=== PATIENT | female | born 1970 | race Caucasian/White ===

== ENCOUNTER → 2016-05-14 | Outpatient (REF) | payer MEDICARE, MEDICAID ==
[~2016-05-14] MED LIST: /DULO30CA PO; /PREG100CA PO; AMMO12CR4 EX; ASPI81TA45 PO; CYMB1CAP5 PO; DIFI200T PO; DIFL150T OR; DULO30CA PO; EMLA2.5C EX; EMLA2.5C TOP; EYEDRO OS; FEXO30TA PO; FLEX10TA2 PO; FLEXERIL PO; FLON0.054; FLON1SPR; GLUC1KIT SC; HYDR-3713 PO; HYDR-3716 PO; IBUP200T45 PO; IBUP800T OR; INSULADS SC; MELA0.02 PO; MOBI7.5T10 PO; NEUR300C PO; OXYC1SOL PO; OXYC5CAP28 PO; PENN1SOL2 TOP; PROB1TAB PO; PROBCAP4 PO; SLOWTAB3 PO; TYLENOL #3 OR; ULTR50TA PO; VICO5TAB PO; VIT D 2000 PO; VITA100037 PO; VITA250L PO; ZANT150T PO; ZETI10TA PO; ZYRT10CA PO; [UNRECOGNIZED DRUG - CODE] EX; [UNRECOGNIZED DRUG - CODE] PO; humalog insulin pump
== END ==
LOC: M SFHCWAGY 16:51
PROVIDERS: ATTEND Nurse Practitioner Family
DX: R30.9 Painful micturition, unspecified (principal)
CPT/HCPCS: 81002; 87086; 87210; G0463

== ENCOUNTER → 2016-05-19 | Outpatient (CLI) | payer MEDICARE, MEDICAID ==
[~2016-05-19] MED LIST changes: -HYDR-3713 PO; +HYDR1TAB97 PO; -IBUP200T45 PO; +IBUP20TA PO
--- NOTE | 2016-05-21 01:43 | ECWPNPC ---
PATIENT NAME: VIC DUNN : 1970 GENDER: FEMALE VISIT DATE: 05/19/2016 DISCHARGE DATE: 05/19/16 09 VISIT LOCKED DATE TIME: PHYSICIAN: DAYNA ANGLIN PHYSICIAN PAGER NO: [phone] RESOURCE: DAYNA ANGLIN REASON FOR APPOINTMENT 1. FOLLOWUP-NECK/SHOULDERS HISTORY OF PRESENT ILLNESS HISTORY OF PRESENT ILLNESS: PAIN THE PATIENT DESCRIBES THE PAIN... FALL RISK SCREENING: SCREENING :NO FALLS IN THE PAST YEAR TODAY'S VISIT: NOTES: RATES PAIN LEVEL TODAY 4/10. HAS HAD A DIFFICULT TIME WITH MAKING DECREASE IN HYDROCODONE BUT HAS BEEN ABLE TO USE ONE A DAY OR LESS. IS REALLY WORRIED ABOUT LEFT NECK LYMPH NODE SWELLING. NECK AND SHOULDER ARE NOT PAINFUL BUT DOES GET STIFF. DID SEE DR QUEEN LAST WEEK. NOTES LEGS ARE BURNING HOT WHEN GOING TO BED.. CURRENT MEDICATIONS TAKING MAGNESIUM 250 MG TABLET 1 TABLET WITH A MEAL ORALLY ONCE A DAY, NOTES: ON HOLD DUE TO DIARRHEA TAKING HYDROCODONE-ACETAMINOPHEN 325-5 MG TABLET 1 TABLET NEEDED ORALLY TID PRN, MAXIMUM 3 TABLETS PER DAY TAKING VITAMIN D 5000 TABLET 1 TABLET ORALLY ONCE A DAY TAKING AMMONIUM LACTATE 12 % CREAM 1 APPLICATION TO AFFECTED AREA EXTERNALLY TWICE A DAY TAKING MULTIVITAMIN _ 1 TAB ORALLY ONCE DAILY TAKING IBUPROFEN 200 MG TABLET 1 TABLET NEEDED ORALLY EVERY 6 HRS TAKING INSULIN PUMP ACCESSORIES MISCELLANEOUS DIRECTED TAKING HUMALOG 100 UNIT/ML SOLUTION DIRECTED VIA PUMP SUBCUTANEOUS 24 HOURS TAKING PROBIOTIC _ CAPSULE 1 CAP(S) ORALLY ONCE DAILY TAKING CYCLOBENZAPRINE HCL 5 MG TABLET 1/2-1 TABLET ORALLY THREE TIMES A DAY NEEDED TAKING PENNSAID 1.5 % SOLUTION APPLY TO SHOLDERS, NECK AND CHEST TRANSDERMAL FOUR TIMES DAILY, NOTES: ON HOLD DUE TO DIARRHEA TAKING PENNSAID 2 % SOLUTION 2 APPLICATIONS TO AFFECTED AREA TRANSDERMAL FOUR TIMES DAILY TAKING METANX 3-90.314-2-35 MG CAPSULE ORALLY TAKING MELATONIN 1 MG/4ML LIQUID 250MCG ORALLY DAILY TAKING ZYRTEC ALLERGY 10 MG TABLET 1 TABLET ORALLY ONCE DAILY NEEDED TAKING NORCO 5-325 MG TABLET 1 TABLET ORALLY EVERY 4-6 HRS PRN PAIN MDD=3 FOR DAY TIME USE TAKING FLONASE 50 MCG/ACT SUSPENSION 1 SPRAY IN EACH NOSTRIL NASALLY ONCE A DAY NOT-TAKING L-THEANINE MEDICATION LIST REVIEWED AND RECONCILED WITH THE PATIENT PAST MEDICAL HISTORY TYPE 1 DIABETES (INSULIN PUMP)--[facility]- HAS DM-RETINOPATHY/NEUROPATHY HYPERLIPIDEMIA DEGENERATION OF LUMBAR DISCS--DISABLED, GOES TO PAIN CENTER AT [facility] CARPAL TUNNEL SYNDROME ALLERGY VITAMIN D DEFICIENCY BENIGN THYROID NODULE LEFT SHOULDER PAIN CHRONIC PAIN, MANAGED BY PAIN CENTER C DIFFICILE COLITIS, PROLONGED COURSE 12/21-05/24, PROB DUE TO CLINDA; NEEDED STOOL TRANSPLANT [facility] 04/22 2012 BORDERLINE B12 DEFIC 11/20 BARRETTS ESOPHAGUS BX 12/18, NEG BX 04/22 MONONUCLEOSIS-- + EBV IGM 08/22; SAW ID 12/[id number], DX WITH CHRONIC MONO ALLERGIES STATINS: ELEVATED LFT: SIDE EFFECTS AUGMENTIN: DECREASES URINE OUT PUT: SIDE EFFECTS LYRICA: DECREASED BLOOD SUGAR: ALLERGY IBUPROFEN: DIARRHEA: SIDE EFFECTS CLINDAMYCIN HCL: C-DIFFICILE: SIDE EFFECTS GABAPENTIN: SEVERE DIZZINESS: SIDE EFFECTS CYMBALTA: ALKYLATION OPERATOR: SIDE EFFECTS SOCIAL HISTORY TOBACCO USE ARE YOU A:NONSMOKER LEARNING BARRIERS / SPECIAL NEEDS ORIENTED TO PLAN OF CARE: PATIENT, PAIN MANAGEMENT PATIENT, ORIENTED TO PLAN OF CARE: PATIENT, PAIN MANAGEMENT PATIENT. NEW PATIENT PAIN DIARY TODAY'S VISITNOTES FROM 0-10, WHAT LEVEL IS YOUR PAIN TODAY?0 PAIN CLINIC PFS, CLERGY, PUBLIC HEALTH REFERRALS PFS REFERRAL NEEDED?NO CLERGY REFERRAL NEEDED?NO PUBLIC HEALTH REFERRAL NEEDED?NO WAS THE PROVIDER NOTIFIED OF ANY PERTINENT INFO?NO PFS REFERRAL NEEDED?NO CLERGY REFERRAL NEEDED?NO PUBLIC HEALTH REFERRAL NEEDED?NO WAS THE PROVIDER NOTIFIED OF ANY PERTINENT INFO?NO REVIEW OF SYSTEMS CONSTITUTIONAL: ANY CHANGE IN YOUR MEDICAL CONDITION? NO . CHILLS NO . FEVER NO . INFECTION: DO YOU HAVE NEW INFECTIONS? NO . DO YOU HAVE HISTORY OF MRSA? NO . MUSCULOSKELETAL: ANY NEW PATTERNS OF PAIN OR NUMBNESS? YES LEGS GETTING BURNING HOT WHEN SHE GOES TO BED . GASTROENTEROLOGY: ANY NEW CHANGE IN BOWEL CONTROL? NO . GENITOURINARY: ANY NEW CHANGE IN BLADDER CONTROL? NO . IS THERE A CHANCE YOU COULD BE ? NO . HEMATOLOGY/LYMPH: DO YOU TAKE ANY BLOOD THINNERS? (FOR EXAMPLE- COUMADIN, PLAVIX, AGGRENOX, PLATEL, PRADAXA, OR XARELTO) NO . WHEN WAS YOUR LAST DOSE? DATE: TIME: . NEUROLOGY: HAVE YOU FALLEN IN THE PAST 6 MONTHS? NO . ANY NEW EXTREMITY NUMBNESS OR WEAKNESS? NO . PERIPHERAL NEUROPATHY JAIRO FEET ARE ICE COLD, AND LEGS ARE ON FIRE. . CARDIOLOGY: DO YOU HAVE A PACEMAKER OR DEFIBRILLATOR? NO . RESPIRATORY: HAVE YOU BEEN SICK IN THE PAST WEEK? YES DUE MORENA GORDON . FEVER NO . FLU LIKE SYMPTOMS? NO . COUGH NO . INTEGUMENTARY: DO YOU HAVE ANY RASHES OR OPEN SORES? NO . ALLERGIC/IMMUNO: ARE YOU ALLERGIC TO SHELLFISH OR IV DYE? NO . ANY NEW ALLERGIES? NO . PSYCHIATRIC: DO YOU HAVE THOUGHTS OF HURTING YOURSELF OR SOMEONE ELSE? NO . ARE YOU ABUSED, NEGLECTED, OR IN AN UNSAFE ENVIRONMENT? NO . ENDOCRINOLOGY: ARE YOU DIABETIC? YES . OTHER: DO YOU NEED ANY PRESCRIPTIONS? YES HYDROCODONE . IF YES, PLEASE LIST: ____ . ANY NEW PROBLEMS WITH YOUR MEDICATIONS? NO . WHEN DID YOU LAST EAT? ____ . WHEN DID YOU LAST DRINK? ____ . WHAT DID YOU LAST DRINK? ____ . NAME OF PERSON DRIVING YOU HOME? ____ . DO YOU HAVE ANY OTHER QUESTIONS OR CONCERNS NO . REVIEWED BY: PROVIDER: . VITAL SIGNS WT 163 LBS, HT 64 IN, BMI 27.98 INDEX, BP 124/69 MM HG, HR 100 /MIN, RR 16 /MIN, TEMP 98.6 F, OXYGEN SAT % 100. EXAMINATION GENERAL EXAMINATION: PSYCHALERT , ORIENTED X 3 , APPROPRIATE MOOD AND AFFECT . NECK:SMALL TENDER ENLARGED LYMPH NODE LEFT ANTERIOR CERVICAL CHAIN. NO THYROMEGLY. LUNGS:CLEAR TO AUSCULTATION BILATERALLY. HEART:HEART RATE REGULAR. MUSCULOSKELETAL:MUSCLE STRENGTH TESTING 5/5 BILATERAL UPPER AND LOWER EXTREMITIES. MILD TENDERNESS OVER LEFT GREATER THAN RIGHT SCAPULA. . JOINTS:BILATERAL, SHOULDER JOINTS STIFF. CAN REACH TO TOP OF HEAD BUT CAN NOT DO THIS FOR PROLONGED PERIODS. 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 CLINICAL NOTES: #128 - SCREENING BMI AND F/U PLAN IN : BMI ABOVE NORMAL TODAY. DISCUSSED WITH PATIENT NUTRITIONAL FOOD CHOICES TO ASSIST WITH WEIGHT LOSS. RECCOMMENDED REDUCING SALT, SUGAR, SODA INTAKE. RECOMMEND INCREASE ACTIVITY TO INCLUDE WALKING ON A REGULAR BASIS. PROFESSIONAL NUTRITIONAL NUTRITIONAL GUIDANCE IS BEING DONE THROUGH THE [facility]. PROCEDURE CODES FA211 ESTABILISHED PATIENT [facility] CHARGE G8783 BP SCR PRFRM RCMDD DEFIND SCR INTVL G8730 PAIN ASSESS POS TOOL F/U PLAN DOC 1124F ACP DISCUSS-NO DSCNMKR DOCD 1036F TOBACCO NON-USER 0518F FALL PLAN OF CARE DOCD G8427 DOC MEDS VERIFIED W/PT OR RE G8417 BMI >=30 CALCUATE W/FOLLOWUP 3288F FALL RISK ASSESSMENT DOCD 4004F PT TOBACCO SCREEN RCVD TLK FOLLOW UP 7 WEEKS ELECTRONICALLY SIGNED BY BRANDON ENRIQUEZ ON 05/19/2016 AT 11:35 AM EST DISCLAIMER : THIS IS A VISIT SUMMARY EXTRACTED FROM THE [employer] CHART. IT IS NOT A COPY OF THE [employer] PROGRESS NOTE. PATRIZIA
== END ==
LOC: M PAIN 08:40
PROVIDERS: ATTEND Nurse Practitioner Family
DX: Z09 Encounter for follow-up examination after completed treatment for conditions other than malignant neoplasm (principal); G89.29 Other chronic pain; M50.93 Cervical disc disorder, unspecified, cervicothoracic region; M25.511 Pain in right shoulder; M79.1 Myalgia; E11.9 Type 2 diabetes mellitus without complications; E78.5 Hyperlipidemia, unspecified; M51.36 Other intervertebral disc degeneration, lumbar region; E55.9 Vitamin D deficiency, unspecified; Z88.8 Allergy status to other drugs, medicaments and biological substances; Z79.4 Long term (current) use of insulin; Z79.891 Long term (current) use of opiate analgesic; Z79.1 Long term (current) use of non-steroidal anti-inflammatories (NSAID); Z79.899 Other long term (current) drug therapy; Z86.19 Personal history of other infectious and parasitic diseases

== ENCOUNTER → 2016-05-25 | Outpatient (CLI) | payer MEDICARE, MEDICAID ==
[~2016-05-25] MED LIST changes: +HYDR-3713 PO; -HYDR1TAB97 PO; +IBUP200T45 PO; -IBUP20TA PO
--- NOTE | 2016-05-25 12:19 | REPMRS ---
Patient History The patient states she had a clinical breast exam in 05/2016. Family history of pancreatic cancer in maternal aunt at age 50 or over. Digital Woman Screen Mammo: May 25, 2016 - Exam #: [id number] Bilateral CC and MLO view(s) were taken. Technologist: Debora Ash, Technologist Prior study comparison: March 14, 2015, digital woman screen mammo performed at [facility]. December 20, 2012, digital bilateral screening mammo, performed at [facility]. FINDINGS: There are scattered fibroglandular densities. There is a moderate amount of residual fibroglandular tissue which is fairly symmetric. There is no interval development of dominant mass, architectural distortion, or clustered microcalcification typical of malignancy. There has been no change in the appearance of the mammogram from the prior studies. ASSESSMENT: BI-RADS/ACR category 1 mammogram. Negative. Recommendation Routine screening mammogram of both breasts in 1 year (for women over age 40). This mammogram was interpreted with the aid of an FDA-approved computer-aided dectection system. Electronically Signed By: John Eden MD 05/25/16 1929
== END ==
LOC: M WHC 11:04
PROVIDERS: ATTEND Nurse Practitioner Family
DX: Z12.31 Encounter for screening mammogram for malignant neoplasm of breast (principal)
CPT/HCPCS: G0202; G0463

== ENCOUNTER → 2016-06-14 | Outpatient (CLI) | payer MEDICARE, MEDICAID ==
--- NOTE | 2016-06-14 15:37 | REP ---
SOFT-TISSUE NECK ULTRASOUND: 06/14/2016. Comparison. Thyroid ultrasound 11/19/2015, 08/21/2014. Clinical history: Palpable enlarged node left neck, she states for over a year with some tenderness. Sonographic evaluation of the left submandibular region shows a few scattered nodes present, two largest are 1.9 x 0.7 x 0.5 cm and the other 1 x 0.6 x 0.4 cm. Smaller nodes are seen on the right side of which the largest is 5 x 4 x 2 mm. No other scanning performed or findings in these areas. Impression: 1. Mildly enlarged nodes left neck, the largest 1.9 x 0.7 x 0.5 cm. The other is a 1 x 0.6 x 0.4 cm. Nodes on the right are much smaller. No other finding. Signed by Daniel Stanley MD 06/14/2016 04:39 P
== END ==
LOC: M RAD 14:47
PROVIDERS: ATTEND Physician Assistant
DX: R59.0 Localized enlarged lymph nodes (principal); E78.2 Mixed hyperlipidemia; E53.8 Deficiency of other specified B group vitamins; E55.9 Vitamin D deficiency, unspecified

== ENCOUNTER → 2016-06-14 | Outpatient (REF) | payer MEDICARE, MEDICAID ==
[2016-06-14 13:09] LABS: FOLATE > 24.0 NG/ML (>5.4); VITAMIN B12 LEVEL > 2000 PG/ML (247-911)
[2016-06-14 13:10] LABS: ALBUMIN 3.5 GM/DL (3.2-5.2); ALBUMIN/GLOBULIN RATIO 1.09 (1.00-1.93); ALKALINE PHOSPHATASE 93 U/L (45-117); ALT/SGPT 51 U/L (12-78); ANION GAP 8 MEQ/L (8-16); AST/SGOT 20 U/L (15-37); BILIRUBIN,TOTAL 0.7 MG/DL (0.2-1.0); BLOOD UREA NITROGEN 15 MG/DL (7-18); CALCIUM LEVEL 8.8 MG/DL (8.5-10.1); CARBON DIOXIDE LEVEL 29 MEQ/L (21-32); CHLORIDE LEVEL 106 MEQ/L (98-107); CHOLESTEROL LEVEL 242 MG/DL (<200); CREATININE FOR GFR 0.72 MG/DL (0.55-1.02); GLOMERULAR FILTRATION RATE > 60.0 (>58); GLUCOSE, FASTING 185 MG/DL (70-105); POTASSIUM SERUM 4.3 MEQ/L (3.5-5.1); SODIUM LEVEL 143 MEQ/L (136-145); TOTAL PROTEIN 6.7 GM/DL (6.4-8.2); TRIGLYCERIDES LEVEL 98 MG/DL (<150)
== END ==
LOC: M LABDRWAD 12:06
PROVIDERS: ATTEND Nurse Practitioner Family
DX: E78.2 Mixed hyperlipidemia (principal); E53.8 Deficiency of other specified B group vitamins; E55.9 Vitamin D deficiency, unspecified

== ENCOUNTER → 2016-07-08 | Outpatient (CLI) | payer MEDICARE, MEDICAID ==
--- NOTE | 2016-07-09 01:11 | ECWPNPC ---
PATIENT NAME: VIC DUNN : 1970 GENDER: FEMALE VISIT DATE: 07/08/2016 DISCHARGE DATE: 07/08/16927 VISIT LOCKED DATE TIME: PHYSICIAN: DAYNA ANGLIN PHYSICIAN PAGER NO: [phone] RESOURCE: DAYNA ANGLIN REASON FOR APPOINTMENT 1. NECK/SHOULDERS HISTORY OF PRESENT ILLNESS HISTORY OF PRESENT ILLNESS: PAIN THE PATIENT DESCRIBES THE PAIN... FALL RISK SCREENING: SCREENING :NO FALLS IN THE PAST YEAR TODAY'S VISIT: NOTES: RATES PAIN TODAY 3/10. HAS RECENTLY STARTED ON REMERON AND IS NOTING AN IMPROVEMENT IN SLEEP AND MOOD. CHRONIC FATIGUE IS ALSO IMPROVED. STILL HAS LEFT SHOULDER AIN - NECK IS STIFF AND ACHEY. IS HAVING DIFFICULTY STILL WITH GASTROPARESIS SYMPTOMS DESPITE SIGNIFICANT WEAN OF OPIODS. . CURRENT MEDICATIONS TAKING MAGNESIUM 250 MG TABLET 1 TABLET WITH A MEAL ORALLY ONCE A DAY TAKING VITAMIN D 5000 TABLET 1 TABLET ORALLY ONCE A DAY TAKING AMMONIUM LACTATE 12 % CREAM 1 APPLICATION TO AFFECTED AREA EXTERNALLY TWICE A DAY TAKING MULTIVITAMIN _ 1 TAB ORALLY ONCE DAILY TAKING IBUPROFEN 200 MG TABLET 1 TABLET NEEDED ORALLY EVERY 6 HRS TAKING INSULIN PUMP ACCESSORIES MISCELLANEOUS DIRECTED TAKING HUMALOG 100 UNIT/ML SOLUTION DIRECTED VIA PUMP SUBCUTANEOUS 24 HOURS TAKING PROBIOTIC _ CAPSULE 1 CAP(S) ORALLY ONCE DAILY TAKING CYCLOBENZAPRINE HCL 5 MG TABLET 1/2-1 TABLET ORALLY THREE TIMES A DAY NEEDED TAKING PENNSAID 2 % SOLUTION 2 APPLICATIONS TO AFFECTED AREA TRANSDERMAL FOUR TIMES DAILY TAKING METANX 3-90.314-2-35 MG CAPSULE ORALLY TAKING ZYRTEC ALLERGY 10 MG TABLET 1 TABLET ORALLY ONCE DAILY NEEDED TAKING FLONASE 50 MCG/ACT SUSPENSION 1 SPRAY IN EACH NOSTRIL NASALLY ONCE A DAY TAKING NORCO 5-325 MG TABLET 1 TABLET ORALLY EVERY 4-6 HRS PRN PAIN MDD=3 FOR DAY TIME USE TAKING MIRTAZAPINE 15 MG TABLET 1/2 TABLET AT BEDTIME ORALLY BEFORE BEDTIME NOT-TAKING MELATONIN 1 MG/4ML LIQUID 250MCG ORALLY DAILY NOT-TAKING L-THEANINE MEDICATION LIST REVIEWED AND RECONCILED WITH THE PATIENT PAST MEDICAL HISTORY TYPE 1 DIABETES (INSULIN PUMP)--[facility]- HAS DM-RETINOPATHY/NEUROPATHY HYPERLIPIDEMIA DEGENERATION OF LUMBAR DISCS--DISABLED, GOES TO PAIN CENTER AT [facility] CARPAL TUNNEL SYNDROME ALLERGY VITAMIN D DEFICIENCY BENIGN THYROID NODULE LEFT SHOULDER PAIN CHRONIC PAIN, MANAGED BY PAIN CENTER C DIFFICILE COLITIS, PROLONGED COURSE 12/21-05/24, PROB DUE TO CLINDA; NEEDED STOOL TRANSPLANT [facility] 04/22 2012 BORDERLINE B12 DEFIC 11/20-- ORAL SUPPLEMENTATION, LEVEL RECOVERED 05/25 BARRETTS ESOPHAGUS BX 12/18, NEG BX 04/22 MONONUCLEOSIS-- + EBV IGM 08/22; SAW ID 12/22, DX WITH CHRONIC MONO (W/U FOR ADRENAL INSUFFICIENCY WAS WNL AT [facility] 04/23) LICKEN PLANUS ALLERGIES STATINS: ELEVATED LFT: SIDE EFFECTS AUGMENTIN: DECREASES URINE OUT PUT: SIDE EFFECTS LYRICA: DECREASED BLOOD SUGAR: ALLERGY IBUPROFEN: DIARRHEA: SIDE EFFECTS CLINDAMYCIN HCL: C-DIFFICILE: SIDE EFFECTS GABAPENTIN: SEVERE DIZZINESS: SIDE EFFECTS CYMBALTA: SHAREHOLDER: SIDE EFFECTS SOCIAL HISTORY GENERAL: TOBACCO USE ARE YOU A:NONSMOKER LEARNING BARRIERS / SPECIAL NEEDS ORIENTED TO PLAN OF CARE: PATIENT, PAIN MANAGEMENT PATIENT, ORIENTED TO PLAN OF CARE: PATIENT, PAIN MANAGEMENT PATIENT. NEW PATIENT PAIN DIARY TODAY'S VISITNOTES FROM 0-10, WHAT LEVEL IS YOUR PAIN TODAY?0 PAIN CLINIC PFS, CLERGY, PUBLIC HEALTH REFERRALS PFS REFERRAL NEEDED?NO CLERGY REFERRAL NEEDED?NO PUBLIC HEALTH REFERRAL NEEDED?NO WAS THE PROVIDER NOTIFIED OF ANY PERTINENT INFO?NO PFS REFERRAL NEEDED?NO CLERGY REFERRAL NEEDED?NO PUBLIC HEALTH REFERRAL NEEDED?NO WAS THE PROVIDER NOTIFIED OF ANY PERTINENT INFO?NO REVIEW OF SYSTEMS CONSTITUTIONAL: ANY CHANGE IN YOUR MEDICAL CONDITION? NO . CHILLS NO . FEVER NO . INFECTION: DO YOU HAVE NEW INFECTIONS? NO . DO YOU HAVE HISTORY OF MRSA? NO . MUSCULOSKELETAL: ANY NEW PATTERNS OF PAIN OR NUMBNESS? NO . GASTROENTEROLOGY: ANY NEW CHANGE IN BOWEL CONTROL? NO . GENITOURINARY: ANY NEW CHANGE IN BLADDER CONTROL? NO . IS THERE A CHANCE YOU COULD BE ? NO . HEMATOLOGY/LYMPH: GENERAL BEING REFERRED FOR LYMPH NODE BIOPSY . DO YOU TAKE ANY BLOOD THINNERS? (FOR EXAMPLE- COUMADIN, PLAVIX, AGGRENOX, PLATEL, PRADAXA, OR XARELTO) NO . WHEN WAS YOUR LAST DOSE? DATE: TIME: . NEUROLOGY: HAVE YOU FALLEN IN THE PAST 6 MONTHS? NO . ANY NEW EXTREMITY NUMBNESS OR WEAKNESS? NO . CARDIOLOGY: DO YOU HAVE A PACEMAKER OR DEFIBRILLATOR? NO . RESPIRATORY: HAVE YOU BEEN SICK IN THE PAST WEEK? NO . FEVER NO . FLU LIKE SYMPTOMS? NO . COUGH NO . INTEGUMENTARY: DO YOU HAVE ANY RASHES OR OPEN SORES? NO . ALLERGIC/IMMUNO: ARE YOU ALLERGIC TO SHELLFISH OR IV DYE? NO . ANY NEW ALLERGIES? NO . PSYCHIATRIC: DO YOU HAVE THOUGHTS OF HURTING YOURSELF OR SOMEONE ELSE? NO . ARE YOU ABUSED, NEGLECTED, OR IN AN UNSAFE ENVIRONMENT? NO . ENDOCRINOLOGY: ARE YOU DIABETIC? YES INSULIN PUMP - BLOOD SUGARS ARE REPORTED ELEVATED ON DAYS WHEN NOT TAKING HUYDROCODONE . OTHER: DO YOU NEED ANY PRESCRIPTIONS? YES HYDROCODONE . IF YES, PLEASE LIST: ____ . ANY NEW PROBLEMS WITH YOUR MEDICATIONS? NO . WHEN DID YOU LAST EAT? ____ . WHEN DID YOU LAST DRINK? ____ . WHAT DID YOU LAST DRINK? ____ . NAME OF PERSON DRIVING YOU HOME? ____ . DO YOU HAVE ANY OTHER QUESTIONS OR CONCERNS NO . REVIEWED BY: PROVIDER: DAYNA HOWE . VITAL SIGNS WT 164 LBS, HT 64 IN, BMI 28.15 INDEX, BP 115/71 MM HG, HR 94 /MIN, RR 16 /MIN, TEMP 96.6 F, OXYGEN SAT % 100, NA INITIALS TL 0848, REVIEWED BY: KG. EXAMINATION GENERAL EXAMINATION: GENERAL APPEARANCE:COLOR PINK, APPEARS COMFORTABLE. PSYCHALERT , ORIENTED X 3 , APPROPRIATE MOOD AND AFFECT . LUNGS:CLEAR TO AUSCULTATION. HEART:HEART RATE REGULAR. MUSCULOSKELETAL:MINIMAL MUSCULAR CONTRACTION OVER TRAPEZIUS WITH ALMOST NO SHOULDER ELEAVATION. , TRIGGER POINTS AND TIGHT FIBROUS BANDS IDENTIFIED OVER TRAPEZIUS AND OVER LEFT DELOID. ABLE TO ABDUSCT LEFT ARM TO >90 DEGREES. DECREASED ROM WITH NECK ROTATION TO LEFT. BOOSTER PUMP OILER STRENGTH EQUAL AND STRONG. ASSESSMENTS CERVICAL DISC DISORDER OF CERVICOTHORACIC REGION - M50.93 (PRIMARY) SHOULDER PAIN, BILATERAL - M25.511 MYALGIA - M79.1 CHRONIC PRESCRIPTION OPIATE USE - Z79.891 TREATMENT CERVICAL DISC DISORDER OF CERVICOTHORACIC REGION REFILL NORCO TABLET, 5-325 MG, 1 TABLET, ORALLY, EVERY 4-6 HRS PRN PAIN MDD=3 FOR DAY TIME USE, 30 DAYS, 30, REFILLS 0 NOTES: USE PAIN MEDS SPARINGLY. CONTINUE EXERCISES AND STRETCHES. PROCEDURE CODES FA211 ESTABILISHED PATIENT [facility] CHARGE R1128 PAIN ASSESS POS TOOL F/U PLAN DOC G8415 DOC MEDS VERIFIED W/PT OR RE DISPOSITION & COMMUNICATION FOLLOW UP 2 MONTHS ELECTRONICALLY SIGNED BY BRANDON ENRIQUEZ ON 07/08/2016 AT 09:32 AM EST DISCLAIMER : THIS IS A VISIT SUMMARY EXTRACTED FROM THE [employer] CHART. IT IS NOT A COPY OF THE [employer] PROGRESS NOTE. PATRIZIA
== END ==
LOC: M PAIN 08:40
PROVIDERS: ATTEND Nurse Practitioner Family
DX: Z09 Encounter for follow-up examination after completed treatment for conditions other than malignant neoplasm (principal); G89.29 Other chronic pain; M50.93 Cervical disc disorder, unspecified, cervicothoracic region; M25.511 Pain in right shoulder; M79.1 Myalgia; E11.9 Type 2 diabetes mellitus without complications; E78.5 Hyperlipidemia, unspecified; E55.9 Vitamin D deficiency, unspecified; D51.0 Vitamin B12 deficiency anemia due to intrinsic factor deficiency; E27.40 Unspecified adrenocortical insufficiency; Z88.8 Allergy status to other drugs, medicaments and biological substances; Z88.1 Allergy status to other antibiotic agents; Z88.6 Allergy status to analgesic agent; Z79.1 Long term (current) use of non-steroidal anti-inflammatories (NSAID); Z79.4 Long term (current) use of insulin; Z79.891 Long term (current) use of opiate analgesic; Z79.899 Other long term (current) drug therapy; Z87.19 Personal history of other diseases of the digestive system

== ENCOUNTER → 2016-07-15 | Outpatient (CLI) | payer MEDICARE, MEDICAID ==
--- NOTE | 2016-07-15 12:42 | REP ---
GASTRIC EMPTYING SCAN: Following the oral administration of 1.08 mCi technetium 99m sulfur colloid in two scrambled eggs and 2 ounces of water, multiple images of the upper abdomen performed in the anterior and posterior projections. At the end of 90 minutes, 53% of the ingested activity has emptied from the stomach. This yields a t1/2 of 87 minutes, which is normal. IMPRESSION: Normal gastric emptying time. Signed by Nathan Jamison MD 07/15/2016 04:42 P
== END ==
LOC: M RAD 08:14
PROVIDERS: ATTEND Physician Assistant Medical
DX: R11.0 Nausea (principal); R68.81 Early satiety; R10.13 Epigastric pain
CPT/HCPCS: 78264; A9541

== ENCOUNTER → 2016-07-15 | Outpatient (REF) | payer MEDICARE, MEDICAID ==
[2016-07-15 20:20] LABS: BLOOD UREA NITROGEN 16 MG/DL (7-18); CREATININE FOR GFR 0.72 MG/DL (0.55-1.02); GLOMERULAR FILTRATION RATE > 60.0 (>58)
== END ==
LOC: M LAB REF 09:57
PROVIDERS: ATTEND Otolaryngology
DX: R22.1 Localized swelling, mass and lump, neck (principal)

== ENCOUNTER → 2016-07-19 | Outpatient (CLI) | payer MEDICARE, MEDICAID ==
[~2016-07-19] MED LIST changes: +ISOVUE-370 76% 100ML VIAL (Q9967) As Ordered ONE
--- NOTE | 2016-07-19 10:02 | REP ---
CT NECK WITH CONTRAST: 07/19/2016. Comparison: CT 01/18/2013. Ultrasound 06/14/2016. Clinical history: Localized swelling or mass in the neck. The large nodes left neck on ultrasound 06/14/2016. Technique: The patient received a bolus of 75 mL Isovue 370 with scanning through the neck in both coronal and sagittal reconstructions provided. Findings: Sagittal images show slight loss of the normal cervical lordosis. There is cervical spondylosis at C7-T1 with anterior and posterior osteophytes. No compression deformity. The other vertebral body heights are maintained. The dens is intact . Its relationship to C1 is normal on all projections. The skull base, mastoids and visualized sinuses are intact. Posterior elements show spinous processes, lamina, pedicles, facets and transverse processes without fracture or destructive lesion. There is some facet arthritis at a few levels. The central canal shows stenosis at C7-T1 with a disc bulge and those posterior osteophytes. Foramina were adequate. The nasopharyngeal airway, oropharynx, hypopharynx, larynx and subglottic trachea were intact. There is a hypodense nodule in the left thyroid lobe unchanged. The neck strap muscles anteriorly and posteriorly are symmetric and normal. The submandibular and parotid glands were symmetric and unremarkable. Orbits and contents are intact. The valleculae, piriform sinuses and epiglottis were intact. Parapharyngeal spaces maintained normal fat planes. No prevertebral swelling or mass. BB marker at the site of the palpable area is directly over the inferior aspect of the left parotid gland but there is no mass in the parotid . Deep to that is a carotid space node with a short axis of 7.5 mm and a length of 16 mm. I do not see other nodes of similar size in the anterior or posterior cervical chain nor in the submandibular region. No supraclavicular mass. Impression: 1. There is a 16 x 7.5 mm node in the left carotid space deep to the parotid gland and superficial to the carotid and jugular vein. No other significant nodes. This is left-sided and is directly adjacent to the BB marker, just inferior to that marker which is overlying the lower margin of the normal parotid gland. 2. The left thyroid lobe shows a low density nodule unchanged. No other significant finding. Signed by Daniel Stanley MD 07/19/2016 03:53 P
== END ==
LOC: M RAD 08:16
PROVIDERS: ATTEND Otolaryngology
DX: R22.1 Localized swelling, mass and lump, neck (principal)
CPT/HCPCS: 70491; Q9967

== ENCOUNTER → 2016-09-07 | Outpatient (CLI) | payer MEDICARE, MEDICAID ==
[~2016-09-07] MED LIST changes: +CYCL5TA PO; -ISOVUE-370 76% 100ML VIAL (Q9967) As Ordered ONE; +MAGN64TASA PO; +METACAP3 PO; +ZYRT10TA2 PO; +emla cream TOP
--- NOTE | 2016-09-08 01:46 | ECWPNPC ---
PATIENT NAME: VIC DUNN : 1970 GENDER: FEMALE VISIT DATE: 09/07/2016 DISCHARGE DATE: 09/07/16914 VISIT LOCKED DATE TIME: PHYSICIAN: DAYNA ANGLIN PHYSICIAN PAGER NO: [phone] RESOURCE: DAYNA ANGLIN REASON FOR APPOINTMENT 1. NECK/SHOULDERS HISTORY OF PRESENT ILLNESS HISTORY OF PRESENT ILLNESS: PAIN THE PATIENT DESCRIBES THE PAIN... FALL RISK SCREENING: SCREENING :NO FALLS IN THE PAST YEAR TODAY'S VISIT: NOTES: RATES PAIN LEVEL TODAY 3/10. DESCRIBES PAIN INTERMITTANT, ACHING AND SORE. LEFT SCAPULA IS MOST BOTHERSOME. IS USING ICE, LIDOCAINE CREAM, LYING FLAT OR WITH NECK STRETCH. USES PAIN MEDS VERY INFREQUENTLY - ONLY A FEW PER WEEK.. CURRENT MEDICATIONS TAKING MAGNESIUM 250 MG TABLET 1 TABLET WITH A MEAL ORALLY ONCE A DAY TAKING VITAMIN D 5000 TABLET 1 TABLET ORALLY ONCE A DAY TAKING AMMONIUM LACTATE 12 % CREAM 1 APPLICATION TO AFFECTED AREA EXTERNALLY TWICE A DAY TAKING MULTIVITAMIN _ 1 TAB ORALLY ONCE DAILY TAKING IBUPROFEN 200 MG TABLET 1 TABLET NEEDED ORALLY EVERY 6 HRS TAKING INSULIN PUMP ACCESSORIES MISCELLANEOUS DIRECTED TAKING HUMALOG 100 UNIT/ML SOLUTION DIRECTED VIA PUMP SUBCUTANEOUS 24 HOURS TAKING CYCLOBENZAPRINE HCL 5 MG TABLET 1/2-1 TABLET ORALLY THREE TIMES A DAY NEEDED TAKING PENNSAID 2 % SOLUTION 2 APPLICATIONS TO AFFECTED AREA TRANSDERMAL FOUR TIMES DAILY TAKING METANX 3-90.314-2-35 MG CAPSULE ORALLY TAKING ZYRTEC ALLERGY 10 MG TABLET 1 TABLET ORALLY ONCE DAILY NEEDED TAKING NORCO 5-325 MG TABLET 1 TABLET ORALLY EVERY 4-6 HRS PRN PAIN MDD=3 FOR DAY TIME USE TAKING ZANTAC 75 75 MG TABLET 1 TABLET NEEDED ORALLY DAILY TAKING TRAZODONE HCL 50 MG TABLET 1 TABLET AT BEDTIME NEEDED ORALLY BEFORE BEDTIME NOT-TAKING L-THEANINE DISCONTINUED MIRTAZAPINE 15 MG TABLET 1 TABLET AT BEDTIME ORALLY BEFORE BEDTIME DISCONTINUED PROBIOTIC _ CAPSULE 1 CAP(S) ORALLY ONCE DAILY DISCONTINUED FLONASE 50 MCG/ACT SUSPENSION 1 SPRAY IN EACH NOSTRIL NASALLY ONCE A DAY DISCONTINUED MELATONIN 1 MG/4ML LIQUID 250MCG ORALLY DAILY MEDICATION LIST REVIEWED AND RECONCILED WITH THE PATIENT PAST MEDICAL HISTORY TYPE 1 DIABETES (INSULIN PUMP)--[facility]- HAS DM-RETINOPATHY/NEUROPATHY; GASTROPARESIS HYPERLIPIDEMIA DEGENERATION OF LUMBAR DISCS--DISABLED, GOES TO PAIN CENTER AT [facility] CARPAL TUNNEL SYNDROME ALLERGY VITAMIN D DEFICIENCY BENIGN THYROID NODULE LEFT (CT 07/23) LEFT SHOULDER PAIN CHRONIC PAIN, MANAGED BY PAIN CENTER C DIFFICILE COLITIS, PROLONGED COURSE 12/21-05/24, PROB DUE TO CLINDA; NEEDED STOOL TRANSPLANT [facility] 04/22 2012 BORDERLINE B12 DEFIC 11/20-- ORAL SUPPLEMENTATION, LEVEL RECOVERED 05/25 BARRETTS ESOPHAGUS BX 12/18, NEG BX 04/22 MONONUCLEOSIS-- + EBV IGM 08/22; SAW ID 12/22, DX WITH CHRONIC MONO (W/U FOR ADRENAL INSUFFICIENCY WAS WNL AT [facility] 04/23) LICHEN PLANUS DIABETIC GASTROPARESIS ALLERGIES STATINS: ELEVATED LFT: SIDE EFFECTS AUGMENTIN: DECREASES URINE OUT PUT: SIDE EFFECTS LYRICA: DECREASED BLOOD SUGAR: ALLERGY IBUPROFEN: DIARRHEA: SIDE EFFECTS CLINDAMYCIN HCL: C-DIFFICILE: SIDE EFFECTS GABAPENTIN: SEVERE DIZZINESS: SIDE EFFECTS CYMBALTA: MARKET RESEARCH SENIOR PROJECT MANAGER: SIDE EFFECTS REMERON: VARIOUS, SEE 07/23 TE: SIDE EFFECTS REVIEW OF SYSTEMS CONSTITUTIONAL: ANY CHANGE IN YOUR MEDICAL CONDITION? YES, GASTRO PORESIS AND TMJ . CHILLS NO . FEVER NO . INFECTION: DO YOU HAVE NEW INFECTIONS? NO . DO YOU HAVE HISTORY OF MRSA? NO . MUSCULOSKELETAL: ANY NEW PATTERNS OF PAIN OR NUMBNESS? NO . GASTROENTEROLOGY: GENERAL INCREASED ISSUES WITH GASTROPARESIS, CONSTIPATION AND BLOATING . ANY NEW CHANGE IN BOWEL CONTROL? NO . GENITOURINARY: ANY NEW CHANGE IN BLADDER CONTROL? NO . IS THERE A CHANCE YOU COULD BE ? NO . HEMATOLOGY/LYMPH: DO YOU TAKE ANY BLOOD THINNERS? (FOR EXAMPLE- COUMADIN, PLAVIX, AGGRENOX, PLATEL, PRADAXA, OR XARELTO) NO . WHEN WAS YOUR LAST DOSE? DATE: TIME: . NEUROLOGY: HAVE YOU FALLEN IN THE PAST 6 MONTHS? NO . ANY NEW EXTREMITY NUMBNESS OR WEAKNESS? NO . CARDIOLOGY: DO YOU HAVE A PACEMAKER OR DEFIBRILLATOR? NO . RESPIRATORY: HAVE YOU BEEN SICK IN THE PAST WEEK? NO . FEVER NO . FLU LIKE SYMPTOMS? NO . COUGH NO . INTEGUMENTARY: DO YOU HAVE ANY RASHES OR OPEN SORES? NO . ALLERGIC/IMMUNO: ARE YOU ALLERGIC TO SHELLFISH OR IV DYE? NO . ANY NEW ALLERGIES? NO . PSYCHIATRIC: DO YOU HAVE THOUGHTS OF HURTING YOURSELF OR SOMEONE ELSE? NO . ARE YOU ABUSED, NEGLECTED, OR IN AN UNSAFE ENVIRONMENT? NO . ENDOCRINOLOGY: ARE YOU DIABETIC? YES - HAVING DIFFICULTY WITH CONTROL - TO SEE THE [facility] SOON . OTHER: DO YOU NEED ANY PRESCRIPTIONS? NO . IF YES, PLEASE LIST: ____ . ANY NEW PROBLEMS WITH YOUR MEDICATIONS? NO . WHEN DID YOU LAST EAT? ____ . WHEN DID YOU LAST DRINK? ____ . WHAT DID YOU LAST DRINK? ____ . NAME OF PERSON DRIVING YOU HOME? ____ . DO YOU HAVE ANY OTHER QUESTIONS OR CONCERNS NO . REVIEWED BY: PROVIDER: . VITAL SIGNS WT 167 LBS, HT 64 IN, BMI 28.66 INDEX, BP 114/69 MM HG, HR 93 /MIN, RR 18 /MIN, TEMP 98.9 F, OXYGEN SAT % 99%, NA INITIALS AW 0849, REVIEWED BY: CM. EXAMINATION GENERAL EXAMINATION: GENERAL APPEARANCE:NO ACUTE DISTRESS, WELL NOURISHED AND HYDRATED. PSYCHAPPROPRIATE MOOD AND AFFECT , ALERT , ORIENTED X 3 . LUNGS:CLEAR TO AUSCULTATION BILATERALLY, NO WHEEZES, RHONCHI, RALES. HEART:NO MURMURS, REGULAR RATE AND RHYTHM. MUSCULOSKELETAL:MUSCLE STRENGTH TESTING 5/5 BILATERAL UPPER EXTREMITES. POINT TENDERNES OVER MID THORACIC SPINOUS PROCESSES AND OVER TRAPEZIUS MUSCLES BILATERALLY, LEFT > RIGHT. PAIN WITH ABDUCTION LEFT SHOULDER. DECREASED ROM WITH NECK FLEXION, EXTENSION AND ROTATION. ASSESSMENTS CERVICAL DISC DISORDER OF CERVICOTHORACIC REGION - M50.93 (PRIMARY) SHOULDER PAIN, BILATERAL - M25.511 MYALGIA - M79.1 CHRONIC PRESCRIPTION OPIATE USE - Z79.891 TREATMENT CERVICAL DISC DISORDER OF CERVICOTHORACIC REGION NOTES: CONTINUE CURRENT MEDS. EXERCISE AND STRETCH ABLE. CHECK WITH INFECTIOUS DISEASE/[place], AND DR TENA IS OK TO DO ANY INJECTION TREATMENT S TO LEFT SHOULDER AREA. CALL WHEN MEDS DUE. PROCEDURE CODES FA211 ESTABILISHED PATIENT [facility] CHARGE G8736 PAIN ASSESS POS TOOL F/U PLAN DOC G8427 DOC MEDS VERIFIED W/PT OR RE DISPOSITION & COMMUNICATION FOLLOW UP 3 MONTHS (REASON: NECK/SHOULDER PAIN) ELECTRONICALLY SIGNED BY BRANDON ENRIQUEZ ON 09/07/2016 AT 11:19 AM EDT DISCLAIMER : THIS IS A VISIT SUMMARY EXTRACTED FROM THE [employer] CHART. IT IS NOT A COPY OF THE [employer] PROGRESS NOTE. MTDD
== END ==
LOC: M PAIN 08:40
PROVIDERS: ATTEND Nurse Practitioner Family
DX: M50.93 Cervical disc disorder, unspecified, cervicothoracic region (principal); M25.511 Pain in right shoulder; M79.1 Myalgia; E10.41 Type 1 diabetes mellitus with diabetic mononeuropathy; E78.2 Mixed hyperlipidemia; F32.0 Major depressive disorder, single episode, mild; Z79.891 Long term (current) use of opiate analgesic; Z79.899 Other long term (current) drug therapy; Z79.4 Long term (current) use of insulin; Z88.1 Allergy status to other antibiotic agents; Z88.0 Allergy status to penicillin; Z88.8 Allergy status to other drugs, medicaments and biological substances

== ENCOUNTER → 2016-09-21 | Outpatient (REF) | payer MEDICARE, MEDICAID ==
[~2016-09-21] MED LIST changes: +FLUT1SPR2; +RANI150T PO; +TRAZ50TA4 PO
[2016-09-22 08:36] LABS: CONTROL LINE MONO INT CTR LINE PRESENT
== END ==
LOC: M SFHCADAM 14:12
PROVIDERS: ATTEND Family Medicine
DX: B27.90 Infectious mononucleosis, unspecified without complication (principal)
CPT/HCPCS: 86308; 86663; 86664; 86665; G0463

== ENCOUNTER 2016-10-20 09:00 | Outpatient (RCR) | payer MEDICARE, MEDICAID ==
[~2016-10-20 09:00] MED LIST changes: -CYCL5TA PO; +CYCL5TAB PO; -MELA0.02 PO; +MELA3TAB49 PO; +MOBI4TAB PO; -MOBI7.5T10 PO; -OXYC1SOL PO; +OXYC1SOL3 PO; +TRAZ50TA11 PO; -TRAZ50TA4 PO; -VITA100037 PO; +VITA100067 PO
== END 2016-11-05 ==
LOC: M PT 09:00
PROVIDERS: ATTEND Otolaryngology
DX: Z51.89 Encounter for other specified aftercare (principal); M26.602 Left temporomandibular joint disorder, unspecified
CPT/HCPCS: 97110; 97140; 97161; G8978; G8979

== ENCOUNTER → 2016-12-14 | Outpatient (CLI) | payer MEDICARE, MEDICAID ==
--- NOTE | 2017-01-01 23:38 | ECWPNPC ---
PATIENT NAME: VIC DUNN : 1970 GENDER: FEMALE VISIT DATE: 12/14/2016 DISCHARGE DATE: 12/14/16 0932 VISIT LOCKED DATE TIME: PHYSICIAN: DAYNA ANGLIN PHYSICIAN PAGER NO: [phone] RESOURCE: DAYNA ANGLIN REASON FOR APPOINTMENT 1. NECK AND SHOULDERS HISTORY OF PRESENT ILLNESS HISTORY OF PRESENT ILLNESS: PAIN THE PATIENT DESCRIBES THE PAIN... FALL RISK SCREENING: SCREENING :NO FALLS IN THE PAST YEAR TODAY'S VISIT: NOTES: RATES PAIN TODAY 4/10. STATES HAD BEEEN TAKING MAX OF HCD 2/WEEK, THEN HAD TO DRIVE TO [place] 5 DAYS A WEEK AND ALONG WITH STRESS CAUSED MARKED INCREASE IN PAIN. IS HAVING A NIGHT BRACE MADE FOR TMJ AND IS DOING ACCUPUNCTURE FOR NECK/SHOULDERS HAS HELPED. . CURRENT MEDICATIONS TAKING MAGNESIUM 250 MG TABLET 1 TABLET WITH A MEAL ORALLY ONCE A DAY TAKING VITAMIN D 5000 TABLET 1 TABLET ORALLY ONCE A DAY TAKING AMMONIUM LACTATE 12 % CREAM 1 APPLICATION TO AFFECTED AREA EXTERNALLY TWICE A DAY TAKING MULTIVITAMIN _ 1 TAB ORALLY ONCE DAILY TAKING IBUPROFEN 200 MG TABLET 1 TABLET NEEDED ORALLY EVERY 6 HRS TAKING INSULIN PUMP ACCESSORIES MISCELLANEOUS DIRECTED TAKING HUMALOG 100 UNIT/ML SOLUTION DIRECTED VIA PUMP SUBCUTANEOUS 24 HOURS TAKING CYCLOBENZAPRINE HCL 5 MG TABLET 1/2-1 TABLET ORALLY THREE TIMES A DAY NEEDED TAKING PENNSAID 2 % SOLUTION 2 APPLICATIONS TO AFFECTED AREA TRANSDERMAL FOUR TIMES DAILY TAKING METANX 3-90.314-2-35 MG CAPSULE ORALLY TAKING ZYRTEC ALLERGY 10 MG TABLET 1 TABLET ORALLY ONCE DAILY NEEDED TAKING ZANTAC 75 75 MG TABLET 1 TABLET NEEDED ORALLY DAILY TAKING TRAZODONE HCL 50 MG TABLET 1 TABLET AT BEDTIME NEEDED ORALLY BEFORE BEDTIME TAKING NORCO 5-325 MG TABLET 1 TABLET ORALLY EVERY 4-6 HRS PRN PAIN MDD=3 FOR DAY TIME USE NOT-TAKING L-THEANINE MEDICATION LIST REVIEWED AND RECONCILED WITH THE PATIENT PAST MEDICAL HISTORY TYPE 1 DIABETES (INSULIN PUMP)--[facility]- HAS DM-RETINOPATHY/NEUROPATHY; GASTROPARESIS HYPERLIPIDEMIA DEGENERATION OF LUMBAR DISCS--DISABLED, GOES TO PAIN CENTER AT [facility] CARPAL TUNNEL SYNDROME ALLERGY VITAMIN D DEFICIENCY BENIGN THYROID NODULE LEFT (CT 07/23) LEFT SHOULDER PAIN CHRONIC PAIN, MANAGED BY PAIN CENTER C DIFFICILE COLITIS, PROLONGED COURSE 12/21-05/24, PROB DUE TO CLINDA; NEEDED STOOL TRANSPLANT [facility] 04/22 2012 BORDERLINE B12 DEFIC 11/20-- ORAL SUPPLEMENTATION, LEVEL RECOVERED 05/25 BARRETTS ESOPHAGUS BX 12/18, NEG BX 04/22 MONONUCLEOSIS-- + EBV IGM 08/22; SAW ID 12/22, DX WITH CHRONIC MONO (W/U FOR ADRENAL INSUFFICIENCY WAS WNL AT [facility] 04/23) LICHEN PLANUS DIABETIC GASTROPARESIS ALLERGIES STATINS: ELEVATED LFT: SIDE EFFECTS AUGMENTIN: DECREASES URINE OUT PUT: SIDE EFFECTS LYRICA: DECREASED BLOOD SUGAR: ALLERGY IBUPROFEN: DIARRHEA: SIDE EFFECTS CLINDAMYCIN HCL: C-DIFFICILE: SIDE EFFECTS GABAPENTIN: SEVERE DIZZINESS: SIDE EFFECTS CYMBALTA: AUTOMATIC MOUNTER: SIDE EFFECTS REMERON: VARIOUS, SEE 07/23 TE: SIDE EFFECTS REVIEW OF SYSTEMS REVIEWED BY: PROVIDER: DAYNA HOWE . CONSTITUTIONAL: ANY CHANGE IN YOUR MEDICAL CONDITION? NO . CHILLS NO . FEVER NO . INFECTION: DO YOU HAVE NEW INFECTIONS? NO - STATES MONO HAS RESOLVED . DO YOU HAVE HISTORY OF MRSA? NO . MUSCULOSKELETAL: ANY NEW PATTERNS OF PAIN OR NUMBNESS? NO . GASTROENTEROLOGY: ANY NEW CHANGE IN BOWEL CONTROL? NO . GENITOURINARY: ANY NEW CHANGE IN BLADDER CONTROL? NO . IS THERE A CHANCE YOU COULD BE ? NO . HEMATOLOGY/LYMPH: DO YOU TAKE ANY BLOOD THINNERS? (FOR EXAMPLE- COUMADIN, PLAVIX, AGGRENOX, PLATEL, PRADAXA, OR XARELTO) NO . WHEN WAS YOUR LAST DOSE? DATE: TIME: . NEUROLOGY: HAVE YOU FALLEN IN THE PAST 6 MONTHS? NO . ANY NEW EXTREMITY NUMBNESS OR WEAKNESS? NO . CARDIOLOGY: DO YOU HAVE A PACEMAKER OR DEFIBRILLATOR? NO . RESPIRATORY: HAVE YOU BEEN SICK IN THE PAST WEEK? NO . FEVER NO . FLU LIKE SYMPTOMS? NO . COUGH NO . INTEGUMENTARY: DO YOU HAVE ANY RASHES OR OPEN SORES? NO . ALLERGIC/IMMUNO: ARE YOU ALLERGIC TO SHELLFISH OR IV DYE? NO . ANY NEW ALLERGIES? NO . PSYCHIATRIC: DO YOU HAVE THOUGHTS OF HURTING YOURSELF OR SOMEONE ELSE? NO . ARE YOU ABUSED, NEGLECTED, OR IN AN UNSAFE ENVIRONMENT? NO . ENDOCRINOLOGY: ARE YOU DIABETIC? YES - FOLLOWA WITH [facility] . OTHER: DO YOU NEED ANY PRESCRIPTIONS? NO . IF YES, PLEASE LIST: ____ . ANY NEW PROBLEMS WITH YOUR MEDICATIONS? NO . WHEN DID YOU LAST EAT? ____ . WHEN DID YOU LAST DRINK? ____ . WHAT DID YOU LAST DRINK? ____ . NAME OF PERSON DRIVING YOU HOME? ____ . DO YOU HAVE ANY OTHER QUESTIONS OR CONCERNS NO . PSYCHOLOGY: HIGH STRESS LEVEL FAMILY STRESS, FINANCIAL ISSUES., POOR SLEEP . VITAL SIGNS WT 164 LBS, HT 64 IN, BMI 28.15 INDEX, BP 124/73 MM HG, HR 95 /MIN, RR 18 /MIN, TEMP 97.4 F, OXYGEN SAT % 95%, SAFE IN ENV? (Y/N) YES, NA INITIALS AW 0855, REVIEWED BY: KG. EXAMINATION GENERAL EXAMINATION: GENERAL APPEARANCE:NO ACUTE DISTRESS, WELL NOURISHED AND HYDRATED. PSYCHAPPROPRIATE MOOD AND AFFECT , ALERT , ORIENTED X 3 . LUNGS:CLEAR TO AUSCULTATION BILATERALLY, NO WHEEZES, RHONCHI, RALES. HEART:RAPID. MUSCULOSKELETAL:MUSCLE STRENGTH TESTING 5/5 BILATERAL UPPER EXTREMITES. POINT TENDERNES OVER MID THORACIC SPINOUS PROCESSES AND OVER TRAPEZIUS MUSCLES BILATERALLY, LEFT > RIGHT. . ASSESSMENTS CERVICAL DISC DISORDER OF CERVICOTHORACIC REGION - M50.93 (PRIMARY) SHOULDER PAIN, BILATERAL - M25.511 MYALGIA - M79.1 CHRONIC PRESCRIPTION OPIATE USE - Z79.891 TREATMENT CERVICAL DISC DISORDER OF CERVICOTHORACIC REGION REFILL CYCLOBENZAPRINE HCL TABLET, 5 MG, 1/2-1 TABLET, ORALLY, THREE TIMES A DAY NEEDED, 30 DAY(S), 90, REFILLS 2 NOTES: CONTINUE CURRENT MEDS. CONTINUE ACCUPUNCTURE, CONTINUE EXERCISES AND STRETCHES. PROCEDURE CODES FA211 ESTABILISHED PATIENT [facility] CHARGE DISPOSITION & COMMUNICATION FOLLOW UP 2 MONTHS (REASON: NECK/SHOULDER PAIN) ELECTRONICALLY SIGNED BY BRANDON ENRIQUEZ ON 01/01/2017 AT 03:34 PM EDT DISCLAIMER : THIS IS A VISIT SUMMARY EXTRACTED FROM THE [employer] CHART. IT IS NOT A COPY OF THE [employer] PROGRESS NOTE. PATRIZIA
== END ==
LOC: M PAIN 08:40
PROVIDERS: ATTEND Nurse Practitioner Family
DX: M50.93 Cervical disc disorder, unspecified, cervicothoracic region (principal); M25.511 Pain in right shoulder; M79.1 Myalgia; E08.42 Diabetes mellitus due to underlying condition with diabetic polyneuropathy; E78.2 Mixed hyperlipidemia; E55.9 Vitamin D deficiency, unspecified; F32.0 Major depressive disorder, single episode, mild; Z79.891 Long term (current) use of opiate analgesic; Z79.899 Other long term (current) drug therapy; Z79.4 Long term (current) use of insulin; Z88.8 Allergy status to other drugs, medicaments and biological substances; Z88.1 Allergy status to other antibiotic agents

== ENCOUNTER → 2017-02-14 | Outpatient (CLI) | payer MEDICARE, MEDICAID | LOC: M PAIN 08:30 | PROVIDERS: ATTEND Nurse Practitioner Family | DX: Z53.29 Procedure and treatment not carried out because of patient's decision for other reasons (principal) ==

== ENCOUNTER → 2017-03-16 | Outpatient (CLI) | payer MEDICARE, MEDICAID ==
--- NOTE | 2017-04-07 02:07 | ECWPNPC ---
PATIENT NAME: VIC DUNN : 1970 GENDER: FEMALE VISIT DATE: 03/16/2017 DISCHARGE DATE: 03/16/17 0943 VISIT LOCKED DATE TIME: PHYSICIAN: DAYNA ANGLIN PHYSICIAN PAGER NO: [phone] RESOURCE: DAYNA ANGLIN REASON FOR APPOINTMENT 1. NECK/SHOULDERS HISTORY OF PRESENT ILLNESS HISTORY OF PRESENT ILLNESS: PAIN THE PATIENT DESCRIBES THE PAIN... FALL RISK SCREENING: SCREENING :NO FALLS IN THE PAST YEAR TODAY'S VISIT: NOTES: IS NOTING MARKED INCREASE IN LEFT ARM PAIN OVER THE LAST MONTH. NO AGGRAVATING FACTORS. ENTIRE ARM IS INVOLVED. PAIN CAN BE CONCENTRATED IN LEFT FROARM WITH RADIATION TO LEFT HAND. LEFT SHOULDER AND NECK ARE STILL VERY UNCOMFORTABLE. IS USING HEAT/MASSAGE, IS DOING SHOULDER AND CHAHAL EXERCISES WITH MIN RELIEF. HCD HELPS BUT TAKES INFREQ. CURRENT MEDICATIONS TAKING MAGNESIUM 250 MG TABLET 1 TABLET WITH A MEAL ORALLY ONCE A DAY TAKING VITAMIN D 5000 TABLET 1 TABLET ORALLY ONCE A DAY TAKING AMMONIUM LACTATE 12 % CREAM 1 APPLICATION TO AFFECTED AREA EXTERNALLY TWICE A DAY TAKING MULTIVITAMIN _ 1 TAB ORALLY ONCE DAILY TAKING IBUPROFEN 200 MG TABLET 1 TABLET NEEDED ORALLY EVERY 6 HRS TAKING INSULIN PUMP ACCESSORIES MISCELLANEOUS DIRECTED TAKING HUMALOG 100 UNIT/ML SOLUTION DIRECTED VIA PUMP SUBCUTANEOUS 24 HOURS TAKING PENNSAID 2 % SOLUTION 2 APPLICATIONS TO AFFECTED AREA TRANSDERMAL FOUR TIMES DAILY TAKING METANX 3-90.314-2-35 MG CAPSULE ORALLY TAKING ZYRTEC ALLERGY 10 MG TABLET 1 TABLET ORALLY ONCE DAILY NEEDED TAKING ZANTAC 75 75 MG TABLET 1 TABLET NEEDED ORALLY DAILY TAKING CYCLOBENZAPRINE HCL 5 MG TABLET 1/2-1 TABLET ORALLY THREE TIMES A DAY NEEDED TAKING NORCO 5-325 MG TABLET 1 TABLET ORALLY EVERY 4-6 HRS PRN PAIN MDD=3 TAKING TRAZODONE HCL 50 MG TABLET 1 TABLET AT BEDTIME NEEDED ORALLY BEFORE BEDTIME NOT-TAKING L-THEANINE MEDICATION LIST REVIEWED AND RECONCILED WITH THE PATIENT PAST MEDICAL HISTORY TYPE 1 DIABETES (INSULIN PUMP)--[facility]- HAS DM-RETINOPATHY/NEUROPATHY; GASTROPARESIS HYPERLIPIDEMIA DEGENERATION OF LUMBAR DISCS--DISABLED, GOES TO PAIN CENTER AT [facility] CARPAL TUNNEL SYNDROME ALLERGY VITAMIN D DEFICIENCY BENIGN THYROID NODULE LEFT (CT 07/23) LEFT SHOULDER PAIN CHRONIC PAIN, MANAGED BY PAIN CENTER C DIFFICILE COLITIS, PROLONGED COURSE 12/21-05/24, PROB DUE TO CLINDA; NEEDED STOOL TRANSPLANT [facility] 04/22 2012 BORDERLINE B12 DEFIC 11/20-- ORAL SUPPLEMENTATION, LEVEL RECOVERED 05/25 BARRETTS ESOPHAGUS BX 12/18, NEG BX 04/22 MONONUCLEOSIS-- + EBV IGM 08/22; SAW ID 12/22, DX WITH CHRONIC MONO; SAW ID AT [facility] 2016, TOLD HER CHRONIC MONO HAD RESOLVED (W/U FOR ADRENAL INSUFFICIENCY WAS WNL AT [facility] 04/23) LICHEN PLANUS DIABETIC GASTROPARESIS ALLERGIES STATINS: ELEVATED LFT: SIDE EFFECTS AUGMENTIN: DECREASES URINE OUT PUT: SIDE EFFECTS LYRICA: DECREASED BLOOD SUGAR: ALLERGY IBUPROFEN: DIARRHEA: SIDE EFFECTS CLINDAMYCIN HCL: C-DIFFICILE: SIDE EFFECTS GABAPENTIN: SEVERE DIZZINESS: SIDE EFFECTS CYMBALTA: ANESTHESIOLOGIST ATTENDING: SIDE EFFECTS REMERON: VARIOUS, SEE 07/23 TE: SIDE EFFECTS SURGICAL HISTORY LEFT ROTATOR CUFF REPAIR 07/20 D + C 1995 LEFT SHOULDER MANIPULATION 07/26/14 JAIRO CARPAL TUNNEL FECAL TRANSPLANT 04/2015 SOCIAL HISTORY GENERAL: TOBACCO USE ARE YOU A:NONSMOKER BMI CARE GOAL FOLLOW-UP ABOVE NORMAL BMI FOLLOW-UPLIFESTYLE EDUCATION REGARDING DIET ALCOHOL SCREENING DID YOU HAVE A DRINK CONTAINING ALCOHOL IN THE PAST YEAR?YES HOW OFTEN DID YOU HAVE SIX OR MORE DRINKS ON ONE OCCASION IN THE PAST YEAR?NEVER (0 POINTS) HOW MANY DRINKS DID YOU HAVE ON A TYPICAL DAY WHEN YOU WERE DRINKING IN THE PAST YEAR?1 OR 2 (0 POINTS) HOW OFTEN DID YOU HAVE A DRINK CONTAINING ALCOHOL IN THE PAST YEAR?MONTHLY OR LESS (1 POINT) POINTS1 INTERPRETATIONNEGATIVE RECREATIONAL DRUG USE DRUG USE?NO CAFFEINE CAFFEINE USE?YES 1 CUP COFFEE LATTER-DAY [id number] NONE LEARNING BARRIERS / SPECIAL NEEDS CHANGE FROM LAST VISIT?NO BARRIERS TO LEARNING?NO HEARING IMPAIRED?NO VISION IMPAIRED?YES :CORRECTIVE LENSES COGNITIVELY IMPAIRED?NO READINESS TO LEARN?YES LEARNING PREFERENCES?NO LEARNING CAPABILITIES PRESENT?YES EMOTIONAL BARRIERS?NO SPECIAL DEVICES?NO VEGETABLES COOK NEEDED?NO NEW PATIENT PAIN DIARY TODAY'S VISITNOTES FROM 0-10, WHAT LEVEL IS YOUR PAIN TODAY?0 PAIN CLINIC PFS, CLERGY, PUBLIC HEALTH REFERRALS PFS REFERRAL NEEDED?NO PFS REFERRAL NEEDED?NO CLERGY REFERRAL NEEDED?NO CLERGY REFERRAL NEEDED?NO PUBLIC HEALTH REFERRAL NEEDED?NO PUBLIC HEALTH REFERRAL NEEDED?NO WAS THE PROVIDER NOTIFIED OF ANY PERTINENT INFO?NO WAS THE PROVIDER NOTIFIED OF ANY PERTINENT INFO?NO ADVANCE DIRECTIVES HEALTH CARE PROXY?NO WOULD YOU LIKE MORE INFORMATION?NO HOSPITALIZATION/MAJOR DIAGNOSTIC PROCEDURE HOSPITALIZED A CHILD WHEN SHE WAS FIRST DIAGNOSED WITH DIABETES SURGERIES REVIEW OF SYSTEMS REVIEWED BY: PROVIDER: . CONSTITUTIONAL: ANY CHANGE IN YOUR MEDICAL CONDITION? NO . CHILLS NO . FEVER NO . INFECTION: DO YOU HAVE NEW INFECTIONS? NO . DO YOU HAVE HISTORY OF MRSA? NO . MUSCULOSKELETAL: ANY NEW PATTERNS OF PAIN OR NUMBNESS? YES - LEFT ARM PAIN IS REALLY BAD . GASTROENTEROLOGY: GENERAL GASTROPARESIS IS AN ISSUE . ANY NEW CHANGE IN BOWEL CONTROL? NO . GENITOURINARY: ANY NEW CHANGE IN BLADDER CONTROL? NO . IS THERE A CHANCE YOU COULD BE ? NO . HEMATOLOGY/LYMPH: DO YOU TAKE ANY BLOOD THINNERS? (FOR EXAMPLE- COUMADIN, PLAVIX, AGGRENOX, PLATEL, PRADAXA, OR XARELTO) NO . WHEN WAS YOUR LAST DOSE? DATE: TIME: . NEUROLOGY: HAVE YOU FALLEN IN THE PAST 6 MONTHS? NO . ANY NEW EXTREMITY NUMBNESS OR WEAKNESS? NO . CARDIOLOGY: DO YOU HAVE A PACEMAKER OR DEFIBRILLATOR? NO . RESPIRATORY: HAVE YOU BEEN SICK IN THE PAST WEEK? NO . FEVER NO . FLU LIKE SYMPTOMS? NO . COUGH NO . INTEGUMENTARY: DO YOU HAVE ANY RASHES OR OPEN SORES? NO . ALLERGIC/IMMUNO: ARE YOU ALLERGIC TO SHELLFISH OR IV DYE? NO . ANY NEW ALLERGIES? NO . PSYCHIATRIC: DO YOU HAVE THOUGHTS OF HURTING YOURSELF OR SOMEONE ELSE? NO . ARE YOU ABUSED, NEGLECTED, OR IN AN UNSAFE ENVIRONMENT? NO . ENDOCRINOLOGY: ARE YOU DIABETIC? YES UNDER GOOD CONTROL . OTHER: DO YOU NEED ANY PRESCRIPTIONS? NO . IF YES, PLEASE LIST: ____ . ANY NEW PROBLEMS WITH YOUR MEDICATIONS? NO . WHEN DID YOU LAST EAT? ____ . WHEN DID YOU LAST DRINK? ____ . WHAT DID YOU LAST DRINK? ____ . NAME OF PERSON DRIVING YOU HOME? ____ . DO YOU HAVE ANY OTHER QUESTIONS OR CONCERNS NO . SKIN: DO YOU HAVE ANY RASHES OR OPEN SORES? CHRONIC FOLLICULITIS . VITAL SIGNS WT 164.0 LBS, HT 64 IN, BMI 28.15 INDEX, BP 129/62 MM HG, HR 96 /MIN, RR 16 /MIN, TEMP 97.9 F, OXYGEN SAT % 99%, NA INITIALS TL 0847, REVIEWED BY: NL. EXAMINATION GENERAL EXAMINATION: MUSCULOSKELETAL:MUSCLE STRENGTH TESTING 5/5 RU/5-/5 LEFT UPPER. VERY POOR ROM OF LEFT SHOULDER. , TRIGGER POINTS:. NEUROLOGIC EXAM:DECREASED SENSATION OVER LEFT FOREARM. DTR'S 1+ LEFT, 2+ RIGHT, TR/ABSENT JAIRO LE. ASSESSMENTS CERVICAL DISC DISORDER OF CERVICOTHORACIC REGION - M50.93 (PRIMARY) CERVICAL RADICULOPATHY - M54.12 TREATMENT CERVICAL DISC DISORDER OF CERVICOTHORACIC REGION CERVICAL EPIDURAL RIGHT NOTES: CONTINUE CURRENT MEDS. CONTINUE CURRENT INSULIN PUMP AM OF PROCEDURE. CHECK BLOOD SUGAR AND BRING RESULTS. PREVENTIVE MEDICINE DISCUSSED PRE PROCEDURE CARE AND GAVE INFO ON CERVICAL EPIDURAL / PT EXPRESSED UNDERSTANDING. PROCEDURE CODES FA211 ESTABILISHED PATIENT [facility] CHARGE DISPOSITION & COMMUNICATION FOLLOW UP AFTER INJECTION (REASON: CHECK AUTH CESB/YELENA - NEED REPORT OF CERVICAL MRI DONE AT [facility] 2014) ELECTRONICALLY SIGNED BY BRANDON ENRIQUEZ ON 04/05/2017 AT 08:33 AM EST DISCLAIMER : THIS IS A VISIT SUMMARY EXTRACTED FROM THE [employer] CHART. IT IS NOT A COPY OF THE [employer] PROGRESS NOTE. PATRIZIA
== END ==
LOC: M PAIN 08:30
PROVIDERS: ATTEND Nurse Practitioner Family
DX: M50.93 Cervical disc disorder, unspecified, cervicothoracic region (principal); M54.12 Radiculopathy, cervical region; G89.29 Other chronic pain; E10.41 Type 1 diabetes mellitus with diabetic mononeuropathy; E55.9 Vitamin D deficiency, unspecified; Z79.891 Long term (current) use of opiate analgesic; Z79.899 Other long term (current) drug therapy; Z79.4 Long term (current) use of insulin; Z88.1 Allergy status to other antibiotic agents; Z88.8 Allergy status to other drugs, medicaments and biological substances; Z87.19 Personal history of other diseases of the digestive system; Z86.19 Personal history of other infectious and parasitic diseases

== ENCOUNTER → 2017-04-14 | Outpatient (REF) | payer MEDICARE, MEDICAID | LOC: M LABDRWAD 11:36 → M LABDRAWC 11:36 | PROVIDERS: ATTEND Physician Assistant | DX: E10.65 Type 1 diabetes mellitus with hyperglycemia (principal) ==

== ENCOUNTER → 2017-05-23 | Outpatient (CLI) | payer MEDICARE, MEDICAID ==
[~2017-05-23] MED LIST changes: -/DULO30CA PO; -/PREG100CA PO; -AMMO12CR4 EX; -ASPI81TA45 PO; -CYCL5TAB PO; -CYMB1CAP5 PO; -DIFI200T PO; -DIFL150T OR; -DULO30CA PO; -EMLA2.5C EX; -EMLA2.5C TOP; -EYEDRO OS; -FEXO30TA PO; -FLEX10TA2 PO; -FLEXERIL PO; -FLON0.054; -FLON1SPR; -FLUT1SPR2; -GLUC1KIT SC; -HYDR-3713 PO; -HYDR-3716 PO; -IBUP200T45 PO; -IBUP800T OR; -INSULADS SC; +ISOVUE-M 300 61% 15ML VIAL (Q9967) As Ordered; +LIDOCAINE 1% SDV INJ 30 ML VIAL As Ordered; -MAGN64TASA PO; -MELA3TAB49 PO; -METACAP3 PO; -MOBI4TAB PO; -NEUR300C PO; -OXYC1SOL3 PO; -OXYC5CAP28 PO; -PENN1SOL2 TOP; -PROB1TAB PO; -PROBCAP4 PO; -RANI150T PO; -SLOWTAB3 PO; -TRAZ50TA11 PO; -TYLENOL #3 OR; -ULTR50TA PO; -VICO5TAB PO; -VIT D 2000 PO; -VITA100067 PO; -VITA250L PO; -ZANT150T PO; -ZETI10TA PO; -ZYRT10CA PO; -ZYRT10TA2 PO; -[UNRECOGNIZED DRUG - CODE] EX; -[UNRECOGNIZED DRUG - CODE] PO; +diazePAM 5 MG TAB As Ordered; -emla cream TOP; -humalog insulin pump; +methylPREDNISolone SUSP 40 MG/ML (DEPO-medrol) VIAL (J1030) As Ordered
== END ==
LOC: M PAIN 08:30
DX: G89.29 Other chronic pain (principal); M50.13 Cervical disc disorder with radiculopathy, cervicothoracic region; E11.43 Type 2 diabetes mellitus with diabetic autonomic (poly)neuropathy; E78.5 Hyperlipidemia, unspecified; E55.9 Vitamin D deficiency, unspecified; Z88.1 Allergy status to other antibiotic agents; Z88.6 Allergy status to analgesic agent; Z88.8 Allergy status to other drugs, medicaments and biological substances; Z79.4 Long term (current) use of insulin; Z79.891 Long term (current) use of opiate analgesic; Z79.899 Other long term (current) drug therapy
CPT/HCPCS: J1030

== ENCOUNTER → 2017-06-15 | Outpatient (REF) | payer MEDICARE, MEDICAID ==
[2017-06-15 13:32] LABS: BASO % 0.5 % (0.0-1.0); EOS # 0.2 10^3/uL (0.0-0.50); EOS % 5.1 % (0.0-3.0); HEMATOCRIT 41.5 % (36.0-47.0); IMMATURE GRANULOCYTE % 0.2 % (0-0); MEAN CORPUSCULAR HEMOGLOBIN 33.3 pg (27.0-33.0); MEAN CORPUSCULAR HGB CONC 33.7 g/dl (32.0-36.5); MEAN CORPUSCULAR VOLUME 98.6 fl (80.0-96.0); MONO # 0.3 10^3/uL (0.0-0.8); MONO % 6.2 % (0.0-5.0); NEUTROPHILS # 2.8 10^3/uL (1.8-7.7); PLATELET COUNT, AUTOMATED 223 10^3/uL (150-450); RED BLOOD COUNT 4.21 10^6/uL (4.00-5.40); WHITE BLOOD COUNT 4.4 10^3/uL (4.0-10.0)
[2017-06-15 13:49] LABS: TOTAL 25(OH) VITAMIN D 35.4 NG/ML (30.0-100.0)
[2017-06-15 13:56] LABS: ALBUMIN 3.7 GM/DL (3.2-5.2); ALBUMIN/GLOBULIN RATIO 1.03 (1.00-1.93); ALKALINE PHOSPHATASE 77 U/L (45-117); ALT/SGPT 22 U/L (12-78); ANION GAP 7 MEQ/L (8-16); AST/SGOT 13 U/L (7-37); BILIRUBIN,TOTAL 1.1 MG/DL (0.2-1.0); BLOOD UREA NITROGEN 11 MG/DL (7-18); CALCIUM LEVEL 8.7 MG/DL (8.5-10.1); CARBON DIOXIDE LEVEL 28 MEQ/L (21-32); CHLORIDE LEVEL 102 MEQ/L (98-107); CHOLESTEROL LEVEL 212 MG/DL (<200); CHOLESTEROL RISK RATIO 2.304 (<5); FREE T4 0.95 NG/DL (0.76-1.46); GLOMERULAR FILTRATION RATE > 60.0 (>58); GLUCOSE, FASTING 281 MG/DL (70-100); HDL CHOLESTEROL 92 MG/DL (>40); LDL CHOLESTEROL 96.4 MG/DL (<100); NON-HDL-C 120 MG/DL; POTASSIUM SERUM 4.3 MEQ/L (3.5-5.1); SODIUM LEVEL 137 MEQ/L (136-145); TOTAL PROTEIN 7.3 GM/DL (6.4-8.2); TRIGLYCERIDES LEVEL 118 MG/DL (<150)
[2017-06-18 00:06] LABS: EBV VIRAL CAPSID AG IgM <36.0 U/mL (0.0-35.9)
== END ==
LOC: M SFHCADAM 08:50
DX: R53.82 Chronic fatigue, unspecified (principal); E04.1 Nontoxic single thyroid nodule; E78.2 Mixed hyperlipidemia; E55.9 Vitamin D deficiency, unspecified; B27.90 Infectious mononucleosis, unspecified without complication
CPT/HCPCS: 84443

== ENCOUNTER → 2017-06-16 | Outpatient (CLI) | payer MEDICARE, MEDICAID | LOC: M PAIN 08:30 | DX: M50.93 Cervical disc disorder, unspecified, cervicothoracic region (principal); M54.12 Radiculopathy, cervical region; G89.29 Other chronic pain; E11.43 Type 2 diabetes mellitus with diabetic autonomic (poly)neuropathy; E78.5 Hyperlipidemia, unspecified; E55.9 Vitamin D deficiency, unspecified; Z79.4 Long term (current) use of insulin; Z79.891 Long term (current) use of opiate analgesic; Z79.899 Other long term (current) drug therapy; Z88.1 Allergy status to other antibiotic agents; Z88.6 Allergy status to analgesic agent; Z88.8 Allergy status to other drugs, medicaments and biological substances | CPT/HCPCS: G0463 ==

== ENCOUNTER 2017-06-28 06:43 | Day surgery (SDC) | payer MEDICARE, MEDICAID ==
[2017-06-28] MEDS ORDERED: LIDOCAINE 2% INJ 100 MG/5 ML SDV (FOR ANES.) As Ordered (07:05)
[2017-06-28] MEDS ORDERED: PROPOFOL 200 MG/20 ML VIAL As Ordered (07:05)
[2017-06-28] MEDS: NS 1,000 ML IV (07:08)
[2017-06-28] MEDS ORDERED: fentaNYL 100 MCG/2 ML INJECTION (J3010) As Ordered (07:36)
== END 2017-06-28 08:01 | disposition home or self-care (01) ==
LOC: M OPP 06:43
DX: K22.70 Barrett's esophagus without dysplasia (principal); R12 Heartburn; K22.8 Other specified diseases of esophagus; R07.89 Other chest pain; F41.9 Anxiety disorder, unspecified; K21.9 Gastro-esophageal reflux disease without esophagitis; E78.5 Hyperlipidemia, unspecified; E10.9 Type 1 diabetes mellitus without complications; K31.84 Gastroparesis; Z86.19 Personal history of other infectious and parasitic diseases; M19.90 Unspecified osteoarthritis, unspecified site; M54.2 Cervicalgia; M54.89 Other dorsalgia; M48.00 Spinal stenosis, site unspecified; M26.609 Unspecified temporomandibular joint disorder, unspecified side; F32.9 Major depressive disorder, single episode, unspecified; G62.9 Polyneuropathy, unspecified; Z87.891 Personal history of nicotine dependence; Z88.0 Allergy status to penicillin; Z88.3 Allergy status to other anti-infective agents; Z88.1 Allergy status to other antibiotic agents; Z91.041 Radiographic dye allergy status; Z88.8 Allergy status to other drugs, medicaments and biological substances; Z79.899 Other long term (current) drug therapy
CPT/HCPCS: 43239

== ENCOUNTER → 2017-06-30 | Outpatient (CLI) | payer MEDICARE, MEDICAID ==
[2017-06-30 20:31] LABS: VITAMIN B12 LEVEL > 2000 PG/ML (247-911)
== END ==
LOC: M ADAMS 11:43
DX: R07.9 Chest pain, unspecified (principal); M50.93 Cervical disc disorder, unspecified, cervicothoracic region; E53.8 Deficiency of other specified B group vitamins
CPT/HCPCS: 82607

== ENCOUNTER → 2017-07-19 | Outpatient (CLI) | payer MEDICARE, MEDICAID | LOC: M PAIN 08:30 | DX: M50.93 Cervical disc disorder, unspecified, cervicothoracic region (principal); M54.12 Radiculopathy, cervical region; E11.9 Type 2 diabetes mellitus without complications; E55.9 Vitamin D deficiency, unspecified; E78.5 Hyperlipidemia, unspecified; Z79.4 Long term (current) use of insulin; Z79.891 Long term (current) use of opiate analgesic; Z79.899 Other long term (current) drug therapy; Z88.8 Allergy status to other drugs, medicaments and biological substances | CPT/HCPCS: G0463 ==

== ENCOUNTER → 2017-08-23 | Outpatient (CLI) | payer MEDICARE, MEDICAID | LOC: M RAD 12:36 | DX: E04.2 Nontoxic multinodular goiter (principal) | CPT/HCPCS: 76536 ==

== ENCOUNTER → 2017-08-31 | Outpatient (CLI) | payer MEDICARE, MEDICAID | LOC: M PAIN 08:30 | DX: G89.29 Other chronic pain (principal); M50.93 Cervical disc disorder, unspecified, cervicothoracic region; M54.12 Radiculopathy, cervical region; E10.319 Type 1 diabetes mellitus with unspecified diabetic retinopathy without macular edema; E10.43 Type 1 diabetes mellitus with diabetic autonomic (poly)neuropathy; E78.5 Hyperlipidemia, unspecified; M51.36 Other intervertebral disc degeneration, lumbar region; E55.9 Vitamin D deficiency, unspecified; E04.1 Nontoxic single thyroid nodule; M25.512 Pain in left shoulder; K22.70 Barrett's esophagus without dysplasia; M26.622 Arthralgia of left temporomandibular joint; L43.9 Lichen planus, unspecified; Z79.4 Long term (current) use of insulin; Z79.891 Long term (current) use of opiate analgesic; Z79.899 Other long term (current) drug therapy; Z88.1 Allergy status to other antibiotic agents; Z88.8 Allergy status to other drugs, medicaments and biological substances | CPT/HCPCS: G0463 ==

== ENCOUNTER → 2017-09-15 | Outpatient (CLI) | payer MEDICARE, MEDICAID | LOC: M SLEEP 19:47 | DX: G47.30 Sleep apnea, unspecified (principal) | CPT/HCPCS: 95810 ==

== ENCOUNTER → 2017-10-26 | Outpatient (CLI) | payer MEDICARE, MEDICAID | LOC: M PAIN 09:30 | DX: M50.93 Cervical disc disorder, unspecified, cervicothoracic region (principal); M54.12 Radiculopathy, cervical region; M79.1 Myalgia; E55.9 Vitamin D deficiency, unspecified; K21.9 Gastro-esophageal reflux disease without esophagitis; E78.5 Hyperlipidemia, unspecified; E10.41 Type 1 diabetes mellitus with diabetic mononeuropathy; Z79.4 Long term (current) use of insulin; Z79.891 Long term (current) use of opiate analgesic; Z79.899 Other long term (current) drug therapy; Z88.8 Allergy status to other drugs, medicaments and biological substances; Z86.19 Personal history of other infectious and parasitic diseases | CPT/HCPCS: G0463 ==

== ENCOUNTER → 2017-11-28 | Outpatient (CLI) | payer MEDICARE, MEDICAID | LOC: M PAIN 13:30 | DX: M50.93 Cervical disc disorder, unspecified, cervicothoracic region (principal); M54.12 Radiculopathy, cervical region; M79.1 Myalgia; E11.319 Type 2 diabetes mellitus with unspecified diabetic retinopathy without macular edema; E11.43 Type 2 diabetes mellitus with diabetic autonomic (poly)neuropathy; E78.5 Hyperlipidemia, unspecified; E55.9 Vitamin D deficiency, unspecified; Z79.4 Long term (current) use of insulin; Z79.891 Long term (current) use of opiate analgesic; Z79.899 Other long term (current) drug therapy; Z88.1 Allergy status to other antibiotic agents; Z88.8 Allergy status to other drugs, medicaments and biological substances | CPT/HCPCS: G0463 ==

== ENCOUNTER → 2018-02-03 | Outpatient (REF) | payer MEDICARE, MEDICAID ==
[2018-02-03 19:47] LABS: BASO % 0.5 % (0.0-1.0); EOS # 0.1 10^3/uL (0.0-0.50); EOS % 2.3 % (0.0-3.0); HEMATOCRIT 42.1 % (36.0-47.0); HEMOGLOBIN 14.3 g/dl (12.0-15.5); IMMATURE GRANULOCYTE % 0.2 % (0-3.0); LYMPH # 1.2 10^3/uL (1.5-4.5); LYMPH % 26.1 % (24.0-44.0); MEAN CORPUSCULAR HEMOGLOBIN 32.7 pg (27.0-33.0); MEAN CORPUSCULAR VOLUME 96.3 fl (80.0-96.0); MONO # 0.3 10^3/uL (0.0-0.8); MONO % 5.7 % (0.0-5.0); NEUTROPHILS # 2.9 10^3/uL (1.8-7.7); NEUTROPHILS % 65.2 % (36.0-66.0); PLATELET COUNT, AUTOMATED 277 10^3/uL (150-450); RED BLOOD COUNT 4.37 10^6/uL (4.00-5.40); RED CELL DISTRIBUTION WIDTH 11.8 % (11.5-14.5); WHITE BLOOD COUNT 4.4 10^3/uL (4.0-10.0)
[2018-02-03 20:19] LABS: ALBUMIN 3.6 GM/DL (3.2-5.2); ALBUMIN/GLOBULIN RATIO 0.97 (1.00-1.93); ALKALINE PHOSPHATASE 80 U/L (45-117); ALT/SGPT 26 U/L (12-78); ANION GAP 10 MEQ/L (8-16); AST/SGOT 17 U/L (7-37); BLOOD UREA NITROGEN 12 MG/DL (7-18); CALCIUM LEVEL 8.8 MG/DL (8.5-10.1); CARBON DIOXIDE LEVEL 26 MEQ/L (21-32); CHLORIDE LEVEL 104 MEQ/L (98-107); CREATININE FOR GFR 0.78 MG/DL (0.55-1.30); FREE T4 0.99 NG/DL (0.76-1.46); GLOMERULAR FILTRATION RATE > 60.0 (>58); GLUCOSE, FASTING 183 MG/DL (70-100); POTASSIUM SERUM 4.3 MEQ/L (3.5-5.1); SODIUM LEVEL 140 MEQ/L (136-145); TOTAL PROTEIN 7.3 GM/DL (6.4-8.2)
== END ==
LOC: M SFHCADAM 13:44
DX: F33.1 Major depressive disorder, recurrent, moderate (principal); E10.41 Type 1 diabetes mellitus with diabetic mononeuropathy; R05 Cough; G47.9 Sleep disorder, unspecified
CPT/HCPCS: 84443

== ENCOUNTER → 2018-02-03 | Outpatient (CLI) | payer MEDICARE, MEDICAID | LOC: M ADAMS 14:07 | DX: R05 Cough (principal); F33.1 Major depressive disorder, recurrent, moderate; E10.41 Type 1 diabetes mellitus with diabetic mononeuropathy; G47.9 Sleep disorder, unspecified | CPT/HCPCS: 71046; 84443 ==

== ENCOUNTER → 2018-02-27 | Outpatient (CLI) | payer MEDICARE, MEDICAID | LOC: M PAIN 08:30 | DX: M50.93 Cervical disc disorder, unspecified, cervicothoracic region (principal); M54.12 Radiculopathy, cervical region; M79.18 Myalgia, other site; E11.43 Type 2 diabetes mellitus with diabetic autonomic (poly)neuropathy; E78.5 Hyperlipidemia, unspecified; E55.9 Vitamin D deficiency, unspecified; K22.70 Barrett's esophagus without dysplasia; Z79.4 Long term (current) use of insulin; Z88.1 Allergy status to other antibiotic agents; Z88.8 Allergy status to other drugs, medicaments and biological substances | CPT/HCPCS: G0463 ==

== ENCOUNTER → 2018-06-20 | Outpatient (CLI) | payer MEDICARE, MEDICAID ==
[~2018-06-20] MED LIST changes: +/DULO30CA PO; +/PREG100CA PO; +AMMO12CR4 EX; +ASPI81TA45 PO; +CYCL5TAB PO; +CYMB1CAP5 PO; +DIFI200T PO; +DIFL150T OR; +DULO30CA PO; +EMLA2.5C EX; +EMLA2.5C TOP; +EYEDRO OS; +FEXO30TA PO; +FLEX10TA2 PO; +FLEXERIL PO; +FLON0.054; +FLON1SPR; +FLUT1SPR2; +GLUC1KIT SC; +HYDR-3713 PO; +HYDR-3716 PO; +IBUP200T45 PO; +IBUP800T OR; +INSULADS SC; -ISOVUE-M 300 61% 15ML VIAL (Q9967) As Ordered; -LIDOCAINE 1% SDV INJ 30 ML VIAL As Ordered; +MAGN64TASA PO; +MELA3TAB49 PO; +METACAP3 PO; +MOBI4TAB PO; +NEUR300C PO; +OXYC1SOL3 PO; +OXYC5CAP28 PO; +PENN1SOL2 TOP; +PROB1TAB PO; +PROBCAP4 PO; +RANI150T PO; +SLOWTAB3 PO; +TRAZ-160 PO; +TYLENOL #3 OR; +ULTR50TA PO; +VICO5TAB PO; +VIT D 2000 PO; +VITA100067 PO; +VITA250L PO; +ZANT150T PO; +ZETI10TA PO; +ZYRT10CA PO; +ZYRT10CA5 PO; +[UNRECOGNIZED DRUG - CODE] EX; +[UNRECOGNIZED DRUG - CODE] PO; -diazePAM 5 MG TAB As Ordered; +emla cream TOP; +humalog insulin pump; -methylPREDNISolone SUSP 40 MG/ML (DEPO-medrol) VIAL (J1030) As Ordered
--- NOTE | 2018-06-20 12:16 | REP ---
Acute abdominal series three views including PA chest and supine upright abdomen: PA chest: Comparison is 06/22/2012. The lung sosa are clear. Cardiac size is normal. The christofer, mediastinum, and skeletal structures are all. There is no free subdiaphragmatic air. There is a cervical spine stabilization plate as an interval change. Impression: Negative PA chest. Abdomen, supine upright views: Comparison is 11/24/2015. The bowel gas pattern is normal. There are calcifications in the pelvis, likely phleboliths. The skeletal structures and soft tissues are otherwise unremarkable. Impression: Normal bowel gas pattern. Electronically Signed by Nathan Ahuja MD 06/20/2018 12:08 P
== END ==
LOC: M RAD 11:28
PROVIDERS: ATTEND Physician Assistant Medical
DX: M43.22 Fusion of spine, cervical region (principal); R93.5 Abnormal findings on diagnostic imaging of other abdominal regions, including retroperitoneum; R11.0 Nausea

== ENCOUNTER → 2018-12-27 | Outpatient (REF) | payer MEDICARE, MEDICAID ==
[~2018-12-27] MED LIST changes: -/DULO30CA PO; -/PREG100CA PO; -AMMO12CR4 EX; +AMMO12CR7 EX; -DULO30CA PO; +DULO30CA9 PO; +LYRI100C PO; -TRAZ-160 PO; +TRAZ-252 PO
[2018-12-27 12:27] LABS: HEMATOCRIT 39.1 % (36.0-47.0); HEMOGLOBIN 12.7 g/dl (12.0-15.5); MEAN CORPUSCULAR HEMOGLOBIN 31.8 pg (27.0-33.0); MEAN CORPUSCULAR HGB CONC 32.5 g/dl (32.0-36.5); MEAN CORPUSCULAR VOLUME 97.8 fl (80.0-96.0); PLATELET COUNT, AUTOMATED 236 10^3/uL (150-450); WHITE BLOOD COUNT 3.7 10^3/uL (4.0-10.0)
[2018-12-27 12:41] LABS: ALBUMIN 3.6 GM/DL (3.2-5.2); ALT/SGPT 28 U/L (12-78); BILIRUBIN,TOTAL 0.6 MG/DL (0.2-1.0); BLOOD UREA NITROGEN 9 MG/DL (7-18); CALCIUM LEVEL 8.9 MG/DL (8.5-10.1); CARBON DIOXIDE LEVEL 30 MEQ/L (21-32); CHLORIDE LEVEL 102 MEQ/L (98-107); CHOLESTEROL LEVEL 193 MG/DL (<200); CHOLESTEROL RISK RATIO 2.924 (<5); FREE T4 0.91 NG/DL (0.76-1.46); GLOMERULAR FILTRATION RATE > 60.0 (>58); GLUCOSE, FASTING 286 MG/DL (70-100); HDL CHOLESTEROL 66 MG/DL (>40); LDL CHOLESTEROL 101 MG/DL (<100); NON-HDL-C 127 MG/DL; POTASSIUM SERUM 4.1 MEQ/L (3.5-5.1); SODIUM LEVEL 137 MEQ/L (136-145); TOTAL PROTEIN 6.8 GM/DL (6.4-8.2); TRIGLYCERIDES LEVEL 128 MG/DL (<150)
[2018-12-27 12:43] LABS: VITAMIN B12 LEVEL > 2000 PG/ML (247-911)
[2018-12-29 00:08] LABS: Lyme Disease IgG/IgM Antibodie <0.91 ISR (0.00-0.90); Lyme Disease IgM Ab Quantitati <0.80 index (0.00-0.79)
== END ==
LOC: M SFHCADAM 09:45
PROVIDERS: ATTEND Family Medicine
DX: E78.2 Mixed hyperlipidemia (principal); E04.1 Nontoxic single thyroid nodule; E53.8 Deficiency of other specified B group vitamins; S30.861A Insect bite (nonvenomous) of abdominal wall, initial encounter; W57.XXXA Bitten or stung by nonvenomous insect and other nonvenomous arthropods, initial encounter

== ENCOUNTER → 2019-07-18 | Outpatient (REF) | payer MEDICARE, MEDICAID ==
[2019-07-18 13:42] LABS: ALBUMIN 3.7 GM/DL (3.2-5.2); ALT/SGPT 28 U/L (12-78); BILIRUBIN,TOTAL 0.6 MG/DL (0.2-1.0); BLOOD UREA NITROGEN 12 MG/DL (7-18); CALCIUM LEVEL 8.9 MG/DL (8.5-10.1); CARBON DIOXIDE LEVEL 31 MEQ/L (21-32); CHLORIDE LEVEL 103 MEQ/L (98-107); CHOLESTEROL LEVEL 223 MG/DL (<200); CHOLESTEROL RISK RATIO 2.593 (<5); CREATININE FOR GFR 0.82 MG/DL (0.55-1.30); FOLATE > 24.0 NG/ML (>5.4); FREE T4 1.03 NG/DL (0.76-1.46); GLOMERULAR FILTRATION RATE > 60.0 (>51); GLUCOSE, FASTING 181 MG/DL (70-100); HDL CHOLESTEROL 86 MG/DL (>40); LDL CHOLESTEROL 122 MG/DL (<100); NON-HDL-C 137 MG/DL; SODIUM LEVEL 139 MEQ/L (136-145); TOTAL PROTEIN 6.9 GM/DL (6.4-8.2); TRIGLYCERIDES LEVEL 77 MG/DL (<150); VITAMIN B12 LEVEL > 2000 PG/ML (247-911)
[2019-07-18 13:46] LABS: HEMATOCRIT 38.9 % (36.0-47.0); HEMOGLOBIN 13.2 g/dl (12.0-15.5); MEAN CORPUSCULAR HGB CONC 33.9 g/dl (32.0-36.5); MEAN CORPUSCULAR VOLUME 100.3 fl (80.0-96.0); PLATELET COUNT, AUTOMATED 254 10^3/uL (150-450); RED BLOOD COUNT 3.88 10^6/uL (4.00-5.40); WHITE BLOOD COUNT 4.4 10^3/uL (4.0-10.0)
[2019-07-19 05:19] LABS: HEMOGLOBIN A1c 6.4 %
== END ==
LOC: M SFHCADAM 09:39
PROVIDERS: ATTEND Family Medicine
DX: E10.41 Type 1 diabetes mellitus with diabetic mononeuropathy (principal); E78.2 Mixed hyperlipidemia; E04.1 Nontoxic single thyroid nodule; E53.8 Deficiency of other specified B group vitamins
CPT/HCPCS: 80053; 80061; 82607; 82746; 83036; 84439; 84443; 85027; G0463

== ENCOUNTER → 2019-11-02 | Outpatient (CLI) | payer MEDICARE, MEDICAID ==
[~2019-11-02] MED LIST changes: +BUPR300T92 PO; +CLAR10CA3 PO; +FAMO40TA3 PO; +HUMA100I3 SC; +LANTINJ4 SC; +LIDO4CRE4 TOP; +MIRA3350 PO; +OMEP10CASR PO; +TUMS500C PO; +VITAD1000T PO; +ZOFR4TAB16 PO
== END ==
LOC: M LABSMTC 11:34
PROVIDERS: ATTEND Anesthesiology
DX: Z01.818 Encounter for other preprocedural examination (principal); Z11.59 Encounter for screening for other viral diseases
CPT/HCPCS: C9803; U0003

== ENCOUNTER 2019-11-05 08:30 | Day surgery (SDC) | payer MEDICARE, MEDICAID ==
[~2019-11-05] VITALS: Ht 162.6 cm; Wt 68.9 kg
[~2019-11-05 08:30] MED LIST changes: +D31000TA2 PO; -VITAD1000T PO
[2019-11-05] MEDS ORDERED: propofoL 500 MG/50 ML VIAL As Ordered ONE (09:45)
[2019-11-05] MEDS ORDERED: LIDOCAINE 2% 100MG/5ML SDV (FOR ANES.) As Ordered ONE (09:45)
--- NOTE | 2019-11-05 10:06 | ROOR ---
Patient Name: Oly Vance Procedure Date: 11/05/2019 9:41 AM Date of : 1970 Age: 49 Room: [facility] Gender: Female Note Status: Finalized Procedure: Colonoscopy Indications: Screening for colorectal malignant neoplasm Providers: Juan Jose CHU MD Referring MD: Dagoberto Cutler MD Requesting Provider: Medicines: Monitored Anesthesia Care Complications: No immediate complications. Procedure: Pre-Anesthesia Assessment: - The heart rate, respiratory rate, oxygen saturations, blood pressure, adequacy of pulmonary ventilation, and response to care were monitored throughout the procedure. The Colonoscope was introduced through the anus and advanced to the cecum, identified by appendiceal orifice and ileocecal valve. The colonoscopy was performed without difficulty. The patient tolerated the procedure well. The quality of the bowel preparation was good. Findings: The perianal and digital rectal examinations were normal. A 6 mm polyp was found in the proximal sigmoid colon. The polyp was semi-sessile. The polyp was removed with a cold snare. Resection and retrieval were complete. Small Internal Hemorrhoids. The exam was otherwise without abnormality on direct and retroflexion views. Impression: - One 6 mm polyp in the proximal sigmoid colon, removed with a cold snare. Resected and retrieved. - Small Internal Hemorrhoids. - The examination was otherwise normal on direct and retroflexion views. Recommendation: - Repeat colonoscopy in 5 years for surveillance. - Return to referring physician as previously scheduled. Juan Jose Chu MD Juan Jose CHU MD 11/05/2019 10:06:27 AM Electronically signed by Juan Jose CHU MD Number of Addenda: 0 Note Initiated On: 11/05/2019 9:41 AM Estimated Blood Loss: Estimated blood loss: none.
[2019-11-05 10:33] VITALS: BP 111/65
== END 2019-11-05 10:39 | disposition home or self-care (01) ==
LOC: M OPP 08:30
PROVIDERS: ATTEND Internal Medicine Gastroenterology
DX: Z12.11 Encounter for screening for malignant neoplasm of colon (principal); D12.5 Benign neoplasm of sigmoid colon; K64.8 Other hemorrhoids

== ENCOUNTER → 2020-01-10 | Outpatient (CLI) | payer MEDICARE, MEDICAID ==
--- NOTE | 2020-02-04 17:17 | REP ---
THYROID ULTRASOUND CLINICAL: Nontoxic multinodular goiter. COMPARISON: 08/23/2017. TECHNIQUE: Real-time cruz scale and color evaluation using linear high frequency and curved array transducers. FINDINGS: The thyroid gland is enlarged, heterogeneous, and demonstrates few scattered bilateral nonspecific appearing small cysts and nodules, as well as a single hypervascular dominant nodule in the left lobe, which currently measures 26 x 17 x 22 mm (previously measuring 25 x 20 x 16 mm). The overall appearance of the thyroid gland is relatively stable. Right lobe measures 5.4 x 1.4 x 1.5 cm. Left lobe measures 5.1 x 2.1 x 1.7 cm. Isthmus measures 2 mm in width. IMPRESSION: Multinodular goiter as described above relatively stable compared to prior examination. MTDD
== END ==
LOC: M RAD 16:13
PROVIDERS: ATTEND Physician Assistant
DX: E04.2 Nontoxic multinodular goiter (principal)

== ENCOUNTER → 2020-01-25 | Outpatient (CLI) | payer MEDICARE, MEDICAID ==
[~2020-01-25] MED LIST changes: +E-Z-GAS II EFFERVESCENT PACKET (SODIUM BICARB./CITRIC ACID/SIMETHICONE) As Ordered ONE; +E-Z-HD 98% w/w 340GM SUSP BTL As Ordered ONE; +E-Z-PAQUE 96% w/w SUSP 176GM BTL As Ordered ONE
--- NOTE | 2020-02-06 13:39 | REP ---
ESOPHAGRAM AIR CONTRAST The procedure was performed under the direct supervision of Dr. Eden. The images were reviewed with Dr. Eden. A single view PA chest x-ray is submitted as a underwear welter film. The superior mediastinal structures are midline. The heart size is within normal limits. The lungs are clear. Liquid barium and gas-producing granules were given in the erect position, as well as liquid barium in the prone oblique positions in order to perform a double-contrast esophagram examination. The oral and pharyngeal stages of deglutition are unremarkable. Esophageal transport is prompt and efficient, and there is no esophagitis, stricture, mucosal ring, or hiatal hernia. There is gastroesophageal reflux demonstrated to above the level of the tika. IMPRESSION: There is gastroesophageal reflux demonstrated to above the level of the tika. Otherwise, unremarkable double contrast esophagram examination. 0.5 minutes of fluoroscopy time was utilized for this procedure. [facility]
== END ==
LOC: M RAD 07:31
PROVIDERS: ATTEND Physician Assistant Medical
DX: K21.9 Gastro-esophageal reflux disease without esophagitis (principal)

== ENCOUNTER → 2020-02-25 | Outpatient (REF) | payer MEDICARE, MEDICAID ==
[~2020-02-25] MED LIST changes: -E-Z-GAS II EFFERVESCENT PACKET (SODIUM BICARB./CITRIC ACID/SIMETHICONE) As Ordered ONE; -E-Z-HD 98% w/w 340GM SUSP BTL As Ordered ONE; -E-Z-PAQUE 96% w/w SUSP 176GM BTL As Ordered ONE
[2020-02-25 17:45] LABS: BASO % 0.6 % (0.0-1.0); EOS # 0.3 10^3/uL (0.0-0.5); EOS % 6.3 % (0.0-3.0); HEMATOCRIT 40.5 % (36.0-47.0); HEMOGLOBIN 13.2 g/dl (12.0-15.5); LYMPH # 1.2 10^3/uL (1.5-5.0); LYMPH % 25.1 % (24.0-44.0); MEAN CORPUSCULAR HEMOGLOBIN 32.9 pg (27.0-33.0); MEAN CORPUSCULAR HGB CONC 32.6 g/dl (32.0-36.5); MONO # 0.3 10^3/uL (0.0-0.8); MONO % 6.1 % (0.0-5.0); NEUTROPHILS % 61.7 % (36.0-66.0); PLATELET COUNT, AUTOMATED 251 10^3/uL (150-450); RED BLOOD COUNT 4.01 10^6/uL (4.00-5.40); WHITE BLOOD COUNT 4.9 10^3/uL (4.0-10.0)
[2020-02-25 18:02] LABS: APPEARANCE, URINE CLEAR (CLEAR); BACTERIA, URINE AUTO NEGATIVE (NEGATIVE); BILIRUBIN, URINE AUTO NEGATIVE (NEGATIVE); BLOOD, URINE BLOOD NEGATIVE (NEGATIVE); COLOR, URINE YELLOW (YELLOW); GLUCOSE, URINE (UA) AUTO 2+ mg/dL (NEGATIVE); HEMOGLOBIN A1c 5.8 %; KETONE, URINE AUTO NEGATIVE (NEGATIVE); LEUKOCYTE ESTERASE, URINE AUTO NEGATIVE (NEGATIVE); NITRITE, URINE AUTO NEGATIVE (NEGATIVE); PROTEIN, URINE AUTO NEGATIVE (NEGATIVE); RBC, URINE AUTO 2 /HPF (0-3); SPECIFIC GRAVITY URINE AUTO 1.008 (1.002-1.035); SQUAMOUS EPITHELIAL CELL UR AU 1 /HPF (0-6); UROBILINOGEN, URINE AUTO 0.2 mg/dL (0.0-2.0); WBC, URINE AUTO 0 /HPF (0-3)
[2020-02-25 18:09] LABS: ALBUMIN 3.6 GM/DL (3.2-5.2); ALT/SGPT 29 U/L (12-78); BILIRUBIN,TOTAL 0.6 MG/DL (0.2-1.0); BLOOD UREA NITROGEN 11 MG/DL (7-18); CARBON DIOXIDE LEVEL 29 MEQ/L (21-32); CHLORIDE LEVEL 103 MEQ/L (98-107); CREATININE FOR GFR 0.85 MG/DL (0.55-1.30); GLOMERULAR FILTRATION RATE > 60.0 (>51); GLUCOSE, FASTING 270 MG/DL (70-100); POTASSIUM SERUM 4.5 MEQ/L (3.5-5.1); SODIUM LEVEL 135 MEQ/L (136-145); THYROID STIMULATING HORMONE 0.986 uIU/ML (0.358-3.740); TOTAL PROTEIN 7.1 GM/DL (6.4-8.2)
[2020-02-25 18:12] LABS: TOTAL 25(OH) VITAMIN D 58.8 NG/ML (30.0-100.0)
== END ==
LOC: M LABDRWAD 16:07
PROVIDERS: ATTEND Internal Medicine
DX: R53.83 Other fatigue (principal); E55.9 Vitamin D deficiency, unspecified; E10.65 Type 1 diabetes mellitus with hyperglycemia

== ENCOUNTER → 2020-04-05 | Outpatient (CLI) | payer MEDICARE, MEDICAID ==
[~2020-04-05] MED LIST changes: +D 50CAP2 PO; +GLUC3SPR; +LORA-674 PO; +TRAZ1TAB14 PO
== END ==
LOC: M LABSMTC 08:41
PROVIDERS: ATTEND Anesthesiology
DX: Z01.812 Encounter for preprocedural laboratory examination (principal); Z20.828 Contact with and (suspected) exposure to other viral communicable diseases

== ENCOUNTER 2020-04-08 06:48 | Day surgery (SDC) | payer MEDICARE, MEDICAID ==
[~2020-04-08] VITALS: Ht 162.6 cm; Wt 70.3 kg
[2020-04-08] MEDS ORDERED: NS 1,000 ML IV ONE (07:00)
[2020-04-08] MEDS ORDERED: LIDOCAINE 2% 100MG/5ML SDV (FOR ANES.) As Ordered ONE (07:04)
[2020-04-08] MEDS ORDERED: fentaNYL 100 MCG/2 ML INJECTION (J3010) As Ordered ONE (07:04)
[2020-04-08] MEDS ORDERED: propofoL 200 MG/20 ML VIAL As Ordered ONE (07:04)
--- NOTE | 2020-04-08 07:52 | ROOR ---
Patient Name: Oly Vance Procedure Date: 04/08/2020 7:32 AM Date of : 1970 Age: 49 Room: [facility] Gender: Female Note Status: Finalized Procedure: Upper GI endoscopy Indications: Dysphagia, Heartburn Providers: Juan Jose CHU MD Referring MD: Dagoberto Cutler MD Requesting Provider: Medicines: Monitored Anesthesia Care Complications: No immediate complications. Procedure: Pre-Anesthesia Assessment: - The heart rate, respiratory rate, oxygen saturations, blood pressure, adequacy of pulmonary ventilation, and response to care were monitored throughout the procedure. The Endoscope was introduced through the mouth, and advanced to the second part of duodenum. The upper GI endoscopy was accomplished without difficulty. The patient tolerated the procedure well. Findings: A small area of extrinsic compression was found in the upper third of the esophagus. Mild erythema,esophagitis seen. (below cricopharyngeus, at 17 cm from incisors). Biopsies were taken with a cold forceps for histology. The exam of the esophagus was otherwise normal. The entire examined stomach was normal. The examined duodenum was normal. Impression: - Mild posterior extrinsic impression in the upper third of the esophagus. Mild erythema,esophagitis seen. Biopsied. - Variable Z line, otherwise normal esophagus. - Normal stomach. - Normal examined duodenum. Recommendation: - Observe patient's clinical course. - Use Prilosec (omeprazole) 20 mg PO BID. Procedure Code(s): --- Professional --- 20635, Esophagogastroduodenoscopy, flexible, transoral; with biopsy, single or multiple Diagnosis Code(s): --- Professional --- R12, Heartburn R13.10, Dysphagia, unspecified K22.2, Esophageal obstruction CPT copyright 2019 [employer]. All rights reserved. The codes documented in this report are preliminary and upon workforce consultant review may be revised to meet current compliance requirements. Juan Jose Chu MD Juan Jose CHU MD 04/08/2020 7:52:10 AM Electronically signed by Juan Jose CHU MD Number of Addenda: 0 Note Initiated On: 04/08/2020 7:32 AM Estimated Blood Loss: Estimated blood loss: none.
[2020-04-08 08:05] VITALS: BP 118/60
== END 2020-04-08 08:20 | disposition home or self-care (01) ==
LOC: M OPP 06:48
PROVIDERS: ATTEND Internal Medicine Gastroenterology
DX: K22.2 Esophageal obstruction (principal); K21.9 Gastro-esophageal reflux disease without esophagitis; E11.9 Type 2 diabetes mellitus without complications; R12 Heartburn; Z79.4 Long term (current) use of insulin; Z79.899 Other long term (current) drug therapy; Z88.1 Allergy status to other antibiotic agents; Z88.0 Allergy status to penicillin; Z88.5 Allergy status to narcotic agent; Z88.8 Allergy status to other drugs, medicaments and biological substances; Z91.041 Radiographic dye allergy status; Z87.891 Personal history of nicotine dependence
CPT/HCPCS: 43239; 88305; J3010

== ENCOUNTER → 2020-05-08 | Outpatient (REF) | payer MEDICARE, MEDICAID ==
[2020-05-08 15:54] LABS: CHLAMYDIA DNA AMPLIFICATION NEGATIVE (NEGATIVE); GC DNA AMPLIFICATION NEGATIVE (NEGATIVE)
== END ==
LOC: M SFHCWAGY 13:31
PROVIDERS: ATTEND Nurse Practitioner Family
DX: B00.9 Herpesviral infection, unspecified (principal); Z11.3 Encounter for screening for infections with a predominantly sexual mode of transmission
CPT/HCPCS: 81002; 87210; 87255; 87491; 87591; G0463

== ENCOUNTER → 2020-06-05 | Outpatient (REF) | payer MEDICARE, MEDICAID | LOC: M SFHCWAGY 09:42 | PROVIDERS: ATTEND Nurse Practitioner Family | DX: Z12.4 Encounter for screening for malignant neoplasm of cervix (principal) ==

== ENCOUNTER 2020-08-23 22:49 | Emergency (ER) | payer MEDICARE, MEDICAID ==
[2020-08-23] MEDS ORDERED: NS 1,000 ML IV SCH (23:15)
[2020-08-23 23:47] LABS: VENOUS PH 7.323 UNITS (7.330-7.430)
[2020-08-23 23:48] LABS: VENOUS BASE EXCESS 1.5 (-2.0-2.0); VENOUS HCO3 28.8 MEQ/L (23.0-27.0); VENOUS O2 SATURATION 47.4 % (60.0-80.0); VENOUS PARTIAL PRESSURE CO2 56.8 mmHg (38.0-50.0); VENOUS PARTIAL PRESSURE O2 25.9 mmHg (30.0-50.0); VENOUS STANDARD HCO3 24.6 MEQ/L; VENOUS TOTAL CO2 30.6 MEQ/L (24.0-28.0)
[2020-08-23 23:59] LABS: OSMOLALITY SERUM 290 MOSM/KG (275-295)
[2020-08-24 00:07] LABS: BASO % 0.4 % (0.0-1.0); EOS # 0.2 10^3/uL (0.0-0.5); EOS % 3.3 % (0.0-3.0); HEMATOCRIT 39.1 % (36.0-47.0); HEMOGLOBIN 13.1 g/dl (12.0-15.5); LYMPH # 1.8 10^3/uL (1.5-5.0); LYMPH % 24.6 % (24.0-44.0); MEAN CORPUSCULAR HEMOGLOBIN 33.7 pg (27.0-33.0); MEAN CORPUSCULAR HGB CONC 33.5 g/dl (32.0-36.5); MEAN CORPUSCULAR VOLUME 100.5 fl (80.0-96.0); MONO # 0.5 10^3/uL (0.0-0.8); MONO % 6.4 % (2.0-8.0); NEUTROPHILS # 4.8 10^3/uL (1.5-8.5); NEUTROPHILS % 64.8 % (36.0-66.0); PLATELET COUNT, AUTOMATED 218 10^3/uL (150-450); RED BLOOD COUNT 3.89 10^6/uL (4.00-5.40); WHITE BLOOD COUNT 7.4 10^3/uL (4.0-10.0)
[2020-08-24 00:15] LABS: HEMOGLOBIN A1c 6.2 %
[2020-08-24 00:25] LABS: ACETONE/KETONE 0.98 MG/DL (<2.81); ALBUMIN 3.5 GM/DL (3.2-5.2); ALT/SGPT 22 U/L (12-78); BILIRUBIN,DIRECT 0.1 MG/DL (0.0-0.2); BILIRUBIN,TOTAL 0.4 MG/DL (0.2-1.0); BLOOD UREA NITROGEN 15 MG/DL (7-18); CALCIUM LEVEL 9.5 MG/DL (8.5-10.1); CARBON DIOXIDE LEVEL 29 MEQ/L (21-32); CHLORIDE LEVEL 104 MEQ/L (98-107); GLOMERULAR FILTRATION RATE > 60.0 (>51); GLUCOSE, FASTING 148 MG/DL (70-100); LIPASE 97 U/L (73-393); POTASSIUM SERUM 3.9 MEQ/L (3.5-5.1); SODIUM LEVEL 139 MEQ/L (136-145); TOTAL PROTEIN 6.8 GM/DL (6.4-8.2)
[2020-08-24 00:26] LABS: ETHYL ALCOHOL (ETHANOL) < 0.003 % (0.000-0.010)
[2020-08-24 02:02] LABS: AMPHETAMINES LEVEL URINE NEGATIVE (NEGATIVE); BARBITURATES URINE NEGATIVE (NEGATIVE); BENZODIAZEPINES URINE NEGATIVE (NEGATIVE); CANNABINOIDS URINE POSITIVE (NEGATIVE); COCAINE METABOLITE URINE NEGATIVE (NEGATIVE); METHADONE URINE NEGATIVE (NEGATIVE); OPIATES URINE POSITIVE (NEGATIVE); PHENCYCLIDINE URINE NEGATIVE (NEGATIVE)
[2020-08-24 04:33] VITALS: BP 114/62
--- NOTE | 2020-08-24 05:03 | ECGEPIP ---
[facility] - ED Test Date: 2020-08-23 Pat Name: VIC DUNN Department: Room: - Gender: Female Cosmetologist: Damon NEGRO : 1970 Requested By: MARCO HOWE Order Number: [id number] Reading MD: Pete Pereira Measurements Intervals [place] Rate: 84 P: 111 ND: 148 QRS: 151 QRSD: 70 T: 131 QT: 362 QTc: 427 Interpretive Statements Suspect arm lead reversal, interpretation assumes no reversal Normal sinus rhythm Right axis deviation Electronically Signed on 08-24-2020 5:03:01 EDT by Pete Pereira
== END 2020-08-24 04:35 | disposition home or self-care (01) ==
LOC: M ED 22:49
DX: E11.649 Type 2 diabetes mellitus with hypoglycemia without coma (principal); F17.200 Nicotine dependence, unspecified, uncomplicated; J30.2 Other seasonal allergic rhinitis; Z79.4 Long term (current) use of insulin; Z79.899 Other long term (current) drug therapy; Z91.041 Radiographic dye allergy status; Z88.0 Allergy status to penicillin; Z88.5 Allergy status to narcotic agent; Z88.8 Allergy status to other drugs, medicaments and biological substances

== ENCOUNTER → 2021-02-03 | Outpatient (CLI) | payer MEDICARE, MEDICAID ==
[2021-02-03 18:18] LABS: BLOOD UREA NITROGEN 12 MG/DL (7-18); CREATININE FOR GFR 0.78 MG/DL (0.55-1.30); GLOMERULAR FILTRATION RATE > 60.0 (>51)
== END ==
LOC: M PLALAB 14:57
PROVIDERS: ATTEND Physician Assistant Medical
DX: R63.4 Abnormal weight loss (principal)

== ENCOUNTER → 2021-02-13 | Outpatient (CLI) | payer MEDICARE, MEDICAID ==
[~2021-02-13] MED LIST changes: +GLUCAGON INJ 1MG VIAL As Ordered ONE; +ISOVUE-370 76% 100ML VIAL As Ordered ONE; +NEULUMEX 0.1% SUSPENSION 450ML BOTTLE (FORMERLY VOLUMEN) As Ordered ONE
--- NOTE | 2021-02-13 11:37 | REP ---
INDICATION: R63.4 ABN WT LOSS COMPARISON: None. TECHNIQUE: Axial contrast-enhanced images from the lung bases to the pubic symphysis with images obtained in arterial and portal venous phases of enhancement. Low-dose oral contrast material was administered prior to imaging. Coronal and sagittal reformations were obtained. This CT examination was performed using the following dose reduction techniques: Automated exposure control, adjustment of mA and/or kv according to the patient's size, and use of iterative reconstruction technique. FINDINGS: Evaluation of the enteric system demonstrates moderate fecal stasis through the colon. The remainder of the small and large bowel is grossly unremarkable and age-appropriate. Normal terminal ileum and cecum identified in the right lower quadrant. No evidence for bowel obstruction or bowel wall thickening to suggest an acute or chronic inflammatory process. No ascites. No free air. No abscess or drainable collection. Liver, spleen, pancreas, gallbladder, bilateral adrenal glands and kidneys are normal. Pelvis demonstrates normal bladder. There is significant prominence to the cervical component of the uterus with mass like appearance extending into the lower uterine segment. No obvious pelvic adenopathy or fluid. Adnexa appear normal. No intraperitoneal or retroperitoneal adenopathy. Abdominal aorta and vasculature appear normal. Musculoskeletal structures are intact and without acute process. Lung bases are clear. IMPRESSION: 1. Questionable fecal stasis through the colon. Otherwise normal appearance to the enteric system. 2. Prominent appearance to the uterine cervix and lower uterine segment warrants pelvic ultrasound evaluation. 3. No further acute abdominopelvic pathology appreciated. <Electronically signed by Bryce Slaughter > 02/13/21 [id number]
== END ==
LOC: M RAD 08:47
PROVIDERS: ATTEND Physician Assistant Medical
DX: R63.4 Abnormal weight loss (principal); N85.8 Other specified noninflammatory disorders of uterus
CPT/HCPCS: 74177; J1610; Q9967

== ENCOUNTER → 2021-02-24 | Outpatient (CLI) | payer MEDICARE, MEDICAID ==
[~2021-02-24] MED LIST changes: -GLUCAGON INJ 1MG VIAL As Ordered ONE; -IBUP200T45 PO; +IBUP200T46 PO; -ISOVUE-370 76% 100ML VIAL As Ordered ONE; -NEULUMEX 0.1% SUSPENSION 450ML BOTTLE (FORMERLY VOLUMEN) As Ordered ONE
--- NOTE | 2021-02-24 12:34 | REP ---
INDICATION: ABNORMAL UTERINE BLEEDING. COMPARISON: No prior ultrasound exams TECHNIQUE: Transvesical and transvaginal imaging FINDINGS: The uterus measures 9.2 x 4.6 x 6.1 cm. The parenchymal echo pattern is heterogenous. In the posterior and body there is an oval-shaped 1 cm size nodule seen in multiple images. The endometrial echo complex is somewhat heterogenous having a maximal thickness of 1.2 cm. Right ovary measures 3.4 x 1.6 x 2.6 cm. Right ovarian RI is 0.52. Left ovary was not definitely visualized. An oval-shaped 1.7 cm sized hypoechoic/anechoic area was seen in the left adnexa but whether not it is associated with the left ovary cannot be determined by the images provided. Incidental note is made of nabothian cyst. Urinary bladder measures 5 x 2 x 7 cm IMPRESSION: 1. Uterine myomatous change as described above. 2. Left adnexa as described above. Follow-up is recommended. Consider MRI if clinically relevant. 3. Endometrial echo complex somewhat difficult to evaluate due to heterogeneity. No gross abnormalities were identified, however, follow-up is suggested. <Electronically signed by Eric Evans > 02/24/21 [id number]
== END ==
LOC: M WHC 11:32
PROVIDERS: ATTEND Obstetrics & Gynecology
DX: N93.9 Abnormal uterine and vaginal bleeding, unspecified (principal); R93.89 Abnormal findings on diagnostic imaging of other specified body structures

== ENCOUNTER 2021-03-07 23:23 | Emergency (ER) | payer MEDICARE, MEDICAID ==
[~2021-03-07] VITALS: Ht 157.5 cm; Wt 59.1 kg
--- OUTSIDE RECORDS SUMMARY | 2021-03-07 23:28 | CCD ---
Author Author [facility] Organization [facility] Address Unknown Phone Unavailable Care Team Providers [employer] Name Role Phone Laurence Boykin Unavailable PROBLEMS Type Condition ICD9-CM Code IGL64-MX Code Onset Dates Condition S tatus W/U Status Risk SNOMED Code Notes Problem Vitamin D deficiency, unspecified E55.9 Active con firmed 42046082 Problem Mixed hyperlipidemia E78.2 Active confirmed [id number] was on statins, were dc due to abnl LFTs. Took Zetia, was dc by [facility] when LDL was low per pt Problem Diabetes mellitus due to und erlying condition with diabetic polyneuropathy E08.42 Active confirmed 115479003 Problem Type 1 diabetes mellitus with diabetic mononeuropathy E10.41 Active confirmed 852134044 Problem B12 deficiency E53.8 Active confirmed 16148 4004 Problem Barretts esophagus K22.70 Active confirmed 3 06725756 Problem Fatigue due to treatment R53.83 Active confirmed 675995795 Problem History of Clostridium difficile colitis Z86.19 Active confirmed 413308405 Problem Mild depression F32.0 Active confirmed 3104 41189 Problem 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 Active confirmed 83391244 Problem Chronic prescription opiate use Z79.891 Active confirmed 766922996 Problem Sleep disturbance, unspecified G47.9 Active confir med 08800171 Problem History of Clostridium difficile Z87.19 Active confirmed 891387179 Problem Myalgia M79.1 Active confirmed 49827106 Problem Chronic fatigue, unspecified R53.82 Active confirme d 828571921 Problem Recurrent infections B99.9 Active confirmed 16360867 Problem Cervical radiculopathy M54.12 Active confirmed 55812524 Problem Cervical disc disorder with radiculopathy of cer vicothoracic region M50.13 Active confirmed 554024117 Problem Medicare annual wellness visit, subsequent Z00.00 Active confirmed 535698485 Problem Cervical facet syndrome M47.812 Active confirmed 095091270 Problem Shoulder pain, bilateral M25.511 Active confirmed 11650514 Problem Abnormal uterine bleeding (AUB) N93.9 Active confirmed 01190495039514 Problem Thyroid nodule E04.1 Active confirmed 47247 5005 Problem Cervical disc disorder of cervicothoracic region M 50.93 Active confirmed 136383185 Problem Plantar wart, left foot B07.0 Active confirmed 23214764554367337 Problem Sleep apnea, unspecified type G47.30 Active confirm ed 88324342 Problem Moderate episode of recurrent major depressive disorder F33.1 Active confirmed 068865313 Problem Perimenopause N95.1 Active confirmed 443831 108535256 ALLERGIES Allergen (clinical drug ingredient) Drug/Non Drug Allergy do cumented on EMR Reaction Allergy Type Onset Date Status Remeron various, see 07/23 TE Non Drug Allergy Active pregabalin Lyrica(NDC Code:[address]-09) decreased blood sugar Drug Allergy Active amoxicillin / clavulanate Augmentin(NDC Code:[address]-04) decreases urine out put Drug Allergy Active clindamycin Clindamycin HCl(NDC Code:[address]-22) c-difficile Drug Allergy Active atorvastatin atorvastatin insomnia," racing heart" Non Drug Allergy Active gabapentin Gabapentin(NDC Code:[address]-95) severe dizziness Drug A llergy Active Hydroxymethylglutaryl-CoA Reductase Inhibitors Statins e levated LFT Drug Allergy Active duloxetine Cymbalta(NDC Code:[address]-52) 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 Drug Allergy Active ENCOUNTERS from 1970 to 2021-02-20 Encounter Location Date Provider Diagnosis [facility] [address] [facility] [phone] [place] [address] Feb, Laurence Boykin IMMUNIZATIONS Vaccine Route Administration Date Status Pneumococcal Adult 0.5mL Pneumovax 23 IM Intramuscular Feb 27 014 Administered SOCIAL HISTORY Tobacco Use: Social History Observation Description Date Details (start date - stop date) Former Smoker Sex Assigned At : Social History Observation Description Sex Assigned At Unknown Audit Question Answer Notes Total Score: 2 Interpretation: Alcohol Education Language: Question Answer Notes Languages spoken: Yoruba Anabaptism: Question Answer Notes Anabaptism 33 None Sexual Hx: Question Answer Notes Had sex in the last 12 months (vaginal, oral, or anal)? No Have you ever had an STD? Yes Herpes? Yes Drug and Alcohol Question Answer Notes Total Score: 0 Interpretation: No problems reported Alcohol Screening: Question Answer Notes Did you have a drink containing alcohol in the past year? Ye s Points 1 Interpretation Negative How often did you have six or more drinks on one occas ion in the past year? Never (0 points) How many drinks did you have on a typica l day when you were drinking in the past year? 1 or 2 (0 points) How often did you have a drink containing alcohol in t he past year? Monthly or less (1 point) BMI Care Goal Follow-Up Question Answer Notes Above Normal BMI Follow-Up Lifestyle education regarding t Tobacco Use: Question Answer Notes Are you a: former smoker How long has it been since you last smoked? 5-10 years REASON FOR REFERRAL No Information VITAL SIGNS No information MEDICATIONS Medication SIG (Take, Route, Frequency, Duration) Notes Start Da te End Date Status Vitamin D 5000 1 tablet Orally Once a day Active Shingrix 50 MCG as directed Intramuscular as directed for 1 days Not-Taking Ammonium Lactate 12 % 1 application to affected area Externally Twi ce a day Active Insulin Pump Accessories as directed Active Fluconazole 150 MG 1 tablet Orally weekly orn for yeast for 90 d ay(s) May, Not-Taking Norethindrone 0.35 MG 1 tablet Orally Once a day for 28 day(s) Jun, Not-Taking Flonase 50 MCG/DOSE 1 spray in each nostril Nasally Once a day Not-Taking Zantac 150 MG 2 tablet at bedtime Orally Once a day Not-Taking Nicotine 10 MG 1 cartridge as needed Inhalation 16 time(s) a da y for 30 Days Feb, Active ibuprofen Active Pepcid Active HYDROcodone-Acetaminophen 5-325 MG 1 tablet as needed Orally Daily for 30 Days Dec, Active HumaLOG 100 UNIT/ML as directed via pump Subcutaneous 24 hours Active Cyclobenzaprine HCl 5 MG 1 tablet Orally Three times a day as needed for 90 days Active traZODone HCl 100 MG 1 tablet at bedtime Orally before bedtime f or 90 day(s) Active Pennsaid 2 % 2 applications to affected a chad Transdermal four times daily for 30 day(s) Dec, Active buPROPion HCl 75 MG 1 tab Orally Twice a day Jan, Not-Taking buPROPion HCl ER (XL) 150 MG 1 tablet in the morning O rally Once a day for 90 day(s) September, Active valACYclovir HCl 500 MG 1 tablet Orally Twice a day for 3 days Apr, Active Flonase Active Sudafed Active Omeprazole 20 MG 1 capsule Orally Once a day Active Metanx 3-90.314-2-35 MG Orally Daily Active Lidocaine-Prilocaine 2.5-2.5 % as directed Externally apply small quantity to neck/shoulder region q 6 hrs prn pain for 30 day(s) Jan, Active Claritin 10 MG 1 tablet Orally Once a day for 30 day(s) Active PROCEDURES No Information RESULTS No Results REASON FOR VISIT No Information MEDICAL (GENERAL) HISTORY Type Description Date Medical History type 1 diabetes (insulin pum p)--[facility]- has DM- retinopathy/neuropathy; gastroparesis Medical History hyperlipidemia Medical History degeneration of lumbar discs --disabled, [place] [facility] Medical History carpal tunnel syndrome Medical History allergy Medical History vitamin D deficiency Medical History benign thyroid nodule left ( CT 07/23); unchanged on MRI [facility] 08/27 Medical History left shoulder pain Medical History chronic pain, managed by pain center Medical History c difficile colitis, prolong ed course 12/21-05/24, prob due to clinda; needed stool transplant [facility] 04/22 Medical History rt thyroid nodule, last US , FNA done at [facility] (negative) ~ 2011 Medical History Borderline B12 defic 11/20-- oral supplementation, level recovered 05/25 Medical History Barretts esophagus bx 12/18, neg bx 04/22 Medical History mononucleosis-- + EBV IgM ; saw ID 12/22, dx with chronic mono; saw ID at [facility] 2016, told her chronic mono had resolved Medical History (w/u for adrenal insufficiency was WNL a t [facility] 04/23) Medical History lichen planus Medical History diabetic gastroparesis Medical History TMJ Medical History Neg NPSG 09/23 Medical History ocular migraine Medical History DJD/DDD cervical spine MRI at [facility] 08/27 Surgical History left rotator cuff repair 07/20 Surgical History D + C 1995 Surgical History Left shoulder manipulation 07/26/14 Surgical History vahid carpal tunnel 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 Surgical History [facility] Dr [facility] C7-T1 ant discectomy a nd fusion 11/23 Hospitalization History hospitalized as a child when she was first diagnosed with diabetes Hospitalization History surgeries Goals Section No Information Health Concerns No Information MEDICAL EQUIPMENT No Information MENTAL STATUS No Information FUNCTIONAL STATUS No Information ASSESSMENTS No Information PLAN OF TREATMENT Next Appt Details Provider Name:Laurence Boykin, 2021-03-10 1 1:20:00 AM, [address], , [place], [address], Insurance Providers Payer Name Payer Address Payer Phone Insured Name Patient Relati onship to Insured Coverage Start Date Coverage End Date MEDICAID [employer] [address] [facility] [address] VIC DUNN MEDICARE Part A and B [address] [facility] [id number] [phone] VIC DUNN
--- OUTSIDE RECORDS SUMMARY | 2021-03-07 23:28 | CCD ---
Author Author [facility] Organization [facility] Address Unknown Phone Unavailable Care Team Providers Care Brake Mechanic Name Role Phone Laurence Boykin Unavailable PROBLEMS Type Condition ICD9-CM Code [id number] Code Onset Dates Condition S tatus W/U Status Risk SNOMED Code Notes Problem Vitamin D deficiency, unspecified E55.9 Active con firmed 57262186 Problem Mixed hyperlipidemia E78.2 Active confirmed 230584053 was on statins, were dc due to abnl LFTs. Took Zetia, was dc by [facility] when LDL was low per pt Problem Diabetes mellitus due to und erlying condition with diabetic polyneuropathy E08.42 Active confirmed 195241726 Problem Type 1 diabetes mellitus with diabetic mononeuropathy E10.41 Active confirmed 831673106 Problem B12 deficiency E53.8 Active confirmed 06024 4004 Problem Barretts esophagus K22.70 Active confirmed 3 99766642 Problem Fatigue due to treatment R53.83 Active confirmed 512602156 Problem History of Clostridium difficile colitis Z86.19 Active confirmed 765790865 Problem Mild depression F32.0 Active confirmed 3104 83347 Problem 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 Active confirmed 67969416 Problem Chronic prescription opiate use Z79.891 Active confirmed 844155334 Problem Sleep disturbance, unspecified G47.9 Active confir med 95062782 Problem History of Clostridium difficile Z87.19 Active confirmed 562796396 Problem Myalgia M79.1 Active confirmed 41339209 Problem Chronic fatigue, unspecified R53.82 Active confirme d 304974846 Problem Recurrent infections B99.9 Active confirmed 12023331 Problem Cervical radiculopathy M54.12 Active confirmed 00930121 Problem Cervical disc disorder with radiculopathy of cer vicothoracic region M50.13 Active confirmed 164622073 Problem Medicare annual wellness visit, subsequent Z00.00 Active confirmed 600336192 Problem Cervical facet syndrome M47.812 Active confirmed 851490736 Problem Shoulder pain, bilateral M25.511 Active confirmed 45517951 Problem Abnormal uterine bleeding (AUB) N93.9 Active confirmed 86220531255900 Problem Thyroid nodule E04.1 Active confirmed 78781 5005 Problem Cervical disc disorder of cervicothoracic region M 50.93 Active confirmed 968962181 Problem Plantar wart, left foot B07.0 Active confirmed 79201340581276678 Problem Sleep apnea, unspecified type G47.30 Active confirm ed 66280477 Problem Moderate episode of recurrent major depressive disorder F33.1 Active confirmed 737679416 Problem Perimenopause N95.1 Active confirmed 710560 [id number] ALLERGIES Allergen (clinical drug ingredient) Drug/Non Drug Allergy do cumented on EMR Reaction Allergy Type Onset Date Status pregabalin Lyrica(NDC Code:[address]-60) decreased blood sugar Drug Allergy Active amoxicillin / clavulanate Augmentin(NDC Code:[address]-72) decreases urine out put Drug Allergy Active atorvastatin Atorvastatin insomnia," racing heart" Drug Allergy Active duloxetine Cymbalta(NDC Code:[address]-58) 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 Drug Allergy Active clindamycin Clindamycin HCl(NDC Code:[address]-62) c-difficile Drug Allergy Active gabapentin Gabapentin(NDC Code:[address]-13) severe dizziness Drug A llergy Active Hydroxymethylglutaryl-CoA Reductase Inhibitors Statins e levated LFT Drug Allergy Active mirtazapine Remeron(NDC Code:[address]-18) various, see 07/23 TE Drug Allergy Active ENCOUNTERS from 1969 to 2021-03-02 Encounter Location Date Provider Diagnosis [facility] [phone] [place] [address] Feb, Laurence Boykin HSV (herpes simplex virus) i nfection B00.9 IMMUNIZATIONS Vaccine Route Administration Date Status Pneumococcal Adult 0.5mL Pneumovax 23 IM Intramuscular Feb 27, 2 014 Administered SOCIAL HISTORY Tobacco Use: Social History Observation Description Date Details (start date - stop date) Former Smoker Sex Assigned At : Social History Observation Description Sex Assigned At Unknown Audit Question Answer Notes Total Score: 2 Interpretation: Alcohol Education Language: Question Answer Notes Languages spoken: Macedonian Advent: Question Answer Notes Advent 33 None Sexual Hx: Question Answer Notes [...] at bedtime Orally Once a day Not-Taking valACYclovir HCl 500 MG 1 tablet Orally Twice a day for 3 days Apr, Active ibuprofen Active Pepcid Active traZODone HCl 100 MG 1 tablet at bedtime Orally before bedtime f or 90 day(s) Active HumaLOG 100 UNIT/ML as directed via pump Subcutaneous 24 hours Active Cyclobenzaprine HCl 5 MG 1 tablet Orally Three times a day as needed for 90 days Active Nicotine 10 MG 1 cartridge as needed Inhalation 16 time(s) a da y for 30 Days Feb, Active Pennsaid 2 % 2 applications to affected a chad Transdermal four times daily for 30 day(s) Dec, Active buPROPion HCl 75 MG 1 tab Orally Twice a day Jan, Not-Taking buPROPion HCl ER (XL) 150 MG 1 tablet in the morning O rally Once a day for 90 day(s) September, Active HYDROcodone-Acetaminophen 5-325 MG 1 tablet as needed Orally Daily for 30 Days Dec, Active Flonase Active Sudafed Active Omeprazole 20 [...] Information RESULTS No Results REASON FOR VISIT New Refill Request MEDICAL (GENERAL) HISTORY Type Description Date Medical History type 1 diabetes (insulin pum p)--[facility]- has DM- retinopathy/neuropathy; gastroparesis Medical History hyperlipidemia Medical History degeneration of lumbar discs --disabled, goes to pain center at [facility] Medical History carpal tunnel syndrome Medical History allergy Medical History vitamin D deficiency Medical History benign thyroid nodule left ( CT 07/23); unchanged on MRI [facility] 08/27 Medical History left shoulder pain Medical History chronic pain, managed by pain center Medical History c difficile colitis, prolong ed course 12/21-05/24, prob due to clinda; needed stool transplant [facility] 04/22 Medical History rt thyroid nodule, last US , FNA done at [place] (negative) ~ 2011 Medical History Borderline B12 defic 11/20-- oral supplementation, level recovered 05/25 Medical History Barretts esophagus bx 12/18, neg bx 04/22 Medical History mononucleosis-- + EBV IgM ; saw ID 12/22, dx with chronic mono; saw ID at [facility] 2016, told her chronic mono had resolved Medical History (w/u for adrenal insufficiency was WNL a t [place] 04/23) Medical History lichen planus Medical History diabetic gastroparesis Medical History TMJ Medical History Neg NPSG 09/23 Medical History ocular migraine Medical History DJD/DDD cervical spine MRI at [facility] 08/27 Surgical History left rotator cuff repair 07/20 Surgical History D + C 1995 Surgical History Left shoulder manipulation 07/26/14 Surgical History vahid carpal tunnel 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 Surgical History AREN Crooks C7-T1 ant discectomy a nd fusion 11/23 Hospitalization History hospitalized as a child when she was first diagnosed with diabetes Hospitalization History surgeries Goals Section No Information Health Concerns No Information MEDICAL EQUIPMENT No Information MENTAL STATUS No Information FUNCTIONAL STATUS No Information ASSESSMENTS Encounter Date Diagnosis Assessment Notes Treatment Notes Treatm ent Clinical Notes Feb, HSV (herpes simplex virus) infection (ICD-10 - B 00.9) PLAN OF TREATMENT Medication Medication Name Sig Start Date Stop Date valACYclovir HCl 500 MG 1 tablet Orally Twice a day for 3 days 3 Apr, Next Appt Details Provider Name:Laurence Boykin, 2021-03-10 1 1:20:00 AM, [address] [facility], , [place], [address], Insurance Providers Payer Name Payer Address Payer Phone Insured Name Patient Relati onship to Insured Coverage Start Date Coverage End Date MEDICAID [employer] [address] [facility] [id number] [place] MEDICARE Part A and B [address] [facility] [address] [place]
--- OUTSIDE RECORDS SUMMARY | 2021-03-07 23:28 | CCD | Continuity of Care Document ---
Author Author Oly LOVE M.D. Organization Unknown Address [address], [place] [address] Phone [phone] Care Team Providers Care Digital Media Director Name Role Phone Dagoberto Cutler MD AUTM [phone] Problems Active Problems Provider Date Allergic rhinitis due to house dust mite SISSY [place] Onset: 02/04/2020 Note: On IT. 4+ reaction to dust mite on scratch test completed in 2019. Allergic rhinitis due to pollen Onset: 0 09/20/2018 Note: On IT: 4+ reaction to various tree pollens with a 3+ reaction to various grass and weed pollens on scratch test. 4+ reaction to Ragweed mix and five weed mix with a 3+ reaction to tree mix #2 on intradermal test completed in 2019. Allergic rhinitis due to animal dander O nset: 09/20/2018 Note: On IT. 3+ reaction to cat dander w ith a 2+ reaction to dog dander on intradermal test completed in 2019. Anaphylaxis Lester Love M.D. Onset: 020 Vasomotor rhinitis Lester Love M.D. Onset: 021 Social History Type Date Description Comments Sex Unknown Tobacco Use Reviewed: 02/11/21 Light tobacco smoker (10 or fewer cigarettes/day) Smoking Status Reviewed: 02/11/21 Light tobacco smoker (10 or fewer cigarettes/day) Allergies and adverse reactions Active Allergies Criticality Reaction | Severity Comments Date Clindamycin Unable to assess criticality Abdominal pain, Diarrhea, c-diff 12/30/2018 Zrzeutq-NQG-Bdg Reductase Inhibitors Unable to assess critic ality Increased Liver enzymes 12/30/2018 Gabapentin Unable to assess criticality Dizziness 03/01/2019 Medications Active Medications SIG Qnty Indications Ordering Provide r Date Azelastine HCL (Nasal) 0.15% Solut ion 2 sprays each nostril once a day every morning 30ml J30.0 Lester Love M.D. 02/11/2021 Loratadine 10mg Tablets Take One Tablet By Mouth Every Day 90tabs Lester Love M.D. 2019 Azelastine HCL (Nasal) 137mcg/[place] Solution 2 sprays each nostril every day every morning 30ml J3 0.1 Lester Love M.D. 02/12/2020 Flonase Sensimist 27 .5mcg/[place] Suspension 2 sprays each nostril every night 1units Lester Love M.D. 02/12/2020 Epinephrine 0.3mg/0. 3ML Solution Auto-Inject inject intramuscularly once as needed for anaphylaxis 1twopack Lester Love M.D. 06/15/[address] take 1 capsule (40 mg) by oral route once daily before a meal for 30 days Unknown Humulin 70/30 (70-30 )100Unit/ML Suspension inject by subcutaneous route as per insulin protocol Unknown Bupropion HCL 75mg Tablets Take 1 tablet twice daily Unknown Metanx 3-90.314-2-35mg Capsules Take 1 capsule once daily Unknown Cyclobenzaprine HCL 5mg Tablets Take 1 tablet once daily in the evening Unknown Hydrocodone-Acetaminophen 5-325mg Tablets Take 1 tablet once daily as needed Unknown Trazodone HCL 150mg Tablets Take One Tablet By Mouth Before Bedtime Unknown 0 Humalog 100Unit/ML Solution Use as Directed Via Insulin Pump. Max 100 Units Per Day Unknown Famotidine 40mg Tablets Take One Tablet By Mouth Every Evening Unknown Baqsimi One Pack 3mg/Dose Powder [place] One [place] 3 MG In One Nostril To Treat Severe Hypoglycemia as Directed Unknown Ketotifen Fumarate 0.025% Solution 1 drop per eye daily as needed Unknown Medications Administered in Office Medication SIG Qnty Indications Ordering Provider Date Allergy Injection 2 Or More Injection Lester Love M.D. 02/16/2021 Allergy Injection 2 Or More Injection Lester Love M.D. 01/26/2021 Allergy Injection 2 Or More Injection Lester Love M.D. 12/30/2020 Allergy Injection 2 Or More Injection Lester Love M.D. 12/09/2020 Allergy Injection 2 Or More Injection Lester Love M.D. 11/18/2020 Allergy Injection 2 Or More Injection Lester Love M.D. 10/28/2020 Allergy Injection 2 Or More Injection Lester Love M.D. 10/08/2020 Allergy Injection 2 Or More Injection Lester Love M.D. 09/15/2020 Allergy Injection 2 Or More Injection Lester Love M.D. 08/21/2020 Allergy Injection 2 Or More Injection Lester Love M.D. 07/31/2020 Allergy Injection 2 Or More Injection Lester Love M.D. 07/08/2020 Allergy Injection 2 Or More Injection Lester Love M.D. 06/16/2020 Allergy Injection 2 Or More Injection Lester Love M.D. 05/23/2020 Allergy Injection 2 Or More Injection Lester Love M.D. 04/30/2020 Allergy Injection 2 Or More Injection Lester Love M.D. 04/10/2020 Allergy Injection 2 Or More Injection Lester Love M.D. 03/13/2020 Allergy Injection 2 Or More Injection Lester Love M.D. 02/21/2020 Allergy Injection 2 Or More Injection Lester Love M.D. 01/31/2020 Allergy Injection 2 Or More Injection Lester Love M.D. 01/11/2020 Allergy Injection 2 Or More Injection Lester Love M.D. 12/21/2019 Allergy Injection 2 Or More Injection Lester Love M.D. 11/30/2019 Allergy Injection 2 Or More Injection Lester Love M.D. 11/16/2019 Allergy Injection 2 Or More Injection Lesternarciso Love M.D. 11/06/2019 Allergy Injection 2 Or More Injection LesterLizz Talavera.DNatty 10/22/2019 Allergy Injection 2 Or More Injection Lester Love M.D. 10/11/2019 Allergy Injection 2 Or More Injection Lester Love M.D. 09/28/2019 Allergy Injection 2 Or More Injection LesterHelene TalaveraDNatty 09/17/2019 Allergy Injection 2 Or More Injection LesterHelene KrishnaDNatty 09/04/2019 Allergy Injection 2 Or More Injection Lester Love M.D. 08/22/2019 Allergy Injection 2 Or More Injection Lester Love M.D. 08/09/2019 Allergy Injection 2 Or More Injection Lester Love M.D. 07/27/2019 Allergy Injection 2 Or More Injection Lester Love M.D. 07/20/2019 Allergy Injection 2 Or More Injection Lester Love M.D. 07/13/2019 Allergy Injection 2 Or More Injection Lester Love M.D. 06/29/2019 Allergy Injection 2 Or More Injection Lester Love M.D. 06/22/2019 Therapeutic, Prophylactic Or Diagnostic Injection Subq/Im Injection Lester jennings M.D. 06/15/2019 Allergy Injection 2 Or More Injection eLster Love M.D. 06/15/2019 Allergy Injection 2 Or More Injection Lizz Coronado.DNatty 06/06/2019 Allergy Injection 2 Or More Injection Helene CoronadoDNatty 05/25/2019 Allergy Injection 2 Or More Injection Lester Love M.D. 05/18/2019 Allergy Injection 2 Or More Injection CARLEY Espinoza-C 05/11/2019 Allergy Injection 2 Or More Injection Lester Love M.D. 05/11/2019 Allergy Injection 2 Or More Injection Lester Love M.D. 05/04/2019 Allergy Injection 2 Or More Injection Lester Love M.D. 04/24/2019 Allergy Injection 2 Or More Injection Lester Love M.D. 04/16/2019 Allergy Injection 2 Or More Injection Lester Love M.D. 04/09/2019 Allergy Injection 2 Or More Injection Lester Love M.D. 03/30/2019 Allergy Injection 2 Or More Injection Lester Love M.D. 03/22/2019 Allergy Injection 2 Or More Injection Lester Love M.D. 03/16/2019 Allergy Injection 2 Or More Injection Lester Love M.D. 03/09/2019 Allergy Injection 2 Or More Injection Lester Love M.D. 03/02/2019 Allergy Injection 2 Or More Injection Lester Love M.D. 02/23/2019 Allergy Injection 2 Or More Injection Lester Love M.D. 02/16/2019 Allergy Injection 2 Or More Injection Lester Love M.D. 02/09/2019 Allergy Injection 2 Or More Injection Lester Love M.D. 02/01/2019 Allergy Injection 2 Or More Injection Lester Love M.D. 01/26/2019 Allergy Injection 2 Or More Injection Lester Love M.D. 01/19/2019 Allergy Injection 2 Or More Injection Lester Love M.D. 01/12/2019 Allergy Injection 2 Or More Injection Lester Love M.D. 01/05/2019 Immunizations Description No Information Available Vital Signs Date Vital Result Comment 02/11/2021 11:07am Weight 130.50 lb Height 64 inches 5'4" Heart Rate 96 /min Respiratory Rate 18 /min BP Systolic 109 mmHg BP Diastolic 69 mmHg BMI (Body Mass Index) 22.4 kg/m2 08/12/2020 11:16am Weight 143.38 lb Height 64 inches 5'4" Heart Rate 96 /min Respiratory Rate 18 /min BP Systolic 144 mmHg BP Diastolic 90 mmHg BMI (Body Mass Index) 24.6 kg/m2 Results Description No Information Available Procedures Date Code Description Status 02/16/2021 53267 Allergy Injection 2 Or More Comp leted 02/11/2021 62907 Office/Outpatient Established Lo w MDM 20-29 Min Completed 01/26/2021 45761 Allergy Injection 2 Or More Comp leted 12/30/2020 47732 Allergy Injection 2 Or More Comp leted 12/09/2020 06024 Allergy Injection 2 Or More Comp leted 11/21/2020 12176 Allergy Antigens Single Or Multi ple Completed 11/18/2020 02725 Allergy Injection 2 Or More Comp leted 10/28/2020 15082 Allergy Injection 2 Or More Comp leted 10/08/2020 83061 Allergy Injection 2 Or More Comp leted 09/15/2020 67619 Allergy Injection 2 Or More Comp leted 08/21/2020 89315 Allergy Injection 2 Or More Comp leted Medical Devices Description No Information Available Encounters Type Date Location Provider Dx Diagnosis Office Visit 02/11/2021 11:00a Main Office Lester Love M.D. J30.1 Allergic rhinitis due to pollen J30.81 Allergic rhinitis due to ani mal (cat) (dog) hair and dander J30.89 Other allergic rhinitis J30.0 Vasomotor rhinitis F17.210 Nicotine dependence, cigaret tierney, uncomplicated K21.9 Gastro-esophageal reflux dis ease without esophagitis Assessments Date Code Description Provider 02/16/2021 J30.1 Allergic rhinitis due to pollen Lester Love M.D. 02/16/2021 J30.81 Allergic rhinitis due to animal (cat) (dog) hair and dander Lester Love M.D. 02/16/2021 J30.89 Other allergic rhinitis Lester Love M.D. Plan of Treatment Future Appointment(s):* 03/09/2021 9:10 am - Allergy Injection at Main Office * 02/11/2022 11:00 am - Lester Love M.D. at Main Office 02/11/2021 - Lester Love M.D.* J30.1 Allergic rhinitis due to pollen* Recommendations:* Effective allergen immunotherapy measures were reviewed and recommended. The patient should advance her maintenance dose if possible over the next several weeks. Should stay on Flonase Sensimist nasal spray every night. May consider to resume Astelin and use it when needed in order to help with vasomotor rhinitis symptoms. * J30.81 Allergic rhinitis due to animal (cat) (dog) hair and dander* Recommendations:* Effective allergen avoidance measures reviewed and recommended. See additional recommendations above. * J30.89 Other allergic rhinitis* Recommendations:* Effective allergen avoidance measures were reviewed and recommended. See additional recommendations above. * J30.0 Vasomotor rhinitis* New Medication:* Azelastine HCL (Nasal) 0.15 % - 2 sprays each nostril once a day every morning * Recommendations:* Astelin should helped if used. Suggested to restart. * F17.210 Nicotine dependence, cigarettes, uncomplicated* Recommendations:* Smoking cessation was discussed. Patient is not interested in quitting at this time. She will follow-up with her PCP regarding this concern. * K21.9 Gastro-esophageal reflux disease without esophagitis* Recommendations:* Continue on present regimen as directed by PCP. Follow-up with their office as scheduled. * All * Follow up:* 12 months. Sooner if needed. Functional Status Description No Information Available Mental Status Description No Information Available Referrals Description No Information Available
--- OUTSIDE RECORDS SUMMARY | 2021-03-07 23:29 | CCD | Continuity of Care Document ---
Author Author Oly LOVE M.D. Organization Unknown Address [address], [place] [address] Phone [phone] Care Team Providers Care Case Management Specialist Name Role Phone Dagoberto Cutler MD AUTM [phone] Problems Active Problems Provider Date Allergic rhinitis [...] 2019. Anaphylaxis Lester Love M.D. Onset: 020 Social History Type Date Description Comments Sex Unknown Tobacco Use Reviewed: 08/12/20 Light tobacco smoker (10 or fewer cigarettes/day) Smoking Status Reviewed: 08/12/20 Light tobacco smoker (10 or fewer cigarettes/day) Allergies, Adverse Reactions, Alerts Active Allergies Criticality Reaction | Severity Comments Date Clindamycin Unable to assess criticality Abdominal pain, Diarrhea, c-diff 12/30/2018 Tvkhebl-PZC-Eir Reductase Inhibitors Unable to assess critic ality Increased Liver enzymes 12/30/2018 Gabapentin Unable to assess criticality Dizziness 03/01/2019 Medications Active Medications SIG Qnty Indications Ordering Provide r Date Loratadine 10mg Tablets Take One Tablet By Mouth Every Day 90tabs Lester Love M.D. 2019 Azelastine HCL (Nasal) 137mcg/[place] Solution 2 sprays each nostril every day every morning 30ml J3 0.1 Lester Love M.D. 02/12/2020 Flonase Sensimist 27 .5mcg/[place] Suspension 2 sprays each nostril every night 1units Lester Love M.D. 02/12/2020 Epinephrine 0.3mg/0. 3ML Solution Auto-Inject inject intramuscularly once as needed for anaphylaxis 1twdinorah Love M.D. 06/15/[address] [...] Evening Unknown Baqsimi One Pack 3mg/Dose Powder [place] One [place] 3 MG In One Nostril To Treat Severe Hypoglycemia as Directed Unknown Ketotifen Fumarate 0.025% Solution 1 drop per eye daily as needed Unknown Medications Administered in Office Medication SIG Qnty Indications Ordering Provider Date Allergy Injection 2 Or More Injection Lester Love M.D. 12/30/2020 Allergy Injection 2 Or More Injection Lester Love M.D. 12/09/2020 Allergy Injection 2 Or More Injection Lesterjonh Love M.D. 11/18/2020 Allergy Injection 2 Or More Injection Lesterjonh Love M.D. 10/28/2020 Allergy Injection 2 Or More Injection LesterLizz Talavera.DNatty 10/08/2020 Allergy Injection 2 Or More Injection Lesterjonh Love M.D. 09/15/2020 Allergy Injection 2 Or More Injection Lesterjonh Love M.D. 08/21/2020 Allergy Injection 2 Or More Injection LesterLizz Talavera.DNatty 07/31/2020 Allergy Injection 2 Or More Injection Lesterjonh Love M.D. 07/08/2020 Allergy Injection 2 Or More Injection Lesterjonh Love M.D. 06/16/2020 Allergy Injection 2 Or More Injection LesterHelene TalaveraDNatty 05/23/2020 Allergy Injection 2 Or More Injection Lester Love M.D. 04/30/2020 Allergy Injection 2 Or More Injection Lesternarciso Love M.D. 04/10/2020 Allergy Injection 2 Or More Injection LesterLizz Talavera.DNatty 03/13/2020 Allergy Injection 2 Or More Injection Lester Love M.D. 02/21/2020 Allergy Injection 2 Or More Injection LesterLizz Talavera.DNatty 01/31/2020 Allergy Injection 2 Or More Injection Lester Love M.D. 01/11/2020 Allergy Injection 2 Or More Injection Lesterjnoh Love M.D. 12/21/2019 Allergy Injection 2 Or More Injection Lester Lizz Love.DNatty 11/30/2019 Allergy Injection 2 Or More Injection Lester Lizz Love.DNatty 11/16/2019 Allergy Injection 2 Or More Injection LesterLizz Talavera.DNatty 11/06/2019 Allergy Injection 2 Or More Injection Lester Lizz Love.DNatty 10/22/2019 Allergy Injection 2 Or More Injection LesterLizz Talavera.DNatty 10/11/2019 Allergy Injection 2 Or More Injection LesterLizz Talavera.DNatty 09/28/2019 Allergy Injection 2 Or More Injection Lester Chrostabilio, M.D. 09/17/2019 Allergy Injection 2 Or More Injection Lester Love M.D. 09/04/2019 Allergy Injection 2 Or More Injection [...] 06/15/2019 Allergy Injection 2 Or More Injection Lester Love M.D. 06/15/2019 Allergy Injection 2 Or More Injection Lester Love M.D. 06/06/2019 Allergy Injection 2 Or More Injection Lester Love M.D. 05/25/2019 Allergy Injection 2 Or More Injection [...] Available Vital Signs Date Vital Result Comment 08/12/2020 11:16am Weight 143.38 lb Height 64 inches 5'4" Heart Rate 96 /min Respiratory Rate 18 /min BP Systolic 144 mmHg BP Diastolic 90 mmHg BMI (Body Mass Index) 24.6 kg/m2 02/12/2020 11:07am Weight 159.38 lb Height 64 inches 5'4" Heart Rate 93 /min Respiratory Rate 18 /min BP Systolic 107 mmHg BP Diastolic 69 mmHg BMI (Body Mass Index) 27.4 kg/m2 Results Description No Information Available Procedures Date Code Description Status 12/30/2020 60873 Allergy Injection 2 Or More Comp leted 12/09/2020 42128 Allergy Injection 2 Or More Comp leted 11/21/2020 01972 Allergy Antigens Single Or Multi ple Completed 11/18/2020 25314 Allergy Injection 2 Or More Comp leted 10/28/2020 74803 Allergy Injection 2 Or More Comp leted 10/08/2020 38605 Allergy Injection 2 Or More Comp leted 09/15/2020 55190 Allergy Injection 2 Or More Comp leted 08/21/2020 44026 Allergy Injection 2 Or More Comp leted 08/12/2020 04303 Smoking & Tobacco Ce ssation Counseling Visit Intermediate 3-10Min Completed 08/12/2020 87070 Office/Outpatient Established Lo w MDM 20-29 Min Completed 07/31/2020 20700 Allergy Injection 2 Or More Comp leted 07/24/2020 44429 Allergy Antigens Single Or Multi ple Completed 07/08/2020 07213 Allergy Injection 2 Or More Comp leted Medical Devices Description No Information Available Encounters Type Date Location Provider Dx Diagnosis Office Visit 08/12/2020 11:00a Main Office Lester Love M.D. J30.1 Allergic rhinitis due to pollen J30.81 Allergic rhinitis due to ani mal (cat) (dog) hair and dander J30.89 Other allergic rhinitis F17.210 Nicotine dependence, cigaret tierney, uncomplicated K21.9 Gastro-esophageal reflux dis ease without esophagitis Assessments Date Code Description Provider 12/30/2020 J30.1 Allergic rhinitis due to pollen Lester Love M.D. 12/30/2020 J30.81 Allergic rhinitis due to animal (cat) (dog) hair and dander Lester Love M.D. 12/30/2020 J30.89 Other allergic rhinitis Lester Love M.D. Plan of Treatment Future Appointment(s):* 01/20/2021 9:10 am - Allergy Injection at Main Office * 02/11/2021 11:00 am - Lester Love M.D. at Main Office 08/12/2020 - Lester Love M.D.* J30.1 Allergic rhinitis due to pollen* Recommendations:* Effective allergen immunotherapy measures were reviewed and recommended. The patient should continue on immunotherapy as per protocol. The risks and benefits associated with allergen IT were reviewed and discussed. It was recommended that she restart the OTC Flonase Sensimist nasal spray. She should use it on a consistent, daily basis to be effective. Should use nasal spray consistently for the spray to be effective. She may use azelastine nasal spray as needed on days her rhinitis symptoms are worse. May take oral antihistamine as needed for itching and/or sneezing and on days she gets her allergy injections as well as allergy eye drops when her ocular symptoms exacerbate. * J30.81 Allergic rhinitis due to animal (cat) (dog) hair and dander* Recommendations:* Effective allergen avoidance measures reviewed and recommended. See additional recommendations above. * J30.89 Allergic rhinitis due to dust mites.* Recommendations:* Effective allergen avoidance measures were reviewed and recommended. See additional recommendations above. * F17.210 Nicotine dependence, cigarettes, uncomplicated* Recommendations:* Smoking cessation was discussed. Patient is not interested in quitting at this time. She will follow-up with her PCP regarding this concern. * K21.9 Gastro-esophageal reflux disease without esophagitis* Recommendations:* Continue on present regimen as directed by PCP. Follow-up with their office as scheduled. * All * Follow up:* 6 months. Sooner if needed. Functional Status Description No Information Available Mental Status Description No Information Available Referrals Description No Information Available
--- OUTSIDE RECORDS SUMMARY | 2021-03-07 23:29 | CCD ---
Author Author [facility] Organization [facility] Address Unknown Phone Unavailable Care Team Providers Care Assistant Golf Professional Name Role Phone Christina Nguyen Unavailable PROBLEMS Type Condition ICD9-CM Code [id number] Code Onset Dates Condition S tatus W/U Status Risk SNOMED Code Notes Problem Mixed hyperlipidemia E78.2 Active confirmed 184164941 was on statins, were dc due to abnl LFTs. 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 Active confirmed 78349643 Problem Cervical disc disorder of cervicothoracic region M 50.93 Active confirmed 398528924 Problem Sleep disturbance, unspecified G47.9 Active confir med 47209114 Problem Mild depression F32.0 Active confirmed 3104 05380 Problem Myalgia M79.1 Active confirmed 81672734 Problem Chronic prescription opiate use Z79.891 Active confirmed 980158564 Problem Recurrent infections B99.9 Active confirmed 06991213 Problem History of Clostridium difficile Z87.19 Active confirmed 705027502 Problem Fatigue due to treatment R53.83 Active confirmed 834748995 Problem Cervical radiculopathy M54.12 Active confirmed 18073416 Problem Cervical disc disorder with radiculopathy of cer vicothoracic region M50.13 Active confirmed 545812226 Problem Perimenopause N95.1 Active confirmed 668696 324805685 Problem Thyroid nodule E04.1 Active confirmed 75927 5005 Problem Cervical facet syndrome M47.812 Active confirmed 513578092 Problem B12 deficiency E53.8 Active confirmed 15097 4004 Problem Shoulder pain, bilateral M25.511 Active confirmed 51944899 Problem Medicare annual wellness visit, subsequent Z00.00 Active confirmed 646831473 Problem Plantar wart, left foot B07.0 Active confirmed 80054532956364444 Problem Sleep apnea, unspecified type G47.30 Active confirm ed 32393322 Problem Moderate episode of recurrent major depressive disorder F33.1 Active confirmed 454933631 ALLERGIES Allergen (clinical drug ingredient) Drug/Non Drug Allergy do cumented on EMR Reaction Allergy Type Onset Date Status Remeron various, see 07/23 TE Non Drug Allergy Active pregabalin Lyrica(NDC Code:[address]-43) decreased blood sugar Drug Allergy Active amoxicillin / clavulanate Augmentin(NDC Code:[address]-75) decreases urine out put Drug Allergy Active clindamycin Clindamycin HCl(NDC Code:[address]-17) c-difficile Drug Allergy Active statins elevated LFT Non Drug Allergy Active atorvastatin atorvastatin insomnia," racing heart" Non Drug Allergy Active gabapentin Gabapentin(NDC Code:[address]-99) severe dizziness Drug A llergy Active duloxetine Cymbalta(NDC Code:[address]-22) 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 ENCOUNTERS from 1970 to 2020-12-10 Encounter Location Date Provider Diagnosis [facility] [address] [facility] [phone] [place] [address] Dec, Christina Nguyen IMMUNIZATIONS Vaccine Route Administration Date Status Pneumococcal Adult 0.5mL Pneumovax 23 IM Intramuscular Feb 27 014 Administered SOCIAL HISTORY Tobacco Use: Social History Observation Description Date Details (start date - stop date) Former Smoker Sex Assigned At : Social History Observation Description Sex Assigned At Unknown Audit Question Answer Notes Total Score: 2 Interpretation: Alcohol Education Language: Question Answer Notes Languages spoken: Togolese Latter-Day: Question Answer Notes Latter-Day 33 None Sexual Hx: Question Answer Notes [...] Notes Start Da te End Date Status HYDROcodone-Acetaminophen 5-325 MG 1 tablet as needed Orally Daily for 30 Days Dec, Active buPROPion HCl ER (XL) 150 MG 1 tablet in the morning O rally Once a day for 90 day(s) September, Active Pennsaid 2 % 2 applications to affected a chad Transdermal four times daily for 30 day(s) Dec, Active Cyclobenzaprine HCl 5 MG 1 tablet Orally Three times a day as needed for 90 days Active traZODone HCl 100 MG 1 tablet at bedtime Orally before bedtime f or 90 day(s) Active Vitamin D 5000 1 tablet Orally Once a day Active HumaLOG 100 UNIT/ML as directed via pump Subcutaneous 24 hours Active Omeprazole 20 MG 1 capsule Orally Once a day Active Insulin Pump Accessories as directed Active Lidocaine-Prilocaine 2.5-2.5 % as directed Externally apply small quantity to neck/shoulder region q 6 hrs prn pain for 30 day(s) Jan, Active Flonase Active Norethindrone 0.35 MG 1 tablet Orally Once a day for 28 day(s) Jun, Not-Taking Shingrix 50 MCG as directed Intramuscular as directed for 1 days Not-Taking Pepcid Active ibuprofen Active valACYclovir HCl 500 MG 1 tablet Orally Twice a day for 3 days Apr, Active Ammonium Lactate 12 % 1 application to affected area Externally Twi ce a day Active Sudafed Active Flonase 50 MCG/DOSE 1 spray in each nostril Nasally Once a day Not-Taking Fluconazole 150 MG 1 tablet Orally weekly orn for yeast for 90 d ay(s) May, Active buPROPion HCl 75 MG 1 tab Orally Twice a day Jan, Not-Taking Claritin 10 MG 1 tablet Orally Once a day for 30 day(s) Active Metanx 3-90.314-2-35 MG Orally Daily Active Zantac 150 MG 2 tablet at bedtime Orally Once a day Not-Taking PROCEDURES No Information RESULTS No Results REASON FOR VISIT PA Hydrocodone-Acetaminophen 5-325mg tablets MEDICAL (GENERAL) HISTORY Type Description Date Medical History type 1 diabetes (insulin pum p)--[facility]- has DM- retinopathy/neuropathy; gastroparesis Medical History hyperlipidemia Medical History degeneration of lumbar discs --disabled, goes to pain center at [facility] Medical History carpal tunnel syndrome Medical History allergy Medical History vitamin D deficiency Medical History benign thyroid nodule left ( [place] 07/23); unchanged on MRI [facility] 08/27 Medical History left shoulder pain Medical History chronic pain, managed by pain center Medical History c difficile colitis, prolong ed course 12/21-05/24, prob due to clinda; needed stool transplant [facility] 04/22 Medical History rt thyroid nodule, last US , FNA done at [facility] (negative) ~ 2011 Medical History Borderline B12 defic 11/20-- oral supplementation, level recovered 05/25 Medical History Barretts esophagus bx 12/18, neg bx 04/22 Medical History mononucleosis-- + EBV IgM ; saw ID 12/22, dx with chronic mono; saw ID at [facility] 2016, told her chronic mono had resolved Medical History (w/u for adrenal insufficiency was WNL a t [place] 04/23) Medical History lichen planus Medical History diabetic gastroparesis Medical History TMJ Medical History Neg NPSG 09/23 Medical History ocular migraine Medical History DJD/DDD cervical spine MRI at [facility] 08/27 Surgical History left rotator cuff repair 07/20 Surgical History D + C 1995 Surgical History Left shoulder manipulation 07/26/14 Surgical History vahid carpal tunnel 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 Surgical History [facility] Dr Crooks C7-T1 ant discectomy a nd fusion 11/23 Hospitalization History hospitalized as a child when she was first diagnosed with diabetes Hospitalization History surgeries Goals Section No Information Health Concerns No Information MEDICAL EQUIPMENT No Information MENTAL STATUS No Information FUNCTIONAL STATUS No Information ASSESSMENTS No Information PLAN OF TREATMENT Medication Medication Name Sig Start Date Stop Date HYDROcodone-Acetaminophen 5-325 MG 1 tablet as needed Orally Daily for 30 Days Dec, valACYclovir HCl 500 MG 1 tablet Orally Twice a day for 3 days 3 Apr, buPROPion HCl ER (XL) 150 MG 1 tablet in the morning O rally Once a day for 90 day(s) September, Cyclobenzaprine HCl 5 MG 1 tablet Orally Three times a day as needed for 90 days Insurance Providers Payer Name Payer Address Payer Phone Insured Name Patient Relati onship to Insured Coverage Start Date Coverage End Date MEDICAID [employer] [address] [facility] [id number] [phone] [employer] [place] MEDICARE Part A and B [address] [facility] [address] [phone] [employer] [place]
--- OUTSIDE RECORDS SUMMARY | 2021-03-07 23:29 | CCD ---
Author Author [facility] Organization [facility] Address Unknown Phone Unavailable Care Team Providers Care Admissions Consultant Name Role Phone Dagoberto Cutler Unavailable PROBLEMS Type Condition ICD9-CM Code [id number] Code Onset Dates Condition S tatus W/U Status Risk SNOMED Code Notes Problem Mixed hyperlipidemia E78.2 Active confirmed [id number] was on statins, were dc due to abnl LFTs. 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 Active confirmed 42516452 Problem Cervical disc disorder of cervicothoracic region M 50.93 Active confirmed 038865720 Problem Sleep disturbance, unspecified G47.9 Active confir med 82579043 Problem Mild depression F32.0 Active confirmed 3104 04057 Problem Myalgia M79.1 Active confirmed 39294777 Problem Chronic prescription opiate use Z79.891 Active confirmed 295582819 Problem Recurrent infections B99.9 Active confirmed 21436447 Problem History of Clostridium difficile Z87.19 Active confirmed 545457814 Problem Fatigue due to treatment R53.83 Active confirmed 091400893 Problem Cervical radiculopathy M54.12 Active confirmed 67322091 Problem Cervical disc disorder with radiculopathy of cer vicothoracic region M50.13 Active confirmed 398884975 Problem Perimenopause N95.1 Active confirmed 341004 046576587 Problem Thyroid nodule E04.1 Active confirmed 82502 5005 Problem Cervical facet syndrome M47.812 Active confirmed 588600773 Problem B12 deficiency E53.8 Active confirmed 44422 4004 Problem Shoulder pain, bilateral M25.511 Active confirmed 30238675 Problem Medicare annual wellness visit, subsequent Z00.00 Active confirmed 298629577 Problem Plantar wart, left foot B07.0 Active confirmed 76801997519305208 Problem Sleep apnea, unspecified type G47.30 Active confirm ed 29437631 Problem Moderate episode of recurrent major depressive disorder F33.1 Active confirmed 382093617 ALLERGIES Allergen (clinical drug ingredient) Drug/Non Drug Allergy do cumented on EMR Reaction Allergy Type Onset Date Status Remeron various, see 07/23 TE Non Drug Allergy Active pregabalin Lyrica(NDC Code:[address]-18) decreased blood sugar Drug Allergy Active amoxicillin / clavulanate Augmentin(NDC Code:[address]-04) decreases urine out put Drug Allergy Active clindamycin Clindamycin HCl(NDC Code:[address]-91) c-difficile Drug Allergy Active statins elevated LFT Non Drug Allergy Active atorvastatin atorvastatin insomnia," racing heart" Non Drug Allergy Active gabapentin Gabapentin(NDC Code:[address]-21) severe dizziness Drug A llergy Active duloxetine Cymbalta(NDC Code:[address]-53) 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 [address] [place] KENDRICK [id number] Feb, Dagoberto Cutler IMMUNIZATIONS Vaccine Route Administration Date Status Pneumococcal Adult 0.5mL Pneumovax 23 IM Intramuscular Feb 27 014 Administered SOCIAL HISTORY Tobacco Use: Social History Observation Description Date Details (start date - stop date) Former Smoker Sex Assigned At : Social History Observation Description Sex Assigned At Unknown Audit Question Answer Notes Total Score: 2 Interpretation: Alcohol Education Language: Question Answer Notes Languages spoken: Kiswahili Congregation: Question Answer Notes Congregation 33 None Sexual Hx: Question Answer Notes [...] Notes Start Da te End Date Status traZODone HCl 100 MG 1 tablet at bedtime Orally before bedtime f or 90 day(s) Active HYDROcodone-Acetaminophen 5-325 MG 1 tablet as needed Orally Daily for 30 Days Dec, Active Cyclobenzaprine HCl 5 MG 1 tablet Orally Three times a day as needed for 90 days Active valACYclovir HCl 500 MG 1 tablet Orally Twice a day for 3 days Apr, Active Norethindrone 0.35 MG 1 tablet Orally Once a day for 28 day(s) Jun, Not-Taking buPROPion HCl ER (XL) 150 MG 1 tablet in the morning O rally Once a day for 90 day(s) September, Active Fluconazole 150 MG 1 tablet Orally weekly orn for yeast for 90 d ay(s) May, Active Flonase Active Insulin Pump Accessories as directed Active HumaLOG 100 UNIT/ML as directed via pump Subcutaneous 24 hours Active Shingrix 50 MCG as directed Intramuscular as directed for 1 days Not-Taking buPROPion HCl 75 MG 1 tab Orally Twice a day Jan, Not-Taking Sudafed Active Zantac 150 MG 2 tablet at bedtime Orally Once a day Not-Taking Ammonium Lactate 12 % 1 application to affected area Externally Twi ce a day Active ibuprofen Active Pepcid Active Flonase 50 MCG/DOSE 1 spray in each nostril Nasally Once a day Not-Taking Nicotine 10 MG 1 cartridge as needed Inhalation 16 time(s) a da y for 30 Days Feb, Active Pennsaid 2 % 2 applications to affected a chad Transdermal four times daily for 30 day(s) Dec, Active Vitamin D 5000 1 tablet Orally Once a day Active Omeprazole 20 MG 1 capsule Orally Once a day Active Metanx 3-90.314-2-35 MG Orally Daily Active Lidocaine-Prilocaine 2.5-2.5 % as directed Externally apply small quantity to neck/shoulder region q 6 hrs prn pain for 30 day(s) Jan, Active Claritin 10 MG 1 tablet Orally Once a day for 30 day(s) Active PROCEDURES No Information RESULTS No Results REASON FOR VISIT Quit smoking MEDICAL (GENERAL) HISTORY Type Description Date Medical History type 1 diabetes (insulin pum p)--[facility]- has DM- retinopathy/neuropathy; gastroparesis Medical History hyperlipidemia Medical History degeneration of lumbar discs --disabled, goes to pain center at [facility] Medical History carpal tunnel syndrome Medical History allergy Medical History vitamin D deficiency Medical History benign thyroid nodule left ( [place] 07/23); unchanged on MRI [facility] 08/27 Medical History left shoulder pain Medical History chronic pain, managed by pain center Medical History c difficile colitis, prolong ed course 12/21-05/24, prob due to clinda; needed stool transplant [facility] 04/22 Medical History rt thyroid nodule, last US , FNA done at [facility] (negative) ~ 2011 Medical History Borderline B12 defic 11/20-- oral supplementation, level recovered 05/25 Medical History Barretts esophagus bx 12/18, neg bx 04/22 Medical History mononucleosis-- + EBV IgM ; saw ID 12/22, dx with chronic mono; saw ID at [facility] 2016, told her chronic mono had resolved Medical History (w/u for adrenal insufficiency was WNL a t [facility] 04/23) Medical History lichen planus Medical History diabetic gastroparesis Medical History TMJ Medical History Neg NPSG 09/23 Medical History ocular migraine Medical History DJD/DDD cervical spine MRI at [facility] 08/27 Surgical History left rotator cuff repair [...] Medication Name Sig Start Date Stop Date Cyclobenzaprine HCl 5 MG 1 tablet Orally Three times a day as needed for 90 days Nicotine 10 MG 1 cartridge as needed Inhalation 16 time (s) a day for 30 Days Feb, buPROPion HCl ER (XL) 150 MG 1 tablet in the morning O rally Once a day for 90 day(s) September, traZODone HCl 100 MG 1 tablet at bedtime Orally before bedtime f or 90 day(s) HYDROcodone-Acetaminophen 5-325 MG 1 tablet as needed Orally Daily for 30 Days Dec, valACYclovir HCl 500 MG 1 tablet Orally Twice a day for 3 days 3 1 Apr, 2020 Insurance Providers Payer Name Payer Address Payer Phone Insured Name Patient Relati onship to Insured Coverage Start Date Coverage End Date MEDICARE Part A and B [address] [facility] [id number] [place] [employer] [address] [facility] [id number] [place]
--- OUTSIDE RECORDS SUMMARY | 2021-03-07 23:29 | CCD | Continuity of Care Document ---
Author Author Oly LOVE M.D. Organization Unknown Address [address], [address], [place] [address] Phone [phone] Care Team Providers Care Mac Artist Name Role Phone Dagoberto Cutler MD AUTM [phone] Problems Active Problems Provider Date Allergic rhinitis [...] intradermal test completed in 2019. Anaphylaxis Lester oLve M.D. Onset: 020 Vasomotor rhinitis Lester Love M.D. Onset: 021 Social History Type Date Description Comments Sex Unknown Tobacco Use Reviewed: 02/11/21 Light tobacco smoker (10 or fewer cigarettes/day) Smoking Status Reviewed: 02/11/21 Light tobacco smoker (10 or fewer cigarettes/day) Allergies and adverse reactions Active Allergies Criticality Reaction | Severity Comments Date Clindamycin Unable to assess criticality Abdominal pain, Diarrhea, c-diff 12/30/2018 Qhuqqre-KXV-Sig Reductase Inhibitors Unable to assess critic ality [...] Lester Love M.D. 2019 Azelastine HCL (Nasal) 137mcg/Kennedy Solution 2 sprays each nostril every day every morning 30ml J3 0.1 Lester Love M.D. 02/12/2020 Flonase Sensimist 27 .5mcg/Kennedy Suspension 2 sprays each nostril every night [...] Evening Unknown Baqsimi One Pack 3mg/Dose Powder Kennedy One Kennedy 3 MG In One Nostril To Treat [...] 11/16/2019 Allergy Injection 2 Or More Injection Lester Love M.D. 11/06/2019 Allergy Injection 2 Or More Injection Lester Love M.D. 10/22/2019 Allergy Injection 2 Or More Injection Lester Love M.D. 10/11/2019 Allergy Injection 2 Or More Injection Lester Love M.D. 09/28/2019 Allergy Injection 2 Or More Injection Lester Love M.D. 09/17/2019 Allergy Injection 2 Or More Injection Helene CoronadoDNatty 09/04/2019 Allergy Injection 2 Or More Injection [...] 05/25/2019 Allergy Injection 2 Or More Injection Helene CoronadoDNatty 05/18/2019 Allergy Injection 2 Or More Injection BRANDON Espinoza 05/11/2019 Allergy Injection 2 Or More Injection Lester Love M.D. 05/11/2019 Allergy Injection 2 Or More Injection Helene CoronadoDNatty 05/04/2019 Allergy Injection 2 Or More Injection [...] Information Available Procedures Date Code Description Status 01/26/2021 13034 Allergy Injection 2 Or More Comp leted 12/30/2020 01629 Allergy Injection 2 Or More Comp leted 12/09/2020 71348 Allergy Injection 2 Or More Comp leted 11/21/2020 10205 Allergy Antigens Single Or Multi ple Completed 11/18/2020 72395 Allergy Injection 2 Or More Comp leted 10/28/2020 97292 Allergy Injection 2 Or More Comp leted 10/08/2020 03724 Allergy Injection 2 Or More Comp leted 09/15/2020 91314 Allergy Injection 2 Or More Comp leted 08/21/2020 42416 Allergy Injection 2 Or More Comp leted Medical Devices Description No Information Available Encounters Description No Information Available Assessments Date Code Description Provider 02/11/2021 J30.1 Allergic rhinitis due to pollen Lester Love M.D. 02/11/2021 J30.81 Allergic rhinitis due to animal (cat) (dog) hair and dander Lester Love M.D. 02/11/2021 J30.89 Other allergic rhinitis Lester Love M.D. 02/11/2021 J30.0 Vasomotor rhinitis Lester jennings M.D. 02/11/2021 F17.210 Nicotine dependence, cigarettes, uncomplicated Lester Love M.D. 02/11/2021 K21.9 Gastro-esophageal reflux disease without esophagitis Lester Love M.D. Plan of Treatment Future Appointment(s):* 02/11/2022 11:00 am - Lester Love M.D. at Main Office * 02/16/2021 1:10 pm - Allergy Injection at Main Office 02/11/2021 - Lester Love [...]
--- OUTSIDE RECORDS SUMMARY | 2021-03-07 23:29 | CCD | Continuity of Care Document ---
Author Author Oly CAMPOS MD Organization Unknown Address [address] [place] [address] Phone [phone] Care Team Providers Care Gamma Ray Operator Name Role Phone Central Scheduling AUTM [phone] Problems Active Problems Provider Date Diarrhea Ashley Najerabodarrion, RPA-C Onset: 01/05 Abdominal pain Ashley Najerabodarrion, RPA-C Onset: 01/05 Constipation Ashley Najerabois, RPA-C Onset: 01/05 Reyes's esophagus Ashley Najerabois, RPA-C Onset: 01/05 Early satiety Ashley Najerabois, RPA-C Onset: 01/05 Nausea Ashley Najerabois, RPA-C Onset: 01/05 Clostridial enteric disease sAhley Najerabois, RPA-C Onse t: 01/06/2016 Gastroesophageal reflux disease Ashley Najerabois, RPA-C Onset: 01/06/2016 Acute upper respiratory infection, unspecified Ashley velezois, RPA-C Onset: 01/06/2016 Other specified diseases of esophagus Juan Jose Campos MD On set: 01/06/2016 Reyes's esophagus Ashley Najerabois, RPA-C Onset: 01/05 Gastroesophageal reflux disease Ashley Najerabois, RPA-C Onset: 01/06/2016 Generalized abdominal pain Ashley Najerabois, RPA-C Onset : 01/06/2016 Diaphragmatic hernia Juan Jose Campos MD Onset: 01/06/2016 Hematemesis Juan Jose Campos MD Onset: 01/06/2016 Peptic reflux disease uJan Jose Campos MD Onset: 01/06/2016 Chronic rhinitis Haja Mccain MD Onset: 07/29/2016 Epigastric pain Ashley Giron RPA-C Onset: 07/29 Other specified disorders of temporomandibular joint Haja Mccain MD Onset: 07/29/2016 Localized swelling, mass and lump, neck Haja Mccain MD Onset: 07/29/2016 Chest pain Ashley Giron TEMO-C Onset: 09/15 Type 1 diabetes mellitus Juan Jose Campos MD Onset: 05/16/19 18 Sleep apnea Shahdia Tate Onset: 09/07/2017 Disturbance of consciousness Shahida Tate Onset: 06/2017 Difficulty breathing Shahida Tate Onset: 09/07/2017 Social History Type Date Description Comments Sex Unknown Cigarette Use 1990 Former 1 pack per day Smokeless Tobacco Never Used Smokeless Tobacco ETOH Use Rarely Recreational Drug Use Denies Drug Use Tobacco Use Start: Unknown Smokes 1/2 Pack A Day Allergies and adverse reactions Active Allergies Criticality Reaction | Severity Comments Date Seasonal Unable to assess criticality 11/22/2011 Augmentin Unable to assess criticality urinary retention 01/06/2015 Clindamycin Unable to assess criticality 04/24/2015 Cymbalta Unable to assess criticality Excessive weight gain 07/29/2016 Tramadol Unable to assess criticality 07/29/2016 Gabapentin Unable to assess criticality 07/29/2016 Meloxicam Unable to assess criticality 07/29/2016 Contrast Dye Unable to assess criticality Rash; Question bleeding i ssue 07/29/2016 Inactive Allergies NKDA Unable to assess criticality 11/16/2011 Medications Active Medications SIG Qnty Indications Ordering Provide r Date Dicyclomine HCL 10mg Capsules take 1 capsule by mouth every 6 hours as needed for abdominal pain. 30caps K21.9 Juan Jose Campos MD 07/21/2020 Famotidine 40mg Tablets take 1 tablet by mouth every morning. 90tabs Juan Jose Campos MD 02/15/[address] take 1 capsule by mouth daily. 90caps Juan Jose Campos MD 01/26/2019 Sudafed Sinus Congestion 12 Hour 120mg Tablets ER 12HR as needed Unknown Claritin 10mg Tablets take one by mouth once a day. Unknown Bupropion HCL ER (XL) 300mg Tablets ER 24HR every day Unknown Simethicone 125mg Capsules take 1 capsule by mouth four times daily as needed for bloating (after meals and at bedtime). Unknown Tums 500mg Chewtabs 2 by mouth as needed Unknown Trazodone HCL 100mg Tablets once a day at bedtime. Unknown Metanx 3-90.314-2-35mg Capsules daily Unknown Pennsaid 5% Solution to neck and shoulders as needed Unknown Hydrocodone-Acetaminophen 5-325mg Tablets 1 tab by mouth every 6 hours as needed Unknown Glucagon Emergency 1mg Kit Unknown Lidocaine HCL 3% Cream as needed for pain Unknown Lantus 100Unit/ML Solution to use in case of pump failure Unknown Flexeril 5mg Tablets 1 tab by mouth three times a day Unknown Vitamin D 5000Unit Capsules once a day Unknown Humalog Solution via insulin pump Unknown Immunizations Description No Information Available Vital Signs Date Vital Result Comment 01/19/2021 10:33am BP Systolic 102 mmHg BP Diastolic 62 mmHg Height 64 inches 5'4" Weight 134.00 lb BMI (Body Mass Index) 23.0 kg/m2 [place] Body Weight 120 lb Weight 60.782 kg BSA (Body Surface Area) 1.65 m2 07/21/2020 10:36am BP Systolic 104 mmHg BP Diastolic 68 mmHg Height 64 inches 5'4" Weight 143.00 lb BMI (Body Mass Index) 24.5 kg/m2 [place] Body Weight 120 lb Weight 64.865 kg BSA (Body Surface Area) 1.70 m2 Results Test Acquired Date Facility Test Result H/L Range Note BUN & Creatinine ([facility]) 02/03/2021 [facility] Lab [address] [place] [address] [phone] Blood Urea Nitrogen 12 mg/dL Normal 7-18 Creatinine With GFR 02/03/2021 [facility] [address] [place] [address] [phone] Creatinine For GFR 0.78 mg/dL Normal 0.55-1.30 Glomerular Filtration Rate > 60.0 Normal >51 1 , 2 1 Units are mL/min/1.73 m2 Chronic Kidney Disease Staging per NKF: Stage I & II GFR >=60 Normal to Mildly Decreased Stage III GFR 30-59 Moderately Decreased Stage IV GFR 15-29 Severely Decreased Stage V GFR <15 Very Little GFR Left ESRD GFR <15 on [facility] 2 02/10/21 (TueFeb 10) 12:14 P M ASHLEY GIRON Normal. Procedures Date Code Description Status 01/19/2021 51835 Office/Outpatient Established Mo d MDM 30-39 Min Completed Medical Devices Description No Information Available Encounters Type Date Location Provider Dx Diagnosis Office Visit 01/19/2021 10:30a [facility] Ashley Duran TEMO Giron K21.9 Gastro-esophageal reflux dis ease without esophagitis R13.10 Dysphagia, unspecified K59.00 Constipation, unspecified R63.4 Abnormal weight loss Assessments Date Code Description Provider 01/19/2021 K21.9 Gastro-esophageal reflux disease without esophagitis Ashley Duran NETTIE Giron 01/19/2021 R13.10 Dysphagia, unspecified Ashley Duran TEMO GironIsabel 01/19/2021 K59.00 Constipation, unspecified Arabellaiss sidra Duran TEMO Giron-Isabel 01/19/2021 R63.4 Abnormal weight loss Ashley A Isabel bravo RPAIsabel Plan of Treatment 01/19/2021 - NETTIE Pate* K21.9 Gastro-esophageal reflux disease without esophagitis * R13.10 Dysphagia, unspecified * K59.00 Constipation, unspecified * R63.4 Abnormal weight loss * * Comments:* Patient verbalized understanding of above plans and will seek medical attention for any acute changes. Will monitor. * Follow up:* Will call patient with results of CT scan. She will also return in 6 months, sooner if needed (f/u heartburn; bowels). Functional Status Description No Information Available Mental Status Description No Information Available Referrals Description No Information Available
--- OUTSIDE RECORDS SUMMARY | 2021-03-07 23:29 | CCD | Continuity of Care Document ---
Author Author Oly LOVE M.D. Organization Unknown Address [address], [address], [place] [address] Phone [phone] Care Team Providers Care Art Educator Name Role Phone Dagoberto Cutler MD AUTM [phone] Problems Active Problems Provider Date Allergic rhinitis [...] assess criticality Abdominal pain, Diarrhea, c-diff 12/30/2018 Ajimprs-DQS-Flu Reductase Inhibitors Unable to assess critic ality Increased Liver enzymes 12/30/2018 Gabapentin Unable to assess criticality Dizziness 03/01/2019 Medications Active Medications SIG Qnty Indications Ordering Provide r Date Loratadine 10mg Tablets Take One Tablet By Mouth Every Day 90tabs Lester Love M.D. 2019 Azelastine HCL (Nasal) 137mcg/[place] Solution 2 sprays each nostril every day every morning 30ml J3 0.1 Lester Love M.D. 02/12/2020 Flonase Sensimist 27 .5mcg/[place] Suspension 2 sprays each nostril every night [...] Evening Unknown Baqsimi One Pack 3mg/Dose Powder [place] One [place] 3 MG In One Nostril To Treat Severe Hypoglycemia as Directed Unknown Ketotifen Fumarate 0.025% Solution 1 drop per eye daily as needed Unknown Medications Administered in Office Medication SIG Qnty Indications Ordering Provider Date Allergy Injection 2 Or More Injection Lester Love M.D. 01/26/2021 Allergy Injection 2 Or More Injection Lester Love M.D. 12/30/2020 Allergy Injection 2 Or More Injection Lesterjonh Love M.D. 12/09/2020 Allergy Injection 2 Or More Injection Lesterjonh Love M.D. 11/18/2020 Allergy Injection 2 Or More Injection LesterLizz Talavera.DNatty 10/28/2020 Allergy Injection 2 Or More Injection Lester Love M.D. 10/08/2020 Allergy Injection 2 Or More Injection Lester Love M.D. 09/15/2020 Allergy Injection 2 Or More Injection LesterLizz Talavera.DNatty 08/21/2020 Allergy Injection 2 Or More Injection Lesterjonh Love M.D. 07/31/2020 Allergy Injection 2 Or [...] 03/13/2020 Allergy Injection 2 Or More Injection LesterHelene KrishnaDNatty 02/21/2020 Allergy Injection 2 Or More Injection Lester Love M.D. 01/31/2020 Allergy Injection 2 Or More Injection Lesternarciso Love M.D. 01/11/2020 Allergy Injection 2 Or More Injection LesterLizz Talavera.DNatty 12/21/2019 Allergy Injection 2 Or More Injection LesterLizz Talavera.DNatty 11/30/2019 Allergy Injection 2 Or More Injection Lesterjonh Love M.D. 11/16/2019 Allergy Injection 2 Or More Injection LesterLizz Talavera.DNatty 11/06/2019 Allergy Injection 2 Or More Injection LesterLizz Talavera.DNatty 10/22/2019 Allergy Injection 2 Or More Injection LesterLizz Talavera.DNatty 10/11/2019 Allergy Injection 2 Or More Injection Lester Stefaniaostowski, M.D. 09/28/2019 Allergy Injection 2 Or More [...] 07/20/2019 Allergy Injection 2 Or More Injection Lesterjonh Love M.D. 07/13/2019 Allergy Injection 2 Or [...] Available Procedures Date Code Description Status 01/26/2021 58115 Allergy Injection 2 Or More Comp leted 12/30/2020 58138 Allergy Injection 2 Or More Comp leted 12/09/2020 47844 Allergy Injection 2 Or More Comp leted 11/21/2020 05069 Allergy Antigens Single Or Multi ple Completed 11/18/2020 86784 Allergy Injection 2 Or More Comp leted 10/28/2020 36016 Allergy Injection 2 Or More Comp leted 10/08/2020 27962 Allergy Injection 2 Or More Comp leted 09/15/2020 77830 Allergy Injection 2 Or More Comp leted 08/21/2020 66396 Allergy Injection 2 Or More Comp leted 08/12/2020 83046 Smoking & Tobacco Ce ssation Counseling Visit Intermediate 3-10Min Completed 08/12/2020 38159 Office/Outpatient Established Lo w MDM 20-29 Min Completed 07/31/2020 57485 Allergy Injection 2 Or More Comp leted [...] without esophagitis Assessments Date Code Description Provider 01/26/2021 J30.1 Allergic rhinitis due to pollen Lester Love M.D. 01/26/2021 J30.81 Allergic rhinitis due to animal (cat) (dog) hair and dander Lester Love M.D. 01/26/2021 J30.89 Other allergic rhinitis Lester Love M.D. Plan of Treatment Future Appointment(s):* 02/11/2021 11:00 am - Lester Love M.D. [...]
--- OUTSIDE RECORDS SUMMARY | 2021-03-07 23:29 | CCD | Continuity of Care Document ---
Author Author Oly LOVE M.D. Organization Unknown Address [address], [address], [place] [address] Phone [phone] Care Team Providers Care Pelota Maker Name Role Phone Dagoberto Cutler MD AUTM [phone] Problems Active Problems Provider Date Allergic rhinitis [...] assess criticality Abdominal pain, Diarrhea, c-diff 12/30/2018 Bodfowh-GJP-Mze Reductase Inhibitors Unable to assess critic ality [...] Lester Love M.D. 2019 Azelastine HCL (Nasal) 137mcg/[place] Solution 2 sprays each nostril every day every morning 30ml J3 0.1 Lester Love M.D. 02/12/2020 Flonase Sensimist 27 .5mcg/[place] Suspension 2 sprays each nostril every night [...] Evening Unknown Baqsimi One Pack 3mg/Dose Powder [place] One [place] 3 MG In One Nostril To Treat [...] 01/11/2020 Allergy Injection 2 Or More Injection Lesetr Love M.D. 12/21/2019 Allergy Injection 2 Or [...] Information Available Procedures Date Code Description Status 02/11/2021 20805 Office/Outpatient Established Lo w MDM 20-29 Min Completed 01/26/2021 69669 Allergy Injection 2 Or More Comp leted 12/30/2020 31150 Allergy Injection 2 Or More Comp leted 12/09/2020 53257 Allergy Injection 2 Or More Comp leted 11/21/2020 57752 Allergy Antigens Single Or Multi ple Completed 11/18/2020 06274 Allergy Injection 2 Or More Comp leted 10/28/2020 27173 Allergy Injection 2 Or More Comp leted 10/08/2020 27355 Allergy Injection 2 Or More Comp leted 09/15/2020 46897 Allergy Injection 2 Or More Comp leted 08/21/2020 79948 Allergy Injection 2 Or More Comp leted [...] without esophagitis Assessments Date Code Description Provider 02/11/2021 J30.1 [...]
--- OUTSIDE RECORDS SUMMARY | 2021-03-07 23:29 | CCD ---
Author Author [facility] Organization [facility] Address Unknown Phone Unavailable Care Team Providers Care Plate Embosser Name Role Phone Christina Nguyen Unavailable PROBLEMS ALLERGIES ENCOUNTERS from 1970 to 2020-12-10 IMMUNIZATIONS SOCIAL HISTORY REASON FOR REFERRAL No Information VITAL SIGNS MEDICATIONS PROCEDURES No Information RESULTS No Results REASON FOR VISIT MEDICAL (GENERAL) HISTORY Goals Section Health Concerns MEDICAL EQUIPMENT No Information MENTAL STATUS FUNCTIONAL STATUS ASSESSMENTS PLAN OF TREATMENT Insurance Providers
--- OUTSIDE RECORDS SUMMARY | 2021-03-07 23:29 | CCD ---
Author Author [facility] Organization [email or web address] Address Unknown Phone Unavailable Care Team Providers Care Firearms Inspector Name Role Phone Dagoberto Cutler Unavailable PROBLEMS Type Condition ICD9-CM Code DUH00-RY Code Onset Dates Condition S tatus W/U Status Risk SNOMED Code Notes Problem Mixed hyperlipidemia E78.2 Active confirmed [id number] was on statins, were dc due to abnl LFTs. 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 Active confirmed 46706410 Problem Cervical disc disorder of cervicothoracic region M 50.93 Active confirmed 514992504 Problem Sleep disturbance, unspecified G47.9 Active confir med 75462440 Problem Mild depression F32.0 Active confirmed 3104 84810 Problem Myalgia M79.1 Active confirmed 57785281 Problem Chronic prescription opiate use Z79.891 Active confirmed 285218495 Problem Recurrent infections B99.9 Active confirmed 08760251 Problem History of Clostridium difficile Z87.19 Active confirmed 118184585 Problem Fatigue due to treatment R53.83 Active confirmed 733371581 Problem Cervical radiculopathy M54.12 Active confirmed 99634253 Problem Cervical disc disorder with radiculopathy of cer vicothoracic region M50.13 Active confirmed 028147821 Problem Perimenopause N95.1 Active confirmed 562752 530523365 Problem Thyroid nodule E04.1 Active confirmed 04561 5005 Problem Cervical facet syndrome M47.812 Active confirmed 060247924 Problem B12 deficiency E53.8 Active confirmed 98933 4004 Problem Shoulder pain, bilateral M25.511 Active confirmed 78680998 Problem Medicare annual wellness visit, subsequent Z00.00 Active confirmed 728061476 Problem Plantar wart, left foot B07.0 Active confirmed [id number] Problem Sleep apnea, unspecified type G47.30 Active confirm ed 69877047 Problem Moderate episode of recurrent major depressive disorder F33.1 Active confirmed 637894723 ALLERGIES Allergen (clinical drug ingredient) Drug/Non Drug Allergy do cumented on EMR Reaction Allergy Type Onset Date Status Remeron various, see 07/23 TE Non Drug Allergy Active pregabalin Lyrica(NDC Code:[address]-60) decreased blood sugar Drug Allergy Active amoxicillin / clavulanate Augmentin(NDC Code:[address]-36) decreases urine out put Drug Allergy Active clindamycin Clindamycin HCl(NDC Code:[address]-64) c-difficile Drug Allergy Active statins elevated LFT Non Drug Allergy Active atorvastatin atorvastatin insomnia," racing heart" Non Drug Allergy Active gabapentin Gabapentin(NDC Code:[address]-47) severe dizziness Drug A llergy Active duloxetine Cymbalta(NDC Code:[address]-30) DAIRY FEED WORKER Drug Allergy Active ENCOUNTERS from 1970 to 2021-01-20 Encounter Location Date Provider Diagnosis [facility] [address] [place] [id number] Jan, 2021 Dagoberto Cutler IMMUNIZATIONS Vaccine Route Administration Date [...] Education Language: Question Answer Notes Languages spoken: Upper Sorbian Holiness: Question Answer Notes Holiness 33 None Sexual Hx: Question Answer Notes [...] times daily for 30 day(s) Dec, Active traZODone HCl 100 MG 1 tablet at bedtime Orally before bedtime f or 90 day(s) Active Insulin Pump Accessories as directed Active Vitamin D 5000 1 tablet Orally Once a day Active HumaLOG 100 UNIT/ML as directed via pump Subcutaneous 24 hours Active Omeprazole 20 MG 1 capsule Orally Once a day Active Fluconazole 150 MG 1 tablet Orally weekly orn for yeast for 90 d ay(s) May, Active Lidocaine-Prilocaine 2.5-2.5 % as directed Externally [...] a day for 3 days Apr, Active buPROPion HCl 75 MG 1 tab Orally Twice a day Jan, Not-Taking Sudafed Active Flonase 50 MCG/DOSE 1 spray in each nostril Nasally Once a day Not-Taking Ammonium Lactate 12 % 1 application to affected area Externally Twi ce a day Active Cyclobenzaprine HCl 5 MG 1 tablet Orally Three times a day as needed for 90 days Active Claritin 10 MG 1 tablet Orally Once a day for 30 day(s) Active Metanx 3-90.314-2-35 MG Orally Daily Active Zantac 150 MG 2 tablet at bedtime Orally Once a day Not-Taking PROCEDURES No Information RESULTS No Results REASON FOR VISIT trazadone MEDICAL (GENERAL) HISTORY Type Description Date Medical History type 1 diabetes (insulin pum p)--[facility]- has DM- retinopathy/neuropathy; gastroparesis Medical History hyperlipidemia Medical History degeneration of lumbar discs --disabled, goes to pain center at [facility] Medical History carpal tunnel syndrome Medical History allergy Medical History vitamin D deficiency Medical History benign thyroid nodule left ( CT 07/23); unchanged on MRI [facility] 08/27 Medical History left shoulder pain Medical History chronic pain, managed by pain center Medical History c difficile colitis, prolong ed course 12/21-05/24, prob due to clinda; needed stool transplant [facility] 04/22 Medical History rt thyroid nodule, last US , FNA done at [facility] (negative) ~ 2011 Medical History Borderline B12 defic 11/20-- oral supplementation, level recovered 05/25 Medical History Barretts esophagus bx 12/18, neg bx 04/22 Medical History mononucleosis-- + EBV IgM ; saw ID 12/22, dx with chronic mono; saw ID at [facility] 2016, told her chronic mono had resolved Medical History (w/u for adrenal insufficiency was WNL a t [facility] 04/23) Medical History lichen planus Medical History diabetic gastroparesis Medical History TMJ Medical History Neg NPSG 09/23 Medical History ocular migraine Medical History DJD/DDD cervical spine MRI at [facility] 08/27 Surgical History left rotator cuff repair 07/20 Surgical History D + C 1995 Surgical History Left shoulder manipulation 07/26/14 Surgical History vahid carpal tunnel 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 Surgical History [facility] Dr [place] C7-T1 ant discectomy a nd fusion 11/23 [...] a day for 3 days 3 Apr, traZODone HCl 100 MG 1 tablet at bedtime Orally before bedtime f or 90 day(s) Cyclobenzaprine HCl 5 MG 1 tablet Orally Three times a day as needed for 90 days buPROPion HCl ER (XL) 150 MG 1 tablet in the morning O rally Once a day for 90 day(s) September, Insurance Providers Payer Name Payer Address Payer Phone Insured Name Patient Relati onship to Insured Coverage Start Date Coverage End Date MEDICARE Part A and B [address] [facility] [id number] [phone] [place] [employer] [address] [facility] [address] [place]
--- OUTSIDE RECORDS SUMMARY | 2021-03-07 23:29 | CCD | Continuity of Care Document ---
Author Author Oly LOVE M.D. Organization Unknown Address [address], [address], [place] [address] Phone [phone] Care Team Providers Care Court Advocate Name Role Phone Dagoberto Cutler MD AUTM [phone] Problems Active Problems Provider Date Allergic rhinitis [...] assess criticality Abdominal pain, Diarrhea, c-diff 12/30/2018 Xkaykya-CKO-Osz Reductase Inhibitors Unable to assess critic ality [...] Lester Love M.D. 2019 Azelastine HCL (Nasal) 137mcg/[place] Solution 2 sprays each nostril every day every morning 30ml J3 0.1 Lester Love M.D. 02/12/2020 Flonase Sensimist 27 .5mcg/[place] Suspension 2 sprays each nostril every night [...] Evening Unknown Baqsimi One Pack 3mg/Dose Powder [place] One [place] 3 MG In One Nostril To Treat [...] Allergy Injection 2 Or More Injection Lester oLve M.D. 09/28/2019 Allergy Injection 2 Or More [...] Available Procedures Date Code Description Status 01/26/2021 23197 Allergy Injection 2 Or More Comp leted 12/30/2020 49646 Allergy Injection 2 Or More Comp leted 12/09/2020 53711 Allergy Injection 2 Or More Comp leted 11/21/2020 01366 Allergy Antigens Single Or Multi ple Completed 11/18/2020 98453 Allergy Injection 2 Or More Comp leted 10/28/2020 63176 Allergy Injection 2 Or More Comp leted 10/08/2020 65432 Allergy Injection 2 Or More Comp leted 09/15/2020 97642 Allergy Injection 2 Or More Comp leted 08/21/2020 65463 Allergy Injection 2 Or More Comp leted [...]
--- OUTSIDE RECORDS SUMMARY | 2021-03-07 23:29 | CCD | Continuity of Care Document ---
Author Author [facility] Unknown Address [address], [address], [place] [address] Phone [phone] Care Team Providers Care Stapling Machine Operator Name Role Phone Dagoberto Cutler MD AUTM [phone] Problems Active Problems Provider Date Allergic rhinitis [...] intradermal test completed in 2019. Anaphylaxis Lester Loyd M.D. Onset: 020 Vasomotor rhinitis Lester Loyd M.D. Onset: 021 Social History Type Date Description Comments Sex Unknown Tobacco Use Reviewed: 02/11/21 Light tobacco smoker (10 or fewer cigarettes/day) Smoking Status Reviewed: 02/11/21 Light tobacco smoker (10 or fewer cigarettes/day) Allergies and adverse reactions Active Allergies Criticality Reaction | Severity Comments Date Clindamycin Unable to assess criticality Abdominal pain, Diarrhea, c-diff 12/30/2018 Caugnzd-KBB-Rqp Reductase Inhibitors Unable to assess critic ality Increased Liver enzymes 12/30/2018 Gabapentin Unable to assess criticality Dizziness 03/01/2019 Medications Active Medications SIG Qnty Indications Ordering Provide r Date Azelastine HCL (Nasal) 0.15% Solut ion 2 sprays each nostril once a day every morning 30ml J30.0 Lester Loyd M.D. 02/11/2021 Loratadine 10mg Tablets Take One Tablet By Mouth Every Day 90tabs Lester Loyd M.D. 2019 Azelastine HCL (Nasal) 137mcg/[place] Solution 2 sprays each nostril every day every morning 30ml J3 0.1 Lester Loyd M.D. 02/12/2020 Flonase Sensimist 27 .5mcg/[place] Suspension 2 sprays each nostril every night 1units Lester Loyd M.D. 02/12/2020 Epinephrine 0.3mg/0. 3ML Solution Auto-Inject inject intramuscularly once as needed for anaphylaxis 1twopack Lester Loyd M.D. 06/15/[address] take [...] Evening Unknown Baqsimi One Pack 3mg/Dose Powder [place] One [place] 3 MG In One Nostril To Treat Severe Hypoglycemia as Directed Unknown Ketotifen Fumarate 0.025% Solution 1 drop per eye daily as needed Unknown Medications Administered in Office Medication SIG Qnty Indications Ordering Provider Date Allergy Injection 2 Or More Injection Lester Loyd M.D. 02/16/2021 Allergy Injection 2 Or More Injection Lester Loyd M.D. 01/26/2021 Allergy Injection 2 Or More Injection Lester Loyd M.D. 12/30/2020 Allergy Injection 2 Or More Injection Lester Loyd M.D. 12/09/2020 Allergy Injection 2 Or More Injection Lester Loyd M.D. 11/18/2020 Allergy Injection 2 Or More Injection Lester Loyd M.D. 10/28/2020 Allergy Injection 2 Or More Injection Lester Loyd M.D. 10/08/2020 Allergy Injection 2 Or More Injection Lester Loyd M.D. 09/15/2020 Allergy Injection 2 Or More Injection Lester Loyd M.D. 08/21/2020 Allergy Injection 2 Or More Injection Lester Loyd M.D. 07/31/2020 Allergy Injection 2 Or More Injection Lester Loyd M.D. 07/08/2020 Allergy Injection 2 Or More Injection Lester Loyd M.D. 06/16/2020 Allergy Injection 2 Or More Injection Lester Loyd M.D. 05/23/2020 Allergy Injection 2 Or More Injection Lester Loyd M.D. 04/30/2020 Allergy Injection 2 Or More Injection Lester Loyd M.D. 04/10/2020 Allergy Injection 2 Or More Injection Lester Loyd M.D. 03/13/2020 Allergy Injection 2 Or More Injection Lester Loyd M.D. 02/21/2020 Allergy Injection 2 Or More Injection Lester Loyd M.D. 01/31/2020 Allergy Injection 2 Or More Injection Lester Loyd M.D. 01/11/2020 Allergy Injection 2 Or More Injection Lester Loyd M.D. 12/21/2019 Allergy Injection 2 Or More Injection Lester Loyd M.D. 11/30/2019 Allergy Injection 2 Or More Injection Lester Loyd M.D. 11/16/2019 Allergy Injection 2 Or More Injection Lester Loyd M.D. 11/06/2019 Allergy Injection 2 Or More Injection Lester Loyd M.D. 10/22/2019 Allergy Injection 2 Or More Injection Lester Loyd M.D. 10/11/2019 Allergy Injection 2 Or More Injection Lester Loyd M.D. 09/28/2019 Allergy Injection 2 Or More Injection Lester Loyd M.D. 09/17/2019 Allergy Injection 2 Or More Injection Lester Loyd M.D. 09/04/2019 Allergy Injection 2 Or More Injection Lester Loyd M.D. 08/22/2019 Allergy Injection 2 Or More Injection Lester Loyd M.D. 08/09/2019 Allergy Injection 2 Or More Injection Lester Loyd M.D. 07/27/2019 Allergy Injection 2 Or More Injection Lester Loyd M.D. 07/20/2019 Allergy Injection 2 Or More Injection Lester Loyd M.D. 07/13/2019 Allergy Injection 2 Or More Injection Lester Loyd M.D. 06/29/2019 Allergy Injection 2 Or More Injection Lester Loyd M.D. 06/22/2019 Therapeutic, Prophylactic Or Diagnostic Injection Subq/Im Injection Lester jennings M.D. 06/15/2019 Allergy Injection 2 Or More Injection Lester Loyd M.D. 06/15/2019 Allergy Injection 2 Or More Injection Lester Loyd M.D. 06/06/2019 Allergy Injection 2 Or More Injection Lester Loyd M.D. 05/25/2019 Allergy Injection 2 Or More Injection Lester Loyd M.D. 05/18/2019 Allergy Injection 2 Or More Injection BRANDON Espinoza 05/11/2019 Allergy Injection 2 Or More Injection Lester Loyd M.D. 05/11/2019 Allergy Injection 2 Or More Injection Lester Loyd M.D. 05/04/2019 Allergy Injection 2 Or More Injection Lester Loyd M.D. 04/24/2019 Allergy Injection 2 Or More Injection Lester Loyd M.D. 04/16/2019 Allergy Injection 2 Or More Injection Lester Loyd M.D. 04/09/2019 Allergy Injection 2 Or More Injection Lester Loyd M.D. 03/30/2019 Allergy Injection 2 Or More Injection Lester Loyd M.D. 03/22/2019 Allergy Injection 2 Or More Injection Lester Loyd M.D. 03/16/2019 Allergy Injection 2 Or More Injection Lester Loyd M.D. 03/09/2019 Allergy Injection 2 Or More Injection Lester Loyd M.D. 03/02/2019 Allergy Injection 2 Or More Injection Lester Loyd M.D. 02/23/2019 Allergy Injection 2 Or More Injection Lester Loyd M.D. 02/16/2019 Allergy Injection 2 Or More Injection Lester Loyd M.D. 02/09/2019 Allergy Injection 2 Or More Injection Lester Loyd M.D. 02/01/2019 Allergy Injection 2 Or More Injection Lester Loyd M.D. 01/26/2019 Allergy Injection 2 Or More Injection Lester Loyd M.D. 01/19/2019 Allergy Injection 2 Or More Injection Lester Loyd M.D. 01/12/2019 Allergy Injection 2 Or More Injection Lester Loyd M.D. 01/05/2019 Immunizations Description No Information Available [...] Available Procedures Date Code Description Status 02/16/2021 25515 Allergy Injection 2 Or More Comp leted 02/11/2021 56925 Office/Outpatient Established Lo w MDM 20-29 Min Completed 01/26/2021 58907 Allergy Injection 2 Or More Comp leted 12/30/2020 22268 Allergy Injection 2 Or More Comp leted 12/09/2020 96004 Allergy Injection 2 Or More Comp leted 11/21/2020 35275 Allergy Antigens Single Or Multi ple Completed 11/18/2020 14595 Allergy Injection 2 Or More Comp leted 10/28/2020 09176 Allergy Injection 2 Or More Comp leted 10/08/2020 67614 Allergy Injection 2 Or More Comp leted 09/15/2020 73786 Allergy Injection 2 Or More Comp leted 08/21/2020 94741 Allergy Injection 2 Or More Comp leted Medical Devices Description No Information Available Encounters Type Date Location Provider Dx Diagnosis Office Visit 02/11/2021 11:00a Main Office Lester Loyd M.D. J30.1 Allergic rhinitis due to pollen J30.81 Allergic rhinitis due to ani mal (cat) (dog) hair and dander J30.89 Other allergic rhinitis J30.0 Vasomotor rhinitis F17.210 Nicotine dependence, cigaret tierney, uncomplicated K21.9 Gastro-esophageal reflux dis ease without esophagitis Assessments Date Code Description Provider 02/16/2021 J30.1 Allergic rhinitis due to pollen Lester Loyd M.D. 02/16/2021 J30.81 Allergic rhinitis due to animal (cat) (dog) hair and dander Lester Loyd M.D. 02/16/2021 J30.89 Other allergic rhinitis Lester Loyd M.D. Plan of Treatment Future Appointment(s):* 03/09/2021 9:10 am - Allergy Injection at Main Office * 02/11/2022 11:00 am - Lester Loyd M.D. at Main Office 02/11/2021 - Lester Loyd M.D.* J30.1 Allergic rhinitis due to pollen* [...]
--- OUTSIDE RECORDS SUMMARY | 2021-03-07 23:29 | CCD ---
Author Author [facility] Syst ems Organization [facility] [employer] ems Address Unknown Phone Unavailable Care Team Providers Care Restorative Care Technician Name Role Phone Dagoberto Cutler Unavailable PROBLEMS Type Condition ICD9-CM Code [id number] Code Onset Dates Condition S tatus W/U Status Risk SNOMED Code Notes Problem Mixed hyperlipidemia E78.2 Active confirmed [id number] was on statins, were dc due to abnl LFTs. Took Zetia, was dc by 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 Active confirmed 15042408 Problem Cervical disc disorder of cervicothoracic region M 50.93 Active confirmed 859007226 Problem Sleep disturbance, unspecified G47.9 Active confir med 65399605 Problem Mild depression F32.0 Active confirmed 3104 08256 Problem Myalgia M79.1 Active confirmed 81485477 Problem Chronic prescription opiate use Z79.891 Active confirmed 298306357 Problem Recurrent infections B99.9 Active confirmed 99103071 Problem History of Clostridium difficile Z87.19 Active confirmed 095517248 Problem Fatigue due to treatment R53.83 Active confirmed 228100327 Problem Cervical radiculopathy M54.12 Active confirmed 81463211 Problem Cervical disc disorder with radiculopathy of cer vicothoracic region M50.13 Active confirmed 040488271 Problem Perimenopause N95.1 Active confirmed 415912 998159793 Problem Thyroid nodule E04.1 Active confirmed 01829 5005 Problem Cervical facet syndrome M47.812 Active confirmed 362736427 Problem B12 deficiency E53.8 Active confirmed 64462 4004 Problem Shoulder pain, bilateral M25.511 Active confirmed 97251014 Problem Medicare annual wellness visit, subsequent Z00.00 Active confirmed 036911104 Problem Plantar wart, left foot B07.0 Active confirmed 35461559311621474 Problem Sleep apnea, unspecified type G47.30 Active confirm ed 55669365 Problem Moderate episode of recurrent major depressive disorder F33.1 Active confirmed 730278786 ALLERGIES Allergen (clinical drug ingredient) Drug/Non Drug Allergy do cumented on EMR Reaction Allergy Type Onset Date Status Remeron various, see 07/23 TE Non Drug Allergy Active pregabalin Lyrica(NDC Code:[address]-79) decreased blood sugar Drug Allergy Active amoxicillin / clavulanate Augmentin(NDC Code:[address]-47) decreases urine out put Drug Allergy Active clindamycin Clindamycin HCl(NDC Code:[address]-21) c-difficile Drug Allergy Active statins elevated LFT Non Drug Allergy Active atorvastatin atorvastatin insomnia," racing heart" Non Drug Allergy Active gabapentin Gabapentin(NDC Code:[address]-40) severe dizziness Drug A llergy Active duloxetine Cymbalta(NDC Code:[address]-08) 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 Drug Allergy Active ENCOUNTERS from 1970 to 2020-12-10 Encounter Location Date Provider Diagnosis [facility] [address] [place] KENDRICK [id number] Dec, Dagoberto Cutler IMMUNIZATIONS Vaccine Route Administration Date Status Pneumococcal Adult 0.5mL Pneumovax 23 IM Intramuscular Feb 27 014 Administered SOCIAL HISTORY Tobacco Use: Social History Observation Description Date Details (start date - stop date) Former Smoker Sex Assigned At : Social History Observation Description Sex Assigned At Unknown Audit Question Answer Notes Interpretation: Alcohol Education Total Score: 2 Language: Question Answer Notes Languages spoken: Czech Episcopal: Question Answer Notes Episcopal 33 None Sexual Hx: Question Answer Notes Had sex in the last 12 months (vaginal, oral, or anal)? No Have you ever had an STD? Yes Herpes? Yes Drug and Alcohol Question Answer Notes Interpretation: No problems reported Total Score: 0 Alcohol Screening: Question Answer Notes Did you [...] Notes Start Da te End Date Status HumaLOG 100 UNIT/ML as directed via pump Subcutaneous 24 hours Active buPROPion HCl ER (XL) 150 MG 1 tablet in the morning O rally Once a day for 90 day(s) September, Active HYDROcodone-Acetaminophen 5-325 MG 1 tablet as needed Orally Daily for 30 Days Jul, Active Cyclobenzaprine HCl 5 MG 1 tablet Orally Three times a day as needed for 90 days Active Insulin Pump Accessories as directed Active Vitamin D 5000 1 tablet Orally Once a day Active traZODone HCl 100 MG 1 tablet at bedtime Orally before bedtime f or 90 day(s) Active Omeprazole 20 MG 1 capsule Orally [...] 1 days Not-Taking Pepcid Active ibuprofen Active Zantac 150 MG 2 tablet at bedtime Orally Once a day Not-Taking Ammonium Lactate 12 % 1 application to affected area Externally Twi ce a day Active Sudafed Active Flonase 50 MCG/DOSE 1 spray in each nostril Nasally Once a day Not-Taking valACYclovir HCl 500 MG 1 tablet Orally twice daily for 3 days Apr, Active buPROPion HCl 75 MG 1 tab Orally Twice a day Jan, Not-Taking Claritin 10 MG 1 tablet Orally Once a day for 30 day(s) Active Metanx 3-90.314-2-35 MG Orally Daily Active Pennsaid 2 % 2 applications to affected a chad Transdermal four times daily for 30 day(s) Dec, Active PROCEDURES No Information RESULTS No Results REASON FOR VISIT New Refill Request MEDICAL (GENERAL) HISTORY Type Description Date Medical History type 1 diabetes (insulin pum p)--[facility]- has DM- retinopathy/neuropathy; gastroparesis Medical History hyperlipidemia Medical History degeneration of lumbar discs --disabled, goes to pain center at [facility] Medical History carpal tunnel syndrome Medical History allergy Medical History vitamin D deficiency Medical History benign thyroid nodule left ( CT 07/23); unchanged on MRI [facility] 08/27 Medical History left shoulder pain Medical History chronic pain, managed by pain center Medical History c difficile colitis, prolong ed course 12/21-05/24, prob due to clinda; needed stool transplant [facility] 04/22 Medical History rt thyroid nodule, last US , FNA done at [facility] (negative) ~ 2011 Medical History Borderline B12 defic 11/20-- oral supplementation, level recovered 05/25 Medical History Barretts esophagus bx 12/18, neg bx 04/22 Medical History mononucleosis-- + EBV IgM ; saw ID 12/22, dx with chronic mono; saw ID at [facility] 2016, told her chronic mono had resolved Medical History (w/u for adrenal insufficiency was WNL a t [facility] 04/23) Medical History lichen planus Medical History diabetic gastroparesis Medical History TMJ Medical History Neg NPSG 09/23 Medical History ocular migraine Medical History DJD/DDD cervical spine MRI at [facility] 08/27 Surgical History left rotator cuff repair 07/20 Surgical History D + C 1995 Surgical History Left shoulder manipulation 07/26/14 Surgical History vahid carpal tunnel 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
--- OUTSIDE RECORDS SUMMARY | 2021-03-07 23:29 | CCD | Continuity of Care Document ---
Author Author Oly GIRON RPA-C Organization Unknown Address [address] [place] [address], [address] [place] [address] Phone [phone] Care Team Providers Care Senior Technical Program Manager Name Role Phone Central Scheduling AUTM [phone] Problems Active Problems Provider Date Diarrhea Ashley Najerasebastiándarrion RPA-C Onset: 01/05 Abdominal pain Ashley Giron RPA-C Onset: 01/05 Constipation Ashley Duran Luannejustinstefanie RPA-C Onset: 01/05 Reyes's esophagus Ashley Giron, RPA-C Onset: 01/05 Early satiety Ashley Giron, RPA-C Onset: 01/05 Nausea Ashley Duran Luannemelecio RPA-C Onset: 01/05 Clostridial enteric disease Ashley Giron RPA-C Onse t: 01/06/2016 Gastroesophageal reflux disease Ashley Duran Luannejustinstefanie RPA-C Onset: 01/06/2016 Acute upper respiratory infection, unspecified Ashley pinedameredith RPA-C Onset: 01/06/2016 Other specified diseases of esophagus Juan Jose Chu MD On set: 01/06/2016 Reyes's esophagus Ashley Giron, RPA-C Onset: 01/05 Gastroesophageal reflux disease Ashley Duran Luannejustinstefanie RPA-C Onset: 01/06/2016 Generalized abdominal pain Ashley Giron, RPA-C Onset : 01/06/2016 Diaphragmatic hernia Juan Jose Chu MD Onset: 01/06/2016 Hematemesis Juan Jose Chu MD Onset: 01/06/2016 Peptic reflux disease Juan Jose Chu MD Onset: 01/06/2016 Chronic rhinitis Haja Mccain MD Onset: 07/29/2016 Epigastric pain Ashley Giron RPA-C Onset: 07/29 Other specified disorders of temporomandibular joint Haja Mccain MD Onset: 07/29/2016 Localized swelling, mass and lump, neck Haja Mccain MD Onset: 07/29/2016 Chest pain Ashley Giron TEMO-C Onset: 09/15 Type 1 diabetes mellitus Juan Jose Chu MD Onset: 05/16/19 18 Sleep apnea SISSY Tate Onset: 09/07/2017 Disturbance of consciousness SISSY Tate Onset: 06/2017 Difficulty breathing SISSY Tate Onset: 09/07/2017 Social History Type Date Description Comments Sex Unknown Cigarette Use 1990 Former 1 pack per day Smokeless Tobacco Never Used Smokeless Tobacco ETOH Use Rarely Recreational Drug Use Denies Drug Use Tobacco Use Start: Unknown Smokes 1/2 Pack A Day Allergies, Adverse Reactions, Alerts Active Allergies Criticality [...] for abdominal pain. 30caps K21.9 Juan Jose Chu MD 07/21/2020 Famotidine 40mg Tablets take 1 tablet by mouth every morning. 90tabs Juan Jose Cuh MD 02/15/[address] take 1 capsule by mouth daily. 90caps Juan Jose Chu MD 01/26/2019 Sudafed Sinus Congestion 12 Hour [...] lb BMI (Body Mass Index) 23.0 kg/m2 [place] Body Weight 120 lb Weight 60.782 kg BSA (Body Surface Area) 1.65 m2 07/21/2020 10:36am BP Systolic 104 mmHg BP Diastolic 68 mmHg Height 64 inches 5'4" Weight 143.00 lb BMI (Body Mass Index) 24.5 kg/m2 [place] Body Weight 120 lb Weight 64.865 kg BSA (Body Surface Area) 1.70 m2 Results Description No Information Available Procedures Date Code Description Status 07/21/2020 22539 Office/Outpatient Established Mo d MDM 30-39 Min Completed Medical Devices Description No Information Available Encounters Type Date Location Provider Dx Diagnosis Office Visit 07/21/2020 10:30a [facility] NETTIE Pate K21.9 Gastro-esophageal reflux dis ease without esophagitis R13.10 Dysphagia, unspecified K59.00 Constipation, unspecified R63.4 Abnormal weight loss Assessments Date Code Description Provider 01/19/2021 K21.9 Gastro-esophageal reflux disease without esophagitis Ashley Girno, [facility] 01/19/2021 R13.10 Dysphagia, unspecified Ashley Giron, [facility] 01/19/2021 K59.00 Constipation, unspecified Meliss a Roger Najerabodarrion, [facility] 01/19/2021 R63.4 Abnormal weight loss Ashley bravo, [facility] 07/21/2020 K21.9 Gastro-esophageal reflux disease without esophagitis Ashley Giron, [facility] 07/21/2020 R13.10 Dysphagia, unspecified Ashley Najerabodarrion, [facility] 07/21/2020 K59.00 Constipation, unspecified Meliss a Roger Najerabois, [facility] 07/21/2020 R63.4 Abnormal weight loss Ashleyedi bravo, [facility] Plan of Treatment 01/19/2021 - Ashley Vegadarrion, [facility]* K21.9 Gastro-esophageal reflux disease without esophagitis * R13.10 Dysphagia, unspecified * K59.00 Constipation, unspecified * R63.4 Abnormal weight loss * * Follow up:* Will call patient with results of CT scan. She will also return in 6 months, sooner if needed (f/u heartburn; bowels). Functional Status Description No Information Available Mental Status Description No Information Available Referrals Description No Information Available
--- OUTSIDE RECORDS SUMMARY | 2021-03-07 23:29 | CCD ---
Continuity of Care Document (CCD) Created on: 02/02/2021 Oly Vance External Reference #: [id number] : [id number] Sex: Female Author Author Oly GIRON RPA-C Organization Unknown Address [address] [place] [address], [address] [place] [address] Phone [phone] Care Team Providers Care Rn Cardiovascular Icu Name Role Phone Central Scheduling AUTM [phone] Problems Active Problems Provider Date Diarrhea Ashley Najerasebastiándarrion RPA-C Onset: 01/05 Abdominal pain Ashley Giron RPA-C Onset: 01/05 Constipation Ashley Valente Luannejustinstefanie RPA-C Onset: 01/05 Reyes's esophagus Ashley Giron, RPA-C Onset: 01/05 Early satiety Ashley Giron, RPA-C Onset: 01/05 Nausea Ashley Valente Luannemelecio RPA-C Onset: 01/05 Clostridial enteric disease Ashley Giron RPA-C Onse t: 01/06/2016 Gastroesophageal reflux disease Ashley Valente Luannejustinstefanie RPA-C Onset: 01/06/2016 Acute upper respiratory infection, unspecified Ashley pinedameredith RPA-C Onset: 01/06/2016 Other specified diseases of esophagus Juan Jose Chu MD On set: 01/06/2016 Reyes's esophagus Ashley Giron, RPA-C Onset: 01/05 Gastroesophageal reflux disease Ashley Valente Luannejustinstefanie RPA-C Onset: 01/06/2016 Generalized abdominal pain [...] by mouth every morning. 90tabs Juan Jose Chu MD 02/15/[address] take [...] lb BMI (Body Mass Index) 23.0 kg/m2 [place] Body Weight 120 lb Weight 60.782 kg BSA (Body Surface Area) 1.65 m2 07/21/2020 10:36am BP Systolic 104 mmHg BP Diastolic 68 mmHg Height 64 inches 5'4" Weight 143.00 lb BMI (Body Mass Index) 24.5 kg/m2 [place] Body Weight 120 lb Weight 64.865 kg BSA (Body Surface Area) 1.70 m2 Results Description No Information Available Procedures Date Code Description Status 01/19/2021 06801 Office/Outpatient Established Mo d MDM 30-39 Min Completed Medical Devices Description No Information Available Encounters Type Date Location Provider Dx Diagnosis Office Visit 01/19/2021 10:30a [facility] Pra yan Giron, RPA-C K21.9 Gastro-esophageal reflux dis ease without esophagitis R13.10 Dysphagia, unspecified K59.00 Constipation, unspecified R63.4 Abnormal weight loss Assessments Date Code Description Provider 01/19/2021 K21.9 Gastro-esophageal reflux disease without esophagitis Ashley A Katia [facility] 01/19/2021 R13.10 Dysphagia, unspecified [facility] K59.00 Constipation, unspecified Arabellapadmini valente Roger Giron [facility] 01/19/2021 R63.4 Abnormal weight loss Ashley bravo [facility] Plan of Treatment 01/19/2021 - Ashley Roger Katia [facility]* K21.9 Gastro-esophageal reflux disease without esophagitis * [...]
--- OUTSIDE RECORDS SUMMARY | 2021-03-07 23:30 | CCD | Summary of Care ---
Author Author [facility] Address Unknown Phone Unavailable Care Team Providers Care Food Service Sales Representatives Name Role Phone Dagoberto Cutler MD PCP Reason for Visit * Reason Comments Diabetes Encounter Details Care Team Description Date Type Department Romy Montgomery MD [address], [place] [id number] Type 1 diabetes mellitus with hyperglyce sadie 12/08/2020 Office Visit [facility] [address] [place] [id number] Allergies Comments Active Allergy Reactions Severity Noted Date Causes urinary retention Amoxicillin-Pot 02/12/2014 Clavulanate c-diff Clindamycin/Lincomycin Other (See 10/03/2015 Comments) Didn't tolerate higher doses Duloxetine Hcl 10/03/2015 Dizziness Gabapentin 10/03/2015 Pregabalin 06/20/2017 Pt unsure Statins 10/03/2015 Tramadol 06/20/2017 documented as of this encounter (statuses as of 12/08/2020) Medications End Date Status Medication Sig Dispensed Refills Start Date Active Cholecalciferol (VITAMIN Take 5,000 0 D) 2000 UNITS CAPS Units by mouth daily. Active lidocaine-prilocaine Apply 0 (EMLA) cream topically as needed. Active diclofenac sodium Dispense 40 0 (PENNSAID) 2 % mg (2 pump transdermal solution actuations) directly onto the knee or first into the hand and then onto the knee. Wash hands after application. For shoulders Active cyclobenzaprine Take 5 mg by 0 (FLEXERIL) 5 MG tablet mouth daily as needed for Muscle spasmsHalf tab prn Active Insulin Syringe-Needle Use as 100 each 2 U-100 (BD INSULIN SYRINGE directed. In 6 ULTRAFINE) 31G X 09/21" event of pump 0.5 ML MISCIndications: failure up to Type 1 diabetes mellitus 8 times with complications daily. DX: 250.43 Active V-Vnzpkohxrpbx-F9-B12 Take 1 tablet 90 tablet 1 3-35-2 MG by mouth 7 TABSIndications: Diabetic daily peripheral neuropathy, History of vitamin B deficiency Active trazodone (DESYREL) 100 nightly 0 MG tablet 8 Active omeprazole (PRILOSEC) 20 Take 20 mg by 0 MG capsule mouth daily Active Blood Glucose Monitoring Use as 1 each 0 0 Suppl (ONE TOUCH ULTRA directed. 9 MINI) w/Device Test 8 times KITIndications: daily. Pt Uncontrolled type 1 prefers blue diabetes mellitus with hyperglycemia Active HYDROcodone-acetaminophen Take 1 tablet 0 (LORTAB) 5-325 MG per by mouth tablet every 6 (six) hours as needed for Pain Active insulin glargine (LANTUS) Inject 24 10 mL 1 100 UNIT/ML units in case 9 vialIndications: Type 1 of pump diabetes mellitus with failure. hyperglycemia Reconnet pump 24 hours after Lantus injection. Active Insulin Infusion Pump 1 each by 45 each 3 Supplies (TRUSTEEL Does not 9 INFUSION SET) apply route MISCIndications: Type 1 every other diabetes mellitus with day TruSteel hyperglycemia infusion set, 8 mm, 32", change every other day. DX E10.65 Active Insulin Infusion Pump 1 each by 30 each 3 Supplies (T:SLIM INSULIN Does not 9 CARTRIDGE 3ML) apply route MISCIndications: Type 1 every 3 diabetes mellitus with (three) days hyperglycemia T:slim insulin cartridge with t:lock. Change every 3 days. DX E10.65 Active loratadine (CLARITIN) 10 Take 10 mg by 5 02/19 MG tablet mouth daily 9 Active buPROPion HCl ER (XL) 300 Take 150 mg 0 MG Oral Tablet Extended by mouth Release 24 Hour every morning (Wellbutrin XL) Active Famotidine 40 MG Oral 0 Tablet (PEPCID) 0 Active OneTouch Delica Lancets Use as 100 each 5 33GIndications: Type 1 directed to 0 diabetes mellitus with check blood hyperglycemia glucose levels 4x daily. DX: E10.65 Active Ketostix In Vitro Ketostix, use 50 each 3 StripIndications: Type 1 as directed 0 diabetes mellitus with up to 10 hyperglycemia times daily for illness or elevated blood sugar over 250 twice in a row, dx E10.65 Active Dexcom G6 Topology Professor 1 each by 1 each 0 02 DeviceIndications: Type 1 Does not 0 diabetes mellitus with apply route hyperglycemia See Admin Instructions For continuous glucose monitoring, dx E10.65, last office visit 03/12/19 Active Dexcom G6 1 each by 9 each 3 SensorIndications: Type 1 Does not 0 diabetes mellitus with apply route hyperglycemia every 10 (ten) days Dx E10.65, last office visit: 03/12/19 Active Dexcom G6 1 each by 1 each 3 TransmitterIndications: Does not 0 Type 1 diabetes mellitus apply route with hyperglycemia every 3 (three) months Dx E10.65, last office visit: 03/12/19 Active Fluconazole 150 MG Oral TAKE ONE 0 Tablet (DIFLUCAN) TABLET BY 1 MOUTH EVERY WEEK NEEDED FOR YEAST Active valACYclovir HCl 500 MG TAKE ONE 0 Oral Tablet (VALTREX) TABLET BY 1 MOUTH TWICE A DAY FOR 3 DAYS 07/07/2021 Active OneTouch Ultra In Vitro Use as 600 strip 5 StripIndications: Type 1 directed to 1 diabetes mellitus with check blood hyperglycemia glucose levels 4 times daily. Dx:E10.65 Active Baqsimi One Pack 3 [place] 3mg in 1 each 3 MG/DOSE Nasal Powder one nostril 1 (Glucagon)Indications: to treat Type 1 diabetes mellitus severe with hyperglycemia hypoglycemia. Dx E10.65 . Active HumaLOG 100 UNIT/ML USE 90 mL 1 Subcutaneous DIRECTED VIA 1 SolutionIndications: Type PUMP UP TO 1 diabetes mellitus with 100 UNITS A hyperglycemia DAY documented as of this encounter (statuses as of 12/08/2020) Active Problems Problem Noted Date H/O Spinal surgery 01/12/2018 Cervical stenosis of spinal canal 12/01/2017 S/P cervical spinal fusion 11/30/2017 Vitamin B-complex deficiency 09/24/2016 Gastroparesis 05/09/2016 Insulin pump status 01/07/2016 Insulin long-term use 01/07/2016 Last Assessment & Plan: Formatting of this note might be differ ent from the original. Insulin Pump Record (Advanced) Oly Vance 12/08/2020 Insulin Type: Humalog Insulin Pump Model: Tandem Bolus Increment: Infusion Set: Accuc hek Ultraflex Current Basal: units/hour MN 0.7 0700 0.900 Noon 1.100 1700 1.000 2100 0.700 Bolus settings: MN 1:12 0700 1:8 Noon 1:8 1600 1:10 2100 1:10 ISF: MN 1:50 0700 1:50 BG target MN 112 0700 100 Active insulin Time 4 hours Narcotic dependence 03/18/2015 Neural foraminal stenosis of cervical spine 03/18/20 15 Cervical radiculopathy 03/18/2015 Shoulder pain 05/20/2013 Type 1 diabetes mellitus with hyperglyc emia Overview: Formatting of this note might be differ ent from the original. Dx 1980 L ast Assessment & Plan: Formatting of this note is different fr om the original. Insulin Pump Record (Advanced) Oly Vance 02/12/2014 Insulin Type: Humalog Insulin Pump Model: Tandem Bolus Increment: Infusion Set: Accuc hek Ultraflex Time of Day: Carbohydrate to Insulin Ra jus Sensitivity Factor Blood Glucose Target Active Insulin If blood glucose is below target goal t hen, subtract unit(s) of insulin, required for a meal or snack #1 Breakfast 1:7 40 100 3.5 hours #2 Mid- Morning snack 1:7 #3 Lunch 1:8 #4 Afternoon snack 1:8 #5 Supper 1:8 #6 Evening snack 1:8 Basal Increment for Pump Model: Unit/ hr Basal Insulin Basal Rate Starting Time Basal Rate S tarting Time Basal #1 0.85 unit/hr 12mn Basal #6 un it/hr Basal #2 1.25 unit/hr 04:30 Basal #7 u nit/hr Basal #3 1.0 unit/hr 12:00 Basal #8 un it/hr Basal #4 0.85 unit/hr 21:00 Basal #9 u nit/hr Basal #5 unit/hr Basal #10 unit/hr Will add basal rate of 1.35 at 7:00 am to Noon on weekends. Has other basal regimens for PMS, etc. Hyperlipidemia Nontoxic multinodular goiter Vitamin D deficiency Diabetic retinopathy Diabetic neuropathy Microalbuminuria GERD (gastroesophageal reflux disease) Depression documented as of this encounter (statuses as of 12/08/2020) Social History Date Tobacco Use Types Packs/Day Years Used Quit: 05/17/2006 Former Smoker 1 10 Smokeless Tobacco: Never Used Comments Alcohol Use Standard Drinks/Week occasionally Yes 0 (1 standard drink = 0.6 o z pure alcohol) Sex Assigned at Date Recorded Not on file Date Recorded COVID-19 Exposure Response 12/08/2020 10:21 AM EDT In the last month, have you been in contact with No / Unsure someone who was confirmed or suspected to have Coronavirus / COVID-19? documented as of this encounter Last Filed Vital Signs Reading Time Taken Comments Vital Sign 98/58 12/08/2020 10:36 AM EDT Blood Pressure 84 12/08/2020 10:36 AM EDT Pulse - - Temperature 16 12/08/2020 10:36 AM EDT Respiratory Rate - - Oxygen Saturation - - Inhaled Oxygen Concentration 61.7 kg (136 lb 0.4 oz) 12/08/2020 10:36 AM EDT Weight 164 cm (5' 4.57") 12/08/2020 10:36 AM EDT Height 22.94 12/08/2020 10:36 AM EDT Body Mass Index documented in this encounter Progress Notes * Romy Montgomery MD - 12/08/2020 10:30 AM EDT Patient comes in for follow-up of type 1 diabetes CGM data was reviewed. 79% of the sugars were in range. She had some low sugar s. There are no specific patterns of lows and highs. Overall her control is good. She works very hard in taking care of sugars and i s doing a good job. Review of system is otherwise negative Vitals blood pressure 98/58 weight 61.7 kg BMI 22.94 Physical Examination: General: Alert and oriented X3, NAD HEENT: No thyromegaly on inspection Respiratory: Non labored breathing, normal respiratory effort Skin: [place], no visible Ulcer Neuro: Normal speech, EOMI Psych: Normal mood and affect A1c today 6.1% Assessment and plan: Type 1 diabetes, well controlled. No changes were made to her regimen today. S he likes to calibrate her CGM and the insurance is not covering her strips. I a m unsure how to get this covered but if she does seem to needed specially when s he is feeling sick. I sent a message to the nutrition educator to look into this . Total time spent on cjuw-qz-rtfa time, chart review and documentation: 40+ minut christ Montgomery MD Hurricane Trackercontent strategy lead Endocrinology, Diabetes and Metabolism [facility] documented in this encounter Miscellaneous Notes * Assessment & Plan Note - Romy Montgomery MD - 12/08/2020 3:51 PM EDT Associated Problem(s): Insulin long-term use Insulin Pump Record (Advanced) Oly Vance 12/08/2020 Insulin Type: Humalog Insulin Pump Model: Tandem Bolus Increment: Infusion Set: Accuchek Ultraflex Current Basal: units/hour MN 0.7 0700 0.900 Noon 1.100 1700 1.000 2100 0.700 Bolus settings: MN 1:12 0700 1:8 Noon 1:8 1600 1:10 2100 1:10 ISF: MN 1:50 0700 1:50 BG target MN 112 0700 100 Active insulin Time 4 hours documented in this encounter Plan of Treatment Care Team Description Date Type Specialty Kerri Yeh, SISSY [address] [place] [address] [phone] 03/11/2021 Office Visit Endocrinology Health Maintenance Due Date Last Done Comments MMR Vaccines (1 of - 1970 Standard series) Varicella Vaccines (1 of 1970 2 - 2-dose childhood series) Pneumococcal Vaccine: 65+ 1975 Years (1 of 2 - PPSV23) Pneumococcal Vaccine: 1975 Pediatrics (0 to 5 Years) and At-Risk Patients (6 to 64 Years) (1 of 2 - PPSV23) DTaP,Tdap,and Td Vaccines 1976 (1 - Tdap) HIV Screening 1982 Hepatitis B Vaccines (1 1988 of 3 - Risk 3-dose series) Breast Cancer Screening 2 03/22/2020 03/22/2018 years Influenza Vaccine 02/06/2021 Cervical Cancer Screening 06/05/2025 06/05/2020, 5 years 06/05/2020, 03/09/2018, Additional history exists Colon Cancer Screening 10 11/04/2029 11/05/2019 yrs HIB Vaccines Aged Out No longer eligible based on patient's age to complete this topic Hepatitis A Vaccines Aged Out No longer eligibl e based on patient's age to complete this topic IPV Vaccines Aged Out No longer eligible based on patient's age to complete this topic documented as of this encounter Goals Goal Patient Associated Recent Progress Patient-Stat Aut hor Goal Type Problems ed? Blood Pressure < 130/80 Blood 98/58 (12/08/2020 No Kirk, Pressure 10:36 AM EDT) SISSY [place]ns HEMOGLOBIN A1C < 7.0 Result 6.1 (12/08/2020 No B ishop, Component 10:28 AM EDT) SISSY K[place]ns LDL CHOLESTEROL < 100 Result 101 (07/11/2020 No Kirk, Component 12:28 PM EST) SISSY Kearns documented as of this encounter Implants Device Identifier Shelf Expiration Date Model / Serial / L ot Implanted Type Area Manufactur er 08/27/2024 [id number] / / [id number] Bone Psr [id number] - N/A: Neck MEDTR [employer]IC [id number] Implanted: Qty: 1 on 11/30/2017 by Tony Santos DO at OR 5E 02/10/2019 [id number] / [id number] / [id number] Putty Progenix 1cc - N/A: Neck MEDTR[employer] [id number] Implanted: Qty: 1 on 11/30/2017 by Tony Santos DO at OR 5E 09/18/2022 [id number] [id number] / [id number] / [id number] Bone Cancellous Crushed 30cc - N/A: Neck LIFENE T [id number] Implanted: Qty: 1 on 11/30/2017 by Tony Wen DO at OR [facility] [id number] / / Plate Vision Elite [id number] - N/A: Neck MED [employer] [id number] Implanted: Qty: 1 on 11/30/2017 by Rohan Crooks MD at OR [facility] [id number] / / Screw Justice. Ang. [id number] - N/A: Neck MEDTRONI C [id number] Implanted: Qty: 2 on 11/30/2017 by Rohan Crooks MD at OR [facility] [id number] / / Screw Fix. Ang. [id number] - N/A: Neck MEDTRONI C [id number] Implanted: Qty: 2 on 11/30/2017 by Rohan Crooks MD at OR [facility] documented as of this encounter Procedures Comments Procedure Name Priority Date/Time Associated Diag nosis POCT HEMOGLOBIN A1C, Routine 12/08/2020 DOCKED 10:28 AM EDT POCT GLUCOSE, DOCKED Routine 12/08/2020 10:27 AM EDT documented in this encounter Results * POCT Hemoglobin A1C, Docked (12/08/2020 10:28 AM EDT) Hemoglobin A1C 6.1 (H) 4.0 - 6.0 % [facility] POC Estimated Avg 128 (H) <126 mg/dL [facility] Glucose Specimen Whole Blood Performing Organization Address City/[facility] P awilda Number POINT OF CARE TEST [address] [place] [address] [facility] [address] [place], [place] [address] * POCT glucose, docked (12/08/2020 10:27 AM EDT) POC Glucose 177 (H) 70 - 140 mg/dL [facility] POC Specimen Whole Blood Performing Organization Address [facility] P awilda Number POINT OF CARE TEST [address] [place] [address] [facility] [place] [address] documented in this encounter Visit Diagnoses Diagnosis Type 1 diabetes mellitus with hyperglyc emia Type I (juvenile type) diabetes mellitu s without mention of complication, not stated as uncontrolled documented in this encounter
--- OUTSIDE RECORDS SUMMARY | 2021-03-07 23:30 | CCD | Continuity of Care Document ---
Author Oly Cabrera M.D. Organization Unknown Address [address], [place] [address] Phone [phone] Care Team Providers Care Bariatric Surgeon Name Role Phone Dagoberto Cutler MD AUTM [phone] Problems Active Problems Provider Date Allergic rhinitis [...] 2019. Anaphylaxis Lester Loyd M.D. Onset: 020 Social History Type Date Description Comments Sex Unknown Tobacco Use Reviewed: 08/12/20 Light tobacco smoker (10 or fewer cigarettes/day) Smoking Status Reviewed: 08/12/20 Light tobacco smoker (10 or fewer cigarettes/day) Allergies, Adverse Reactions, Alerts Active Allergies Reaction Severity Comments Date Clindamycin Abdominal pain, Diarrhea, c-diff 12/30/2018 Qyvuaav-FSW-Inc Reductase Inhibitors Increased Liver enzymes 12/30/2018 Gabapentin Dizziness 03/01/2019 Medications Active Medications SIG Qnty Indications Ordering Provide r Date Loratadine 10mg Tablets Take One Tablet By Mouth Every Day 90tabs Lester Loyd M.D. 2019 Azelastine HCL (Nasal) 137mcg/[place] Solution 2 sprays each nostril every day every morning 30ml J3 0.1 Lester Loyd M.D. 02/12/2020 Flonase Sensimist 27 .5mcg/[place] Suspension 2 sprays each nostril every night 1units Lester Loyd M.D. 02/12/2020 Epinephrine 0.3mg/0. 3ML Solution Auto-Inject inject intramuscularly once as needed for anaphylaxis 1twdinorah Loyd M.D. 06/15/[address] [...] Evening Unknown Baqsimi One Pack 3mg/Dose Powder [place] One Columbiana 3 MG In One Nostril To Treat [...] Allergy Injection 2 Or More Injection Lester Rach M.DNatty 10/08/2020 Allergy Injection 2 Or More Injection Lester Rach M.DNatty 09/15/2020 Allergy Injection 2 Or More Injection Lester Rach, M.DNatty 08/21/2020 Allergy Injection 2 Or More Injection Lester Rach M.DNatty 07/31/2020 Allergy Injection 2 Or More Injection Lester Lizz Loyd.DNatty 07/08/2020 Allergy Injection 2 Or More Injection Lester Chrshana M.DNatty 06/16/2020 Allergy Injection 2 Or More Injection Lester Lizz Loyd.DNatty 05/23/2020 Allergy Injection 2 Or More Injection Lester Lizz Loyd.DNatty 04/30/2020 Allergy Injection 2 Or More Injection Lester Lizz Loyd.DNatty 04/10/2020 Allergy Injection 2 Or More Injection LesterLizz Talavera.Chad 03/13/2020 Allergy Injection 2 Or More Injection Lester Lizz Loyd.DNatty 02/21/2020 Allergy Injection 2 Or More Injection Lester Rach M.DNatty 01/31/2020 Allergy Injection 2 Or More Injection LesterLizz Talavera.DNatty 01/11/2020 Allergy Injection 2 Or More Injection Lester Rach M.DNatty 12/21/2019 Allergy Injection 2 Or More Injection Lesterjonh Loyd M.DNatty 11/30/2019 Allergy Injection 2 Or More Injection Lester Lizz Loyd.DNatty 11/16/2019 Allergy Injection 2 Or More Injection Lester Chrshana, M.DNatty 11/06/2019 Allergy Injection 2 Or More Injection Lester Rach M.DNatty 10/22/2019 Allergy Injection 2 Or More Injection Lester Rach M.DNatty 10/11/2019 Allergy Injection 2 Or More Injection Lester Rach, M.DNatty 09/28/2019 Allergy Injection 2 Or More Injection Lester Rach M.DNatty 09/17/2019 Allergy Injection 2 Or More Injection Lester Rach M.DNatty 09/04/2019 Allergy Injection 2 Or More Injection Lester Chrostowski, M.D. 08/22/2019 Allergy Injection 2 Or More Injection Lester Loyd M.D. 08/09/2019 Allergy Injection 2 Or More Injection Lester Loyd M.D. 07/27/2019 Allergy Injection 2 Or More Injection Lester Loyd M.D. 07/20/2019 Allergy Injection 2 Or More Injection Lestre Loyd M.D. 07/13/2019 Allergy Injection 2 Or [...] Allergy Injection 2 Or More Injection Lester Lody M.D. 02/23/2019 Allergy Injection 2 Or More [...] Information Available Procedures Date Code Description Status 12/09/2020 57798 Allergy Injection 2 Or More Comp leted 11/21/2020 23648 Allergy Antigens Single Or Multi ple Completed 11/18/2020 62506 Allergy Injection 2 Or More Comp leted 10/28/2020 34704 Allergy Injection 2 Or More Comp leted 10/08/2020 40022 Allergy Injection 2 Or More Comp leted 09/15/2020 70853 Allergy Injection 2 Or More Comp leted 08/21/2020 57381 Allergy Injection 2 Or More Comp leted 08/12/2020 26845 Smoking & Tobacco Ce ssation Counseling Visit Intermediate 3-10Min Completed 08/12/2020 06089 Office/Outpatient Established Lo w MDM 20-29 Min Completed 07/31/2020 72506 Allergy Injection 2 Or More Comp leted 07/24/2020 91553 Allergy Antigens Single Or Multi ple Completed 07/08/2020 67672 Allergy Injection 2 Or More Comp leted 06/16/2020 70756 Allergy Injection 2 Or More Comp leted Medical Devices Description No Information Available Encounters Type Date Location Provider Dx Diagnosis Office Visit 08/12/2020 11:00a Main Office Lester Loyd M.D. J30.1 Allergic rhinitis due to pollen J30.81 Allergic rhinitis due to ani mal (cat) (dog) hair and dander J30.89 Other allergic rhinitis F17.210 Nicotine dependence, cigaret tierney, uncomplicated K21.9 Gastro-esophageal reflux dis ease without esophagitis Assessments Date Code Description Provider 12/09/2020 J30.1 Allergic rhinitis due to pollen Lester Loyd M.D. 12/09/2020 J30.81 Allergic rhinitis due to animal (cat) (dog) hair and dander Lester Loyd M.D. 12/09/2020 J30.89 Other allergic rhinitis Lester Loyd M.D. Plan of Treatment Future Appointment(s):* 12/30/2020 10:00 am - Allergy Injection at Main Office * 02/11/2021 11:00 am - Lester Loyd M.D. at Main Office 08/12/2020 - Lester Loyd M.D.* J30.1 Allergic rhinitis [...]
--- OUTSIDE RECORDS SUMMARY | 2021-03-07 23:31 | CCD ---
Author Author [facility] Organization [facility] Address Unknown Phone Unavailable Care Team Providers Care Accountant Name Role Phone Charlebois, A Ashley RPA C Unavailable Unavailable Charlebois, A Ashley RPA C Unavailable Unavailable Charlebois, A Ashley RPA C Unavailable Unavailable Charlebois, A Ashley RPA C Unavailable Unavailable Charlebois, A Ashley RPA C Unavailable Unavailable Charlebois, A Ashley RPA C Unavailable Unavailable Charlebois, A Ashley RPA C Unavailable Unavailable Charlebois, A Ashley RPA C Unavailable Unavailable Charlebois, A Ashley RPA C Unavailable Unavailable Charlebois, A Ashley RPA C Unavailable Unavailable Charlebois, A Ashley RPA C Unavailable Unavailable Charlebois, A Ashley RPA C Unavailable Unavailable Charlebois, A Ashley RPA C Unavailable Unavailable Charlebois, A Ashley RPA C Unavailable Unavailable Charlebois, A Ashley RPA C Unavailable Unavailable Charlebois, A Ashley RPA C Unavailable Unavailable Charlebois, A Ashley RPA C Unavailable Unavailable Charlebois, A Ashley RPA C Unavailable Unavailable Charlebois, A Ashley RPA C Unavailable Unavailable Charlebois, A Ashley RPA C Unavailable Unavailable Charlebois, A Ashley RPA C Unavailable Unavailable Charlebois, A Ashley RPA C Unavailable Unavailable Charlebois, A Ashley RPA C Unavailable Unavailable Charlebois, A Ashley RPA C Unavailable Unavailable Charlebois, A Ashley RPA C Unavailable Unavailable Charlebois, A Ashley RPA C Unavailable Unavailable Charlebois, A Ashley RPA C Unavailable Unavailable Charlebois, A Ashley RPA C Unavailable Unavailable Charlebois, A Ashley RPA C Unavailable Unavailable Charlebois, A Ashley RPA C Unavailable Unavailable Charlebois, A Ashley RPA C Unavailable Unavailable Charlebois, A Ashley RPA C Unavailable Unavailable Charlebois, A Ashley RPA C Unavailable Unavailable TISHA LOVE MD Unavailable Unavailable CHRTISHA MEJIA MD Unavailable Unavailable CHROSTTISHA HENRY MD Unavailable Unavailable CHROSTTISHA HENRY MD Unavailable Unavailable CHROSTTISHA HENRY MD Unavailable Unavailable CHROSTTISHA HENRY MD Unavailable Unavailable CHROSTTISHA HENRY MD Unavailable Unavailable CHROSTTISHA HENRY MD Unavailable Unavailable CHROSTTISHA HENRY MD Unavailable Unavailable CHROSTTISHA HENRY MD Unavailable Unavailable CHROSTTISHA HENRY MD Unavailable Unavailable CHROSTTISHA HENRY MD Unavailable Unavailable CHROSTTISHA HENRY MD Unavailable Unavailable CHROSTTISHA HENRY MD Unavailable Unavailable CHROSTTISHA HENRY MD Unavailable Unavailable CHROSTTISHA HENRY MD Unavailable Unavailable CHROSTTISHA HENRY MD Unavailable Unavailable CHROSTTISHA HENRY MD Unavailable Unavailable CHROSTTISHA HENRY MD Unavailable Unavailable CHROSTTISHA HENRY MD Unavailable Unavailable CHROSTTISHA HENRY MD Unavailable Unavailable CHROSTTISHA HENRY MD Unavailable Unavailable CHROSTTISHA HENRY MD Unavailable Unavailable CHROSTTISHA HENRY MD Unavailable Unavailable CHROSTTISHA HENRY MD Unavailable Unavailable CHROSTTISHA HENRY MD Unavailable Unavailable CHROSTOWSKITISHA MD Unavailable Unavailable CHROSTOWSKI, TISHA SMITH Unavailable Unavailable CHROSTOWSKI, TISHA SMITH Unavailable Unavailable CHROSTOWSKI, TISHA SMITH Unavailable Unavailable CHROSTOWSKI, TISHA SMITH Unavailable Unavailable CHROSTOWSKI, TISHA SMITH Unavailable Unavailable CHROSTOWSKI, TISHA SMITH Unavailable Unavailable CHROSTOWSKI, TISHA SMITH Unavailable Unavailable CHROSTOWSKI, TISHA SMITH Unavailable Unavailable CHROSTOWSKI, TISHA SMITH Unavailable Unavailable CHROSTOWSKI, TISHA SMITH Unavailable Unavailable CHROSTOWSKI, TISHA SMITH Unavailable Unavailable CHROSTOWSKITISHA MD Unavailable Unavailable TEE, R SCOTT CLINICAL DOCUMENTATION DEVELOPER Unavailable Unavailable TEE, R SCOTT CLINICAL DOCUMENTATION DEVELOPER Unavailable Unavailable TEE, R SCOTT CLINICAL DOCUMENTATION DEVELOPER Unavailable Unavailable TEE, R SCOTT CLINICAL DOCUMENTATION DEVELOPER Unavailable Unavailable TEE, R SCOTT CLINICAL DOCUMENTATION DEVELOPER Unavailable Unavailable TEE, R SCOTT CLINICAL DOCUMENTATION DEVELOPER Unavailable Unavailable TEE, R SCOTT CLINICAL DOCUMENTATION DEVELOPER Unavailable Unavailable TEE, R SCOTT CLINICAL DOCUMENTATION DEVELOPER Unavailable Unavailable TEE, R SCOTT CLINICAL DOCUMENTATION DEVELOPER Unavailable Unavailable TEE, R SCOTT CLINICAL DOCUMENTATION DEVELOPER Unavailable Unavailable TEE, R SCOTT CLINICAL DOCUMENTATION DEVELOPER Unavailable Unavailable TEE, R SCOTT CLINICAL DOCUMENTATION DEVELOPER Unavailable Unavailable TEE, R SCOTT CLINICAL DOCUMENTATION DEVELOPER Unavailable Unavailable TEE, R SCOTT CLINICAL DOCUMENTATION DEVELOPER Unavailable Unavailable TEE, R SCOTT CLINICAL DOCUMENTATION DEVELOPER Unavailable Unavailable TEE, R SCOTT CLINICAL DOCUMENTATION DEVELOPER Unavailable Unavailable TEE, R SCOTT CLINICAL DOCUMENTATION DEVELOPER Unavailable Unavailable TEE, R SCOTT CLINICAL DOCUMENTATION DEVELOPER Unavailable Unavailable TEE, R SCOTT CLINICAL DOCUMENTATION DEVELOPER Unavailable Unavailable TEE, R SCOTT CLINICAL DOCUMENTATION DEVELOPER Unavailable Unavailable TEE, R SCOTT CLINICAL DOCUMENTATION DEVELOPER Unavailable Unavailable TEE, R SCOTT CLINICAL DOCUMENTATION DEVELOPER Unavailable Unavailable TEE, R SCOTT CLINICAL DOCUMENTATION DEVELOPER Unavailable Unavailable TEE, R SCOTT CLINICAL DOCUMENTATION DEVELOPER Unavailable Unavailable TEE, R SCOTT CLINICAL DOCUMENTATION DEVELOPER Unavailable Unavailable TEE, R SCOTT CLINICAL DOCUMENTATION DEVELOPER Unavailable Unavailable TEE, R SCOTT CLINICAL DOCUMENTATION DEVELOPER Unavailable Unavailable TEE, R SCOTT CLINICAL DOCUMENTATION DEVELOPER Unavailable Unavailable TEE, R SCOTT CLINICAL DOCUMENTATION DEVELOPER Unavailable Unavailable TEE, R SCOTT CLINICAL DOCUMENTATION DEVELOPER Unavailable Unavailable TEE, R SCOTT CLINICAL DOCUMENTATION DEVELOPER Unavailable Unavailable TEE, R SCOTT CLINICAL DOCUMENTATION DEVELOPER Unavailable Unavailable TEE, R SCOTT CLINICAL DOCUMENTATION DEVELOPER Unavailable Unavailable TEE, R SCOTT CLINICAL DOCUMENTATION DEVELOPER Unavailable Unavailable TEE, R SCOTT CLINICAL DOCUMENTATION DEVELOPER Unavailable Unavailable TEE, R SCOTT CLINICAL DOCUMENTATION DEVELOPER Unavailable Unavailable TEE, R SCOTT CLINICAL DOCUMENTATION DEVELOPER Unavailable Unavailable TEE, R SCOTT CLINICAL DOCUMENTATION DEVELOPER Unavailable Unavailable TEE, R SCOTT CLINICAL DOCUMENTATION DEVELOPER Unavailable Unavailable TEE, R SCOTT CLINICAL DOCUMENTATION DEVELOPER Unavailable Unavailable TEE, R SCOTT CLINICAL DOCUMENTATION DEVELOPER Unavailable Unavailable TEE, R SCOTT CLINICAL DOCUMENTATION DEVELOPER Unavailable Unavailable TEE, R SCOTT CLINICAL DOCUMENTATION DEVELOPER Unavailable Unavailable TEE, R SCOTT CLINICAL DOCUMENTATION DEVELOPER Unavailable Unavailable MAJAK, R VINCENT DPM Unavailable Unavailable MAJAK, R VINCENT DPM Unavailable Unavailable MAJAK, R VINCENT DPM Unavailable Unavailable MAJAK, R VINCENT DPM Unavailable Unavailable MAJAK, R VINCENT DPM Unavailable Unavailable MAJAK, R VINCENT DPM Unavailable Unavailable MAJAK, R VINCENT DPM Unavailable Unavailable MAJAK, R VINCENT DPM Unavailable Unavailable MAJAK, R VINCENT DPM Unavailable Unavailable MAJAK, R VINCENT DPM Unavailable Unavailable MAJAK, R VINCENT DPM Unavailable Unavailable MAJAK, R VINCENT DPM Unavailable Unavailable MAJAK, R VINCENT DPM Unavailable Unavailable MAJAK, R VINCENT DPM Unavailable Unavailable MAJAK, R VINCENT DPM Unavailable Unavailable MAJAK, R VINCENT DPM Unavailable Unavailable MAJAK, R VINCENT DPM Unavailable Unavailable MAJAK, R VINCENT DPM Unavailable Unavailable MAJAK, R VINCENT DPM Unavailable Unavailable MAJAK, R VINCENT DPM Unavailable Unavailable MAJAK, R VINCENT DPM Unavailable Unavailable MAJAK, R VINCENT DPM Unavailable Unavailable MAJAK, R VINCENT DPM Unavailable Unavailable MAJAK, R VINCENT DPM Unavailable Unavailable MAJAK, R VINCENT DPM Unavailable Unavailable MAJAK, R VINCENT DPM Unavailable Unavailable MAJAK, R VINCENT DPM Unavailable Unavailable MAJAK, R VINCENT DPM Unavailable Unavailable MAJAK, R VINCENT DPM Unavailable Unavailable MAJAK, R VINCENT DPM Unavailable Unavailable MAJAK, R VINCENT DPM Unavailable Unavailable Yegiazarov, Y Georgiy Unavailable Unavailable Yegiazarov, Y Georgiy Unavailable Unavailable Yegiazarov, Y Georgiy Unavailable Unavailable Yegiazarov, Y Georgiy Unavailable Unavailable Yegiazarov, Y Georgiy Unavailable Unavailable Yegiazarov, Y Georgiy Unavailable Unavailable Yegiazarov, Y Georgiy Unavailable Unavailable Yegiazarov, Y Georgiy Unavailable Unavailable Yegiazarov, Y Georgiy Unavailable Unavailable Yegiazarov, Y Georgiy Unavailable Unavailable Yegiazarov, Y Georgiy Unavailable Unavailable Yegiazarov, Y Georgiy Unavailable Unavailable Yegiazarov, Y Georgiy Unavailable Unavailable Yegiazarov, Y Georgiy Unavailable Unavailable Yegiazarov, Y Georgiy Unavailable Unavailable Yegiazarov, Y Georgiy Unavailable Unavailable Yegiazarov, Y Georgiy Unavailable Unavailable Yegiazarov, Y Georgiy Unavailable Unavailable Yegiazarov, Y Georgiy Unavailable Unavailable Yegiazarov, Y Georgiy Unavailable Unavailable Yegiazarov, Y Georgiy Unavailable Unavailable Yegiazarov, Y Georgiy Unavailable Unavailable Yegiazarov, Y Georgiy Unavailable Unavailable Yegiazarov, Y Georgiy Unavailable Unavailable Yegiazarov, Y Georgiy Unavailable Unavailable Yegiazarov, Y Georgiy Unavailable Unavailable Yegiazarov, Y Georgiy Unavailable Unavailable JOSIAH, EDMAR PA Unavailable Unavailable JOSIAH, EDMAR PA Unavailable Unavailable JOSIAH, EDMAR PA Unavailable Unavailable JOSIAH, EDMAR PA Unavailable Unavailable JOSIAH, EDMAR PA Unavailable Unavailable JOSIAH, EDMAR PA Unavailable Unavailable JOSIAH, EDMAR PA Unavailable Unavailable JOSIAH, EDMAR PA Unavailable Unavailable JOSIAH, EDMAR PA Unavailable Unavailable JOSIAH, EDMAR PA Unavailable Unavailable JOSIAH, EDMAR PA Unavailable Unavailable JOSIAH, EDMAR PA Unavailable Unavailable JOSIAH, EDMAR PA Unavailable Unavailable JOSIAH, EDMAR PA Unavailable Unavailable JOSIAH, EDMAR PA Unavailable Unavailable JOSIAH, EDMAR PA Unavailable Unavailable JOSIAH, EDMAR PA Unavailable Unavailable JOSIAH, EDMAR PA Unavailable Unavailable JOSIAH, EDMAR PA Unavailable Unavailable JOSIAH, EDMAR PA Unavailable Unavailable JOSIAH, EDMAR PA Unavailable Unavailable JOSIAH, EDMAR PA Unavailable Unavailable JOSIAH, EDMAR PA Unavailable Unavailable JOSIAH, EDMAR PA Unavailable Unavailable JOSIAH, EDMAR PA Unavailable Unavailable JOSIAH, EDMAR PA Unavailable Unavailable JOSIAH, EDMAR PA Unavailable Unavailable JOSIAH, EDMAR PA Unavailable Unavailable JOSIAH, EDMAR PA Unavailable Unavailable JOSIAH, EDMAR PA Unavailable Unavailable JOSIAH, EDMAR PA Unavailable Unavailable JOSIAH, EDMAR PA Unavailable Unavailable JOSIAH, EDMAR PA Unavailable Unavailable JOSIAH, EDMAR PA Unavailable Unavailable JOSIAH, EDMAR PA Unavailable Unavailable JOSIAH, EDMAR PA Unavailable Unavailable JOSIAH, EDMAR PA Unavailable Unavailable JOSIAH, EDMAR PA Unavailable Unavailable Tomaiuoli, ROMAN Darline ANP-C Unavailable tomaiuo TomaiuoROMAN disla Darline ANP-C Unavailable tomaiuo Tomaiuonighat ROMAN Darline ANP-C Unavailable tomaiuo Tomaiuonighat ROMAN Darline ANP-C Unavailable tomaiuo TomaiuoROMAN disla Darline ANP-C Unavailable tomaiuo Tomaiuonighat ROMAN Darline ANP-C Unavailable tomaiuo Tomaiuonighat ROMAN Darline ANP-C Unavailable tomaiuo TomaiuoJESÚS dislaE Darline ANP-C Unavailable tomaiuo FernandezaiuoROMAN dilsa Darline ANP-C Unavailable tomaiuo TomaiuoROMAN disla Darline ANP-C Unavailable tomaiuo TomaiuoJESÚS dislaE Darline ANP-C Unavailable tomaiuo TomaiuoJESÚS dislaE Darline ANP-C Unavailable tomaiuo TomaiuoJESÚS dislaE Darline ANP-C Unavailable tomaiuo TomaiuoJESÚS dislaE Darline ANP-C Unavailable tomaiuo TomaiuoROMAN disla Darline ANP-C Unavailable tomaiuo ROMAN Ramirez Darline ANP-C Unavailable tomaiuo TomaiuoROMAN disla Darline ANP-C Unavailable tomaiuo TomaiuoJESÚS dislaE Darline ANP-C Unavailable tomaiuo TomaiuoROMAN disla Darline ANP-C Unavailable tomaiuo Tomaiuonighat ROMAN Darline ANP-C Unavailable tomaiuo TomaiuoROMAN disla Darline ANP-C Unavailable tomaiuo TomaiuoROMAN disla Darline ANP-C Unavailable tomaiuo MarielleuoROMAN disla Darline ANP-C Unavailable tomaiuo Tomaiuonighat ROMAN Darline ANP-C Unavailable tomaiuo Fernandezaiuonighat ROMAN Darline ANP-C Unavailable tomaiuo Fernandezaiuonighat ROMAN Darline ANP-C Unavailable tomaiuo Tomaiuonighat ROMAN Darline ANP-C Unavailable tomaiuo Fernandezaiuonighat ROMAN Darline ANP-C Unavailable tomaiuo Tomaiuonighat ROMAN Darline ANP-C Unavailable tomaiuo Tomaiuonighat ROMAN Darline ANP-C Unavailable tomaiuo Fernandezaiuonighat ROMAN Darline ANP-C Unavailable tomaiuo Fernandezaiwinstonnighat ROMAN Darline ANP-C Unavailable tomaiuo Fernandezjaspernighat ROMAN Darline ANP-C Unavailable tomaiuo Tomaiuonighat ROMAN Darline ANP-C Unavailable tomaiuo Tomaiuonighat ROMAN Darline ANP-C Unavailable tomaiuo Fernandezjaspernighat ROMAN Darline ANP-C Unavailable tomaiuo Fernandezaiwinstonnighat ROMAN Darline ANP-C Unavailable tomaiuo Fernandzeaiwinstonnighat ROMAN Darline ANP-C Unavailable tomaiuo Fernandezjaspernighat ROMAN Darline ANP-C Unavailable tomaiuo Fernandezaiuonighat ROMAN Darline ANP-C Unavailable tomaiuo Suryadevara, Simi Unavailable Unavailable Suryadevara, Simi Unavailable Unavailable Suryadevara, Simi Unavailable Unavailable Suryadevara, Simi Unavailable Unavailable Suryadevara, Simi Unavailable Unavailable Suryadevara, Simi Unavailable Unavailable Suryadevara, Simi Unavailable Unavailable Suryadevara, Simi Unavailable Unavailable Suryadevara, Simi Unavailable Unavailable Kerri Yeh Unavailable Unavailable [place], Kerri PA Unavailable Unavailable [place], Kerri PA Unavailable Unavailable Rao, Kerri PA Unavailable Unavailable [place], Kerri PA Unavailable Unavailable [place], Kerri PA Unavailable Unavailable Rao, Kerri PA Unavailable Unavailable [place], Kerri PA Unavailable Unavailable [place], Kerri PA Unavailable Unavailable [place], Kerri PA Unavailable Unavailable Rao, Kerri PA Unavailable Unavailable Rao, Kerri PA Unavailable Unavailable Rao, Kerri PA Unavailable Unavailable [place], Kerri PA Unavailable Unavailable [place], Kerri PA Unavailable Unavailable [place], Kerri PA Unavailable Unavailable [place], Kerri PA Unavailable Unavailable Rao, Kerri PA Unavailable Unavailable Rao, Kerri PA Unavailable Unavailable Rao, Kerri PA Unavailable Unavailable [place], Kerri PA Unavailable Unavailable [place], Kerri PA Unavailable Unavailable [place], Kerri PA Unavailable Unavailable [place], Kerri PA Unavailable Unavailable Rao, Kerri PA Unavailable Unavailable Rao, Kerri PA Unavailable Unavailable [place], Kerri PA Unavailable Unavailable Rao, Kerri PA Unavailable Unavailable [place], Kerri PA Unavailable Unavailable [place], Kerri PA Unavailable Unavailable [place], Kerri PA Unavailable Unavailable [place], Kerri PA Unavailable Unavailable Rao, Kerri PA Unavailable Unavailable Rao, Kerri PA Unavailable Unavailable [place], Kerri PA Unavailable Unavailable Romy Montgomery MD Unavailable Unavailable Romy Montgomery MD Unavailable Unavailable Romy Montgomery MD Unavailable Unavailable Romy Montgomery MD Unavailable Unavailable Romy Montgomery MD Unavailable Unavailable Romy Montgomery MD Unavailable Unavailable Romy Montgomery MD Unavailable Unavailable Romy Montgomery MD Unavailable Unavailable Romy Montgomery MD Unavailable Unavailable Romy Montgomery MD Unavailable Unavailable Romy Montgomery MD Unavailable Unavailable Romy Montgomery MD Unavailable Unavailable Romy Montgomery MD Unavailable Unavailable Romy Montgomery MD Unavailable Unavailable Romy Montgomery MD Unavailable Unavailable Romy Montgomery MD Unavailable Unavailable Romy Montgomery MD Unavailable Unavailable Romy Montgomery MD Unavailable Unavailable Romy Montgomery MD Unavailable Unavailable ValentinaRomy MD Unavailable Unavailable ValentinaRomy MD Unavailable Unavailable ValentinaRomy MD Unavailable Unavailable ValentinaDiomedesa Unavailable Unavailable Valentina Romy Unavailable Unavailable Valentina Romy Unavailable Unavailable Valentina Romy Unavailable Unavailable ValentinaDiomedesa Unavailable Unavailable Valentina Romy Unavailable Unavailable ValentinaDiomedesa Unavailable Unavailable Valentina Romy Unavailable Unavailable Valentina Romy Unavailable Unavailable ValentinaDiomedesa Unavailable Unavailable ValentinaDiomedesa Unavailable Unavailable ValentinaRomy MD Unavailable Unavailable JINGA, [id number] Unavailable Unavailable VINCENT MENDEZ MD Unavailable Unavailable VINCENT MENDEZ MD Unavailable Unavailable VINCENT MENDEZ MD Unavailable Unavailable VINCENT MENDEZ MD Unavailable Unavailable VINCENT MENDEZ MD Unavailable Unavailable IVNCENT MENDEZ MD Unavailable Unavailable VINCENT MENDEZ MD Unavailable Unavailable VINCENT MENDEZ MD Unavailable Unavailable VINCENT MENDEZ MD Unavailable Unavailable VINCENT MENDEZ MD Unavailable Unavailable VINCENT MENDEZ MD Unavailable Unavailable VINCENT MENDEZ MD Unavailable Unavailable VINCENT MENDEZ MD Unavailable Unavailable VINCENT MENDEZ MD Unavailable Unavailable VINCENT MENDEZ MD Unavailable Unavailable VINCENT MENDEZ MD Unavailable Unavailable VINCENT MENDEZ MD Unavailable Unavailable VINCENT MENDEZ MD Unavailable Unavailable VINCENT MENDEZ MD Unavailable Unavailable VINCENT MENDEZ MD Unavailable Unavailable VINCENT MENDEZ MD Unavailable Unavailable VINCENT MENDEZ MD Unavailable Unavailable VINCENT MENDEZ MD Unavailable Unavailable VINCENT MENDEZ MD Unavailable Unavailable VINCENT MENDEZ MD Unavailable Unavailable VINCENT MENDEZ MD Unavailable Unavailable VINCENT MENDEZ MD Unavailable Unavailable VINCENT MENDEZ MD Unavailable Unavailable VINCENT MENDEZ MD Unavailable Unavailable VINCENT MENDEZ MD Unavailable Unavailable VINCENT MENDEZ MD Unavailable Unavailable VINCENT MENDEZ MD Unavailable Unavailable VINCENT MENDEZ MD Unavailable Unavailable Lyn Banuelos Unavailable Flaco QUEEN MD Unavailable Unavailable Flaco QUEEN MD Unavailable Unavailable Flaco QUEEN MD Unavailable Unavailable Flaco QUEEN MD Unavailable Unavailable Flaco QUEEN MD Unavailable Unavailable Flaco QUEEN MD Unavailable Unavailable Flaco QUEEN MD Unavailable Unavailable SETTERFlaco MD Unavailable Unavailable SETTERFlaco MD Unavailable Unavailable SETTER, Flaco TILLMAN MD Unavailable Unavailable SETTER, Flaco TILLMAN MD Unavailable Unavailable SETTER, Flaco TILLMAN MD Unavailable Unavailable SETTER, Flaco TILLMAN MD Unavailable Unavailable SETTER, Flaco TILLMAN MD Unavailable Unavailable SETTER, Flaco TILLMAN MD Unavailable Unavailable SETTER, Flaco TILLMAN MD Unavailable Unavailable SETTER, Flaco TILLMAN MD Unavailable Unavailable SETTER, Flaco TILLMAN MD Unavailable Unavailable SETTER, Flaco TILLMAN MD Unavailable Unavailable SETTER, Flaco TILLMAN MD Unavailable Unavailable SETTER, Flaco TILLMAN MD Unavailable Unavailable SETTER, Flaco TILLMAN MD Unavailable Unavailable SETTER, Flaco TILLMAN MD Unavailable Unavailable SETTER, Flaco TILLMAN MD Unavailable Unavailable SETTER, Flaco TILLMAN MD Unavailable Unavailable SETTER, Flaco TILLMAN MD Unavailable Unavailable SETTER, Flaco TILLMAN MD Unavailable Unavailable SETTER, Flaco TILLMAN MD Unavailable Unavailable SETTER, Flaco TILLMAN MD Unavailable Unavailable SETTER, Flaco TILLMAN MD Unavailable Unavailable SETTER, Flaco TILLMAN MD Unavailable Unavailable SETTER, Flaco TILLMAN MD Unavailable Unavailable SETTERFlaco MD Unavailable Unavailable SETTERFlaco MD Unavailable Unavailable SETTERFlaco MD Unavailable Unavailable SETTERFlaco MD Unavailable Unavailable SETTERFlaco MD Unavailable Unavailable SETTERFlaco MD Unavailable Unavailable SETTERFlaco MD Unavailable Unavailable SETTER, Flaco TILLMAN MD Unavailable Unavailable SETTER, Flaco TILLMAN MD Unavailable Unavailable SETTERFlaco MD Unavailable Unavailable SETTERFlaco MD Unavailable Unavailable SETTERFlaco MD Unavailable Unavailable SETTERFlaco MD Unavailable Unavailable SETTERFlaco MD Unavailable Unavailable SETTERFlaco MD Unavailable Unavailable SETTERFlaco MD Unavailable Unavailable SETTERFlaco MD Unavailable Unavailable SETTERFlaco MD Unavailable Unavailable SETTERFlaco MD Unavailable Unavailable SETTERFlaco MD Unavailable Unavailable SETTERFlaco MD Unavailable Unavailable SETTERFlaco MD Unavailable Unavailable SETTERFlaco MD Unavailable Unavailable SETTERFlaco MD Unavailable Unavailable SETTERFlaco MD Unavailable Unavailable SETTERFlaco MD Unavailable Unavailable SETTERFlaco MD Unavailable Unavailable SETTERFlaco MD Unavailable Unavailable SETTERFlaco MD Unavailable Unavailable SETTERFlaco MD Unavailable Unavailable SETTERFlaco MD Unavailable Unavailable SETTER, J PRIMO MD Unavailable Unavailable SETTERFlaco MD Unavailable Unavailable SETTER, Flaco TILLMAN MD Unavailable Unavailable SETTER, Flaco TILLMAN MD Unavailable Unavailable SETTER, Flaco TILLMAN MD Unavailable Unavailable SETTER, Flaco TILLMAN MD Unavailable Unavailable SETTER, Flaco TILLMAN MD Unavailable Unavailable SETTER, Flaco TILLMAN MD Unavailable Unavailable SETTER, Flaco TILLMAN MD Unavailable Unavailable SETTER, Flaco TILLMAN MD Unavailable Unavailable SETTER, Flaco TILLMAN MD Unavailable Unavailable SETTER, Flaco TILLMAN MD Unavailable Unavailable SETTER, Flaco TILLMAN MD Unavailable Unavailable SETTER, Flaco TILLMAN MD Unavailable Unavailable SETTER, Flaco TILLMAN MD Unavailable Unavailable SETTER, Flaco TILLMAN MD Unavailable Unavailable SETTER, Flaco TILLMAN MD Unavailable Unavailable SETTER, Flaco TILLMAN MD Unavailable Unavailable SETTER, Flaco TILLMAN MD Unavailable Unavailable SETTER, Flaco TILLMAN MD Unavailable Unavailable SETTER, Flaco TILLMAN MD Unavailable Unavailable SETTER, Flaco TILLMAN MD Unavailable Unavailable SETTER, Flaco TILLMAN MD Unavailable Unavailable SETTER, Flaco TILLMAN MD Unavailable Unavailable SETTER, Flaco TILLMAN MD Unavailable Unavailable SETTER, Flaco TILLMAN MD Unavailable Unavailable SETTER, Flaco TILLMAN MD Unavailable Unavailable SETTER, Flaco TILLMAN MD Unavailable Unavailable SETTER, Flaco TILLMAN MD Unavailable Unavailable SETTER, Flaco TILLMAN MD Unavailable Unavailable SETTER, Flaco TILLMAN MD Unavailable Unavailable SETTER, Flaco TILLMAN MD Unavailable Unavailable SETTER, Flaco TILLMAN MD Unavailable Unavailable SETTERFlaco MD Unavailable Unavailable SETTERFlaco MD Unavailable Unavailable SETTER, Flaco TILLMAN MD Unavailable Unavailable SETTER, Flaco TILLMAN MD Unavailable Unavailable SETTERFlaco MD Unavailable Unavailable SETTER, Flaco TILLMAN MD Unavailable Unavailable SETTER, Flaco TILLMAN MD Unavailable Unavailable SETTERFlaco MD Unavailable Unavailable SETTERFlaco MD Unavailable Unavailable SETTERFlaco MD Unavailable Unavailable SETTERFlaco MD Unavailable Unavailable SETTERFlaco MD Unavailable Unavailable SETTERFlaco MD Unavailable Unavailable SETTERFlaco MD Unavailable Unavailable SETTERFlaco MD Unavailable Unavailable SETTERFlaco MD Unavailable Unavailable Flaco BRISENO Unavailable Unavailable Lynn Chavez Unavailable Re-disclosure Warning The records that you are about to access may contain information from federally-assisted alcohol or drug abuse programs. If such information is present, then the following federally mandated warning applies: This information has been disclosed to you from records protected by federal confidentiality rules (42 CFR part 2). The federal rules prohibit you from making any further disclosure of this information unless further disclosure is expressly permitted by the written consent of the person to whom it pertains or as otherwise permitted by 42 CFR part 2. A general authorization for the release of medical or other information is NOT sufficient for this purpose. The Federal rules restrict any use of the information to criminally investigate or prosecute any alcohol or drug abuse patient.The records that you are about to access may contain highly sensitive health information, the redisclosure of which is protected by Article 27-F of the [facility] Public Health law. If you continue you may have access to information: Regarding HIV / AIDS; Provided by facilities licensed or operated by the [facility] Office of Mental Health; or Provided by the [facility] Office for People With Developmental Disabilities. If such information is present, then the following [facility] mandated warning applies: This information has been disclosed to you from confidential records which are protected by state law. State law prohibits you from making any further disclosure of this information without the specific written consent of the person to whom it pertains, or as otherwise permitted by law. Any unauthorized further disclosure in violation of state law may result in a fine or fci sentence or both. A general authorization for the release of medical or other information is NOT sufficient authorization for further disc losure. Family History Family Member Name Family Member Gender Family Member Status Date o f Status Description Data Source(s) Unknown Unknown Problem MEDENT ([facility]) Unknown Unknown Problem MEDENT ([facility] ) Encounters Encounter Providers Location Date Indications Data Source(s ) Outpatient Attender: Kerri SHEEHAN 03/11/2021 12:00: 00 AM [facility] [place] [address] [place] [address] 02/27/2021 12:00:00 AM EDT eCW1 ([facility]) Unknown [address] [place] [address] 02/20/2021 12:00:00 AM EDT eCW1 ([facility]) [place] [address] [place] [address] 02/12/2021 12:00:00 AM EDT [facility]1 [facility]) Outpatient Attender: TISHA LOVE MD Main Office 02/11/2021 11:00:00 AM EDT MEDENT ([facility]) Outpatient Attender: Ashley Pennington/[place]/Roger braxton/Reindre 01/19/2021 10:30:00 AM EDT MEDENT ([facility]) [place] [address] [facility] [facility] [place] [address] 01/19/2021 12:00:00 AM EDT eCW1 ([facility]) Unknown [address] [facility] [facility] [place] [address] 12/10/2020 12:00:00 AM EDT eCW1 ([facility]) Unknown [address] [facility] [facility] [place] [address] 12/09/2020 12:00:00 AM EDT eCW1 ([facility]) Unknown [address] [facility] [facility] [place] [address] 12/09/2020 12:00:00 AM EDT eCW1 ([facility]) Outpatient Attender: Romy Montgomery MD [id number] 2020 12:00:00 AM EDT - 12/08/2020 11:07:41 AM [facility] Outpatient Attender: Kerri SHEEHAN [id number] 12:00:00 AM EDT - 10/14/2020 01:45:12 PM [facility] [address] [facility] [place] [address] 09/19/2020 12:00:00 AM EDT eCW1 ([facility]) Unknown [address] [facility] [facility] [place] [address] 09/19/2020 12:00:00 AM EDT eCW1 ([facility]) Outpatient Referrer: SCOTT TEE NP 09/18/2020 1 2:00:00 AM EDT Pain, unspecified [facility] Pain, unspecified Outpatient Attender: SCOTT TEE NPAttender: PRIMO RIOJAS MD [id number] 09/18/2020 12:00:00 AM EDT Other specified extrapyramidal and movem ent disorders [facility] Other specified extrapyramidal and movem ent disorders Outpatient [address] [facility] [place] [address] 09/02/2020 12:00:00 AM EDT eCW1 ([facility]) Outpatient Referrer: Darline ROMANO-C 08/27 12:00:00 AM EDT Radiculopathy, cervical region [facility] Radiculopathy, cervical region Outpatient Attender: Darline UMANZORC [id number] 08/27/2020 12:00:00 AM EDT Radiculopathy, cervical region [facility] Radiculopathy, cervical region Outpatient Referrer: Darline UMANZORC 08/27 12:00:00 AM EDT Radiculopathy, cervical region [facility] Radiculopathy, cervical region Outpatient Attender: TISHA LOVE MD Main Office 08/12/2020 11:00:00 AM EDT MED[facility] ([facility]) Outpatient Attender: Travis Randhawaender: EDMAR SHEEHAN 08/04/2020 12:00:00 AM EDT [facility] Outpatient Attender: Ashley Pennington/Kalyn/Roger braxton/Reindl 07/21/2020 10:30:00 AM EDT MEDENT ([facility] MARYJANE Juarez) Unknown [address] [facility] [facility] [place] [address] 07/18/2020 12:00:00 AM EST eCW1 ([facility]) Unknown [address] [facility] [facility] [place] [address] 07/18/2020 12:00:00 AM EST eCW1 ([facility]) Unknown [address] [facility] [facility] [place] [address] 07/16/2020 12:00:00 AM EST eCW1 ([facility]) Outpatient Attender: Romy Chauhan scarlet: SAAD BRISENOReferrer: Romy Montgomery MD 07/11/2020 12:00:00 AM EST Other fatigue [facility] Other fatigue Outpatient Attender: Kerri SHEEHAN [id number] 12:00:00 AM EST - 07/10/2020 12:39:37 PM EST Type 1 diabetes mellitus with hyperglycemia [facility] Type 1 diabetes mellitus with hyperglyce sadie Unknown [address] [facility] [address] [address] 07/01/2020 12:00:00 AM EST eCW1 ([facility]) Unknown [address] [facility] [facility] [place] [address] 06/23/2020 12:00:00 AM EST eCW1 ([facility]) Unknown [address] [facility] [facility] [place] [address] 06/17/2020 12:00:00 AM EST eCW1 ([facility]) Unknown [address] [facility] [place] [address] 06/09/2020 12:00:00 AM EST eCW1 ([facility]) ( [facility] FORGESMITH Exam [address] [place] [address] 06/05/2020 12:00:00 AM EST eCW1 ([facility]) Outpatient Attender: Simi Navarrete 06/05/2020 12:00:0 0 AM EST [facility] Extended Individual Psychotherapy - 45 min Attender: Shelley Banuelos [facility] 05/23/2020 03:00:00 AM EST - 05/23/2020 03:00:00 AM EST [facility] ([facility]) Attender: Lyn Banuelos 05/23/2020 12:00:00 AM EST [facility] ([facility]) Unknown [address] [facility] [place] [address] 05/15/2020 12:00:00 AM EST eCW1 ([facility]) Outpatient Attender: Simi Navarrete 05/12/2020 12:00:0 0 AM EST [facility] Outpatient Attender: AUNDREA DEAN [id number] 05/12/2020 12:00: 00 AM EST [facility] Outpatient [address] [facility] [place] [address] 05/08/2020 12:00:00 AM EST eCW1 ([facility]) Extended Individual Psychotherapy - 45 min Attender: Shelley Hernandezoza [facility] 05/07/2020 03:00:00 AM EST - 05/07/2020 03:00:00 AM EST [facility] ([facility]) Attender: Lyn Banuelos 05/07/2020 12:00:00 AM EST [facility] ([facility]) Outpatient Attender: Travis Topete [id number] 05/05/2020 1 2:00:00 AM EST Presence of insulin pump (external) (internal) [facility] Presence of insulin pump (external) (int ernal) Extended Individual Psychotherapy - 45 min Attender: Uma Chavez [facility] 04/24/2020 03:00:00 AM EST - 04/24/2020 03:00:00 AM EST [facility] ([facility]) Attender: Lynn Chavez 04/24/2020 12:00:[address] [facility] ([facility]) Outpatient Attender: VINCENT LUJAN [facility] 04/08 12:30:00 PM EST MEDENT ([facility] Outpatient Attender: VINCENT MENDEZ MD Physical Therapy 10:30:00 AM EST MEDENT ([facility] ) Extended Individual Psychotherapy - 45 min Attender: Uma Chavez [facility] 04/10/2020 08:45:00 AM EST - 04/10/2020 08:45:00 AM EST [facility] ([facility]) Attender: Lynn Chavez 04/10/2020 12:00:[address] [facility] ([facility]) Unknown [address] [facility] [place] [address] 03/26/2020 12:00:00 AM EST eCW1 ([facility]) Extended Individual Psychotherapy - 45 min Attender: Uma Chavez [facility] 03/21/2020 01:00:00 AM EST - 03/21/2020 01:00:00 AM EST [facility] ([facility]) Unknown [address] [facility] [place] [address] 03/21/2020 12:00:00 AM EST eCW1 ([facility]) Attender: Lynn Chavez 03/21/2020 12:00:[address] [facility] ([facility]) Unknown [address] [facility] [place] [address] 03/20/2020 12:00:00 AM EST eCW1 ([facility]) Unknown [address] [facility] [place] [address] 03/20/2020 12:00:00 AM EST eCW1 ([facility]) Outpatient [facility] 03/18/2020 03:40:01 PM EST [facility] Extended Individual Psychotherapy - 45 min Attender: Uma Chavez [facility] 03/14/2020 04:45:00 AM EST - 03/14/2020 04:45:00 AM EST [facility] ([facility]) Attender: Lynn Chavez 03/14/2020 12:00:[address] [facility] ([facility]) Extended Individual Psychotherapy - 45 min Attender: Uma Chavez [facility] 03/07/2020 05:00:00 AM EDT - 03/07/2020 05:00:00 AM EDT [facility] ([facility]) Attender: Lynn Chavez 03/07/2020 12:00:00 AM E DT [facility] ([facility]) Outpatient Attender: VINCENT MENDEZ MD Physical Therapy 01:00:00 PM EDT MEDENT ([facility]) Extended Individual Psychotherapy - 45 min Attender: Uma Chavez [facility] 02/21/2020 03:45:00 AM EDT - 02/21/2020 03:45:00 AM EDT [facility] ([facility]) Attender: Lynn Chavez 02/21/2020 12:00:00 AM E DT [facility] ([facility]) Outpatient [facility] 02/18/2020 09:48:01 AM EDT [facility] Outpatient [facility] 02/18/2020 09:38:00 AM EDT [facility] Outpatient [facility] 02/15/2020 10:06:01 AM EDT [facility] Outpatient [facility] 02/15/2020 09:32:01 AM EDT [facility] Outpatient [facility] 02/15/2020 09:31:00 AM EDT [facility] Outpatient [facility] 02/15/2020 08:59:00 AM EDT [facility] Extended Individual Psychotherapy - 45 min Attender: Uma Chavez [facility] 02/15/2020 03:00:00 AM EDT - 02/15/2020 03:00:00 AM EDT [facility] ([facility]) Attender: Lynn Chavez 02/15/2020 12:00:00 AM E DT [facility] ([facility]) Outpatient Attender: VINCENT LUJAN [facility] Office 11/2019 01:00:00 PM EDT MEDENT ([facility] Outpatient Attender: TISHA LOVE MD Main Office 02/12/2020 10:30:00 AM EDT MEDENT ([facility]) Extended Individual Psychotherapy - 45 min Attender: Uma Chavez [facility] 02/08/2020 02:45:00 AM EDT - 02/08/2020 02:45:00 AM EDT [facility] ([facility]) Attender: Lynn Chavez 02/08/2020 12:00:00 AM E DT [facility] ([facility]) Outpatient Attender: Romy Montgomery MD [id number] 01/29/2020 12:00:00 AM EDT [facility] Unknown [address] [facility] [place] [address] 01/29/2020 12:00:00 AM EDT eCW1 ([facility]) Extended Individual Psychotherapy - 45 min [facility] 01/24/2020 03:00:00 AM EDT - 01/24/2020 03:00:00 AM EDT [facility] ([facility]) Attender: Lynn Chavez 01/24/2020 12:00:00 AM E DT [facility] ([facility]) Brief Individual Psychotherapy - 30 min Attender: Lynn pierre [facility] 01/18/2020 03:30:00 AM EDT - 01/18/2020 03:30:00 AM EDT [facility] ([facility]) Attender: Lynn Chavez 01/18/2020 12:00:00 AM E DT [facility] ([facility]) Outpatient Referrer: Darline THOMAS 01/16 12:00:00 AM EDT Radiculopathy, cervical region [facility] Radiculopathy, cervical region Outpatient Attender: Darline THOMAS [id number] 01/17/2020 12:00:00 AM EDT Arthrodesis status [facility] Arthrodesis status Outpatient Attender: Travis Topete [id number] 12:00:00 AM EDT - 10/23/2019 02:23:35 PM EDT [facility] Immunizations Vaccine Date Status Description Data Source(s) COVID-19 VACCINE Moderna 01/19/2021 12:00:00 AM EDT completed [place] Vaccine Series Complete: YESThis Data wa s Submitted to [facility] Via [employer]. COVID-19 VACCINE Moderna 12/22/2020 12:00:00 AM EDT completed [place] Vaccine Series Complete: NOThis Data was Submitted to [facility] Via [employer]. Medications Medication Brand Name Start Date Product Form Dose Route Admi nistrative Instructions Pharmacy Instructions Status Indications Reaction Description Data Source(s) Allergy Injection 2 Or More 02/16/2021 12:00:00 AM EDT completed MEDENT ([facility]) Medication administered onsite 10 mg 02/14/2021 12:00:00 AM EDT cartridge 672 INHALE 1 CARTRIDGE BY MOUTH NEEDED, MAXIMUM DAILY DOSE = 16 CARTRIDGES INHALE 1 CARTRIDGE BY MOUTH NEEDED, MAXIMUM DAILY DOSE = 16 CARTRIDGES SOLD: 02/16/2021 [facility] Nicotine 10 MG UNK 02/13/2021 12:00:00 AM EDT active Nicotine 10 MG eCW1 ([facility]) Nicotine 10 MG UNK 02/13/2021 12:00:00 AM EDT active Nicotine 10 MG eCW1 ([facility]) Nicotine 10 MG UNK 02/13/2021 12:00:00 AM EDT active Nicotine 10 MG eCW1 ([facility]) Azelastine hydrochloride 0.206 MG/ACTUAT Metered Dose Nasal [place] 205.5 mcg (0.15 %) AZELASTINE HCL 02/12/2021 12:00:00 AM EDT spray,non-aerosol 30 2 SPRAYS IN EACH NOSTRIL EVERY MORNING 2 SPRAYS IN EACH NOSTRIL EVERY MORNING SOLD: 02/16/2021 [facility] Azelastine HCL (Nasal) Azelastine HCL (Nasal) 02/11/2021 12:00:00 AM E DT active [facility] ([facility] Allergy Injection 2 Or More 01/26/2021 12:00:00 AM EDT completed MED[facility] ([facility]) Medication administered onsite Trazodone Hydrochloride 100 MG Oral Tablet TRAZODONE HCL 01/21/2021 12:00:00 AM EDT tablet 90 TAKE ONE TABLET BY MOUTH AT BEDTIME TAKE ONE TABLET BY MOUTH AT BEDTIME SOLD: 01/22/2021 [facility] Allergy Injection 2 Or More 12/30/2020 12:00:00 AM EDT completed MEDENT ([facility]) Medication administered onsite 20 mg 12/24/2020 12:00:00 AM EDT capsule,delayed release (DR/EC) 90 TAKE ONE CAPSULE BY MOUTH EVERY DAY TAKE ONE CAPSULE BY MOUTH EVERY DAY SOLD: 12/24/2020 [facility] Acetaminophen 325 MG / Hydrocodone Yessenia trate 5 MG Oral Tablet HYDROcodone- Acetaminophen 5-325 MG HYDROcodone-Acetaminophen 5-325 MG 12/10/2020 12:00:00 AM EDT 1.0 {tablet_as_needed} active HYDROcodone-Acetaminophen 5-325 MG eCW1 ([facility]) Acetaminophen 325 MG / Hydrocodone Yessenia trate 5 MG Oral Tablet HYDROcodone- Acetaminophen 5-325 MG HYDROcodone-Acetaminophen 5-325 MG 12/10/2020 12:00:00 AM EDT 1.0 {tablet_as_needed} active eCW1 ([facility]) Acetaminophen 325 MG / Hydrocodone Yessenia trate 5 MG Oral Tablet HYDROcodone- Acetaminophen 5-325 MG HYDROcodone-Acetaminophen 5-325 MG 12/10/2020 12:00:00 AM EDT 1.0 {tablet_as_needed} active HYDROcodone-Acetaminophen 5-325 MG eCW1 ([facility]) Acetaminophen 325 MG / Hydrocodone Yessenia trate 5 MG Oral Tablet HYDROcodone- Acetaminophen 5-325 MG HYDROcodone-Acetaminophen 5-325 MG 12/10/2020 12:00:00 AM EDT 1.0 {tablet_as_needed} active HYDROcodone-Acetaminophen 5-325 MG eCW1 ([facility]) Acetaminophen 325 MG / Hydrocodone Bitartrate 5 MG Ora l Tablet 5-325 mg HYDROCODONE/ACETAMINOPHEN 12/10/2020 12:00:00 AM EDT tablet 30 TAKE ONE TABLET BY MOUTH ONCE DAILY NEEDED MAXIMUM DAILY DOSE = 1 TAKE ONE TABLET BY MOUTH ONCE DAILY NEEDED MAXIMUM DAILY DOSE = 1 SOLD: 12/12/2020 [facility] Acetaminophen 325 MG / Hydrocodone Yessenia trate 5 MG Oral Tablet HYDROcodone- Acetaminophen 5-325 MG HYDROcodone-Acetaminophen 5-325 MG 12/10/2020 12:00:00 AM EDT 1.0 {tablet_as_needed} active HYDROcodone-Acetaminophen 5-325 MG eCW1 ([facility]) Acetaminophen 325 MG / Hydrocodone Yessenia trate 5 MG Oral Tablet HYDROcodone- Acetaminophen 5-325 MG HYDROcodone-Acetaminophen 5-325 MG 12/10/2020 12:00:00 AM EDT 1.0 {tablet_as_needed} active HYDROcodone-Acetaminophen 5-325 MG eCW1 ([facility]) 500 mg 12/10/2020 12:00:00 AM EDT tablet 6 TAKE ONE TABLET BY MOUTH TWICE A DAY TAKE ONE TABLET BY MOUTH TWICE A DAY SOLD: 12/12/2020 [facility] Allergy Injection 2 Or More 12/09/2020 12:00:00 AM EDT completed [facility] ([facility] Medication administered onsite Allergy Injection 2 Or More 11/18/2020 12:00:00 AM EDT completed [facility] ([facility]) Medication administered onsite Insulin Lispro 100 UNT/ML Injectable Yanci ution [Humalog] HumaLOG 100 UNIT/ML Subcutaneous Solution HumaLOG 100 UNIT/ML Subcutaneous Solution 11/17/2020 12:00:00 AM EDT active Type 1 diabetes mellitus with hyperglycemia USE DIRECTED VIA PUMP UP TO 100 UNITS A DAY [facility] Type 1 diabetes mellitus with hyperglyce sadie Allergy Injection 2 Or More 10/28/2020 12:00:00 AM EDT completed MED[facility] ([facility]) Medication administered onsite Allergy Injection 2 Or More 10/08/2020 12:00:00 AM EDT completed [facility] ([facility]) Medication administered onsite Famotidine 40 MG Oral Tablet FAMOTIDINE 09/22/2020 12:00:00 AM EDT tab let 90 TAKE ONE TABLET BY MOUTH EVERY MORNING TAKE ONE TABLET BY MOUTH EVERY MORNING SOLD: 12/24/2020 [facility] Famotidine 40 MG Oral Tablet FAMOTIDINE 09/22/2020 12:00:00 AM EDT tab let 90 TAKE ONE TABLET BY MOUTH EVERY MORNING TAKE ONE TABLET BY MOUTH EVERY MORNING SOLD: 09/24/2020 [facility] 24 HR Bupropion Hydrochloride 150 MG Extended Release Oral T ablet BUPROPION HCL 09/19/2020 12:00:00 AM EDT tablet extended release 24 hr 90 TAKE ONE TABLET BY MOUTH EVERY MORNING TAKE ONE TABLET BY MOUTH EVERY MORNING SOLD: 12/24/2020 [facility] 24 HR Bupropion Hydrochloride 150 MG Ext ended Release Oral Tablet BuPROPion HCl ER (XL) 150 MG BuPROPion HCl ER (XL) 150 MG 09/19/2020 12:00:00 AM EDT 1.0 {tablet_in_the_morning} active BuPROPio n HCl ER (XL) 150 MG eCW1 ([facility]) 24 HR Bupropion Hydrochloride 150 MG Ext ended Release Oral Tablet buPROPion HCl ER (XL) 150 MG buPROPion HCl ER (XL) 150 MG 09/19/2020 12:00:00 AM EDT 1.0 {tablet_in_the_morning} active buPROPio n HCl ER (XL) 150 MG eCW1 ([facility]) Cyclobenzaprine hydrochloride 5 MG Oral Tablet CYCLOBENZAPRI NE HCL 09/19/2020 12:00:00 AM EDT tablet 270 TAKE ONE TABLET BY MOUTH THREE TIMES A DAY NEEDED TAKE ONE TABLET BY MOUTH THREE TIMES A DAY NEEDED SOLD: 09/19 [facility] 24 HR Bupropion Hydrochloride 150 MG Ext ended Release Oral Tablet buPROPion HCl ER (XL) 150 MG buPROPion HCl ER (XL) 150 MG 09/19/2020 12:00:00 AM EDT 1.0 {tablet_in_the_morning} active eCW1 ([facility]) 24 HR Bupropion Hydrochloride 150 MG Ext ended Release Oral Tablet buPROPion HCl ER (XL) 150 MG buPROPion HCl ER (XL) 150 MG 09/19/2020 12:00:00 AM EDT 1.0 {tablet_in_the_morning} active buPROPio n HCl ER (XL) 150 MG eCW1 ([facility]) 24 HR Bupropion Hydrochloride 150 MG Ext ended Release Oral Tablet buPROPion HCl ER (XL) 150 MG buPROPion HCl ER (XL) 150 MG 09/19/2020 12:00:00 AM EDT 1.0 {tablet_in_the_morning} active buPROPio n HCl ER (XL) 150 MG eCW1 ([facility]) 24 HR Bupropion Hydrochloride 150 MG Ext ended Release Oral Tablet BuPROPion HCl ER (XL) 150 MG BuPROPion HCl ER (XL) 150 MG 09/19/2020 12:00:00 AM EDT 1.0 {tablet_in_the_morning} active BuPROPio n HCl ER (XL) 150 MG eCW1 ([facility]) 24 HR Bupropion Hydrochloride 150 MG Ext ended Release Oral Tablet buPROPion HCl ER (XL) 150 MG buPROPion HCl ER (XL) 150 MG 09/19/2020 12:00:00 AM EDT 1.0 {tablet_in_the_morning} active buPROPio n HCl ER (XL) 150 MG eCW1 ([facility]) 24 HR Bupropion Hydrochloride 150 MG Extended Release Oral T ablet BUPROPION HCL 09/19/2020 12:00:00 AM EDT tablet extended release 24 hr 90 TAKE ONE TABLET BY MOUTH EVERY MORNING TAKE ONE TABLET BY MOUTH EVERY MORNING SOLD: 09/19/2020 [facility] 24 HR Bupropion Hydrochloride 150 MG Ext ended Release Oral Tablet buPROPion HCl ER (XL) 150 MG buPROPion HCl ER (XL) 150 MG 09/19/2020 12:00:00 AM EDT 1.0 {tablet_in_the_morning} active buPROPio n HCl ER (XL) 150 MG eCW1 ([facility]) 24 HR Bupropion Hydrochloride 150 MG Ext ended Release Oral Tablet buPROPion HCl ER (XL) 150 MG buPROPion HCl ER (XL) 150 MG 09/19/2020 12:00:00 AM EDT 1.0 {tablet_in_the_morning} active buPROPio n HCl ER (XL) 150 MG eCW1 ([facility]) Allergy Injection 2 Or More 09/15/2020 12:00:00 AM EDT completed [facility] ([facility] Medication administered onsite Allergy Injection 2 Or More 08/21/2020 12:00:00 AM EDT completed [facility] ([facility]) Medication administered onsite Allergy Injection 2 Or More 07/31/2020 12:00:00 AM EDT completed [facility] ([facility] Medication administered onsite 10 mg 07/21/2020 12:00:00 AM EDT capsule 30 TAKE ONE CAPSULE BY MOUTH EVERY 6 HOURS NEEDED FOR ABDOMINAL PAIN TAKE ONE CAPSULE BY MOUTH EVERY 6 HOURS NEEDED FOR ABDOMINAL PAIN SOLD: 07/21/2020 [facility] 10 mg 07/21/2020 12:00:00 AM EDT capsule 30 TAKE ONE CAPSULE BY MOUTH EVERY 6 HOURS NEEDED FOR ABDOMINAL PAIN TAKE ONE CAPSULE BY MOUTH EVERY 6 HOURS NEEDED FOR ABDOMINAL PAIN SOLD: 12/24/2020 [facility] Dicyclomine Hydrochloride 10 MG Oral Capsule Dicyclomine HCL 07/21/2020 12:00:00 AM EDT ORAL active MEDENT ([facility] ) 5-325 mg 07/19/2020 12:00:00 AM EST tablet 30 TAKE ONE TABLET BY MOUTH EVERY DAY NEEDED MAXIMUM DAILY DOSE = 1 TABLET TAKE ONE TABLET BY MOUTH EVERY DAY NEEDED MAXIMUM DAILY DOSE = 1 TABLET SOLD: 07/21/2020 [facility] Acetaminophen 325 MG / Hydrocodone Yessenia trate 5 MG Oral Tablet Hydrocodone- Acetaminophen 5-325 MG Hydrocodone-Acetaminophen 5-325 MG 07/18/2020 12:00:00 AM EST 1.0 {tablet_as_needed} active Hydrocodone-Acetaminophen 5-325 MG eCW1 ([facility]) Acetaminophen 325 MG / Hydrocodone Yessenia trate 5 MG Oral Tablet HYDROcodone- Acetaminophen 5-325 MG HYDROcodone-Acetaminophen 5-325 MG 07/18/2020 12:00:00 AM EST 1.0 {tablet_as_needed} active HYDROcodone-Acetaminophen 5-325 MG eCW1 ([facility]) Baqsimi One Pack 3 MG/DOSE Nasal Powder (Glucagon) [id number] -11 07/18/2020 12:00:00 AM EST active Type 1 diabetes mellitus with hyperglycemia [place] 3mg in one nostril to treat severe hypoglycemia. Dx E10.65 . [facility] Type 1 diabetes mellitus with hyperglyce sadie Acetaminophen 325 MG / Hydrocodone Yessenia trate 5 MG Oral Tablet Hydrocodone- Acetaminophen 5-325 MG Hydrocodone-Acetaminophen 5-325 MG 07/18/2020 12:00:00 AM EST 1.0 {tablet_as_needed} active Hydrocodone-Acetaminophen 5-325 MG eCW1 ([facility]) Acetaminophen 325 MG / Hydrocodone Yessenia trate 5 MG Oral Tablet Hydrocodone- Acetaminophen 5-325 MG Hydrocodone-Acetaminophen 5-325 MG 07/18/2020 12:00:00 AM EST 1.0 {tablet_as_needed} active Hydrocodone-Acetaminophen 5-325 MG eCW1 ([facility]) Acetaminophen 325 MG / Hydrocodone Yessenia trate 5 MG Oral Tablet Hydrocodone- Acetaminophen 5-325 MG Hydrocodone-Acetaminophen 5-325 MG 07/18/2020 12:00:00 AM EST 1.0 {tablet_as_needed} active Hydrocodone-Acetaminophen 5-325 MG eCW1 ([facility]) 3 mg/actuation 07/18/2020 12:00:00 AM EST spray,non-aerosol 1 SPRAY 1 PACK (3MG) IN 1 NOSTRIL TO TREAT SEVERE HYPOGLYCEMIA SPRAY 1 PACK (3MG) IN 1 NOSTRIL TO TREAT SEVERE HYPOGLYCEMIA SOLD: 08/25/2020 [facility] Acetaminophen 325 MG / Hydrocodone Yessenia trate 5 MG Oral Tablet Hydrocodone- Acetaminophen 5-325 MG Hydrocodone-Acetaminophen 5-325 MG 07/18/2020 12:00:00 AM EST 1.0 {tablet_as_needed} active Hydrocodone-Acetaminophen 5-325 MG eCW1 ([facility]) 3 mg/actuation 07/18/2020 12:00:00 AM EST spray,non-aerosol 1 SPRAY 1 PACK (3MG) IN 1 NOSTRIL TO TREAT SEVERE HYPOGLYCEMIA SPRAY 1 PACK (3MG) IN 1 NOSTRIL TO TREAT SEVERE HYPOGLYCEMIA SOLD: 07/21/2020 [facility] Acetaminophen 325 MG / Hydrocodone Yessenia trate 5 MG Oral Tablet Hydrocodone- Acetaminophen 5-325 MG Hydrocodone-Acetaminophen 5-325 MG 07/18/2020 12:00:00 AM EST 1.0 {tablet_as_needed} active Hydrocodone-Acetaminophen 5-325 MG eCW1 ([facility]) OneTouch Ultra In Vitro Strip [id number] 07/10/2020 12:00:00 AM EST active Type 1 diabetes mellitus with hyperglycemia Use as directed to check blood glucose levels 4 times daily. Dx:E10.65 [facility] Type 1 diabetes mellitus with hyperglyce sadie Allergy Injection 2 Or More 07/08/2020 12:00:00 AM EST completed MED[facility] ([facility]) Medication administered onsite Norethindrone 0.35 MG Norethindrone 0.35 MG 07/01/2020 12:00:00 AM EST 1.0 {tablet} active Norethindrone 0.35 MG e CW1 ([facility]) Norethindrone 0.35 MG Norethindrone 0.35 MG 07/01/2020 12:00:00 AM EST 1.0 {tablet} suspended Norethindrone 0.35 MG eCW1 ([facility]) Norethindrone 0.35 MG Norethindrone 0.35 MG 07/01/2020 12:00:00 AM EST 1.0 {tablet} active Norethindrone 0.35 MG e CW1 ([facility]) Norethindrone 0.35 MG Norethindrone 0.35 MG 07/01/2020 12:00:00 AM EST 1.0 {tablet} suspended Norethindrone 0.35 MG eCW1 ([facility]) Norethindrone 0.35 MG Norethindrone 0.35 MG 07/01/2020 12:00:00 AM EST 1.0 {tablet} active Norethindrone 0.35 MG e CW1 ([facility]) Norethindrone 0.35 MG Norethindrone 0.35 MG 07/01/2020 12:00:00 AM EST 1.0 {tablet} suspended Norethindrone 0.35 MG eCW1 ([facility]) Norethindrone 0.35 MG Norethindrone 0.35 MG 07/01/2020 12:00:00 AM EST 1.0 {tablet} suspended Norethindrone 0.35 MG eCW1 ([facility]) Norethindrone 0.35 MG Norethindrone 0.35 MG 07/01/2020 12:00:00 AM EST 1.0 {tablet} suspended Norethindrone 0.35 MG eCW1 ([facility]) Norethindrone 0.35 MG Norethindrone 0.35 MG 07/01/2020 12:00:00 AM EST 1.0 {tablet} suspended Norethindrone 0.35 MG eCW1 ([facility]) Norethindrone 0.35 MG Norethindrone 0.35 MG 07/01/2020 12:00:00 AM EST 1.0 {tablet} suspended Norethindrone 0.35 MG eCW1 ([facility]) Norethindrone 0.35 MG Norethindrone 0.35 MG 07/01/2020 12:00:00 AM EST 1.0 {tablet} suspended Norethindrone 0.35 MG eCW1 ([facility]) Norethindrone 0.35 MG Norethindrone 0.35 MG 07/01/2020 12:00:00 AM EST 1.0 {tablet} suspended eCW1 ([facility]) Norethindrone 0.35 MG Norethindrone 0.35 MG 07/01/2020 12:00:00 AM EST 1.0 {tablet} suspended Norethindrone 0.35 MG eCW1 ([facility]) Norethindrone 0.35 MG Norethindrone 0.35 MG 07/01/2020 12:00:00 AM EST 1.0 {tablet} active Norethindrone 0.35 MG e CW1 ([facility]) Trazodone Hydrochloride 100 MG Oral Tablet TRAZODONE HCL 06/25/2020 12:00:00 AM EST tablet 90 TAKE ONE TABLET BY MOUTH AT BEDTIME TAKE ONE TABLET BY MOUTH AT BEDTIME SOLD: 10/08/2020 [facility] Trazodone Hydrochloride 100 MG Oral Tablet TRAZODONE HCL 06/25/2020 12:00:00 AM EST tablet 90 TAKE ONE TABLET BY MOUTH AT BEDTIME TAKE ONE TABLET BY MOUTH AT BEDTIME SOLD: 06/30/2020 [facility] Allergy Injection 2 Or More 06/16/2020 12:00:00 AM EST completed MEDENT ([facility]) Medication administered onsite valacyclovir 500 MG Oral Tablet valACYclovir HCl 500 M G Oral Tablet (VALTREX) valACYclovir HCl 500 MG Oral Tablet (VALTREX) 06/16/2020 12:00:00 AM EST active TAKE ONE TABLET BY MOUTH TWICE A DAY FOR 3 DAYS [facility] Norethindrone 0.35 MG Oral Tablet Norethindrone 0.35 M G Oral Tablet (MICRONOR) Norethindrone 0.35 MG Oral Tablet (MICRONOR) 06/11/2020 12:00:00 AM EST 1 {tbl} Oral aborted Take 1 tablet by mouth d [facility] Fluconazole 150 MG Oral Tablet Fluconazole 150 MG 06/05/2020 12:00: 00 AM EST 1.0 {tablet} suspended Fluconazole 150 M G eCW1 ([facility]) Fluconazole 150 MG Oral Tablet Fluconazole 150 MG 06/05/2020 12:00: 00 AM EST 1.0 {tablet} active eCW1 ([facility]) Fluconazole 150 MG Oral Tablet Fluconazole 150 MG 06/05/2020 12:00: 00 AM EST 1.0 {tablet} active Fluconazole 150 MG eCW1 ([facility]) Fluconazole 150 MG Oral Tablet Fluconazole 150 MG 06/05/2020 12:00: 00 AM EST 1.0 {tablet} active Fluconazole 150 MG eCW1 ([facility]) Pge-BE 0.35 MG Peg-BE 0.35 MG 06/05/2020 12:00:00 AM EST 1.0 { tablet} active Peg-BE 0.35 MG eCW1 ([facility]) Fluconazole 150 MG Oral Tablet Fluconazole 150 MG 06/05/2020 12:00: 00 AM EST 1.0 {tablet} active Fluconazole 150 MG eCW1 ([facility]) Fluconazole 150 MG Oral Tablet Fluconazole 150 MG 06/05/2020 12:00: 00 AM EST 1.0 {tablet} active Fluconazole 150 MG eCW1 ([facility]) Fluconazole 150 MG Oral Tablet Fluconazole 150 MG 06/05/2020 12:00: 00 AM EST 1.0 {tablet} active Fluconazole 150 MG eCW1 ([facility]) Fluconazole 150 MG Oral Tablet Fluconazole 150 MG 06/05/2020 12:00: 00 AM EST 1.0 {tablet} active Fluconazole 150 MG eCW1 ([facility]) Fluconazole 150 MG Oral Tablet Fluconazole 150 MG Oral Tablet (DIFLUCAN) Fluconazole 150 MG Oral Tablet (DIFLUCAN) 06/05/2020 12:00:00 AM EST active TAKE ONE TABLET BY MOUTH EVERY W WAINWRIGHT NEEDED FOR YEAST [facility] Peg-BE 0.35 MG Peg-BE 0.35 MG 06/05/2020 12:00:00 AM EST 1.0 { tablet} active Peg-BE 0.35 MG eCW1 ([facility]) Fluconazole 150 MG Oral Tablet Fluconazole 150 MG 06/05/2020 12:00: 00 AM EST 1.0 {tablet} active Fluconazole 150 MG eCW1 ([facility]) Fluconazole 150 MG Oral Tablet Fluconazole 150 MG 06/05/2020 12:00: 00 AM EST 1.0 {tablet} active Fluconazole 150 MG eCW1 ([facility]) Fluconazole 150 MG Oral Tablet Fluconazole 150 MG 06/05/2020 12:00: 00 AM EST 1.0 {tablet} active Fluconazole 150 MG eCW1 ([facility]) Fluconazole 150 MG Oral Tablet Fluconazole 150 MG 06/05/2020 12:00: 00 AM EST 1.0 {tablet} active Fluconazole 150 MG eCW1 ([facility]) Pge-BE 0.35 MG Peg-BE 0.35 MG 06/05/2020 12:00:00 AM EST 1.0 { tablet} active Peg-BE 0.35 MG eCW1 ([facility]) Fluconazole 150 MG Oral Tablet Fluconazole 150 MG 06/05/2020 12:00: 00 AM EST 1.0 {tablet} active Fluconazole 150 MG eCW1 ([facility]) Fluconazole 150 MG Oral Tablet Fluconazole 150 MG 06/05/2020 12:00: 00 AM EST 1.0 {tablet} active Fluconazole 150 MG eCW1 ([facility]) Fluconazole 150 MG Oral Tablet Fluconazole 150 MG 06/05/2020 12:00: 00 AM EST 1.0 {tablet} suspended Fluconazole 150 M G eCW1 ([facility]) Fluconazole 150 MG Oral Tablet Fluconazole 150 MG 06/05/2020 12:00: 00 AM EST 1.0 {tablet} active Fluconazole 150 MG eCW1 ([facility]) Fluconazole 150 MG Oral Tablet Fluconazole 150 MG 06/05/2020 12:00: 00 AM EST 1.0 {tablet} active Fluconazole 150 MG eCW1 ([facility]) Fluconazole 150 MG Oral Tablet Fluconazole 150 MG 06/05/2020 12:00: 00 AM EST 1.0 {tablet} active Fluconazole 150 MG eCW1 ([facility]) Peg-BE 0.35 MG Peg-BE 0.35 MG 06/05/2020 12:00:00 AM EST 1.0 { tablet} active Peg-BE 0.35 MG eCW1 ([facility]) OneTouch Ultra In Vitro Strip 91348-503-46 05/30/2020 12:00:00 AM EST aborted Type 1 diabetes mellitus with hyperglycemia Use as directed to check blood glucose levels six times daily. MDD 6. Dx:E10.65 [facility] Type 1 diabetes mellitus with hyperglyce sadie Allergy Injection 2 Or More 05/23/2020 12:00:00 AM EST completed MEDENT ([facility]) Medication administered onsite Insulin Lispro 100 UNT/ML Injectable Yanci ution [Humalog] HumaLOG 100 UNIT/ML Subcutaneous Solution HumaLOG 100 UNIT/ML Subcutaneous Solution 05/12/2020 12:00:00 AM EST active Type 1 diabetes mellitus with hyperglycemia Use as directed via insulin pump, MDD 100 units. DX: E10.65, Z79.4, Z96.41 [facility] Type 1 diabetes mellitus with hyperglyce sadie valacyclovir 500 MG Oral Tablet valACYclovir HCl 500 MG valA CYclovir HCl 500 MG 05/08/2020 12:00:00 AM EST 1.0 {tablet} active valACYclovir HCl 500 MG eCW1 ([facility]) valacyclovir 500 MG Oral Tablet valACYclovir HCl 500 MG valA CYclovir HCl 500 MG 05/08/2020 12:00:00 AM EST 1.0 {tablet} active valACYclovir HCl 500 MG eCW1 ([facility]) 500 mg 05/08/2020 12:00:00 AM EST tablet 6 TAKE ONE TABLET BY MOUTH TWICE A DAY FOR 3 DAYS TAKE ONE TABLET BY MOUTH TWICE A DAY FOR 3 DAYS SOLD: 2020 [facility] valacyclovir 500 MG Oral Tablet Valacyclovir HCl 500 MG Vala cyclovir HCl 500 MG 05/08/2020 12:00:00 AM EST 1.0 {tablet} active Valacyclovir HCl 500 MG eCW1 ([facility]) 500 mg 05/08/2020 12:00:00 AM EST tablet 6 TAKE ONE TABLET BY MOUTH TWICE A DAY FOR 3 DAYS TAKE ONE TABLET BY MOUTH TWICE A DAY FOR 3 DAYS SOLD: 2020 [facility] 500 mg 05/08/2020 12:00:00 AM EST tablet 6 TAKE ONE TABLET BY MOUTH TWICE A DAY FOR 3 DAYS TAKE ONE TABLET BY MOUTH TWICE A DAY FOR 3 DAYS SOLD: 2020 [facility] valacyclovir 500 MG Oral Tablet Valacyclovir HCl 500 MG Vala cyclovir HCl 500 MG 05/08/2020 12:00:00 AM EST 1.0 {tablet} active Valacyclovir HCl 500 MG eCW1 ([facility]) valacyclovir 500 MG Oral Tablet Valacyclovir HCl 500 MG Vala cyclovir HCl 500 MG 05/08/2020 12:00:00 AM EST 1.0 {tablet} active Valacyclovir HCl 500 MG eCW1 ([facility]) valacyclovir 500 MG Oral Tablet Valacyclovir HCl 500 MG Vala cyclovir HCl 500 MG 05/08/2020 12:00:00 AM EST 1.0 {tablet} active Valacyclovir HCl 500 MG eCW1 ([facility]) valacyclovir 500 MG Oral Tablet Valacyclovir HCl 500 MG Vala cyclovir HCl 500 MG 05/08/2020 12:00:00 AM EST 1.0 {tablet} active Valacyclovir HCl 500 MG eCW1 ([facility]) 500 mg 05/08/2020 12:00:00 AM EST tablet 6 TAKE ONE TABLET BY MOUTH TWICE A DAY FOR 3 DAYS TAKE ONE TABLET BY MOUTH TWICE A DAY FOR 3 DAYS SOLD: 2020 [facility] valacyclovir 500 MG Oral Tablet valACYclovir HCl 500 MG valA CYclovir HCl 500 MG 05/08/2020 12:00:00 AM EST 1.0 {tablet} active valACYclovir HCl 500 MG eCW1 ([facility]) valacyclovir 500 MG Oral Tablet Valacyclovir HCl 500 MG Vala cyclovir HCl 500 MG 05/08/2020 12:00:00 AM EST 1.0 {tablet} active Valacyclovir HCl 500 MG eCW1 ([facility]) valacyclovir 500 MG Oral Tablet valACYclovir HCl 500 MG valA CYclovir HCl 500 MG 05/08/2020 12:00:00 AM EST 1.0 {tablet} active valACYclovir HCl 500 MG eCW1 ([facility]) valacyclovir 500 MG Oral Tablet Valacyclovir HCl 500 MG Vala cyclovir HCl 500 MG 05/08/2020 12:00:00 AM EST 1.0 {tablet} active Valacyclovir HCl 500 MG eCW1 ([facility]) 500 mg 05/08/2020 12:00:00 AM EST tablet 6 TAKE ONE TABLET BY MOUTH TWICE A DAY FOR 3 DAYS TAKE ONE TABLET BY MOUTH TWICE A DAY FOR 3 DAYS SOLD: 2020 [facility] valacyclovir 500 MG Oral Tablet Valacyclovir HCl 500 MG Vala cyclovir HCl 500 MG 05/08/2020 12:00:00 AM EST 1.0 {tablet} active Valacyclovir HCl 500 MG eCW1 ([facility]) valacyclovir 500 MG Oral Tablet Valacyclovir HCl 500 MG Vala cyclovir HCl 500 MG 05/08/2020 12:00:00 AM EST 1.0 {tablet} active Valacyclovir HCl 500 MG eCW1 ([facility]) valacyclovir 500 MG Oral Tablet valACYclovir HCl 500 MG valA CYclovir HCl 500 MG 05/08/2020 12:00:00 AM EST 1.0 {tablet} active eCW1 ([facility]) valacyclovir 500 MG Oral Tablet Valacyclovir HCl 500 MG Vala cyclovir HCl 500 MG 05/08/2020 12:00:00 AM EST 1.0 {tablet} active Valacyclovir HCl 500 MG eCW1 ([facility]) valacyclovir 500 MG Oral Tablet valACYclovir HCl 500 MG valA CYclovir HCl 500 MG 05/08/2020 12:00:00 AM EST 1.0 {tablet} active valACYclovir HCl 500 MG eCW1 ([facility]) 500 mg 05/08/2020 12:00:00 AM EST tablet 6 TAKE ONE TABLET BY MOUTH TWICE A DAY FOR 3 DAYS TAKE ONE TABLET BY MOUTH TWICE A DAY FOR 3 DAYS SOLD: 2020 [facility] valacyclovir 500 MG Oral Tablet valACYclovir HCl 500 MG valA CYclovir HCl 500 MG 05/08/2020 12:00:00 AM EST 1.0 {tablet} active valACYclovir HCl 500 MG eCW1 ([facility]) valacyclovir 500 MG Oral Tablet Valacyclovir HCl 500 MG Vala cyclovir HCl 500 MG 05/08/2020 12:00:00 AM EST 1.0 {tablet} active Valacyclovir HCl 500 MG eCW1 ([facility]) valacyclovir 500 MG Oral Tablet Valacyclovir HCl 500 MG Vala cyclovir HCl 500 MG 05/08/2020 12:00:00 AM EST 1.0 {tablet} active Valacyclovir HCl 500 MG eCW1 ([facility]) valacyclovir 500 MG Oral Tablet Valacyclovir HCl 500 MG Vala cyclovir HCl 500 MG 05/08/2020 12:00:00 AM EST 1.0 {tablet} active Valacyclovir HCl 500 MG eCW1 ([facility]) Dexcom G6 Sensor [id number] 05/05/2020 12:00:00 AM EST 1 {each} Does not apply active Type 1 diabetes mellitus with hyperg lycemia 1 each by Does not apply route every 10 (ten) days Dx E10.65, last office visit: 03/12/19 [facility] Type 1 diabetes mellitus with hyperglyce sadie Dexcom G6 Drawing Operator Device [id number] 05/05/2020 12:00:00 AM EST 1 {each} Does not apply active Type 1 diabetes mellitus with hyperg lycemia 1 each by Does not apply route See Admin Instructions For continuous glucose monitoring, dx E10.65, last office visit 03/12/19 [facility] Type 1 diabetes mellitus with hyperglyce sadie Ketostix In Vitro Strip 5455-9042-04 05/05/2020 12:00:00 AM EST active Type 1 diabetes mellitus with hyperglycemia Ketostix, use as directed up to 10 times daily for illness or elevated blood sugar over 250 twice in a row, dx E10.65 [facility] Type 1 diabetes mellitus with hyperglyce sadie Insulin Lispro 100 UNT/ML Injectable Yanci ution [Humalog] HumaLOG 100 UNIT/ML Subcutaneous Solution HumaLOG 100 UNIT/ML Subcutaneous Solution 05/05/2020 12:00:00 AM EST active Type 1 diabetes mellitus with hyperglycemia Use as directed via insulin pump, MDD 100 units. DX: E10.65, Z79.4, Z96.41 [facility] Type 1 diabetes mellitus with hyperglyce sadie URINE ACETONE TEST,STRIPS 05/05/2020 12:00:00 AM EST strip 50 USE DIRECTED UP TO 10 TIMES DAILY FOR ILLNESS OR ELEVATED BLOOD SUGAR OVER 250 TWICE IN A ROW USE DIRECTED UP TO 10 TIMES DAILY FOR ILLNESS OR ELEVATED BLOOD SUGAR OVER 250 TWICE IN A ROW SOLD: 05/15/2020 [facility] Dexcom G6 Transmitter [id number] 05/05/2020 12:00:00 AM EST 1 {each} Does not apply active Type 1 diabetes mellitus with hyperg lycemia 1 each by Does not apply route every 3 (three) months Dx E10.65, last office visit: 03/12/19 [facility] Type 1 diabetes mellitus with hyperglyce sadie Allergy Injection 2 Or More 04/30/2020 12:00:00 AM EST completed [facility] ([facility]) Medication administered onsite Dexcom G6 Transmitter [id number] 04/17/2020 12:00:00 AM EST 1 {each} Does not apply aborted Type 1 diabetes mellitus with hyperg lycemia 1 each by Does not apply route every 3 (three) months Dx E10.65, last office visit: 03/12/19 [facility] Type 1 diabetes mellitus with hyperglyce sadie Dexcom G6 Sensor [id number] 04/17/2020 12:00:00 AM EST 1 {each} Does not apply aborted Type 1 diabetes mellitus with hyperg lycemia 1 each by Does not apply route every 10 (ten) days Dx E10.65, last office visit: 03/12/19 [facility] Type 1 diabetes mellitus with hyperglyce sadie Allergy Injection 2 Or More 04/10/2020 12:00:00 AM EST completed [facility] ([facility]) Medication administered onsite 600 mg 04/09/2020 12:00:00 AM EST tablet 20 TAKE ONE TABLET BY MOUTH EVERY 8 HOURS TAKE ONE TABLET BY MOUTH EVERY 8 HOURS SOLD: 04/11/2020 [facility] Ibuprofen 600 MG Oral Tablet Ibuprofen 600 MG Oral Tab let (MOTRIN) Ibuprofen 600 MG Oral Tablet (MOTRIN) 04/09/2020 12:00:00 AM EST aborted TAKE ONE TABLET BY MOUTH EVERY 8 HOURS [facility] 500 mg 04/09/2020 12:00:00 AM EST capsule 40 TAKE ONE CAPSULE BY MOUTH EVERY 6 HOURS UNTIL FINISH TAKE ONE CAPSULE BY MOUTH EVERY 6 HOURS UNTIL FINISH S OLD: 04/11/2020 [facility] Acetaminophen 325 MG / Hydrocodone Yessenia trate 5 MG Oral Tablet [[place]] [place] 5- 325 MG [place] 5-325 MG 03/27/2020 12:00:00 AM EST 1.0 {tablet} active [place] 5-325 MG eCW1 ([facility]) Acetaminophen 325 MG / Hydrocodone Yessenia trate 5 MG Oral Tablet [[place]] [place] 5- 325 MG [place] 5-325 MG 03/27/2020 12:00:00 AM EST 1.0 {tablet} active [place] 5-325 MG eCW1 ([facility]) Acetaminophen 325 MG / Hydrocodone Yessenia trate 5 MG Oral Tablet [[place]] [place] 5- 325 MG [place] 5-325 MG 03/27/2020 12:00:00 AM EST 1.0 {tablet} active [place] 5-325 MG eCW1 ([facility]) Acetaminophen 325 MG / Hydrocodone Yessenia trate 5 MG Oral Tablet [[place]] [place] 5- 325 MG [place] 5-325 MG 03/27/2020 12:00:00 AM EST 1.0 {tablet} active [place] 5-325 MG eCW1 ([facility]) Acetaminophen 325 MG / Hydrocodone Yessenia trate 5 MG Oral Tablet [[place]] [place] 5- 325 MG [place] 5-325 MG 03/27/2020 12:00:00 AM EST 1.0 {tablet} active [place] 5-325 MG eCW1 ([facility]) Acetaminophen 325 MG / Hydrocodone Yessenia trate 5 MG Oral Tablet [[place]] [place] 5- 325 MG [place] 5-325 MG 03/27/2020 12:00:00 AM EST 1.0 {tablet} active [place] 5-325 MG eCW1 ([facility]) 5-325 mg 03/27/2020 12:00:00 AM EST tablet 30 TAKE ONE TABLET BY MOUTH EVERY DAY NEEDED FOR PAIN, MAXIMUM DAILY DOSE = 1 TABLET TAKE ONE TABLET BY MOUTH EVERY DAY NEEDED FOR PAIN, MAXIMUM DAILY DOSE = 1 TABLET SOLD: 04/02/2020 [facility] [place] 5-325 MG UNK 03/27/2020 12:00:00 AM EST 1.0 {tablet} active [place] 5-325 MG eCW1 ([facility]) [place] 5-325 MG UNK 03/27/2020 12:00:00 AM EST 1.0 {tablet} active [place] 5-325 MG eCW1 ([facility]) 150 mg 03/21/2020 12:00:00 AM EST tablet 90 TAKE ONE TABLET BY MOUTH AT BEDTIME TAKE ONE TABLET BY MOUTH AT BEDTIME SOLD: 03/24/2020 [facility] Famotidine 40 MG Oral Tablet FAMOTIDINE 03/20/2020 12:00:00 AM EST tab let 90 TAKE ONE TABLET BY MOUTH EVERY MORNING TAKE ONE TABLET BY MOUTH EVERY MORNING SOLD: 03/24/2020 [facility] Loratadine 10 MG Oral Tablet Loratadine 03/20/2020 12:00:00 AM EST active MEDENT ([facility]) 10 mg 03/20/2020 12:00:00 AM EST tablet 90 TAKE ONE TABLET BY MOUTH EVERY DAY TAKE ONE TABLET BY MOUTH EVERY DAY SOLD: 06/25/2020 [facility] 10 mg 03/20/2020 12:00:00 AM EST tablet 90 TAKE ONE TABLET BY MOUTH EVERY DAY TAKE ONE TABLET BY MOUTH EVERY DAY SOLD: 09/24/2020 [facility] 10 mg 03/20/2020 12:00:00 AM EST tablet 90 TAKE ONE TABLET BY MOUTH EVERY DAY TAKE ONE TABLET BY MOUTH EVERY DAY SOLD: 03/24/2020 [facility] 40 mg 03/20/2020 12:00:00 AM EST tablet 90 TAKE ONE TABLET BY MOUTH EVERY MORNING TAKE ONE TABLET BY MOUTH EVERY MORNING SOLD: 06/25/2020 [facility] 10 mg 03/20/2020 12:00:00 AM EST tablet 90 TAKE ONE TABLET BY MOUTH EVERY DAY TAKE ONE TABLET BY MOUTH EVERY DAY SOLD: 12/24/2020 [facility] Allergy Injection 2 Or More 03/13/2020 12:00:00 AM EST completed [facility] ([facility]) Medication administered onsite Allergy Injection 2 Or More 02/21/2020 12:00:00 AM EDT completed [facility] ([facility]) Medication administered onsite 875 mg 02/18/2020 12:00:00 AM EDT tablet 14 TAKE ONE TABLET BY MOUTH TWICE A DAY UNTIL GONE TAKE ONE TABLET BY MOUTH TWICE A DAY UNTIL GONE SOLD: 02/18/2020 [facility] Famotidine 40 MG Oral Tablet Famotidine 02/15/2020 12:00:00 AM EDT ORAL active [facility] Urea 400 MG/ML Topical Lotion Urea-C40 02/13/2020 12:00:00 AM EDT active MEDENT ([facility] 137 mcg (0.1 %) 02/13/2020 12:00:00 AM EDT aerosol,spray 30 SPRAY TWO SPRAYS IN EACH NOSTRIL EVERY MORNING SPRAY TWO SPRAYS IN EACH NOSTRIL EVERY MORNING SOLD: 02/14/2020 [facility] Azelastine HCL (Nasal) Azelastine HCL (Nasal) 02/12/2020 12:00:00 AM E DT active [facility] ([facility] Flonase Sensimist Flonase Sensimist 02/12/2020 12:00:00 AM EDT active [facility] ([facility]) Allergy Injection 2 Or More 01/31/2020 12:00:00 AM EDT completed [facility] ([facility]) Medication administered onsite 20 mg 01/29/2020 12:00:00 AM EDT capsule,delayed release (DR/EC) 180 TAKE ONE CAPSULE BY MOUTH TWICE A DAY TAKE ONE CAPSULE BY MOUTH TWICE A DAY SOLD: 06/25/2020 [facility] 20 mg 01/29/2020 12:00:00 AM EDT capsule,delayed release (DR/EC) 180 TAKE ONE CAPSULE BY MOUTH TWICE A DAY TAKE ONE CAPSULE BY MOUTH TWICE A DAY SOLD: 01/29/2020 [facility] 24 HR Bupropion Hydrochloride 300 MG Extended Release Oral T ablet BUPROPION HCL 01/19/2020 12:00:00 AM EDT tablet extended release 24 hr 90 TAKE ONE TABLET BY MOUTH ONCE DAILY TAKE ONE TABLET BY MOUTH ONCE DAILY SOLD: 04/24/2020 [facility] 24 HR Bupropion Hydrochloride 300 MG Extended Release Oral T ablet BUPROPION HCL 01/19/2020 12:00:00 AM EDT tablet extended release 24 hr 90 TAKE ONE TABLET BY MOUTH ONCE DAILY TAKE ONE TABLET BY MOUTH ONCE DAILY SOLD: 07/21/2020 [facility] 24 HR Bupropion Hydrochloride 300 MG Extended Release Oral T ablet BUPROPION HCL 01/19/2020 12:00:00 AM EDT tablet extended release 24 hr 90 TAKE ONE TABLET BY MOUTH ONCE DAILY TAKE ONE TABLET BY MOUTH ONCE DAILY SOLD: 01/24/2020 [facility] Allergy Injection 2 Or More 01/11/2020 12:00:00 AM EDT completed [facility] ([facility]) Medication administered onsite Cyclobenzaprine hydrochloride 5 MG Oral Tablet CYCLOBENZAPRI NE HCL 12/21/2019 12:00:00 AM EDT tablet 90 TAKE ONE TABLET BY MOUTH THREE TIMES A DAY NEEDED TAKE ONE TABLET BY MOUTH THREE TIMES A DAY NEEDED SOLD: 03/24/2020 [facility] BLOOD SUGAR DIAGNOSTIC 10/25/2019 12:00:00 AM EDT strip 100 CHECK BLOOD GLUCOSE LEVELS FOUR TIMES A DAY CHECK BLOOD GLUCOSE LEVELS FOUR TIMES A DAY SOLD: 03/24/2020 [facility] OneTouch Ultra In Vitro Strip [id number] 10/24/2019 12:00:00 AM EDT active Type 1 diabetes mellitus with hyperglycemia Use as directed to check blood glucose levels 4x daily. Dx:E10.65 [facility] Type 1 diabetes mellitus with hyperglyce sadie 3 mg/actuation 10/22/2019 12:00:00 AM EDT spray,non-aerosol 1 SPRAY ONE SPRAY (3 MG) IN ONE NOSTRIL TO TREAT SEVERE HYPOGLYCEMIA DIRECTED SPRAY ONE SPRAY (3 MG) IN ONE NOSTRIL TO TREAT SEVERE HYPOGLYCEMIA DIRECTED SOLD: 03/24/2020 [facility] Ketostix In Vitro Strip 7521-7288-33 10/22/2019 12:00:00 AM EDT aborted Type 1 diabetes mellitus with hyperglycemia Ketostix, use as directed up to 10 times daily for illness or elevated blood sugar over 250 twice in a row, dx E10.65 [facility] Type 1 diabetes mellitus with hyperglyce sadie Insulin Lispro 100 UNT/ML Injectable Yanci ution [Humalog] HumaLOG 100 UNIT/ML Subcutaneous Solution HumaLOG 100 UNIT/ML Subcutaneous Solution 09/11/2019 12:00:00 AM EDT aborted Type 1 diabetes mellitus with hyperglycemia Use as directed via insulin pump, MDD 100 units. DX: E10.65, Z79.4, Z96.41 [facility] Type 1 diabetes mellitus with hyperglyce sadie doxycycline hyclate 20 MG Oral Tablet Do xycycline Hyclate 20 MG Oral Tablet (PERIOSTAT) Doxycycline Hyclate 20 MG Oral Tablet (PERIOSTAT) 05/10 12:00:00 AM EST 20 mg Oral aborted Rosacea Take 1 tablet by mouth Two Times Daily [facility] Rosacea Metronidazole 7.5 MG/ML Topical Cream me troNIDAZOLE 0.75 % External Cream (METROCREAM) metroNIDAZOLE 0.75 % External Cream (METROCREAM) 05/29 12:00:00 AM EST active Rosacea Apply t o entire face bid [facility] Rosacea Hydrocortisone 25 MG/ML Topical Cream Hydrocortisone 2 .5 % External Cream Hydrocortisone 2.5 % External Cream 05/10/2019 12:00:00 AM EST active Allergic contact dermatitis due to adhesives Apply to affected areas bid for 2-5 days prn for irritation due to adhesives tape [facility] Allergic contact dermatitis due to adhes juanita Ketoconazole 20 MG/ML Topical Cream Ketoconazole 2 % E xternal Cream (NIZORAL) Ketoconazole 2 % External Cream (NIZORAL) 05/10/2019 12:00:00 AM EST aborted Seborrheic dermatitis Apply bid to affec dania areas on the face prn for redness and burning [facility] Seborrheic dermatitis Clindamycin 10 MG/ML Topical Solution Cl indamycin Phosphate 1 % External Solution Clindamycin Phosphate 1 % External Solution 05/10/2019 12:00 :00 AM EST active Folliculitis Apply bid p rn to lesions on the scalp [facility] Folliculitis Mometasone Furoate 50 MCG/ACT Nasal Suspension (NASONEX) 605 05-0830-1 04/23/2019 12:00:00 AM EST aborted nightl y [facility] Dexcom G6 Drawing Operator Device [id number] 03/16/2019 12:00:00 AM EST 1 {each} Does not apply aborted Type 1 diabetes mellitus with hyperg lycemia 1 each by Does not apply route See Admin Instructions For continuous glucose monitoring, dx E10.65, last office visit 03/12/19 [facility] Type 1 diabetes mellitus with hyperglyce sadie Glucagon 1 MG Injection glucagon (GLUCAGON EMERGENCY) 1 MG injection glucagon (GLUCAGON EMERGENCY) 1 MG injection 11/24/2017 12:00:00 AM EDT aborted Uncontrolled type 1 diabetes mellitus with hyperglycemia Inject IM as directed in case of severe hypoglycemia. DX: E10.65 [facility] Uncontrolled type 1 diabetes mellitus wi th hyperglycemia fluticasone (FLONASE) 50 MCG/ACT nasal spray 2355-6963-50 1 {spray} Nasal aborted 1 spray by Nasal route daily [facility] Bupropion Hydrochloride 75 MG Oral Tablet buPROPion (W ELLBUTRIN) 75 MG tablet buPROPion (WELLBUTRIN) 75 MG tablet 75 mg Oral ab orted Take 75 mg by mouth Two Times Daily [facility] UNABLE TO FIND 5 mg aborted 5 mg Two Times Daily Med Name: fiber well with inulin [facility] Ranitidine 150 MG Oral Tablet ranitidine (ZANTAC) 150 MG tablet ranitidine (ZANTAC) 150 MG tablet 150 mg Oral aborted Take 150 mg by mouth nightly Takes two tabs at night [facility] Insurance Providers Payer name Policy type / Coverage type Policy ID Covered constitution party ID Covered constitution party's relationship to bhakta Policy Bhakta Plan Information Ghi FHP-(DO Not Use) Medigap Part B [id number] Self [place] Part B [id number] Self BLUE CROSS [place] PLAN [id number] SP [id number] [facility] COMMUNITY PLAN [facility] [id number] SP [id number] MEDICAID M [id number] Self [id number] [facility] Med[facility] Part B [id number] Self [id number] Self [id number] [facility] I [id number] Self [id number] [facility] Community Plan Medigap Part B [id number] [place] Part B [id number] Self MEDICARE [id number] SP [id number] [place] Primary [id number] Self MEDICARE A [id number] Self [id number] MEDICARE [id number] SP [id number] A MEDICAID M [id number] Self [id number] MEDICARE A [id number] Self [id number] A MEDICAID [id number] SP [id number] MEDICAID [id number] SP [id number] [facility] [id number] Self [id number] [id number] UNITED MEDICARE DUAL G [id number] Self [id number] [facility] [id number] SP [id number] MEDICAID [id number] SP [id number] [facility] [id number] SP [id number] MEDICAID [id number] SP [id number] MEDICAID [id number] SP [id number] ANSI-Not a Secondary Insurance [id number] ANSI-Medicare Part B [id number] ANSI-Not a Secondary Insurance [id number] ANSI-Medicaid [id number] ANSI-Medicaid [id number] ANSI-Medicare Part B [id number] ANSI-Not a Secondary Insurance [id number] ANSI-Not a Secondary Insurance [id number] ANSI-Medicare Part B [id number] ANSI-Medicaid [id number] ANSI-Not a Secondary Insurance [id number] ANSI-Medicaid [id number] ANSI-Medicare Part B [id number] [facility] [id number] ANSI-Medicare Part B [id number] ANSI-Not a Secondary Insurance [id number] ANSI-Medicaid [id number] Medicare [facility] Medicare Primary [id number] Self [id number] [place] Part B [id number] .[id number] Self [id number] ANSI-Medicare Part B [id number] ANSI-Medicaid [id number] ANSI-Not a Secondary Insurance [id number] ANSI-Medicare Part B [id number] ANSI-Medicaid [id number] ANSI-Not a Secondary Insurance [id number] ANSI-Not a Secondary Insurance [id number] ANSI-Medicaid [id number] ANSI-Medicare Part B [id number] ANSI-Medicaid [id number] ANSI-Medicare Part B [id number] ANSI-Not a Secondary Insurance [id number] ANSI-Not a Secondary Insurance [id number] ANSI-Medicare Part B [id number] ANSI-Medicaid [id number] ANSI-Medicare Part B [id number] ANSI-Not a Secondary Insurance [id number] ANSI-Medicaid [id number] ANSI-Medicaid [id number] ANSI-Not a Secondary Insurance [id number] ANSI-Medicare Part B [id number] ANSI-Medicare Part B [id number] ANSI-Medicaid [id number] ANSI-Not a Secondary Insurance [id number] ANSI-Not a Secondary Insurance [id number] ANSI-Medicaid [id number] ANSI-Medicare Part B [id number] ANSI-Medicare Part B [id number] ANSI-Not a Secondary Insurance [id number] ANSI-Medicaid [id number] ANSI-Medicaid [id number] ANSI-Medicare Part B [id number] ANSI-Not a Secondary Insurance [id number] [place] Medicare Primary [id number] Self [id number] Medicaid [place] Med[place] Part B [id number]9 .8646.42376.0 Self [id number] [facility] Health Maintenance Organization (HMO) [id number] Self [id number] ANSI-Not a Secondary Insurance [id number] ANSI-Medicare Part B [id number] ANSI-Medicaid [id number] ANSI-Not a Secondary Insurance [id number] ANSI-Medicare Part B [id number] ANSI-Medicaid [id number] [facility] MEDICAID [id number] C Medicaid [place] Medigap Part B [id number] .[id number] Self [id number] Medicare [facility] Medicare Primary [id number] Self [id number] Medicaid [place] Medigap Part B [id number] .[id number] .8646.26330.0 Self [id number] [facility] O [id number] S [id number] [facility] O [id number] S [id number] Medicare [facility] Medicare Primary [id number] Self [id number] Medicaid [place] Med[place] Part B [id number] .[id number] .8646.10860.0 Self [id number] Medicare [facility] Medicare Primary [id number] .[id number] Self [id number] [place] [id number] .0.1.806423.3.227.99 .[id number] Self [id number] [facility] Health Maintenance Organization (HMO) [id number]225.0 Self [id number] [place] [id number] 2.0.1.285762.3.227.99 .8646.32688.0 Self [id number] Medicare [facility] Medicare Primary [id number] .[id number]3023.0 Self [id number] Medicaid [place] Part B [id number] 2.16.840.1.127732.3.227.99 .8646.65151.0 Self [id number] [place] Medicare Primary [id number] 2.16.840.1.178966.3.227.99.8646.28725.0 Self [id number] [place] Part [place] [id number] .8646.16529.0 Self [id number] [place] Medicare Primary [id number].8646.11241.0 Self [id number] MEDICARE [id number] S [id number] A Medicaid [place] Part B [id number] 2.840.1.063426.3.227.99 .8646.29508.0 Self [id number] [place] Medicare Primary [id number] Self [id number] Medicaid [place] Part [place] [id number] 2.16840.1.524216.3.227.99 .8646.15843.0 Self [id number] [place] Medicare Primary [id number].8646.08494.0 Self [id number] Medicaid [place] Part [place] [id number] 2.16840.1.127125.3.227.99 .8646.55885.0 Self [id number] [place] Medicare Primary [id number].8646.82233.0 Self [id number] MEDICAID [id number] SP [id number] [place] B [id number] Self [place] Medicare Primary [id number] Self MEDICAID W [id number] S [id number] BLUE CHOICE OPTION O [id number] S [id number] [employer] P [id number] S [id number] EXCELL[employer] BCBS P UNAVAILABLE [id number] S UNAV AILABLE HMO BLUE [id number] SP [id number] MEDICAID -RECURRING [id number] [place] Medicare Primary [id number] Self [id number] MEDICARE [id number] SP [id number] EMEDNY [id number] SP [id number] MEDICARE C [id number] S [id number] Medicare P UNAVAILABLE S UNAVAILA BLE Medicaid S UNAVAILABLE S UNAVAILA BLE MEDICAID M [id number] S [id number] MEDICARE [id number] SP [id number] A [facility] Secure Horizons P [id number] S [id number] MEDICARE [id number] SP [id number] MEDICAID [id number] SP [id number] [facility] [id number] SP [id number] ANSI-Not a Secondary Insurance [id number] ANSI-Medicare Part B [id number] ANSI-Medicaid [id number] ANSI-Not a Secondary Insurance [id number] ANSI-Medicare Part B [id number] [facility] [id number] Medicaid [id number] [id number] Medicaid [id number] [facility] [id number] [id number] Preferred Provider Organization (PPO) [id number] Managed Care - Community Plan [facility] P UNAVAILABLE S UNAVAILABLE [place] Medicare Primary [id number] Self [id number] Medicaid [facility] Part B [id number] Self [id number] [facility] Health Maintenance Organization (HMO) [id number] Self [id number] [facility] [id number] [facility] [id number] Problems, Conditions, and Diagnoses Code Display Name Description Problem Type Effective Dates Data Source(s) R52 Pain, unspecified Pain, unspecified Diagnosis 09/18/2020 10:21:59 AM [facility] G25.89 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 extrapyramidal and movement disorders Diagnosis 09/18/2020 10:08:02 AM [facility] M50.30 Other cervical disc degeneration, unspec ified cervical region Other cervical disc degeneration, unspecified cervical region Diagnosis 08/27/2020 11:35:08 AM [facility] S46.811A Strain of other muscles, fas gunjan and tendons at shoulder and upper arm level, right arm, initial encounter Strain of other muscles, fascia and tend ons at shoulder and upper arm level, right arm, initial encounter Diagnosis 08/27/2020 11:35:08 AM [facility] S46.812A Strain of other muscles, fas gunjan and tendons at shoulder and upper arm level, left arm, initial encounter Strain of other muscles, fascia and tend ons at shoulder and upper arm level, left arm, initial encounter Diagnosis 08/27/2020 11:35:08 AM [facility] R53.83 Other fatigue Other fatigue Diagnosis 07/11/2020 12:15:12 PM [facility] N93.9 Abnormal uterine bleeding Abnormal uterine bleeding (A UB) Problem 02/17/2021 12:00:00 AM EDT eCW1 ([facility]) J30.0 Vasomotor rhinitis Vasomotor rhinitis Problem 12:00:00 AM EDT [facility] ([facility]) M47.812 [id number] Cervical facet syndrome Problem 09/02/2020 1 2:00:00 AM EDT eCW1 ([facility]) N95.1 [id number] Perimenopause Problem 06/05/2020 12:00: 00 AM EST eCW1 ([facility]) F15.20 Other stimulant dependence, uncomplicate d Stimulant Use Disorder, Moderate: Other or unspecified stimulant Condition 05/23/2020 12:00:00 AM EST [facility] ([facility]) F10.20 Alcohol dependence, uncomplicated Alcohol Use Di sorder, Moderate Condition 05/23/2020 12:00:00 AM EST [facility] ([facility]) 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 Condition 05/23/2020 12:00:00 AM EST [facility] ([facility]) F60.3 Borderline personality disorder Borderline Personality Disorder Condition 05/23/2020 12:00:00 AM EST [facility] ([facility]) F33.9 Major depressive disorder, recurrent, un specified Major Depressive Disorder, Recurrent episode, Unspecified Condition 05/23/2020 12:00:00 AM EST [facility] ([facility]) [id number] Type 1 diabetes mellitus Type 1 diabetes mellitus Prob tristin 03/03/2020 12:00:00 AM EDT [facility] ([facility] Corns and callosities Corns and callosities Problem 03/03/2020 12:00:00 AM EDT [facility] ([facility] [id number] Osteochondropathy Osteochondropathy Problem 03/03/2020 12:00:00 AM EDT [facility] ([facility] [id number] Allergic rhinitis due to house dust mite Allergic rhinitis due to house dust mite Problem 02/04/2020 12:00:00 AM EDT [facility] ([facility]) Note: On IT. 4+ reaction to dust mite on scratch test completed in 2019. Surgeries/Procedures Procedure Description Date Indications Data Source(s) PROF YAZMIN PENALOZA IMMNTX X W/PRV ALLGIC XTRCS NJXS 2020 12:00:00 AM EDT [facility] ([facility]) OFFICE OUTPATIENT VISIT 15 MINUTES 02/11/2021 12:00:00 AM EDT [facility] ([facility]) PROF YAZMIN PENALOZA IMMNTX X W/PRV ALLGIC XTRCS NJXS 2020 12:00:00 AM EDT [facility] ([facility]) OFFICE OUTPATIENT VISIT 25 MINUTES 01/19/2021 12:00:00 AM EDT [facility] ([facility] ) PROF YAZMIN PENALOZA IMMNTX X W/PRV ALLGIC XTRCS NJXS 2020 12:00:00 AM EDT [facility] ([facility]) PROF YAZMIN PENALOZA IMMNTX X W/PRV ALLGIC XTRCS NJXS 2020 12:00:00 AM EDT [facility] ([facility]) POCT HEMOGLOBIN A1C, DOCKED <td>POCT HEMOGLOBIN A1C, DOCKED</td><td>Routine</td><td>12/08/2020 10:28 AM EDT</td><td></td><td> </td> 12/08/2020 10:28:00 AM [facility] POCT GLUCOSE, DOCKED <td>POCT GLUCOSE, DOCKED</td ><td>Routine</td><td>12/08/2020 10:27 AM EDT</td><td></td><td> </td> 12/08/2020 10:27:00 AM [facility] PREPJ& ALLERGEN IMMUNOTHERAPY 1/BOATBUILDER WOOD ANTIGEN 11/21/2020 12:00:00 AM EDT [facility] ([facility]) PROF ARCE ALLG IMMNTX X W/PRV ALLGIC XTRCS NJXS 2020 12:00:00 AM EDT [facility] ([facility]) PROF ARCE ALLG IMMNTX X W/PRV ALLGIC XTRCS NJXS 2020 12:00:00 AM EDT [facility] ([facility]) PROF ARCE ALLG IMMNTX X W/PRV ALLGIC XTRCS NJXS 2020 12:00:00 AM EDT [facility] ([facility]) PROF ARCE ALLG IMMNTX X W/PRV ALLGIC XTRCS NJXS 2020 12:00:00 AM EDT [facility] ([facility]) PROF ARCE ALLG IMMNTX X W/PRV ALLGIC XTRCS NJXS 2020 12:00:00 AM EDT [facility] ([facility]) OFFICE OUTPATIENT VISIT 15 MINUTES 08/12/2020 12:00:00 AM EDT [facility] ([facility]) TOBACCO USE CESSATION INTERMEDIATE 3-10 MINUTES 2020 12:00:00 AM EDT [facility] ([facility]) PROF SVCS ALLG IMMNTX X W/PRV ALLGIC XTRCS NJXS 2020 12:00:00 AM EDT [facility] ([facility]) PREPJ& ALLERGEN IMMUNOTHERAPY 1/BOATBUILDER WOOD ANTIGEN 07/24/2020 12:00:00 AM EDT [facility] ([facility]) OFFICE OUTPATIENT VISIT 25 MINUTES 07/21/2020 12:00:00 AM EDT [facility] ([facility], ) PROF YAZMIN PARIKHG IMMNTX X W/PRV ALLGIC XTRCS NJXS 2020 12:00:00 AM EST [facility] ([facility]) PROF ARCE ALLG IMMNTX X W/PRV ALLGIC XTRCS NJXS 2020 12:00:00 AM EST [facility] ([facility]) PROF YAZMIN PARIKHG IMMNTX X W/PRV ALLGIC XTRCS NJXS 2020 12:00:00 AM EST [facility] Psych[facility] - 45 min 05/23/2020 12:00:00 AM EST - 05/23/2020 12:00:00 AM EST [facility] ([facility]) Extended Individual Psychotherapy - 45 min 12:00:00 AM EST [facility] ([facility]) Extended Individual Psychotherapy - 45 min 05/07/2020 12:00:00 AM EST - 05/07/2020 12:00:00 AM EST [facility] ([facility]) Extended Individual Psychotherapy - 45 min 12:00:00 AM EST [facility] ([facility]) PROF YAZMIN PENALOZA IMMNTX X W/PRV ALLGIC XTRCS NJXS 2019 12:00:00 AM EST [facility] ([facility] Extended Individual Psychotherapy - 45 min 04/24/2020 12:00:00 AM EST - 04/24/2020 12:00:00 AM EST [facility] ([facility]) Extended Individual Psychotherapy - 45 min 12:00:00 AM EST [facility] ([facility]) PROF SVCS ALLG IMMNTX X W/PRV ALLGIC XTRCS NJXS 2019 12:00:00 AM EST [facility] ([facility]) Extended Individual Psychotherapy - 45 min 04/10/2020 12:00:00 AM EST - 04/10/2020 12:00:00 AM EST [facility] ([facility]) Extended Individual Psychotherapy - 45 min 0 12:00:00 AM EST [facility] ([facility]) Endoscopy Upper GI Biopsy 04/08/2020 12:00:00 AM EST [facility] ([facility], ) Extended Individual Psychotherapy - 45 min 03/21/2020 12:00:00 AM EST - 03/21/2020 12:00:00 AM EST [facility] ([facility]) Extended Individual Psychotherapy - 45 min 0 12:00:00 AM EST [facility] ([facility]) Extended Individual Psychotherapy - 45 min 03/14/2020 12:00:00 AM EST - 03/14/2020 12:00:00 AM EST [facility] ([facility]) Extended Individual Psychotherapy - 45 min 0 12:00:00 AM EST [facility] ([facility]) PROF YAZMIN PARIKHG IMMNTX X W/PRV ALLGIC XTRCS NJXS 2019 12:00:00 AM EST [facility] ([facility]) Extended Individual Psychotherapy - 45 min 03/07/2020 12:00:00 AM EDT - 03/07/2020 12:00:00 AM EDT [facility] ([facility]) Extended Individual Psychotherapy - 45 min 0 12:00:00 AM EDT [facility] ([facility]) RADIOLOGIC EXAM KNEE COMPLETE 4/MORE VIEWS 03/04/2020 12:00:00 AM EDT [facility] ([facility]) RADIOLOGIC EXAM KNEE COMPLETE 4/MORE VIEWS 03/04/2020 12:00:00 AM EDT [facility] ([facility] [facility]) PREPJ& ALLERGEN IMMUNOTHERAPY 1/BOATBUILDER WOOD ANTIGEN 02/26/2020 12:00:00 AM EDT [facility] ([facility]) PROF YAZMIN PENALOZA IMMNTX X W/PRV ALLGIC XTRCS NJXS 2019 12:00:00 AM EDT [facility] ([facility]) Extended Individual Psychotherapy - 45 min 02/21/2020 12:00:00 AM EDT - 02/21/2020 12:00:00 AM EDT [facility] ([facility]) Extended Individual Psychotherapy - 45 min 0 12:00:00 AM EDT [facility] ([facility]) Extended Individual Psychotherapy - 45 min 02/15/2020 12:00:00 AM EDT - 02/15/2020 12:00:00 AM EDT [facility] ([facility]) Extended Individual Psychotherapy - 45 min 0 12:00:00 AM EDT [facility] ([facility]) Extended Individual Psychotherapy - 45 min 02/08/2020 12:00:00 AM EDT - 02/08/2020 12:00:00 AM EDT [facility] ([facility]) Extended Individual Psychotherapy - 45 min 0 12:00:00 AM EDT [facility] ([facility]) PROF YAZMIN PENALOZA IMMNTX X W/PRV ALLGIC XTRCS NJXS 2019 12:00:00 AM EDT [facility] ([facility]) Extended Individual Psychotherapy - 45 min 01/24/2020 12:00:00 AM EDT - 01/24/2020 12:00:00 AM EDT [facility] ([facility]) Extended Individual Psychotherapy - 45 min 0 12:00:00 AM EDT [facility] ([facility]) Brief Individual Psychotherapy - 30 min 01/18/2020 12:00:00 AM EDT - 01/18/2020 12:00:00 AM EDT [facility] ([facility]) Brief Individual Psychotherapy - 30 min 01/18/2020 12: 00:00 AM EDT [facility] ([facility]) PROF YAZMIN PENALOZA IMMNTX X W/PRV ALLGIC XTRCS NJXS 2019 12:00:00 AM EDT [facility] ([facility]) Results ID Date Data Source [id number] 02/03/2021 03:11:00 PM EDT [facility] ([facility]) Name Value Range Interpretation Code Description Data Joyce rce(s) Supporting Document(s) Glomerular Filtration Rate Laboratory test result Normal (applies to non- numeric results) [facility] ([facility], ) <content>Units are mL/min/1.73 m2</content>
<content></content>
<content>Chronic Kidney Disease Staging per NKF:</content>
<content></content>
<content>Stage I & II GFR >=60 Normal to Mildly Decreased</content>
<content>Stage III GFR 30- 59 Moderately Decreased</content>
<content>Stage IV GFR 15-29 Severely Decreased</content>
<content>Stage V GFR <15 Very Little GFR Left</content>
<content>ESRD GFR <15 on FINISHING MACHINE OPERATOR AUTOMATIC</content>
<content></content> Creatinine For GFR 0.78 mg/dL 0.55-1.30 Normal (applies to non -numeric results) [facility] ([facility]) ID Date Data Source [id number] 02/03/2021 03:11:00 PM EDT [facility] Name Value Range Interpretation Code Description Data Joyce rce(s) Supporting Document(s) Urea nitrogen [Mass/volume] in Serum or Plasma 12 mg/dL 7 -18 Normal (applies to non-numeric results) [facility] ([facility], ) ID Date Data Source [id number] 12/08/2020 03:52:18 PM EDT [facility] Name Value Range Interpretation Code Description Data Joyce rce(s) Supporting Document(s) [facility] VFSGGq5bIcMHCmDc80/UQPicXHTnd6PsUAtdUXt3ORkgGPDmQ5OjJMZ2iC8wXXM5FKjPKeFjMsHlBBHj lbm [file] AgICAgICAgICAgICAgICAgICAgICAgICAgICAgICAgICAgICAgICAgICAgICAgICAgICAgICAgICAgIC AgDQogICAgICAgICAgICAgICAgICAgICAgICAgICAg ICAgICAgICAgICAgICAgICAgICAgICAgICAgICAgICAgICAgICAgICAgICAgICAgICAgICAgICAgICAg ICAgICAgICAgICAgDQogICAgICAgICAgICAgICAgICAgICAgICAgICAgICAgICAgICAgICAgICAgICAg ICAgICAgICAgICAgICAgICAgICAgICAgICAgICAgIC AgICAgICAgICAgICAgICAgICAgICAgDQogICAgICAgICAgICAgICAgICAgICAgICAgICAgICAgICAgIC AgICAgICAgICAgICAgICAgICAgICAgICAgICAgICAgICAgICAgICAgICAgICAgICAgICAgICAgICAgIC AgICAgDQogICAgICAgICAgICAgICAgICAgICAgICAg ICAgICAgICAgICAgICAgICAgICAgICAgICAgICAgICAgICAgICAgICAgICAgICAgICAgICAgICAgICAg ICAgICAgICAgICAgICAgDQogICAgICAgICAgICAgICAgICAgICAgICAgICAgICAgICAgICAgICAgICAg ICAgICAgICAgICAgICAgICAgICAgICAgICAgICAgIC AgICAgICAgICAgICAgICAgICAgICAgICAgDQogICAgICAgICAgICAgICAgICAgICAgICAgICAgICAgIC AgICAgICAgICAgICAgICAgICAgICAgICAgICAgICAgICAgICAgICAgICAgICAgICAgICAgICAgICAgIC AgICAgICAgDQogICAgICAgICAgICAgICAgICAgICAg ICAgICAgICAgICAgICAgICAgICAgICAgICAgICAgICAgICAgICAgICAgICAgICAgICAgICAgICAgICAg ICAgICAgICAgICAgICAgICAgDQogICAgICAgICAgICAgICAgICAgICAgICAgICAgICAgICAgICAgICAg ICAgICAgICAgICAgICAgICAgICAgICAgICAgICAgIC AgICAgICAgICAgICAgICAgICAgICAgICAgICAgDQogICAgICAgICAgICAgICAgICAgICAgICAgICAgIC AgICAgICAgICAgICAgICAgICAgICAgICAgICAgICAgICAgICAgICAgICAgICAgICAgICAgICAgICAgIC HkJQAbKUFoMEUrAEi4A9feRVUaUWZbMB9aCXu3Bz3+ RKcJNsZqTZN7zrLvoQ4IRI0xg6ZmZKbmFKLyp5PiASo2GP1WCLBmXJskKT8FPKxfpc8LKQTpZNIxvFSY g5ozZnTfSSX7ULSsBbvdJQ2JZLZbR9wpynVoKLFpSYPOEM5JWmRaE1ZaiW62UHYMFj3+DQplbmRvYmoN YgQoTDYrs4ReTEq2GJ9DWTJfZjwmr1RtMbNrUKKMUB yiGI8DKOT7GSPlZWHqYr4HCZUtR398mgUkBJ3LYy4SOsIpWI7psj8ATqCnFPKgIenHJlz3SFwhXQ6CrF DlDJsNli5xmhUresHPd6AcojFhoYZZvE5rRVTwbDEmpXElGN6YACL1AFsbAy9mCPNbQIOlNqIuYOBVOB 7ZHLBwQQYtjRLpWMSoARBOCA2YXSphPEQ1SONoqaKm rNUhLGamUR2TUVNjlwAfNlFqPURLUZk+Ez2IWF9ou7IoNQdrAWGjVI8kha0SMFsYXkUkR8C8wAByW7G1 QOmbAx5ULBRfDTUcXsFxZZBZIAptSP7SDV4vwgD9JM8IgGPaXFEqWKHnsKHyQVr1Z98qkUElOQpgTQ9A ICA+Elana+Ll6BJBRxJAOuOMSiFxPtPNICXgSfZ6YaL4 XQr3RjA6PkSU32hUfntzFoPFtqBX0ONO1kBYGmQUSCFP5FoXIfdU3ombAeUkVzEKKWEcFgL83uzTRjXT ZiNHPyCUAvTl8RIWGwH5NtrqYakEcaaePrYMUnTLSPVV1MFHnkgnUpxCVfyVwhTK25lVjiWJ5SQo9OEh ZoUD0yqr8FzWUbTh4HISAlBB3GQWWkWHIiHNDjESU8 YYPnVbGfHHllNIKiPCCqQMG9JMReZZViEM5QWvYnVQUtCXd4UHkbEJAyVDFera3DSEIrTNIbHEBvFqHq SVHvWGVtWYydLCYnMMEoRJQ7IZYlTVAmTC8YYkTtIYWjZQOwNyxnDMGzHPPtbt0ZJTJmECTlEyZgUfOt RDQuKXHgQBmeDPRiBAU1WOdxQUUvSQNeVC2EHiSyML QnOSHwOUwrUGHaZRPxwk1EPUNaHEJuNUC8DFNpSIKkYDBfWXwzCBBrWRW3UQJ3MYTpBHPaPN0SRvGhQL YnXRR4DgrzEIQkGGRldb5EVVMsRTNbSQtnNJPgVGQrIPXrAGruCSHwOJK8VrjjVETdFEDqIW8UEfQmKB YqZNl5TNXhFAFhBOGxnn6SZMCmCKMpYnq5PUNfSRPq DYHzLNinPCTxIGA8EGF8JFPmVPUcOQ8FUlHmOXLgAYuuUMClLQGvCXGqoj1DKEXnFKDmQLEmFJFhXKCj JYGwRPlmGFWjVLR0GoU3DPOtVUJmLX1HHbZhLPImHCv3RjrjJDEwUTIdes4RLSNfJKBtFSb3NoAyJQJn ODSpOSxsNJWeEHWvUcCdQYRnOWAzQI7GDdAcVQInHl R3EYJeAPAhUKPhrx6NHSYbUXCaPSH5AZPgHEFtUJMqAEw2ysGwqYXwYYs6UL9ZK4ZtzzEiRrOMAz9Qb3 44UOL0TLXzHc0WP0lmJg5eJMExAJLJPx9CDBn3YVk8QNYdSpjbTyW9OOMlXsK3MXl4YrLtKZX7GJxoW4 U+QId6GKtwStMbW7BjMjr0ExHbJvPtVGjhMjUmGUnu K9ZpTC5zJNECIl7+OUiyxHRheKfiGVLKEzVtUkgdDRaxPAAFPe0O ID Date Data Source [id number] 12/08/2020 10:35:20 AM EDT [facility] Name Value Range Interpretation Code Description Data Joyce rce(s) Supporting Document(s) Hemoglobin A1c/Hemoglobin.total in Blood 6.1 % 4.0-6.0 [facility] Glucose mean value [Mass/volume] in Blood Estimated fr om glycated hemoglobin 128 mg/dL <126 [facility] ID Date Data Source [id number] 12/08/2020 10:29:13 AM EDT [facility] Name Value Range Interpretation Code Description Data Joyce rce(s) Supporting Document(s) Glucose [Mass/volume] in Capillary blood by Glucometer 177 mg/dL 70- 140 [facility] ID Date Data Source [id number] 10/15/2020 08:04:05 AM EDT [facility] Name Value Range Interpretation Code Description Data Joyce rce(s) Supporting Document(s) [facility] FJAVPl0xCvBNVsPn98/MPTwlNFSnp5AjJVauNMk7VPxdSWKfF5FyFOI1wX9iQEU3DKmRLxRrMiSiQgY1 lbm [file] AgRBJySHJ7XNZlXkzcGQe2ALZdBlQyOU6hLBWCKp3+EHpxdAGhmQvyHQRXIrWpUIc2ERzfQAOSYy7T ID Date Data Source [id number] 10/15/2020 08:03:55 AM EDT [facility] Name Value Range Interpretation Code Description Data Joyce rce(s) Supporting Document(s) [facility] MHUSMc9xUzJUXaCm01/MXYxqQEUbt2RaAWwfEFe7YLixJSSvR6LgAAE6sP6fRTC1JIeLGpDtRxIrLmN5 lbm [file] VsPePfEqFkDI9AGd8REyS8HMQ2qVHuQr8YPgV9QBqXWpBiSD2XKDq= ID Date Data Source [id number] 09/18/2020 09:09:47 PM EDT [facility] XR SHOULDER COMPLETE [id number] RESULTIn terpreted by:JAN Solorzano SHOULDER CLINICAL STATEMENT: Pain. Initial encounter.TECHNIQUE: 4 views of the left shoulder. COMPARISON: 03/22/2018FINDINGS: No acute fracture or dislocation is identified.The joint spaces are preserved and the articular margins are smooth.The visualized soft tissues are within normal limits.IMPRESSION:Unremarkable examination.This document has been electronically signed by Ajay Rueda MD on 09/18/2020 9:07 PM Name Value Range Interpretation Code Description Data Joyce rce(s) Supporting Document(s) ID Date Data Source [id number] 09/18/2020 11:24:01 AM EDT [facility] Name Value Range Interpretation Code Description Data Joyce rce(s) Supporting Document(s) [facility] SFRUEk3pLjTKIrAv83/EMJhgSYYoc9ByGMleXXj3WSrrNEToQ8HtQRT7uV4xQJH7OAzEMoTaEsVrPMPh lbm [file] 9GDQo= ID Date Data Source [id number] 08/28/2020 07:38:46 AM EDT [facility] XR SPINE CERV 4 OR MORE VIEWS [id number] RESULTInterpreted by:Ajay Rueda [facility] SPINECLINICAL STATEMENT: Status post spinal fusion. Neck pain.TECHNIQUE: AP, flexion-extension, and neutral lateral views of the cervical spine.COMPARISON: 01/17/2020.FINDINGS:Since the prior study, there has been no significant interval change. The patient is again noted to be status post anterior cervical discectomy and fusion at C7-T1. A ventral fixation plate with interlocking screws appear intact and aligned.Normal anatomic alignment is maintained. Normal vertebral body heights are preserved. The prevertebral soft tissues are within normal limits.Otherwise, the remaining intervertebral disc spaces are preserved.IMPRESSION: Since 01/17/2020,No significant interval change. Status post ACDF at C7-T1, with stable postoperative changes. This document has been electronically signed by Ajay Rueda MD on 08/28/2020 7:36 AM Name Value Range Interpretation Code Description Data Joyce rce(s) Supporting Document(s) ID Date Data Source [id number] 08/28/2020 12:00:00 AM EDT [facility] Name Value Range Interpretation Code Description Data Joyce rce(s) Supporting Document(s) SARS-CoV2 Rapid Antigen Negative [facility] This lab was ordered by [facility] and reported by [facility]. ID Date Data Source [id number] 08/27/2020 04:25:07 PM EDT [facility] Name Value Range Interpretation Code Description Data Joyce rce(s) Supporting Document(s) [facility] [id number]/YURxvLRRmj1FjOHhzQQx1GQbpNSEbP7SfLXI8bI3bKKM2DKaFOsJdZqIqNLZa lbm [file] OmdYYuAlUA4SSTr= ID Date Data Source [id number] 08/27/2020 12:16:20 PM EDT [facility] MR CERVICAL SPINE WITHOUT CONTRAST [id number] FINAL RESULTInterpreted by:JAI Quiñones CERVICAL SPINE INDICATION: Cervical DDD with increasing trapezius strain .TECHNIQUE: MRI of the cervical spine was performed without contrast..COMPARISON: Cervical spine MRI dated 06/28/2017. Cervical spine x-ray dated 08/27/2020.FINDINGS: Visualized portions of the posterior fossa are unremarkable. There is normal cervical lordosis without spondylolisthesis. Patient is undergone interval ACDF at C7-T1 facets previous MRI. Susceptibility limits evaluation at these levels. Remaining visualized marrow signal within normal limits. No fracture. Mild straightening of the normal cervical lordosis. No spinal listhesis. Cervical cord is normal in contour, signal, and caliber. Specific findings are seen at the following levels:C2-C3: No disc herniation, spinal canal stenosis, or neural foraminal narrowing.C3-C4: Mild right asymmetric facet hypertrophy results in mild right neural foraminal narrowing. No significant spinal canal stenosis or left neural foraminal narrowing. There are new small synovial cysts emanating from the right facet joint. Findings a mildly progressed.C4-C5: No significant disc herniation, spinal canal stenosis, neural foraminal narrowing. No change.C5-C6: Shallow broad-based posterior disc ossify complex and uncovertebral spurring without significant spinal canal stenosis or neural foraminal narrowing. No change.C6-C7: No disc herniation, spinal canal stenosis, or neural foraminal narrowing. No change.C7-T1: Interval ACDF. Mild residual uncovertebral spurring contributes mild uncovertebral spurring contributes to mild bilateral neural foraminal narrowing, left and right, decreased compared to prior. Effacement of the ventral CSF has resolved. No canal stenosis.Miscellaneous: 1.7 x 1.4 cm mildly complex-appearing nodule in the left thyroid gland. Similar in size to previous MRI.IMPRESSION: Interval ACDF at C7-T1. Spinal canal patent. Mild residual uncovertebral spurring contributes to mild bilateral neural foraminal narrowing, left greater than right, which is improved from prior.New mild asymmetric facet hypertrophy at C3- C4 contribute to new mild right neural foraminal narrowing. Small synovial cysts emanate from the right facet joint.No substantial change of complex appearing left thyroid nodule. This document has been electronically signed by Connie Garcia MD on 08/27/2020 12:14 PM Name Value Range Interpretation Code Description Data Joyce rce(s) Supporting Document(s) ID Date Data Source [id number] 07/11/2020 02:41:39 PM [facility] Name Value Range Interpretation Code Description Data Joyce rce(s) Supporting Document(s) Cholesterol [Mass/volume] in Serum or Plasma 221 mg/dL <200 [facility] Triglyceride [Mass/volume] in Serum or Plasma 81 mg/dL <150 [facility] Cholesterol in HDL [Mass/volume] in Serum or Plasma 104 mg/dL >50 [facility] Cholesterol in LDL [Mass/volume] in Serum or Plasma by calcu lation 101 mg/dL <100 [facility] Cholesterol in VLDL [Mass/volume] in Serum or Plasma by calc ulation 16 mg/dl 16-42 [facility] Cholesterol non HDL [Mass/volume] in Serum or Plasma 117 mg/dL <130 [facility] ID Date Data Source [id number] 07/11/2020 02:41:39 PM [facility] Name Value Range Interpretation Code Description Data Joyce rce(s) Supporting Document(s) Albumin [Mass/volume] in Serum or Plasma by Bromocresol green (BCG) dye binding method 4.3 g[facility].5[facility]5.2 [facility] Bil[facility].total [Mass/volume] in Serum or Plasma 0.5 mg/dL <1.2 [facility] Calcium [Mass/volume] in Serum or Plasma 9.3 mg/dL 8.6-10.0 [facility] Chloride [Moles/volume] in Serum or Plasma 102 mmol/L 98-107 [facility] Creatinine [Mass/volume] in Serum or Plasma 0.75 mg/dL 0.50-0.90 [facility] Glucose [Mass/volume] in Serum or Plasma 162 mg/dL 70-140 [facility] Alkaline phosphatase [Enzymatic activity/volume] in Serum or Plasma 71 U/L 35-104 [facility] Potassium [Moles/volume] in Serum or Plasma 4.5 mmol/L 3.4-5.1 [facility] Protein [Mass/volume] in Serum or Plasma 7.1 g/dL 6.4-8.3 [facility] Sodium [Moles/volume] in Serum or Plasma 139 mmol/L 136-145 [facility] Aspartate aminotransferase [Enzymatic activity/volume] in Serum or Plasma 21 U/L <32 [facility] Urea nitrogen [Mass/volume] in Serum or Plasma 10 mg/dL 6-20 [facility] Osmolality of Serum or Plasma by calculation 291 mosm/kg 275-300 [facility] Creatinine/Urea nitrogen [Mass Ratio] in Serum or Plasma 13 [facility] Bicarbonate [Moles/volume] in Serum 29 mmol/L 22-29 [facility] Alanine aminotransferase [Enzymatic activity/volume] in Seru m or Plasma 21 U/L <33 [facility] Anion gap 3 in Serum or Plasma 8 mmol/L 8-15 [facility] Glomerular filtration rate/1.73 sq M pre dicted among non-blacks [Volume Rate/Area] in Serum or Plasma by Creatinine-based formula (MDRD) >6 0 [facility] Glomerular filtration rate/1.73 sq M pre dicted among blacks [Volume Rate/Area] in Serum or Plasma by Creatinine-based formula (MDRD) >60 [facility] ID Date Data Source [id number] 07/11/2020 02:41:39 PM [facility] Name Value Range Interpretation Code Description Data Joyce rce(s) Supporting Document(s) Thyrotropin [Units/volume] in Serum or Plasma 1.360 u[IU]/mL 0.270-4. 200 [facility] ID Date Data Source [id number] 07/11/2020 04:24:57 PM [facility] Name Value Range Interpretation Code Description Data Joyce rce(s) Supporting Document(s) Leukocytes [#/volume] in Blood by Automated count 4.2 10*3/uL 4-10 [facility] Erythrocytes [#/volume] in Blood by Automated count 4.19 10*6/uL 4.1- 5.3 [facility] Hemoglobin [Mass/volume] in Blood 14.1 g/dL 11.5-15.5 [facility] Hematocrit [Volume Fraction] of Blood by Automated count 42.2 % 3 6-45 [facility] Erythrocyte mean corpuscular volume [Entitic volume] b y Automated count 100.6 fL 80-96 [facility] Erythrocyte mean corpuscular hemoglobin [Entitic mass] by Automated count 33.7 pg 27-33 [facility] Erythrocyte mean corpuscular hemoglobin concentration [Mass/volume] by Automated count 33.4 g/dL 32.0-36.0 [facility] E[facility]th[facility] distribution width [Ratio] by Automated count 13.0 % 11.5-14.5 [facility] Platelets [#/volume] in Blood by Automated count 252 10*3/uL 150-400 [facility] Differential cell count method - Blood [facility] Neutrophils/100 leukocytes in Blood by Automated count 57 % [facility] Lymphocytes/100 leukocytes in Blood by Automated count 28 % [facility] Monocytes/100 leukocytes in Blood by Automated count 9 % [facility] Eosinophils/100 leukocytes in Blood by Automated count 5 % [facility] Basophils/100 leukocytes in Blood by Automated count 1 % [facility] Neutrophils [#/volume] in Blood by Automated count 2.35 10*3/uL 1.8-7 .0 [facility] Lymphocytes [#/volume] in Blood by Automated count 1.15 10*3/uL 1.2-4 .0 L [facility] Monocytes [#/volume] in Blood by Automated count 0.35 10*3/uL 0-0.8 [facility] Eosinophils [#/volume] in Blood by Automated count 0.19 10*3/uL 0-0.5 [facility] Basophils [#/volume] in Blood by Automated count 0.03 10*3/uL 0-0.2 [facility] Nucleated erythrocytes/100 leukocytes [Ratio] in Blood by Automated count 0 /100{WBCs} 0-0 [facility] ID Date Data Source [id number] 07/11/2020 02:45:09 PM [facility] Name Value Range Interpretation Code Description Data Joyce rce(s) Supporting Document(s) Calcidiol [Mass/volume] in Serum or Plasma 68 ng/mL >30 [facility] ID Date Data Source [id number] 07/11/2020 02:18:19 PM [facility] Name Value Range Interpretation Code Description Data Joyce rce(s) Supporting Document(s) Hemoglobin A1c/Hemoglobin.total in Blood by HPLC 6.1 % 4.0-6.0 [facility] (NOTE)<5.7% Average risk of diabetes (ADA)5.7-6.4% Increased risk of diabetes(ADA)>/= 6.5% Diagnostic for diabetes(ADA) Glucose mean value [Mass/volume] in Blood Estimated fr om glycated hemoglobin 127 mg/dL <126 [facility] ID Date Data Source [id number] 07/11/2020 02:13:48 PM [facility] Value Range Interpretation Code Description Data Joyce rce(s) Supporting Document(s) Color of Urine [facility] Clarity of Urine [facility] Specific gravity of Urine by Refractometry automated 1.004 1.003 -1.030 [facility] pH of Urine by Automated test strip 8.0 5.0-8.0 [facility] Protein [Mass/volume] in Urine by Automated test strip Neg [facility] Glucose [Mass/volume] in Urine by Automated test strip Neg [facility] Ketones [Mass/volume] in Urine by Automated test strip Neg [facility] Bilirubin.total [Presence] in Urine by Automated test strip Negative [facility] Hemoglobin [Presence] in Urine by Automated test strip Neg [facility] Leukocyte esterase [Presence] in Urine by Automated test strip Negative [facility] Nitrite [Presence] in Urine by Automated test strip Negati [facility] Leukocytes [#/area] in Urine sediment by Automated count 0 /HPF 0 -5 [facility] Erythrocytes [#/area] in Urine sediment by Automated count 0 /HPF 0-3 [facility] ID Date Data Source [id number] 07/10/2020 04:18:29 PM [facility] Name Value Range Interpretation Code Description Data Joyce rce(s) Supporting Document(s) [facility] [id number]/HPJboTLZvy0PtEYuuIGu2TJjkTQUxZ7YvZNS9aR7eIIB0CMkLKvTyGcFxEhD7 lbm [file] DQo= ID Date Data Source [id number] 07/10/2020 04:18:24 PM [facility] Name Value Range Interpretation Code Description Data Jyoce rce(s) Supporting Document(s) [facility] KQFBXl5mGjZCFyDy62/UZWwzVLRog0DzZWiyGNq6EJfwTIKkU2JuEPO5jQ2iCQX2HCuXTwQdBeTgQzJ2 lbm [file] 9tXHIFHn0+THldmBFcaRevTSAEQcRpFlO8KSeoYEEWAy6V ID Date Data Source PAP REQUEST FOR SERVICE 06/05/2020 12:00:00 AM EST eCW1 ([facility]) Name Value Range Interpretation Code Description Data Joyce rce(s) Supporting Document(s) PAP REQUEST FOR SERVICE eCW1 ( [facility]) ID Date Data Source HERPES SIMPLEX VIRUS HSV CULT/TYPE 05/08/2020 12:00:00 AM ES T eCW1 ([facility]) Name Value Range Interpretation Code Description Data Joyce rce(s) Supporting Document(s) eCW1 ([facility]) ID Date Data Source CHLAMYDIA & GC DNA AMPLIFICAT 05/08/2020 12:00:00 AM EST eCW 1 ([facility]) Name Value Range Interpretation Code Description Data Joyce rce(s) Supporting Document(s) Chlamydia trachomatis rRNA [Presence] in Unspecified specimen by Probe and target amplification method NEGATIVE NEGATIVE [facility] ([facility]) ID Date Data Source [id number] 05/05/2020 12:15:26 PM EST [facility] Name Value Range Interpretation Code Description Data Joyce rce(s) Supporting Document(s) [facility] HLKWJr5yCfKGRfEp35/UKEzwYTLlk0YiOTgzJNf3SMyjARIkP0ZoIXO0mC7nHCU6IPgQGbMhZkNmYzQ3 lbm ExLtfQNqMhUSOoPuoMDxSfZCwzLckaiRVlHF6CxHN5OWGrX20xYIEdFSTmX6EoSNIoMOj+Kn4NDYIdfV XtVI1LSswQ6S0ta3oQSn0jiM/EWtXX3QEo6HFyLUNyetw1AWjJDxL6J6ABVkeyb75EO4v/wvjEXKW6Uj 39jJ9ryi/brCKaj1Ni0mnFqiQ/82Uh1HqZvtS/N38G kEm1yjdgu6N1FEbtFhd+dU6hI4wstFUdyyUPf03/rrosGxmdvPQj7d0ny4XK+x01jutn6NmHazgV5/6X Z1xHAWLznL3Up49+/plF0UKeY3i8nT2v1H3Dy5leW1jqrvOVO4tz2HJFAsYGab7SwcrYkQ7sz7gJ77rn moZdP87h58VSrKhWT6xC/bOoNjqyUvaEKdajVOAWib o2Cz+KsWgVBsXzLlj2A7e4DHpsDIYMSdd3bfVIBCtYf7yXvKka0+EivhmN+1uhL5RnfQmiGzUanageCB pMNsINZ7CyCogTwyIT7AGtQEa7Dw0Hio2247VIzKKf7R5bT83fuhIxKwbEQz1zxrd73ZNxUdy3o5z9r1 yqbepKi9osF7SaBwjXfjq+Es0xxY0055TrIIjKuPGR fHMnHOQM0BDmiKkwJH4Q+0I5eyGfsvAc0U1khFARyYNVqjnc9vJXRdKMbas+wqBhc9Dg4y86YuV2/GLI QX5a1stExYmNIv4FuzYPPh9hqPzA5PAOjt8tJhNlQa1Ptdr24wd6iYNiAGG+JfBSWBzbO/DEX+4m3IuEy [file] AgICAgICAgICAgICAgICAgICAgICAgICAgICAgICAgICAgICAgICAgICAgICAgICAgICAgICAgICAgIC AgICAgICAgICAgICAgICAgICAgICAgICAgICAgICAgICAgDQogICAgICAgICAgICAgICAgICAgICAgIC AgICAgICAgICAgICAgICAgICAgICAgICAgICAgICAg ICAgICAgICAgICAgICAgICAgICAgICAgICAgICAgICAgICAgICAgICAgICAgDQogICAgICAgICAgICAg ICAgICAgICAgICAgICAgICAgICAgICAgICAgICAgICAgICAgICAgICAgICAgICAgICAgICAgICAgICAg ICAgICAgICAgICAgICAgICAgICAgICAgICAgDQogIC AgICAgICAgICAgICAgICAgICAgICAgICAgICAgICAgICAgICAgICAgICAgICAgICAgICAgICAgICAgIC AgICAgICAgICAgICAgICAgICAgICAgICAgICAgICAgICAgICAgDQogICAgICAgICAgICAgICAgICAgIC AgICAgICAgICAgICAgICAgICAgICAgICAgICAgICAg ICAgICAgICAgICAgICAgICAgICAgICAgICAgICAgICAgICAgICAgICAgICAgICAgDQogICAgICAgICAg ICAgICAgICAgICAgICAgICAgICAgICAgICAgICAgICAgICAgICAgICAgICAgICAgICAgICAgICAgICAg ICAgICAgICAgICAgICAgICAgICAgICAgICAgICAgDQ ogICAgICAgICAgICAgICAgICAgICAgICAgICAgICAgICAgICAgICAgICAgICAgICAgICAgICAgICAgIC AgICAgICAgICAgICAgICAgICAgICAgICAgICAgICAgICAgICAgICAgDQogICAgICAgICAgICAgICAgIC AgICAgICAgICAgICAgICAgICAgICAgICAgICAgICAg ICAgICAgICAgICAgICAgICAgICAgICAgICAgICAgICAgICAgICAgICAgICAgICAgICAgDQogICAgICAg ICAgICAgICAgICAgICAgICAgICAgICAgICAgICAgICAgICAgICAgICAgICAgICAgICAgICAgICAgICAg ICAgICAgICAgICAgICAgICAgICAgICAgICAgICAgIC AgDQogICAgICAgICAgICAgICAgICAgICAgICAgICAgICAgICAgICAgICAgICAgICAgICAgICAgICAgIC GxJATsUPHeNHOdMSDtHBOvDOQeYLHrHGPlJQZfHVIdMKZfJPKrENQbTNKpGUt7Q6zuEOZwQVRpNC6rJP d3Jz8+VGiKSaPiWCG0yeYieU9QYI0pp1ZvMIhqTNWe j9MqCTt7NA5YTKDqQCjdBB9OIQszhd1WRJAyMQUipRENe4ujRfRqAIB6TVVuCnwcFM9JIIKaN7ezmjGb YXUdHKJOTLydQPRLNBcrFLPFNALlOPHyCnEkXqTsPRUmPTKnZDQVJKP5YBUkHmMrJZJeDQAtStNuMKPX RNBdAKFoSuKlKCjvBO9Da6EnoQBmFX5BRv9ATzRdNQ 4ddy9WHWRsSYIeNabZGul5AAdkBR3PzKAbtNQ3VHCuDNWYTrLaP4khs4IyHXBiKTHILYbnFV3Cn2PbnB AxDQo+Xf2YGT6nf8AnBBa1PHGiQH1kwg3BAHrRVwZfE1AebMcjDPFxj7wfQFLfMR4ctPHpHPZ6CZwdj5 CeeOflWABFRBjhXLjtiv29FCAQTGUqeCQgOb9kXX4e CENsFRLiIsAvQIRMGI6EHGYbANHscKHhBQAnDQONBZ8WXUjcFMX9SXQkueRikKEdQHqmNL6LRBQvszCv NDAgMCBSDQo+Yr6XSQ4zg1NiXXb0UuZgSZ5lhw9ANWlSOlMkZ9X5gDLvV8E0NOwpNb2NWIOuDUVmJzjc HJEPKLltRN5MGS6uzqI6GJ6LmUYiPWVdDDYfkVMsBA h4F48vvUSdNFjyMU4CKJA+Elana+Qu7MHAXzUBFmOQXiWoHtTOFDZfLzY5TgT2UUh5SeE0AnGF03xWzpoc AhHNgmOI3YHI4uPLAwMLCZTN4NdQRzsH1wunK8AKZdEIMFWmPbQ60btRYbILNkHNI6MAEhEe8ZDBEsB5 TtiqJrqJbrfrHnMCGyRVGXQS4SKUgffmZfuLFnmMjs TH31lHcjDB1LDl4ABiObXN8uac4NvLXiAr7QHBN9Oo1OFOFtOSHlFEHiLSE8WUDwIvLgRUtsURDvVSYc IKV0TVCfBYLzHA3EAiUjABUeGLC5OnOuSZIhYARaho4WGCBvJTE0ByS1WZRsJPIiSVMwDRewSXIfKUAv CYJ8ECNqMPSyRJ8QCgKeHXZbRYU2IlzpAYLvGGLsbh 9YLYJaURQqJsbmXOCiXZSpLUVlKLuwPYWbKPY2Zof8VIHdVKDpXZ7UHjRpNODyRLM5FCnnSDWjCVQjnn 3ITPIpGIIuASSpOqPvUYJsIBYnBJylNJJmQTV6PjO3LSLoOTXgQA8EDeLyCWIwPMBuBaKeKLJeCVBzxm 9QEULzVTJgEcO0XROkXERrRTDkCGabKYOuHHO2YLAd BYNcOJMqML1VAkIbCUSgGBX1EevoNMHrIKPfyq7EUEGuPANeOVm6IrDaEOEvERIuZAmbXSMiWMV9CAzh BIGzBJUiVR1PCkXgYZLqYqHuHDWpUPRmIRUdti2AZKGhNLXuWZUbRQKuHCNsZKXpXYfjCAKkNLY8ZRUx LBRsUXBpBA2AHrVlKPRlTrGnMIpzMJLyYXGtsp0FSI BsXKUrVkJ6GGGzLCLoSCAwTHtxLVWiLBT2ToD6OAZjDXBiUY9RKbXbZUWvWhrsHkQyNBPjTVSetu4ARF BoDQZqHFW9NfRxNMUxXKBsJLakKVUzEZN3HTJbJZUrLNZkCZ9ILvUhYHKrUta6AByxCQWcYGNgyi1STP GdJHFgNBu3YmYwTFSxLVDaVJccBBAnGOZmIGLvPDVj DHNiNK9OKoEnUBHhReJrOLVbMYBuGUPzae2VDHObIQGnKQIwIFIjCFVpQTIwYUuqKRFwVBFgDiFiRNLf KPSfRD4NIoIhNZSiRJM8ZNRiAXAqYPBrxi7NOKAbBLP8PxZ4CGSiQPGoPBCxVKriCEBlHLSlCZR3EBNt MYIdER6KObUiVVPaQHN6HLPcMCLcTQUchf7ELISwIB H4PZNjKTZfZNUzVIHpFGtfJSNrDQY5GcIaLDRcJJKmXF7ZSsLjINOeTOS0EXFwIWUnLBQflr8JBIMhFU I9DARvZOXdEOZwTZKbTJbuDBHnKTR1TWP5FHDsRZWoOD7FZrMvUGVgIJQ3XTagRXKoPGFkku9PUQJhHX T4SiG0HTBxJHGeBXWqKCk6vnDfgKUxKRm4EF5RN6Xk cuKjHPUTYx2Ih215NRIgPUKpXj4VJ0emUe2zCQIkNTMKKa2EESl6IxE0OGLtCdY5FnsnRDXsF4ZcTHvx NWVmZTgwMWNhNjI+CBzjViy2KIFfULynFZU9UaF7YDE1JWB6OKVbDGZhE7P8Ov0jOFBITe8+DQpzdGFy yHqmCWUKWlG4Mge3YVxsYMQYCd1I ID Date Data Source [id number] 04/08/2020 07:41:00 AM EST [facility] ([facility], ) Name Value Range Interpretation Code Description Data Joyce rce(s) Supporting Document(s) Surgical pathology study Laboratory test result [facility] ([facility], ) FINAL DIAGNOSIS Esophageal biopsy: Fragments of benign squamous mucosa. No intraepithelial eosinophils are noted. No evidence for acute inflammation is noted. 04/09/2020 - 1353 CLINICAL DIAGNOSIS Heartburn, dysphagia 04/08/20201521 GROSS DIAGNOSIS Received in formalin labeled "esophageal biopsy" is a 0.5 x 0.2 x 0.1 cm aggregate of mucosal fragments. All in one. - 04/08/2020 - 1521 Signed Sachin Man MD 04/09/2020 1543 ID Date Data Source [id number] 04/05/2020 08:30:00 AM EST [facility] Name Value Range Interpretation Code Description Data Joyce rce(s) Supporting Document(s) SARS coronavirus 2 [facility] This lab was ordered by [facility] and reported by [facility]. ID Date Data Source [id number] 03/19/2020 12:00:00 AM EST [facility] Imaging Vincent Mendez MD Patient Name: ОЛЕГ VANCE[address] [facility] Date of : 1970 Date of Exam: 03/19/2020ZARINA Cardenas [id number]#: Fax: [phone] EXAM: MRI KNEE RIGHT WITHOUT CONTRASTCLINICAL INFORMATION: Atraumatic pain.3T multiplanar MRI imaging of the right knee was obtained using varioussequences.There are no prior right knee MRI's for comparison.The anterior and posterior horns of the lateral meniscus are within normallimits. There is Grade I and Grade II signal change seen in the posteriorhorn of the medial meniscus which extends to the medial periphery. Theanterior horn is within normal limits. No jeffry Grade III signal change ispresent. The anterior and posterior cruciate ligaments are intact. Thequadriceps and patellar tendons are intact. The medial and lateralcollateral ligaments are intact. The medial and lateral patellarretinacula are intact. The articular cartilages are within normal limits.The marrow signal is within normal limits. There is a tiny 3 cm sizedBaker's cyst. There is no jeffry joint effusion.IMPRESSION:Meniscal degenerative changes involving the medial meniscus as describedabove. A subtle interstitial substance tear at the periphery cannot beruled out.Accredited by the [employer] in MR.SHANNAN Molina/jmcThank you for referring VIC VANCE to our office. Electronically Signed - CRYSTAL FUCHS DO 03/20/20 13:58 Name Value Range Interpretation Code Description Data Joyce rce(s) Supporting Document(s) ID Date Data Source [id number] 03/19/2020 12:00:00 AM EST [facility] Imaging Vincent Mendez MD Patient Name: ОЛЕГ VANCE[address] [facility] Date of : 1970 Date of Exam: 03/19/2020ZARINA Cardenas [id number]#: Fax: [phone] EXAM: MRI KNEE LEFT WITHOUT CONTRASTCLINICAL INFORMATION: Atraumatic pain.3T multiplanar MRI imaging of the left knee was obtained using varioussequences.There are no prior left knee MRI's for comparison.There is Grad e I signal change seen in both anterior; and particularly,posterior horns of the medial meniscus without jeffry Grade III signalchange. Minimal Grade I signal changes are also seen in both the anteriorand posterior horn of the lateral meniscus. The anterior and posteriorcruciate ligaments are intact. The quadriceps and patellar tendons areintact. The medial and lateral collateral ligaments are intact. The medialand lateral patellar retinacula are intact. There is slight thinning ofthe articular cartilages. There is no joint effusion. There is no Sawyer'scyst. The marrow signal is within normal limits.IMPRESSION:1. Intrameniscal degenerative-type signal changes as described abovewithout evidence of a discrete tear.2. Other findings as described above.Accredited by the [employer] in MR.Crystal SamNatty Fuchs, SHANNAN/jmcTjoanne roblero for referring VIC VANCE to our office. Electronically Signed - CRYSTAL Sam DO SHILA 03/20/20 13:58 Name Value Range Interpretation Code Description Data Joyce rce(s) Supporting Document(s) ID Date Data Source [id number] 02/15/2020 09:40:58 AM EDT [facility] Current Problems: Dental caries (ICD-521 .00) (SPY52-N49.9)Other diseases of tongue (ICD-529.8) (PWY61-V55.8)Clostridioides difficile infection (ICD-008.45) (YRD66-Z86.72)Gammaherpesviral mononucleosis without complication (ICD10- B27.00)Type 1 diabetes mellitus without complications (GWD17-T56.9)Unspecified osteoarthritis, unspecified site (SKY40-G29.90)Current Medications: HYDROCODONE BITARTRATE POWDER (HYDROCODONE BITARTRATE) CYCLOBENZAPRINE HCL TABLET (CYCLOBENZAPRINE HCL TABS) TRAZODONE HCL TABLET (TRAZODONE HCL TABS) BUPROPION HCL TABLET (BUPROPION HCL TABS) ZANTAC TABLET (RANITIDINE HCL TABS) PRILOSEC PACKET (OMEPRAZOLE MAGNESIUM PACK) METANX CAPSULE ([id number] CAPS) HUMALOG SOLUTION (INSULIN LISPRO SOLN) Dental Chart: Procedures:Type - CDT Code - Description B - (D0270) Bitewing, single radiographic image (Performed by Roshni Petty DDS) B - (D0140) Limited oral evaluation - problem focused on Tooth # 29 (Performed by Roshni Petty DDS) B - (D0220) Intraoral, periapical, first radiographic image on Tooth # 29 (Performed by Roshni Petty DDS) Treatments:Type - CDT Code - Description T - (D2751) Jeff - porcelain fused to predominantly base metal on Tooth # 28 (Performed by Roshni Petty DDS) T - (D2751) Jeff - porcelain fused to predominantly base metal on Tooth # 29 (Performed by Roshni Petty DDS) T - (D3240) Pulpal therapy (resorbable filling), posterior, primary tooth (excluding final methodist) on Tooth # 29 on Root Region A (Performed by Roshni Petty DDS) T - (D3240) Pulpal therapy (resorbable filling), posterior, primary tooth (excluding final methodist) on Tooth # 28 on Root Region A (Performed by Roshni Petty DDS) Chart Notes:renan (Feb 15 2020 1:36PM): CC: " I have a couple teeth that are bothing me"HPI: about a weekPain Lvl: 4-5 pain is waking pt up at nightRMH (-) per ptBP:100/78 Temperature: 97.7 and passed covid screening questionsPA and BWX taken-Dexis #29Exam reveals: decay into pulp pt. was cooperativeDX: decay into pulpPlan: advised pt that RCT anc CRN is best treatment. If insurance and pt is unable to pay for TX advised pt that we are able to extract teeth #29 and 28 in office. Referral for RCT created. CRN's to be completed in office.E-scribe Amoxicillin 875mg q12h until gone dispense 14 tabs zero refills Informed Pt about new pain management policy of the clinic regarding about narcotic,told pt to alternate Ibuprophen 600- 800mg and tylenol 500mg every 4 to 6 hrs for pain when neededAdditional PPE requirements due to COVID-19 in the dental setting, N95, surgical mask, hair covering, gown Pt was cooperative.NV: 6MRCRoshni Petty DDS by renan (02/15/2020 12:27 PM): Tooth Notes and Watches: Assessment & Plan Medications:HYDROCODONE BITARTRATE POWDERCYCLOBENZAPRINE HCL TABLETTRAZODONE HCL TABLETBUPROPION HCL TABLETZANTAC TABLETPRILOSEC PACKETMETANX CAPSULEHUMALOG SOLUTIONAllergies:No Known Allergies (updated 08/04/2018) Name Value Range Interpretation Code Description Data Joyce rce(s) Supporting Document(s) ID Date Data Source [id number] 01/29/2020 09:07:36 AM T [facility] Name Value Range Interpretation Code Description Data Joyce rce(s) Supporting Document(s) Progress [facility] ETZCUp9tRmWMCeWj06/MNEowIAAsg7OaTMhcLUh4KJthIIQzS4ZdDIU1kV8vOQX6ADsDUlRmCpSaIHHp lbm [file] nZqzOWZ2+Jean Claude/84SGrREyRhPO4MRhPFBbkH8O4/pap [file] AgICAgICAgICAgICAgICAgICAgICAgICAgICAgICAgICAgICAgICAgICAgICAgICAgICAgDQogICAgIC AgICAgICAgICAgICAgICAgICAgICAgICAgICAgICAg ICAgICAgICAgICAgICAgICAgICAgICAgICAgICAgICAgICAgICAgICAgICAgICAgICAgICAgICAgICAg ICAgDQogICAgICAgICAgICAgICAgICAgICAgICAgICAgICAgICAgICAgICAgICAgICAgICAgICAgICAg ICAgICAgICAgICAgICAgICAgICAgICAgICAgICAgIC AgICAgICAgICAgICAgDQogICAgICAgICAgICAgICAgICAgICAgICAgICAgICAgICAgICAgICAgICAgIC AgICAgICAgICAgICAgICAgICAgICAgICAgICAgICAgICAgICAgICAgICAgICAgICAgICAgICAgDQogIC AgICAgICAgICAgICAgICAgICAgICAgICAgICAgICAg ICAgICAgICAgICAgICAgICAgICAgICAgICAgICAgICAgICAgICAgICAgICAgICAgICAgICAgICAgICAg ICAgICAgDQogICAgICAgICAgICAgICAgICAgICAgICAgICAgICAgICAgICAgICAgICAgICAgICAgICAg ICAgICAgICAgICAgICAgICAgICAgICAgICAgICAgIC AgICAgICAgICAgICAgICAgDQogICAgICAgICAgICAgICAgICAgICAgICAgICAgICAgICAgICAgICAgIC AgICAgICAgICAgICAgICAgICAgICAgICAgICAgICAgICAgICAgICAgICAgICAgICAgICAgICAgICAgDQ ogICAgICAgICAgICAgICAgICAgICAgICAgICAgICAg ICAgICAgICAgICAgICAgICAgICAgICAgICAgICAgICAgICAgICAgICAgICAgICAgICAgICAgICAgICAg ICAgICAgICAgDQogICAgICAgICAgICAgICAgICAgICAgICAgICAgICAgICAgICAgICAgICAgICAgICAg ICAgICAgICAgICAgICAgICAgICAgICAgICAgICAgIC AgICAgICAgICAgICAgICAgICAgDQogICAgICAgICAgICAgICAgICAgICAgICAgICAgICAgICAgICAgIC AgICAgICAgICAgICAgICAgICAgICAgICAgICAgICAgICAgICAgICAgICAgICAgICAgICAgICAgICAgIC AwHUz2V5acQDJrNIOiDD1hBCd0Bz3+DQoNCmVuZHN0 gaWniA3KAX4aq4VaGEpsJZYur9ErKSg1RN2QQXOzZEcnWM4NDSgndc8LLMChXPOngYANe9qrPzZuDMF9 RCClAkryJH2WQEHxM2ekkvXhMWEqGCRLREzmMAQFMZkmBRTGLHLzPHFjOdCxSrRxHGSnZOQqXUZFTNP9 OWHbGzCzBPMkZPLrZL6PNQVtT654nsFsCS2BAt0UOn WlPN3lep2OIdMxGPUnUkyURzj5SJgaRG9MfQCejVQgMeYqSCHOYfFrS2zpn8JvIrkpURYULGkcKG6Kd7 VudCAxDQo+Ch1FFS8gn3QaQGmmAkXpRN1vbb4NOZiFMiPtZ4OxyTvmMEXax3pdGYXtYO1skVVjKSG9SX C7iyUpFUWeQNJ7ZHzrOUNjQTIaZY5lPi9jGCMuXHO7 VgXjLNQULG6BEHTjDSIkgINjZWSsDRAHMN7UWCkwQUB3MHGdpcNlaTSlHRdfLT7DEGPgvlNeYoVyLGTT DQo+Zi2EZY7ts3PaWOevUCUbZL3bvm1BFOfRQzBpR8N6oHYqC7H1OWslUm9KXFPwNIHnTiFjGDLIDGna DA0KDH4qtfI0GA0RjPBjUUHsSYMqcOYkUKo2J12pqF QiFFqwJY4LQFA+Elana+Mw3EBIUpJOMzSMZwHcEiKZTSJbIcC5NaG9YHc6BxW3XbSK81cMistgLnANwaGD 3YUA9dNGQpQXAUHP5ErXSmcZ1jnsBtOfIrCKQSRaRtZ16wtPCpUBSuTLI0XZHoBq5CXTXtY8RwrzNqsR gruqDkEDXoCKIHMO3FXGwnmkDexTOrrVlaJF13hTjy HY6ANz8YXlNlLP6yiy3SfXLgWx2QWIRjXW3YUINbZCUwEWAbUPK7NSQjBbKbCPmyXMZdAPRxPAV6FBBq WCJxPI5RJzWpZWWwAws0QJMoHEAwUQXght3SPZBrRYX7MLMeUDPkYCBzIIFyRAerKYDeHXUsRDE7GRKf NONjHE1YXpIuQNLvPEB9NqEvYCYqHOCgmo4NURIfYG UtOlr8JFEpMMBxBABvACxrYOXwPMU1XQCbRQXxFMZbHK7BQsElFGNpSRkwMsYnPBSbHLSxzi9OPIBbIR FlASS1IgTaINDgARVsILxpXEDnLPEyCVUzKMWkKLEqIK9FLxMnIESwGLJ7ACczKCBuUBQvcs9FRFGqAW DxYWN4QwRmNGVtOGXoRCtvITCxFUX1SPRyYGJdVHYx YL4DLgZuWXMrOQErAElcZEMwMDGxuz6IPEItWMLbOQC5NZSbEXKoENKwCJlaGTAqALH7NwfhDKIdKTMv GM0WHfOyNSQhXjC2QSbaKMWtPLNfmr3OVKPuVOXjGkKeTvJtREBwEDZbPMmzMSQiBFBgTkOkSFOrCRTz EB3QTyEiRNHyEnP4HDojCZKoNMLszg3HGMHlFXDuME B8XOVeJKFlMPZfFFhiNKZtHEP6QTQ5OATxYZKcHS4PYiCcTILtTlW3PBpcZVMfAWTers8ORNTrBQXnWN pfEJEdLQBeHLZuPTwcESKvAHU4XQLePMUiDMNjIU7CTdMeHQUsZkFlYOlrJIEoUSAthy4OIRFpLJWjLh DhKAEsOEHyNWExHRkkRCPwOQI2TOLtEJSiIEQpXO2J JaXhTFBpGyveYuZzJCAfFJVvog2SAHEkXGYnPHInUkHcOOSbURJeNRndHIBuHSW8IAC8MFAzOVPsCS9Y WfKfJRKxYbe6RWNyVQIzEOXaxw0EEOEuWECjLLQ3QWUzIJNsNNWwAEpwVSWpHVQ3ZaK2TFYuMGQyNW5F AzNkHGDfFOQbERGlDXZxEUNwse9QUOBiKPP6EZJ1YB WbRVCbLQMiEPlyLUFdJWGnGyXzIPPtVSTnIB5KXvQjFCHoVMG6YSccAARsRAQsrq2PtHRfyYcoqf4VEZ xNCp1KuPzcRRL2EPbrMw6akAEvJLGzRYBTYc4TflPdCTEcOYABCKcmKVUbZGX1Z5GvIvG0TAe1HRF7LT NcLTM7F4X3BBKsWknfVkUgAvP2EjU3PIStSmT4VOlo LXT8QsTmPryiLVniQZG6Q6SnRzW+QL4vCHn+Ik1Vj5RtrfL2zxRtQPl5HuBuFd8XPCKBH7HUYc== ID Date Data Source [id number] 01/20/2020 10:40:17 AM EDT [facility] XR SPINE CERV 4 OR MORE VIEWS [id number] RESULTInterpreted by:Ajay Rueda [facility] SPINECLINICAL STATEMENT: Status post spinal fusion. Neck pain.TECHNIQUE: AP, flexion-extension, and neutral lateral views of the cervical spine.COMPARISON: 12/28/2018.FINDINGS:Since the prior study, there has been no significant interval change. The patient is again noted to be status post anterior cervical discectomy and fusion at C7-T1. A ventral fixation plate with interlocking screws appear intact and aligned.Normal anatomic alignment is maintained. Normal vertebral body heights are preserved. The prevertebral soft tissues are within normal limits.Otherwise, the remaining intervertebral disc spaces are preserved.IMPRESSION: Since 12/28/2018,No significant interval change. Status post ACDF at C7-T1, with stable postoperative changes. This document has been electronically signed by Ajay Rueda MD on 01/20/2020 10:38 AM Name Value Range Interpretation Code Description Data Joyce rce(s) Supporting Document(s) ID Date Data Source [id number] 01/18/2020 04:03:29 PM EDT [facility] Name Value Range Interpretation Code Description Data Joyce rce(s) Supporting Document(s) Progress Note [facility] EJYVTq5vJiIELeZl81/ADWinIDJtn0GlMAuiLHc5VCecWILoM2CoVCV7zQ7uONL3MFvIDcEfKjIyHLGv m [file] ICAgICAgICAgICAgICAgICAgICAgICAgICAgICAgIC AgICAgICAgICAgICANCiAgICAgICAgICAgICAgICAgICAgICAgICAgICAgICAgICAgICAgICAgICAgIC AgICAgICAgICAgICAgICAgICAgICAgICAgICAgICAgICAgICAgICAgICAgICAgICAgICAgICANCiAgIC AgICAgICAgICAgICAgICAgICAgICAgICAgICAgICAg ICAgICAgICAgICAgICAgICAgICAgICAgICAgICAgICAgICAgICAgICAgICAgICAgICAgICAgICAgICAg ICAgICANCiAgICAgICAgICAgICAgICAgICAgICAgICAgICAgICAgICAgICAgICAgICAgICAgICAgICAg ICAgICAgICAgICAgICAgICAgICAgICAgICAgICAgIC AgICAgICAgICAgICAgICANCiAgICAgICAgICAgICAgICAgICAgICAgICAgICAgICAgICAgICAgICAgIC AgICAgICAgICAgICAgICAgICAgICAgICAgICAgICAgICAgICAgICAgICAgICAgICAgICAgICAgICANCi AgICAgICAgICAgICAgICAgICAgICAgICAgICAgICAg ICAgICAgICAgICAgICAgICAgICAgICAgICAgICAgICAgICAgICAgICAgICAgICAgICAgICAgICAgICAg ICAgICAgICANCiAgICAgICAgICAgICAgICAgICAgICAgICAgICAgICAgICAgICAgICAgICAgICAgICAg ICAgICAgICAgICAgICAgICAgICAgICAgICAgICAgIC AgICAgICAgICAgICAgICAgICANCiAgICAgICAgICAgICAgICAgICAgICAgICAgICAgICAgICAgICAgIC AgICAgICAgICAgICAgICAgICAgICAgICAgICAgICAgICAgICAgICAgICAgICAgICAgICAgICAgICAgIC ANCiAgICAgICAgICAgICAgICAgICAgICAgICAgICAg ICAgICAgICAgICAgICAgICAgICAgICAgICAgICAgICAgICAgICAgICAgICAgICAgICAgICAgICAgICAg ICAgICAgICAgICANCiAgICAgICAgICAgICAgICAgICAgICAgICAgICAgICAgICAgICAgICAgICAgICAg ICAgICAgICAgICAgICAgICAgICAgICAgICAgICAgIC AgICAgICAgICAgICAgICAgICAgICANCjw/nAQbT7aytTVokpY7R3jfRz8UHo5PCR0gy0AnWWUfUIskcr YnOlvZDgQfSEXvWezAMay2XZokUF6BlSKeN0JsZ0EjIYefRH0RQLTbOCPvdKRmHCIfIXSmAxR4HNJxCE wxPA1DgYMwKRlvUEYrIGCvTnPxWBHbFGMtWFEyKXZr TMLYNCOnXIZhPfRjCMVlSVSlEDxtPVQWZCG5MDPiHeCwEMMxVGIzGyOkMBTUMUV5FYHmHoOeEVkdKA3R b5VnpMBzBW9PPi2REkBzIY6wbi5JQRBeFYGhVqpXKgl6AKlvWR5QoPQpnUI9HgOsLBYCQrVqQ7anl4Ip RREtVMNJKOxqCI5Vt2JezVSfTEr+Gx2AGM2et4CvNR y3AfZmJJ2whp5CZXbBUbMqU8TmoOwdLZBab2xeWIRvVV2ouXKtKMU9OUxtw1OksHbjRAUALGlgYDebnz 29XTJVSVVkfDK0UiV6UuVdEsReJFR1EiRqZE7iXHexMT0YAEX8SAnbPMVqRSDqZ4mZEcRaTKAtNPUaxD gyTH0LJzRjN3VvzfNdaFJ9VIZbZJWGSr7+DQplbmRv CllXIrH8VVMtm0BjLRy0OP6GLCTqGKfmMM5PNRHnaP0kDNxvYQ0TIrE9EyRqGOIQJcVwD26ncOBaVRr1 G8LlQnIjFRHrVckmRQAvWDfuHeSbRQAvFzHiQPuwSJ7+ID4+AOvoIJ5ZMIhzblEpORZoQr0ILFEcFYWp SU5jVFKmEVCpG6L8rRfmMWKDUlCcI1afiqehNX2wNW JgY018dYjymrOsYMH2QNRwOp1INRUgQAC8RVPjoAHxGZUyRWHJIWwiZD1KuWIvVIJ8eV8bUJunZVIyEV PdI0hNVbJxaVzlII85dCckwaMayADiYTs+Lo5GQF3qt1QxFAf5msTqLWktLEM6IUqoIPPhANXxNYHvFF W4GJR3BQAEOeGgCOQiXYRjQVqxJRGaOLNqdc6HCDId WHT3XCF7KPToUFIoGRQtKMabSRYzKIX7KZZ2LARuYCSfCB5TKsKkVDHpMEOqFBkxMXPnQTZxox6YZCCo NDOjRqE5MaSfNIZjQKXkMDwxVBLuIQPcXzkaUKNmJDDuYA5FJeYtLJZnMUL3CWxhLCOqPKXrfy3FRIOn NMScKzX1HmDiHKIcTSJuKVfsIGGaKVA5GdagPZYmIM ZsVA9XImYhZCAgTDy8NHTjYMAvJTNccp2MIYQkATFqTwRoYfOvRPIhSWOxSEycZZFjVSCtEyIkHEOrJK QyRW3XCkCzIHUhMND3FXcgGRUrDGKdwx4NCAByICLyWAdhBOWgIAIbXZHyNJuuYAXaDMX5WGf6LMOnTH DuXT6KOaVeNOSrTJasNZNpYHOrFXNuhk6IZYFvVTJr ZYx5NRAqWLFtLUTgVLxpSTDsNUNfTMe1REDoNMSpNL6GHnUcGOLnUwQqTjokBIHgQLXarg2VBCOaTQLd ALX7EQSeZDDhCIJyTTubJGLqFWD2DQNnZALrEPYzKU7TAkEcUYHcAqhxPcSiDKAuTSAcds8GHJHeNXJd FDIrGOKtJLTmXLCyYJasZTBbKIL4JTZ6DUAwRJMbAY 4HPyPvHDHvUeMvOoObBCOxCDInkx6RYOUkVRZeYIA4NDWgRPQaNMNlISubWITgICQgFZGhOINxSZJlZE 9ULjUiRRWjGtA0DawsFHIhKEShap5CBCSeGELuIRneFMPtLWCvSSDqHQzbNFQpVPKsFfvsCHCnWUHyPL 5PHnLpPKBxWpC9YYYfZMGtANZopt9JNMYjNIXwHcM4 PTWjAADfRYYwWKmcKNJvZXK5DaWrUUBeCQKqTD9TReMuYSQcDJS9GsSqKTVcLBRohm9PKYLrNNC0NHIb XRLpNDRyHRAqRWuuXYWuEZY2Pbh5VYWeUGOuVT8OGpPpKRYlQTF1VgVwZRRzYVGznf5CWRCqFYZ6LbW0 RARxKASbUOVcBZbcSJBdIXH7QkS2BCLrTQRiQP4TOq AyZTKsUHG8DrWeWUBeZAChbi5EBASjXRE4Ayb7HQZfHJSwYDMjZWcrNZZlEXL3ZRB0XFCtLWVaAJ0QPf TiMJEwAAgxTsJeMRPnLOKmps5ATKVuAGW1JDF5PGDcHFZnMNFxKIoeTRLcICJoNFi5OCGeYTEcAA6SCw ChUTVrYPNmTAjbESYnGAWugj9DALQzDCJ5RIHuXnOf KVQsWJUmZRc6abZyaVUqLZa6KH1BG2RfgzLyDRlCOn8Pi890HQA5INHaRn6XU9hzOf2xSCCjRQPUUu3P BFz7CqO7SbLiGUoiVqIyPtihBTA0TaCbKdV8WKF0LyQdQcM+PCkqOEarMCD5QIJwZxC4VWTcQPT2AQQf WWauJTfmOGVbKq1gRVLGVz8+IQwbxJLefVgdHKLSAaZoGWN6JVncPQNHEd3H ID Date Data Source [id number] 01/17/2020 02:31:27 PM EDT [facility] Name Value Range Interpretation Code Description Data Joyce rce(s) Supporting Document(s) Progress Note [facility] SLJDQq8yKmJWVdNe09/FWFjtGIZfg9NgZDagUVm5KEgxDMAaF5KaZKX6rR1yNXL7SWcMPzYtXeDvSGZu lbm [file] ICAgICAgICAgICAgICAgICAgICAgICAgICAgICAgIC AgICAgICAgICAgICAgICAgICAgICAgICAgICAgICAgICAgICAgICAgICAgICAgICAgICANCiAgICAgIC AgICAgICAgICAgICAgICAgICAgICAgICAgICAgICAgICAgICAgICAgICAgICAgICAgICAgICAgICAgIC AgICAgICAgICAgICAgICAgICAgICAgICAgICAgICAg ICANCiAgICAgICAgICAgICAgICAgICAgICAgICAgICAgICAgICAgICAgICAgICAgICAgICAgICAgICAg ICAgICAgICAgICAgICAgICAgICAgICAgICAgICAgICAgICAgICAgICAgICANCiAgICAgICAgICAgICAg ICAgICAgICAgICAgICAgICAgICAgICAgICAgICAgIC AgICAgICAgICAgICAgICAgICAgICAgICAgICAgICAgICAgICAgICAgICAgICAgICAgICAgICANCiAgIC AgICAgICAgICAgICAgICAgICAgICAgICAgICAgICAgICAgICAgICAgICAgICAgICAgICAgICAgICAgIC AgICAgICAgICAgICAgICAgICAgICAgICAgICAgICAg ICAgICANCiAgICAgICAgICAgICAgICAgICAgICAgICAgICAgICAgICAgICAgICAgICAgICAgICAgICAg ICAgICAgICAgICAgICAgICAgICAgICAgICAgICAgICAgICAgICAgICAgICAgICANCiAgICAgICAgICAg ICAgICAgICAgICAgICAgICAgICAgICAgICAgICAgIC AgICAgICAgICAgICAgICAgICAgICAgICAgICAgICAgICAgICAgICAgICAgICAgICAgICAgICAgICANCi AgICAgICAgICAgICAgICAgICAgICAgICAgICAgICAgICAgICAgICAgICAgICAgICAgICAgICAgICAgIC AgICAgICAgICAgICAgICAgICAgICAgICAgICAgICAg ICAgICAgICANCiAgICAgICAgICAgICAgICAgICAgICAgICAgICAgICAgICAgICAgICAgICAgICAgICAg ICAgICAgICAgICAgICAgICAgICAgICAgICAgICAgICAgICAgICAgICAgICAgICAgICANCiAgICAgICAg ICAgICAgICAgICAgICAgICAgICAgICAgICAgICAgIC AgICAgICAgICAgICAgICAgICAgICAgICAgICAgICAgICAgICAgICAgICAgICAgICAgICAgICAgICAgIC ANCjw/xYQnB3tkwWGqdrL1D4tqVl7ODo0JKC4ny9OvVHHaTAhdcrFwTuaKMbPwNPHtRwaYTwy7VIxfFF 8OaRHaS0BaX9AlGZlpGY1RPJZvXWZitKRxKDHoBGSk RzU2RZCvOClhQR0EcOSwAGxmDCRkQYYoJY9UDVFnG386saZwKA2EIs6NFzKmRN5qdq1RFxWePLXlYodY Zdv4JMnoGS9FoALitSMaDkGpGXLKSlIoN0yxn6IyXgZgMDHEMXnsQF4Fo0TjyOOmVLp+Vc3QZL8db8Yo WYymEzKcLU1pnj1HJIiNPfNfQ6GdaZseHOZnp9bzLU IaVJ0diSIqVEM9CABslDvpkgmdTVCPTVWrhOVunN3nhSzlWvGmXTLwPI4aRO4uXTWnRYNyJlN1IDTTFI 8HHYUjFKLlvSGuDNEfCIQIMS0TKJbxMUO4DYPmarLltUXkHNzkGY5FSIRjffHnWfCqFJPIFOa+Pg0KZW 7nt1QyNVynDPVvKJ9eks2RISvNVjAtC8R7pOSzX8C5 UEspUl0VZYXpMIAvZjUsHQCLNVeeJL7QES8zsxX2HZ8NyKVsMUGdQHBjhQRtEPl3Z81nkTNsLPjmNL5Z ICA+Elana+Tq1MNEEsLVDdEXEkClIwOWISOwUrJ3JpT7SFi8ZlZ8NwJI38wImwkpBdJTmoMZ1HFR8oEXPa UYHWGX3UaHNriG6inuPkVsJpEMOHMvPhB93zeOEgRY LtKGBzKAUqFd1QNIDrH0ZaywQysWuqhrCtWMOzRRRDPY8AJDfjjbDfmDBlwPtqYW73jGpnCI4UBp7UNx FmTB2euu4TxXQbEv4DQCNaFJ2RECKlRUUrCXEwNBW9FJWtPhNfOXzgIHYxTGTbKEZ4CERqXAIvMS5NBr WlMVWfMsB9LNAmWZFbSGAhle7KZQUbXCGcKgF5ZWCh RFJnJANhDQekGXDdWDJsHHK2ZNGyOWPdPY2XZxLbDHMaGHOeNvYvGZGuKHLtaa2FHTLtENNwTCH5TKNh VFMvMTIfZHorUJDeXBW4JbO4ULTeYWUtPE0FOfUwJZTsCVO3IlUmVBScWGEbsa7FEXKrKXXbGHirFHTx FUDaLPLsNRsvEFLfUPI8KxR4ZZEkSTQcCC5EJtDqGJ HeAHL9OlJoVTLgAWYbyt7LCVDjPLXxYiW8WiXiAHBsZTPhXYgbZYKwPRN9MYLnTQVbORBtFQ5YKxUtID EoOQq1BnofNIPpWSThom1QPOBfUJJcRQexPtWiDXLfACIhJUtwOVWkXPV0XXs3HNOxLMLhZN2QBzPqNB LpCIrfQyIdAZUeFBVyhs3NSPKiACAsLLQ3HkRtHPOn LEEpVKnkUGJmAETxNBQ9KIItCQQtCB1PYyJdUOXaDxL4BLvoGOEpJROjtr3RXBAlQSKbWTRxHTXjCLEh CWJbNPdaBGZzMKMuSRfoDWZdLSTrKO1SKcOhRRIcSaV9NVMkIXFeZJIjcg3QWUTrYAUaBiihYRIxPUHc IMJaBDn1qeOfwHAuPCq9NC6JG3JvozCuHfQQWi4Jp1 14NIT9TCCbCd2JD3suCp1fRQDuSTLXVx5FIUd2Ifs6MPbcOTqaXOB8WXX2H0BbJhV9RtG7OHp1RCijDn I+IWfiUvq0ZNFcYNG6Dbm5SmgwYaGbFsN2MEakAZKqFOCkGr9aIRKIHn2+DQpzdGFydHhyZWYNCjIyOT F7XHdpELWTLb9B Procedure Social History Code Duration Value Status Description Data Source(s ) Smoking 03/01/2021 12:00:00 AM EDT Former Smoker completed Former Smoker [email or web address] ([facility]) Smoking 02/19/2021 12:00:00 AM EDT Former Smoker completed Former Smoker [email or web address] ([facility]) 02/11/2021 12:00:00 AM EDT Light tobacco smoker (10 or fewer cigarettes/day) completed Light tobacco smoker (10 or fewer cigarettes/day) MEDE NT ([facility] Alcohol intake 12/08/2020 12:00:00 AM EDT Current drinker of al cohol (finding) completed Current drinker of alcohol (finding) [facility] Tobacco use and exposure 12/08/2020 12:00:00 AM EDT Never used co mpleted Never used [facility] Cigarette pack-years 12/08/2020 12:00:00 AM EDT UNK completed [facility] Cigarettes smoked current (pack per day) - Reported 12/09/19 12:00:00 AM EDT UNK completed [facility] Smoking 12/08/2020 12:00:00 AM EDT Former smoker completed Former smoker [facility] Alcohol intake 10/15/2020 12:00:00 AM EDT Current drinker of al cohol (finding) completed Current drinker of alcohol (finding) [facility] Alcohol intake 09/18/2020 12:00:00 AM EDT Current drinker of al cohol (finding) completed Current drinker of alcohol (finding) [facility] Smoking 09/02/2020 12:00:00 AM EDT Former Smoker completed Former Smoker eCW1 ([facility]) Smoking 09/02/2020 12:00:00 AM EDT Former Smoker completed Former Smoker eCW1 ([facility]) Smoking 09/02/2020 12:00:00 AM EDT Former Smoker completed Former Smoker eCW1 ([facility]) Smoking 09/02/2020 12:00:00 AM EDT Former Smoker completed Former Smoker eCW1 ([facility]) Smoking 09/02/2020 12:00:00 AM EDT Former Smoker completed Former Smoker eCW1 ([facility]) Smoking 09/02/2020 12:00:00 AM EDT Former Smoker completed Former Smoker eCW1 ([facility]) Smoking 09/02/2020 12:00:00 AM EDT Former Smoker completed Former Smoker eCW1 ([facility]) Smoking 09/02/2020 12:00:00 AM EDT Former Smoker completed Former Smoker eCW1 ([facility]) Alcohol intake 08/27/2020 12:00:00 AM EDT Current drinker of al cohol (finding) completed Current drinker of alcohol (finding) [facility] Alcohol intake 07/10/2020 12:00:00 AM EST Current drinker of al cohol (finding) completed Current drinker of alcohol (finding) [facility] Smoking 06/05/2020 12:00:00 AM EST Former Smoker completed Former Smoker eCW1 ([facility]) Smoking 06/05/2020 12:00:00 AM EST Former Smoker completed Former Smoker eCW1 ([facility]) Smoking 06/05/2020 12:00:00 AM EST Former Smoker completed Former Smoker eCW1 ([facility]) Smoking 06/05/2020 12:00:00 AM EST Former Smoker completed Former Smoker eCW1 ([facility]) Smoking 06/05/2020 12:00:00 AM EST Former Smoker completed Former Smoker eCW1 ([facility]) Smoking 06/05/2020 12:00:00 AM EST Former Smoker completed Former Smoker eCW1 ([facility]) Smoking 06/05/2020 12:00:00 AM EST Former Smoker completed Former Smoker eCW1 ([facility]) Smoking 06/05/2020 12:00:00 AM EST Former Smoker completed Former Smoker eCW1 ([facility]) Smoking 05/23/2020 12:00:00 AM EST Unknown if ever smoked comp leted Unknown if ever smoked [facility] ([facility]) Smoking 05/08/2020 12:00:00 AM EST Former Smoker completed Former Smoker eCW1 ([facility]) Smoking 05/08/2020 12:00:00 AM EST Former Smoker completed Former Smoker eCW1 ([facility]) Smoking 05/07/2020 12:00:00 AM EST Unknown if ever smoked comp leted Unknown if ever smoked [facility] ([facility]) Alcohol intake 05/05/2020 12:00:00 AM EST Current drinker of al cohol (finding) completed Current drinker of alcohol (finding) [facility] Smoking 04/24/2020 12:00:00 AM EST Unknown if ever smoked comp leted Unknown if ever smoked [facility] ([facility]) Smoking 04/10/2020 12:00:00 AM EST Unknown if ever smoked comp leted Unknown if ever smoked [facility] ([facility]) Smoking 03/21/2020 12:00:00 AM EST Unknown if ever smoked comp leted Unknown if ever smoked [facility] ([facility]) Smoking 03/14/2020 12:00:00 AM EST Unknown if ever smoked comp leted Unknown if ever smoked [facility] ([facility]) Smoking 03/07/2020 12:00:00 AM EDT Unknown if ever smoked comp leted Unknown if ever smoked [facility] ([facility]) Smoking 02/21/2020 12:00:00 AM EDT Unknown if ever smoked comp leted Unknown if ever smoked [facility] ([facility]) Smoking 02/15/2020 12:00:00 AM EDT Unknown if ever smoked comp leted Unknown if ever smoked [facility] ([facility]) Smoking 02/12/2020 12:00:00 AM EDT Patient is a former smoker completed Patient is a former smoker [facility] ([facility] ) Smoking 02/08/2020 12:00:00 AM EDT Unknown if ever smoked comp leted Unknown if ever smoked [facility] Alcohol intake 01/29/2020 12:00:00 AM EDT Current drinker of al cohol (finding) completed Current drinker of alcohol (finding) [facility] Smoking 01/24/2020 12:00:00 AM EDT Unknown if ever smoked comp leted Unknown if ever smoked [facility] ([facility]) Smoking 01/18/2020 12:00:00 AM EDT Unknown if ever smoked comp leted Unknown if ever smoked [facility] ([facility]) Alcohol intake 01/17/2020 12:00:00 AM EDT Current drinker of al cohol (finding) completed Current drinker of alcohol (finding) [facility] Vital Signs ID Date Data Source UNK Name Value Range Interpretation Code Description Data Source(s) Body height 64 [in_i] 64 [in_i] [facility] ([facility] 5'4" Heart rate 96 /min 96 /min [facility] ([facility] Respiratory rate 18 /min 18 /min [facility] ( [facility]) Systolic blood pressure 109 mm[Hg] 109 mm[Hg] M [facility]ENT ([facility]) Diastolic blood pressure 69 mm[Hg] 69 mm[Hg] [facility] ([facility]) Body mass index (BMI) [Ratio] 22.4 kg/m2 22.4 k g/m2 [facility] ([facility]) Body weight 130.50 [lb_av] 130.50 [lb_av] MED[facility] T ([facility]) Body surface area Derived from formula 1.65 m2 1.65 m2 [facility] ([facility]) Body mass index (BMI) [Ratio] 23.0 kg/m2 23.0 k g/m2 [facility] ([facility]) Systolic blood pressure 102 mm[Hg] 102 mm[Hg] M EDENT ([facility]) Diastolic blood pressure 62 mm[Hg] 62 mm[Hg] [facility] ([facility]) Body height 64 [in_i] 64 [in_i] [facility] ([facility]) 5'4" Body weight 134.00 [lb_av] 134.00 [lb_av] MEDEN T ([facility]) [place] body weight 120 [lb_av] 120 [lb_av] MED[facility] T ([facility]) Body weight 60.782 kg 60.782 [facility], ) Body weight 142 [lb_av] 142 [lb_av] eCW1 ([facility]) Body height 64 [in_i] 64 [in_i] eCW1 ([facility]) Body mass index (BMI) [Ratio] 24.37 kg/m2 24.37 kg/m2 eCW1 ([facility]) Heart rate 87 /min 87 /min eCW1 ([facility]) Respiratory rate 18 /min 18 /min eCW1 ([facility]) Body temperature 97.6 [degF] 97.6 [degF] eCW1 ( [facility]) Systolic blood pressure 122 mm[Hg] 122 mm[Hg] e CW1 ([facility]) Diastolic blood pressure 70 mm[Hg] 70 mm[Hg] eCW1 ([facility]) Body weight 143.38 [lb_av] 143.38 [lb_av] [facility] ([facility] Systolic blood pressure 144 mm[Hg] 144 mm[Hg] M [facility] ([facility] Body mass index (BMI) [Ratio] 24.6 kg/m2 24.6 k g/m2 [facility] ([facility]) Body height 64 [in_i] 64 [in_i] [facility] ([facility] 5'4" Heart rate 96 /min 96 /min [facility] ([facility] Respiratory rate 18 /min 18 /min [facility] ( [facility]) Diastolic blood pressure 90 mm[Hg] 90 mm[Hg] [facility] ([facility] Diastolic blood pressure 68 mm[Hg] 68 mm[Hg] [facility] ([facility], ) Body mass index (BMI) [Ratio] 24.5 kg/m2 24.5 k g/m2 [facility], ) Body height 64 [in_i] 64 [in_i] [facility] ([facility], ) 5'4" Body surface area Derived from formula 1.70 m2 1.70 m2 [facility] ([facility]) Body height 64 [in_i] 64 [in_i] [facility] ([facility]) 5'4" Body weight 143.00 [lb_av] 143.00 [lb_av] MEDEN T ([facility]) Body mass index (BMI) [Ratio] 24.5 kg/m2 24.5 k g/m2 [facility] ([facility]) [place] body weight 120 [lb_av] 120 [lb_av] MEDEN T ([facility]) Body weight 64.865 kg 64.865 kg [facility] ([facility]) Systolic blood pressure 104 mm[Hg] 104 mm[Hg] M EDENT ([facility]) Body weight 143.00 [lb_av] 143.00 [lb_av] MEDEN T ([facility]) [place] body weight 120 [lb_av] 120 [[facility]_av] [facility] Body weight 64.865 kg 64.865 kg [facility] ([facility]) Body surface area Derived from formula 1.70 m2 1.70 m2 [facility] ([facility]) Body weight 148 [lb_av] 148 [lb_av] eCW1 ([facility]) Body weight 67.13 kg 67.13 kg W1 ([facility]) Body height 64 [in_i] 64 [in_i] eCW1 ([facility]) Body mass index (BMI) [Ratio] 25.4 kg/m2 25.4 k g/m2 eCW1 ([facility]) Systolic blood pressure 125 mm[Hg] 125 mm[Hg] e CW1 ([facility]) Diastolic blood pressure 77 mm[Hg] 77 mm[Hg] eCW1 ([facility]) Body weight 151 [lb_av] 151 [lb_av] eCW1 ([facility]) Body weight 68.49 kg 68.49 kg eCW1 ([facility]) Body height 64 [in_i] 64 [in_i] eCW1 ([facility]) Body mass index (BMI) [Ratio] 25.92 kg/m2 25.92 kg/m2 eCW1 ([facility]) Systolic blood pressure 114 mm[Hg] 114 mm[Hg] e CW1 ([facility]) Diastolic blood pressure 73 mm[Hg] 73 mm[Hg] eCW1 ([facility]) Body mass index (BMI) [Ratio] 26.6 kg/m2 26.6 k g/m2 [facility] ([facility]) Body temperature 97.1 [degF] 97.1 [degF] [facility] ([facility]) Body height 64 [in_i] 64 [in_i] [facility] ([facility]) 5'4" Body weight 155.00 [lb_av] 155.00 [lb_av] MEDEN T ([facility]) Body height 64 [in_i] 64 [in_i] [facility] ([facility] 5'4" Body weight 163.00 [lb_av] 163.00 [lb_av] MEDEN T ([facility] Heart rate 99 /min 99 /min [facility] ([facility] Diastolic blood pressure 76 mm[Hg] 76 mm[Hg] [facility] ([facility] Systolic blood pressure 122 mm[Hg] 122 mm[Hg] EDENT ([facility] Body mass index (BMI) [Ratio] 28.0 kg/m2 28.0 k g/m2 [facility] ([facility] Body height 64 [in_i] 64 [in_i] [facility] ([facility] 5'4" Heart rate 93 /min 93 /min [facility] ([facility] Body weight 159.38 [lb_av] 159.38 [lb_av] MED[facility] T ([facility]) Respiratory rate 18 /min 18 /min [facility] ( [facility]) Systolic blood pressure 107 mm[Hg] 107 mm[Hg] [facility] ([facility]) Diastolic blood pressure 69 mm[Hg] 69 mm[Hg] [facility] ([facility]) Body mass index (BMI) [Ratio] 27.4 kg/m2 27.4 k g/m2 [facility] ([facility]) Systolic blood pressure 122 mm[Hg] 122 mm[Hg] [facility] ([facility]) Diastolic blood pressure 72 mm[Hg] 72 mm[Hg] [facility] ([facility]) Body height 64 [in_i] 64 [in_i] [facility] ([facility]) 5'4" Body weight 162.00 [lb_av] 162.00 [lb_av] [facility] ([facility]) Body mass index (BMI) [Ratio] 27.8 kg/m2 27.8 k g/m2 [facility] ([facility]) [place] body weight 120 [lb_av] 120 [lb_av] [facility] ([facility]) Body weight 73.483 kg 73.483 kg [facility] ([facility]) Body surface area Derived from formula 1.79 m2 1.79 m2 [facility] ([facility]) ID Date Data Source [id number] 09/18/2020 11:24:01 AM [facility] Name Value Range Interpretation Code Description Data Source(s) WEIGHT RECORDED 141 lb 141 lb [facility] Body height Measured 64.25 in 64.25 in [facility] ID Date Data Source [id number] 08/27/2020 04:25:07 PM [facility] Name Value Range Interpretation Code Description Data Source(s) WEIGHT RECORDED 141 lb 141 lb [facility] Body height Measured 64.25 in 64.25 in [facility] ID Date Data Source [id number] 05/05/2020 12:15:26 PM EST [facility] Name Value Range Interpretation Code Description Data Source(s) WEIGHT RECORDED 161 lb 161 lb [facility] ID Date Data Source [id number] 01/29/2020 09:07:36 AM EDT [facility] Name Value Range Interpretation Code Description Data Source(s) WEIGHT RECORDED 161 lb 161 lb [facility] Body height Measured 64 in 64 in [facility] ID Date Data Source [id number] 01/18/2020 09:02:15 AM EDT [facility] Name Value Range Interpretation Code Description Data Source(s) WEIGHT RECORDED 161.4 lb 161.4 lb [facility] Body height Measured 64 in 64 in [facility] ID Date Data Source [id number] 01/18/2020 04:03:29 PM EDT [facility] Name Value Range Interpretation Code Description Data Source(s) WEIGHT RECORDED 158 lb 158 lb [facility] Body height Measured 64 in 64 in [facility] Patient Treatment Plan of Care Planned Activity Planned Date Details Description Data Source (s) Nicotine 10 MG 02/13/2021 12:00:00 AM EDT eCW1 ([facility]) Acetaminophen 325 MG / Hydrocodone Bitartrate 5 MG Ora [facility] Tablet 12/10/2020 12:00:00 AM EDT eCW1 ([facility]) Acetaminophen 325 MG / Hydrocodone Bitartrate 5 MG Ora l Tablet 12/10/2020 12:00:00 AM EDT eCW1 ([facility]) Acetaminophen 325 MG / Hydrocodone Bitartrate 5 MG Ora l Tablet 12/10/2020 12:00:00 AM EDT eCW1 ([facility]) Acetaminophen 325 MG / Hydrocodone Bitartrate 5 MG Ora l Tablet 12/10/2020 12:00:00 AM EDT eCW1 ([facility]) Insulin Lispro 100 UNT/ML Injectable Solution [Humalog ] 11/17/2020 12:00:00 AM EDT [facility] 24 HR Bupropion Hydrochloride 150 MG Extended Release Oral Tablet 09/19/2020 12:00:00 AM EDT eCW1 ([facility]) 24 HR Bupropion Hydrochloride 150 MG Extended Release Oral Tablet 09/19/2020 12:00:00 AM EDT eCW1 ([facility]) 24 HR Bupropion Hydrochloride 150 MG Extended Release Oral Tablet 09/19/2020 12:00:00 AM EDT eCW1 ([facility]) 24 HR Bupropion Hydrochloride 150 MG Extended Release Oral Tablet 09/19/2020 12:00:00 AM EDT eCW1 ([facility]) 24 HR Bupropion Hydrochloride 150 MG Extended Release Oral Tablet 09/19/2020 12:00:00 AM EDT eCW1 ([facility]) 24 HR Bupropion Hydrochloride 150 MG Extended Release Oral Tablet 09/19/2020 12:00:00 AM EDT eCW1 ([facility]) 24 HR Bupropion Hydrochloride 150 MG Extended Release Oral Tablet 09/19/2020 12:00:00 AM EDT eCW1 ([facility]) Baqsimi One Pack 3 MG/DOSE Nasal Powder (Glucagon) 07/18/2020 12 :00:00 AM [facility] Acetaminophen 325 MG / Hydrocodone Bitartrate 5 MG Ora l Tablet 07/18/2020 12:00:00 AM EST eCW1 ([facility]) Acetaminophen 325 MG / Hydrocodone Bitartrate 5 MG Ora l Tablet 07/18/2020 12:00:00 AM EST eCW1 ([facility]) Acetaminophen 325 MG / Hydrocodone Bitartrate 5 MG Ora l Tablet 07/18/2020 12:00:00 AM EST eCW1 ([facility]) OneTouch Ultra In Vitro Strip 07/10/2020 12:00:00 AM [facility] Norethindrone 0.35 MG 07/01/2020 12:00:00 AM EST eCW1 ([facility]) Norethindrone 0.35 MG 07/01/2020 12:00:00 AM EST eCW1 ([facility]) Norethindrone 0.35 MG 07/01/2020 12:00:00 AM EST eCW1 ([facility]) Norethindrone 0.35 MG 07/01/2020 12:00:00 AM EST eCW1 ([facility]) valacyclovir 500 MG Oral Tablet 06/16/2020 12:00:00 AM [facility] Norethindrone 0.35 MG Oral Tablet 06/11/2020 12:00:00 AM [facility] Fluconazole 150 MG Oral Tablet 06/05/2020 12:00:00 AM [facility] Peg-BE 0.35 MG 06/05/2020 12:00:00 AM EST eCW1 ([facility]) Fluconazole 150 MG Oral Tablet 06/05/2020 12:00:00 AM EST eCW1 ([facility]) Peg-BE 0.35 MG 06/05/2020 12:00:00 AM EST eCW1 ([facility]) Fluconazole 150 MG Oral Tablet 06/05/2020 12:00:00 AM EST eCW1 ([facility]) Peg-BE 0.35 MG 06/05/2020 12:00:00 AM EST eCW1 ([facility]) Fluconazole 150 MG Oral Tablet 06/05/2020 12:00:00 AM EST eCW1 ([facility]) Fluconazole 150 MG Oral Tablet 06/05/2020 12:00:00 AM EST eCW1 ([facility]) Fluconazole 150 MG Oral Tablet 06/05/2020 12:00:00 AM EST eCW1 ([facility]) Fluconazole 150 MG Oral Tablet 06/05/2020 12:00:00 AM EST eCW1 ([facility]) Fluconazole 150 MG Oral Tablet 06/05/2020 12:00:00 AM EST eCW1 ([facility]) Fluconazole 150 MG Oral Tablet 06/05/2020 12:00:00 AM EST eCW1 ([facility]) Peg-BE 0.35 MG 06/05/2020 12:00:00 AM EST eCW1 ([facility]) OneTouch Ultra In Vitro Strip 05/30/2020 12:00:00 AM [facility] Insulin Lispro 100 UNT/ML Injectable Solution [Humalog ] 05/12/2020 12:00:00 AM [facility] valacyclovir 500 MG Oral Tablet 05/08/2020 12:00:00 AM [place] [address] ([facility]) valacyclovir 500 MG Oral Tablet 05/08/2020 12:00:00 AM EST [facility] ([facility]) valacyclovir 500 MG Oral Tablet 05/08/2020 12:00:00 AM [place] [address] ([facility]) valacyclovir 500 MG Oral Tablet 05/08/2020 12:00:00 AM [place] [address] ([facility]) valacyclovir 500 MG Oral Tablet 05/08/2020 12:00:00 AM [place] [address] ([facility]) valacyclovir 500 MG Oral Tablet 05/08/2020 12:00:00 AM [place] [address] ([facility]) valacyclovir 500 MG Oral Tablet 05/08/2020 12:00:00 AM [place] [address] ([facility]) valacyclovir 500 MG Oral Tablet 05/08/2020 12:00:00 AM [place] [address] ([facility]) Dexcom G6 Transmitter 05/05/2020 12:00:00 AM [facility] Dexcom G6 Sensor 05/05/2020 12:00:00 AM [facility] Dexcom G6 Drawing Operator Device 05/05/2020 12:00:00 AM [facility] Ketostix In Vitro Strip 05/05/2020 12:00:00 AM [facility] Insulin Lispro 100 UNT/ML Injectable Solution [Humalog ] 05/05/2020 12:00:00 AM [facility] Dexcom G6 Transmitter 04/17/2020 12:00:00 AM [facility] Dexcom G6 Sensor 04/17/2020 12:00:00 AM [facility] Ibuprofen 600 MG Oral Tablet 04/09/2020 12:00:00 AM [facility] Acetaminophen 325 MG / Hydrocodone Bitartrate 5 MG Ora l Tablet [[place]] 03/27/2020 12:00:00 AM [place] [address] ([facility]) OneTouch Ultra In Vitro Strip 10/24/2019 12:00:00 AM [facility] Ketostix In Vitro Strip 10/22/2019 12:00:00 AM [facility] Insulin Lispro 100 UNT/ML Injectable Solution [Humalog ] 09/11/2019 12:00:00 AM [facility]ital Metronidazole 7.5 MG/ML Topical Cream 05/29/2019 12:00:00 AM [facility] doxycycline hyclate 20 MG Oral Tablet 05/29/2019 12:00:00 AM [facility] Clindamycin 10 MG/ML Topical Solution 05/10/2019 12:00:00 AM [facility] Hydrocortisone 25 MG/ML Topical Cream 05/10/2019 12:00:00 AM [facility] Ketoconazole 20 MG/ML Topical Cream 05/10/2019 12:00:00 AM [facility] Mometasone Furoate 50 MCG/ACT Nasal Suspension (NASONE X) 04/23/2019 12:00:00 AM [facility] Dexcom G6 Drawing Operator Device 03/16/2019 12:00:00 AM [facility] Glucagon 1 MG Injection 11/24/2017 12:00:00 AM [facility] Ranitidine 150 MG Oral Tablet [facility] fluticasone (FLONASE) 50 MCG/ACT nasal spray [facility] UNABLE TO FIND [facility] Bupropion Hydrochloride 75 MG Oral Tablet [facility]
[2021-03-07] MEDS ORDERED: NS 1,000 ML IV ONE (23:35)
[2021-03-07 23:47] VITALS: BP 110/65
[2021-03-07 23:57] LABS: VENOUS HCO3 18.1 MEQ/L (23.0-27.0); VENOUS O2 SATURATION 96.6 % (60.0-80.0); VENOUS PARTIAL PRESSURE CO2 31.8 mmHg (38.0-50.0); VENOUS PARTIAL PRESSURE O2 97.8 mmHg (30.0-50.0); VENOUS PH 7.374 UNITS (7.330-7.430); VENOUS STANDARD HCO3 19.5 MEQ/L; VENOUS TOTAL CO2 19.1 MEQ/L (24.0-28.0)
[2021-03-08 00:02] LABS: OSMOLALITY SERUM 327 MOSM/KG (275-295)
[2021-03-08 00:07] LABS: BASO % 0.4 % (0.0-1.0); EOS # 0.2 10^3/uL (0.0-0.5); EOS % 4.1 % (0.0-3.0); HEMATOCRIT 39.5 % (36.0-47.0); HEMOGLOBIN 13.2 g/dl (12.0-15.5); LYMPH % 40.2 % (24.0-44.0); MEAN CORPUSCULAR HEMOGLOBIN 33.4 pg (27.0-33.0); MEAN CORPUSCULAR HGB CONC 33.4 g/dl (32.0-36.5); MONO # 0.3 10^3/uL (0.0-0.8); MONO % 5.3 % (2.0-8.0); NEUTROPHILS # 2.4 10^3/uL (1.5-8.5); NEUTROPHILS % 49.6 % (36.0-66.0); PLATELET COUNT, AUTOMATED 207 10^3/uL (150-450); RED BLOOD COUNT 3.95 10^6/uL (4.00-5.40); WHITE BLOOD COUNT 4.9 10^3/uL (4.0-10.0)
--- NOTE | 2021-03-08 00:17 | REPVR ---
PROCEDURE INFORMATION: Exam: XR Chest Exam date and time: 03/07/2021 11:56 PM Age: 50 years old Clinical indication: Other: N/v/d; Additional info: Dka TECHNIQUE: Imaging protocol: XR of the chest. Views: 1 view. COMPARISON: CR Abdomen,Flat Upright,PA CHEST 06/20/2018 11:37 AM FINDINGS: Lungs: Unremarkable. No consolidation. Pleural spaces: Unremarkable. No pleural effusion. No pneumothorax. Heart/Mediastinum: Unremarkable. No cardiomegaly. Bones/joints: Status post anterior fusion in the lower cervical spine. IMPRESSION: Negative chest without change from 06/20/2018. Electronically signed by: Rohan Kidd On 03/08/2021 00:17:16 AM
[2021-03-08 00:39] LABS: HEMOGLOBIN A1c 6.6 %
[2021-03-08 01:31] LABS: ACETONE/KETONE 2.04 MG/DL (<2.81); ALBUMIN 3.3 GM/DL (3.2-5.2); ALT/SGPT 22 U/L (12-78); BILIRUBIN,TOTAL 0.5 MG/DL (0.2-1.0); BLOOD UREA NITROGEN 8 MG/DL (7-18); CALCIUM LEVEL 8.7 MG/DL (8.5-10.1); CARBON DIOXIDE LEVEL 21 MEQ/L (21-32); CHLORIDE LEVEL 112 MEQ/L (98-107); CREATININE FOR GFR 0.71 MG/DL (0.55-1.30); GLOMERULAR FILTRATION RATE > 60.0 (>51); GLUCOSE, FASTING 145 MG/DL (70-100); LIPASE 66 U/L (73-393); POTASSIUM SERUM 4.6 MEQ/L (3.5-5.1); SODIUM LEVEL 140 MEQ/L (136-145); TOTAL PROTEIN 6.7 GM/DL (6.4-8.2)
[2021-03-08 01:45] LABS: BILIRUBIN,DIRECT < 0.1 MG/DL (0.0-0.2); ETHYL ALCOHOL (ETHANOL) 0.132 % (0.000-0.010)
--- NOTE | 2021-03-09 05:42 | ECGEPIP ---
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
--- OUTSIDE RECORDS SUMMARY | 2021-03-21 11:44 | CCD | Continuity of Care Document ---
Author Author Oly LOVE M.D. Organization Unknown Address [address], [address], [place] [address] Phone [phone] Care Team Providers [employer] [place] Worker Name Role Phone Dagoberto Cutler MD AUTM [phone] Problems Active Problems Provider Date Allergic rhinitis [...] Love M.D. Onset: 020 Vasomotor rhinitis Lester Loev M.D. Onset: 021 Social History Type Date Description Comments Sex Unknown Tobacco Use Reviewed: 02/11/21 Light tobacco smoker (10 or fewer cigarettes/day) Smoking Status Reviewed: 02/11/21 Light tobacco smoker (10 or fewer cigarettes/day) Allergies and adverse reactions Active Allergies Criticality Reaction | Severity Comments Date Clindamycin Unable to assess criticality Abdominal pain, Diarrhea, c-diff 12/30/2018 Jveoyqf-HPK-Vgx Reductase Inhibitors Unable to assess critic ality Increased Liver enzymes 12/30/2018 Gabapentin Unable to assess criticality Dizziness 03/01/2019 Medications Active Medications SIG Qnty Indications Ordering Provide r Date Azelastine HCL (Nasal) 0.15% Solut ion 2 sprays each nostril once a day every morning 30ml J30.0 Lester Love M.D. 02/11/2021 Loratadine 10mg Tablets Take One Tablet By Mouth Every Day 90tabs Lester Lvoe M.D. 2019 Azelastine HCL (Nasal) 137mcg/Cantil Solution 2 sprays each nostril every day every morning 30ml J3 0.1 Lester Love M.D. 02/12/2020 Flonase Sensimist 27 .5mcg/Cantil Suspension 2 sprays each nostril every night [...] Evening Unknown Baqsimi One Pack 3mg/Dose Powder Cantil One Cantil 3 MG In One Nostril To Treat Severe Hypoglycemia as Directed Unknown Ketotifen Fumarate 0.025% Solution 1 drop per eye daily as needed Unknown Medications Administered in Office Medication SIG Qnty Indications Ordering Provider Date Allergy Injection 2 Or More Injection Lester Love M.D. 03/09/2021 Allergy Injection 2 Or More Injection Lester [...] 03/13/2020 Allergy Injection 2 Or More Injection Lseter Love M.D. 02/21/2020 Allergy Injection 2 Or More Injection Lester Love M.D. 01/31/2020 Allergy Injection 2 Or More Injection Lester Love M.D. 01/11/2020 Allergy Injection 2 Or More Injection Lester Love M.D. 12/21/2019 Allergy Injection 2 Or More Injection Lester Lizz Love.DNatty 11/30/2019 Allergy Injection 2 Or More Injection Lester Lizz Love.DNatty 11/16/2019 Allergy Injection 2 Or More Injection Lester Rach M.DNatty 11/06/2019 Allergy Injection 2 Or More Injection Lester Rach M.DNatty 10/22/2019 Allergy Injection 2 Or More Injection Lester Lizz Love.DNatty 10/11/2019 Allergy Injection 2 Or More Injection Lester Lizz Love.DNatty 09/28/2019 Allergy Injection 2 Or More Injection Lester Lizz Love.DNatty 09/17/2019 Allergy Injection 2 Or More Injection Lester Helene LoveDNatty 09/04/2019 Allergy Injection 2 Or More Injection LesterLizz Talavera.DNatty 08/22/2019 Allergy Injection 2 Or More Injection Lester Love M.D. 08/09/2019 Allergy Injection 2 Or More Injection Lester Love M.D. 07/27/2019 Allergy Injection 2 Or More Injection LesterLizz Talavera.DNatty 07/20/2019 Allergy Injection 2 Or More Injection Lester Love M.D. 07/13/2019 Allergy Injection 2 Or More Injection LesterHelene TalaveraDNatty 06/29/2019 Allergy Injection 2 Or More Injection Helene CoronadoDNatty 06/22/2019 Therapeutic, Prophylactic Or Diagnostic Injection Subq/Im Injection Lesterjonh jennings M.D. 06/15/2019 Allergy Injection 2 Or More Injection Lester Lizz Love.DNatty 06/15/2019 Allergy Injection 2 Or More Injection Lester Rach M.DNatty 06/06/2019 Allergy Injection 2 Or More Injection LesterLizz Talavera.DNatty 05/25/2019 Allergy Injection 2 Or More Injection Lester Lizz Love.DNatty 05/18/2019 Allergy Injection 2 Or More Injection ADE EspinozaP-C 05/11/2019 Allergy Injection 2 Or More Injection Lester Loev M.D. 05/11/2019 Allergy Injection 2 Or More [...] Information Available Procedures Date Code Description Status 03/09/2021 74963 Allergy Injection 2 Or More Comp leted 02/16/2021 10426 Allergy Injection 2 Or More Comp leted 02/11/2021 24454 Office/Outpatient Established Lo w MDM 20-29 Min Completed 01/26/2021 01052 Allergy Injection 2 Or More Comp leted 12/30/2020 73399 Allergy Injection 2 Or More Comp leted 12/09/2020 69250 Allergy Injection 2 Or More Comp leted 11/21/2020 63190 Allergy Antigens Single Or Multi ple Completed 11/18/2020 86599 Allergy Injection 2 Or More Comp leted 10/28/2020 92250 Allergy Injection 2 Or More Comp leted 10/08/2020 89227 Allergy Injection 2 Or More Comp leted 09/15/2020 49746 Allergy Injection 2 Or More Comp leted [...] without esophagitis Assessments Date Code Description Provider 03/09/2021 J30.1 Allergic rhinitis due to pollen Lester Love M.D. 03/09/2021 J30.81 Allergic rhinitis due to animal (cat) (dog) hair and dander Lester Love M.D. 03/09/2021 J30.89 Other allergic rhinitis Lester Love M.D. [...]
--- OUTSIDE RECORDS SUMMARY | 2021-03-21 11:46 | CCD ---
Author Author [facility] Organization [facility] Address Unknown Phone Unavailable Care Team Providers Care Urologist Name Role Phone Charlebois, A Ashley RPA [...] Unavailable Unavailable TISHA LOVE MD Unavailable Unavailable CHROSTTISHA HENRY MD Unavailable Unavailable CHROSTTISHA HENRY MD Unavailable Unavailable CHROSTTISHA HENRY MD Unavailable Unavailable CHRTISHA MEJIA MD Unavailable [...] Unavailable Unavailable CHROSTTISHA HENRY MD Unavailable Unavailable CHROSTTISAH HENRY MD Unavailable Unavailable CHROSTTISHA HENRY MD Unavailable Unavailable CHROSTTISHA HENRY MD Unavailable Unavailable CHROSTTISHA HENRY MD Unavailable Unavailable CHROSTTISHA HENRY MD Unavailable Unavailable CHROSTTISHA HENRY MD Unavailable Unavailable TEE, R SCOTT TECHNICAL SALES ADVISOR Unavailable Unavailable TEE, R SCOTT TECHNICAL SALES ADVISOR Unavailable Unavailable TEE, R SCOTT TECHNICAL SALES ADVISOR Unavailable Unavailable TEE, R SCOTT TECHNICAL SALES ADVISOR Unavailable Unavailable TEE, R SCOTT TECHNICAL SALES ADVISOR Unavailable Unavailable TEE, R SCOTT TECHNICAL SALES ADVISOR Unavailable Unavailable TEE, R SCOTT TECHNICAL SALES ADVISOR Unavailable Unavailable TEE, R SCOTT TECHNICAL SALES ADVISOR Unavailable Unavailable TEE, R SCOTT TECHNICAL SALES ADVISOR Unavailable Unavailable TEE, R SCOTT TECHNICAL SALES ADVISOR Unavailable Unavailable TEE, R SCOTT TECHNICAL SALES ADVISOR Unavailable Unavailable TEE, R SCOTT TECHNICAL SALES ADVISOR Unavailable Unavailable TEE, R SCOTT TECHNICAL SALES ADVISOR Unavailable Unavailable TEE, R SCOTT TECHNICAL SALES ADVISOR Unavailable Unavailable TEE, R SCOTT TECHNICAL SALES ADVISOR Unavailable Unavailable TEE, R SCOTT TECHNICAL SALES ADVISOR Unavailable Unavailable TEE, R SCOTT TECHNICAL SALES ADVISOR Unavailable Unavailable TEE, R SCOTT TECHNICAL SALES ADVISOR Unavailable Unavailable TEE, R SCOTT TECHNICAL SALES ADVISOR Unavailable Unavailable TEE, R SCOTT TECHNICAL SALES ADVISOR Unavailable Unavailable TEE, R SCOTT TECHNICAL SALES ADVISOR Unavailable Unavailable TEE, R SCOTT TECHNICAL SALES ADVISOR Unavailable Unavailable TEE, R SCOTT TECHNICAL SALES ADVISOR Unavailable Unavailable TEE, R SCOTT TECHNICAL SALES ADVISOR Unavailable Unavailable TEE, R SCOTT TECHNICAL SALES ADVISOR Unavailable Unavailable TEE, R SCOTT TECHNICAL SALES ADVISOR Unavailable Unavailable TEE, R SCOTT TECHNICAL SALES ADVISOR Unavailable Unavailable TEE, R SCOTT TECHNICAL SALES ADVISOR Unavailable Unavailable TEE, R SCOTT TECHNICAL SALES ADVISOR Unavailable Unavailable TEE, R SCOTT TECHNICAL SALES ADVISOR Unavailable Unavailable TEE, R SCOTT TECHNICAL SALES ADVISOR Unavailable Unavailable TEE, R SCOTT TECHNICAL SALES ADVISOR Unavailable Unavailable TEE, R SCOTT TECHNICAL SALES ADVISOR Unavailable Unavailable TEE, R SCOTT TECHNICAL SALES ADVISOR Unavailable Unavailable TEE, R SCOTT TECHNICAL SALES ADVISOR Unavailable Unavailable TEE, R SCOTT TECHNICAL SALES ADVISOR Unavailable Unavailable TEE, R SCOTT TECHNICAL SALES ADVISOR Unavailable Unavailable TEE, R SCOTT TECHNICAL SALES ADVISOR Unavailable Unavailable TEE, R SCOTT TECHNICAL SALES ADVISOR Unavailable Unavailable TEE, R SCOTT TECHNICAL SALES ADVISOR Unavailable Unavailable TEE, R SCOTT TECHNICAL SALES ADVISOR Unavailable Unavailable TEE, R SCOTT TECHNICAL SALES ADVISOR Unavailable Unavailable TEE, R SCOTT TECHNICAL SALES ADVISOR Unavailable Unavailable TEE, R SCOTT TECHNICAL SALES ADVISOR Unavailable Unavailable MAJAK, R VINCENT DPM Unavailable [...] Unavailable Tomaiuoli, ROMAN Darline ANP-C Unavailable tomaiuo TomaiuoJESÚS dislaE Darline ANP-C Unavailable tomaiuo TombrendanuoROMAN disla Darline ANP-C Unavailable tomaiuo TomaiuoROMAN disla Darline ANP-C Unavailable tomaiuo Tomaiuonighat ROMAN Darline ANP-C Unavailable tomaiuo TomaiuoJESÚS dislaE Darline ANP-C Unavailable tomaiuo TomaiuoJESÚS dislaE Darline ANP-C Unavailable tomaiuo FernandezaiuoJESÚS dislaE Darline ANP-C Unavailable tomaiuo TomaiuoROMAN disla Darline ANP-C Unavailable tomaiuo ROMAN Ramirez Darline ANP-C Unavailable tomaiuo TomaiuoJESÚS dislaE Darline ANP-C Unavailable tomaiuo TomaiuoJESÚS dislaE Darline ANP-C Unavailable tomaiuo ROMAN Ramirez Darline ANP-C Unavailable tomaiuo ROMAN Ramirez Darline ANP-C Unavailable tomaiuo ROMAN Ramirez Darline ANP-C Unavailable tomaiuo TomROMAN akers Darline ANP-C Unavailable tomaiuo ROMAN Ramirez Darline ANP-C Unavailable tomaiuo TomaiuoROMAN disla Darline ANP-C Unavailable tomaiuo ROMAN Ramirez Darline ANP-C Unavailable tomaiuo ROMAN Ramirez Darline ANP-C Unavailable tomaiuo TomaiuoROMAN disla Darline ANP-C Unavailable tomaiuo ROMAN Ramirez Darline ANP-C Unavailable tomaiuo FernandezaiJESÚS ennisE Darline ANP-C Unavailable tomaiuo Fernandezaiuonighat ROMAN Darline ANP-C Unavailable tomaiuo Fernandezaiuonighat ROMAN Darline ANP-C Unavailable tomaiuo Tomaiuonighat ROMAN Darline ANP-C Unavailable tomaiuo Marielleuonighat ROMAN Darline ANP-C Unavailable tomaiuo Tomaiuonighat ROMAN Darline ANP-C Unavailable tomaiuo Tomaiuonighat ROMAN Darline ANP-C Unavailable tomaiuo Fernandezaiuonighat ROMAN Darline ANP-C Unavailable tomaiuo Maynighat ROMAN Darline ANP-C Unavailable tomaiuo Marielleuonighat ROMAN Darline ANP-C Unavailable tomaiuo Tomaiwinstonnighat ROMAN Darline ANP-C Unavailable tomaiuo Fernandezaiuonighat ROMAN Darline ANP-C Unavailable tomaiuo Maynighat ROMAN Darline ANP-C Unavailable tomaiuo Maynighat ROMAN Darline ANP-C Unavailable tomaiuo Maynighat ROMAN Darline ANP-C Unavailable tomaiuo Fernandezjaspernighat ROMAN Darline ANP-C Unavailable tomaiuo Maynighat ROMAN Darline ANP-C Unavailable tomaiuo Tomaiwinstonnighat ROMAN Darline ANP-C Unavailable tomaiuo Suryadevara, Simi Unavailable Unavailable Suryadevara, Simi Unavailable Unavailable Suryadevara, Simi Unavailable Unavailable Suryadevara, Simi Unavailable Unavailable Suryadevara, Simi Unavailable Unavailable Suryadevara, Simi Unavailable Unavailable Suryadevara, Simi Unavailable Unavailable Suryadevara, Simi Unavailable Unavailable Suryadevara, Simi Unavailable Unavailable [place], Kerri PA Unavailable Unavailable Rao, Kerri PA Unavailable Unavailable [place], Kerri PA Unavailable Unavailable [place], Kerri PA Unavailable Unavailable [place], Kerri PA Unavailable Unavailable Rao, Kerri PA Unavailable Unavailable [place], Kerri PA Unavailable Unavailable Rao, Kerri PA Unavailable Unavailable [place], Kerri PA Unavailable Unavailable Rao, Kerri PA Unavailable Unavailable [place], Kerri PA Unavailable Unavailable [place], Kerri PA Unavailable Unavailable [place], Kerri PA Unavailable Unavailable [place], Kerri PA Unavailable Unavailable [place], Kerri PA Unavailable Unavailable Rao, Kerri PA Unavailable Unavailable [place], Kerri PA Unavailable Unavailable Rao, Kerri PA Unavailable Unavailable [place], Kerri PA Unavailable Unavailable [place], Kerri PA Unavailable Unavailable Rao, Kerri PA Unavailable Unavailable [place], Kerri PA Unavailable Unavailable [place], Kerri PA Unavailable Unavailable Rao, Kerri PA Unavailable Unavailable [place], Kerri PA Unavailable Unavailable Rao, Kerri PA Unavailable Unavailable [place], Kerri PA Unavailable Unavailable Rao, Kerri PA Unavailable Unavailable [place], Kerri PA Unavailable Unavailable [place], Kerri PA Unavailable Unavailable [place], Kerri PA Unavailable Unavailable [place], Kerri PA Unavailable Unavailable [place], Kerri PA Unavailable Unavailable [place], Kerri PA Unavailable Unavailable [place], Kerri PA Unavailable Unavailable Romy Montgomery MD [...] Unavailable Unavailable Romy Montgomery MD Unavailable Unavailable Valentina Romy Unavailable Unavailable Valentina Romy Unavailable Unavailable Valentina Romy Unavailable Unavailable Valentina, Romy Unavailable Unavailable Valentina, Romy Unavailable Unavailable Valentina, Romy Unavailable Unavailable Valentina, Romy Unavailable Unavailable Valentina, Romy MD Unavailable Unavailable Valentina, Romy Unavailable Unavailable Valentina, Romy Unavailable Unavailable Valentina, Romy Unavailable Unavailable Valentnia, Romy Unavailable Unavailable Valentina, Romy MD Unavailable Unavailable Valentina, Romy Unavailable Unavailable Valentina, Romy Unavailable Unavailable Valentina, Romy Unavailable Unavailable Valentina, Romy Unavailable Unavailable Valentina, Romy Unavailable Unavailable JERMAINE AUNDREA [id number] Unavailable Unavailable VINCENT MENDEZ MD Unavailable Unavailable [...] is protected by Article 27-F of the [facility] Public Health law. If you continue you may have access to information: Regarding HIV / AIDS; Provided by facilities licensed or operated by the [facility] Office of Mental Health; or Provided by the [facility] Office for People With Developmental Disabilities. If such information is present, then the following [facility] mandated warning applies: This information has [...] law may result in a fine or [place] health care facility sentence or both. A general authorization for the release of medical or other information is NOT sufficient authorization for further disc losure. Family History Family Member Name Family Member Gender Family Member Status Date o f Status Description Data Source(s) Unknown Unknown Problem [facility] ([facility]) Unknown Unknown Problem [facility] ([facility]) Encounters Encounter Providers Location Date Indications Data Source(s ) Outpatient Attender: Romy Montgomery MD 09/16/2021 12:00:00 [facility] Outpatient Attender: Kerri SHEEHAN 06/18/2021 12:00: 00 AM [facility] Outpatient Attender: Kerri SHEEHAN [id number] 12:00:00 AM T - 03/11/2021 02:24:54 PM [facility] [place] [address] [address] 02/27/2021 12:00:00 AM EDT [facility]CW1 ([facility]) [place] [address] [facility] [address] 02/20/2021 12:00:00 AM EDT eCW1 ([facility] [place] [address] [facility] [address] 02/12/2021 12:00:00 AM EDT eCW1 [facility] Outpatient Attender: TISHA LOVE MD Main Office 02/11/2021 11:00:00 AM EDT MEDENT ([facility] Outpatient Attender: Ashley Pennington/Kalyn/Roger braxton/Vlad 01/19/2021 10:30:00 AM EDT [facility] ([facility] [place] [address] [address] 01/19/2021 12:00:00 AM EDT eCW1 ([facility] [place] [address] [address] 12/10/2020 12:00:00 AM EDT eCW1 ([facility] [place] [address] [address] 12/09/2020 12:00:00 AM EDT eCW1 ([facility] [place] [address] [address] 12/09/2020 12:00:00 AM EDT eCW1 ([facility] Outpatient Attender: Romy Montgomery MD [id number] 2020 12:00:00 AM EDT - 12/08/2020 11:07:41 AM [facility] Outpatient Attender: Kerri SHEEHAN [id number] 12:00:00 AM EDT - 10/14/2020 01:45:12 PM [facility] [place] [address] [address] 09/19/2020 12:00:00 AM EDT eCW1 ([facility]) [place] [address] [facility] [address] 09/19/2020 12:00:00 AM EDT eCW1 ([facility]) Outpatient Referrer: SCOTT TEE NP 09/18/2020 1 2:00:00 AM EDT Pain, unspecified [facility] Pain, unspecified Outpatient Attender: SCOTT TEE NPAttender: PRIMO RIOJAS MD [id number] 09/18/2020 12:00:00 AM EDT Other specified extrapyramidal and movem ent disorders [facility] Other specified extrapyramidal and movem ent disorders Outpatient [address] [facility] [address] 09/02/2020 12:00:00 AM EDT eCW1 ([facility]) Outpatient Referrer: Darline THOMAS 08/27 12:00:00 AM EDT Radiculopathy, cervical region [facility] Radiculopathy, cervical region Outpatient Attender: Dalrine THOMAS [id number] 08/27/2020 12:00:00 AM EDT Radiculopathy, [facility] Radiculopathy, cervical region Outpatient Referrer: Darline UMANZORC 08/27 12:00:00 AM EDT Radiculopathy, [facility] Radiculopathy, cervical region Outpatient Attender: TISHA LOVE MD Main Office 08/12/2020 11:00:00 AM EDT MED[facility] ([facility]) Outpatient Attender: Travis Randhawaender: EDMAR SHEEHAN 08/04/2020 12:00:00 AM EDT [facility] Outpatient Attender: Ashley Pennington/Kalyn/Roger braxton/Vlad 07/21/2020 10:30:00 AM EDT [facility] Unknown [address] [facility] [address] 07/18/2020 12:00:00 AM EST eCW1 ([facility]) Unknown [address] [facility] [place] [address] 07/18/2020 12:00:00 AM EST eCW1 ([facility]) Unknown [address] [facility] [address] 07/16/2020 12:00:00 AM EST eCW1 ([facility]) Outpatient Attender: Romy Chauhan scarlet: SAAD BRISENOReferrer: Romy Montgomery MD 07/11/2020 12:00:00 AM EST Other fatigue [facility] Other fatigue Outpatient Attender: Kerri SHEEHAN [id number] 12:00:00 AM EST - 07/10/2020 12:39:37 PM EST Type 1 diabetes mellitus with hyperglycemia [facility] Type 1 diabetes mellitus with hyperglyce sadie Unknown [address] [facility] [address] 07/01/2020 12:00:00 AM EST eCW1 ([facility]) Unknown [address] [facility] [address] 06/23/2020 12:00:00 AM EST eCW1 ([facility]) Unknown [address] [facility] [address] 06/17/2020 12:00:00 AM EST eCW1 ([facility]) Unknown [address] [facility] [address] 06/09/2020 12:00:00 AM EST eCW1 ([facility]) (WC GYNANN[facility] Yearly EVALUATION ANALYST Exam [address] [place] [address] 06/05/2020 12:00:00 AM EST eCW1 ([facility]) Outpatient Attender: Simi Navarerte 06/05/2020 12:00:0 0 AM [facility] Extended Individual Psychotherapy - 45 min Attender: Shelley Banuelos [facility] 05/23/2020 03:00:00 AM EST - 05/23/2020 03:00:00 AM EST [facility] ([facility]) Attender: Lyn Hernandezoza 05/23/2020 12:00:00 AM EST [facility] ([facility]) [place] [address] [address] 05/15/2020 12:00:00 AM EST eCW1 ([facility]) Outpatient Attender: Simi Navarrete 05/12/2020 12:00:0 0 AM [facility] Outpatient Attender: AUNDREA DEAN [id number] 05/12/2020 12:00: 00 AM [facility] Outpatient [address] [address] 05/08/2020 12:00:00 AM EST eCW1 ([facility]) Extended Individual Psychotherapy - 45 min Attender: Shelley Banuelos [facility] 05/07/2020 03:00:00 AM EST - 05/07/2020 03:00:00 AM EST [facility] ([facility]) Attender: Lyn Vin 05/07/2020 12:00:00 AM EST [facility] ([facility]) Outpatient Attender: Travis Topete [id number] 05/05/2020 1 2:00:00 AM EST Presence of insulin pump (external) (internal) [facility] Presence of insulin pump (external) (int ernal) Extended Individual Psychotherapy - 45 min Attender: Uma Chavez [facility] 04/24/2020 03:00:00 AM EST - 04/24/2020 03:00:00 AM EST [facility] ([facility]) Attender: Lynn Chavez 04/24/2020 12:00:[address] [facility] ([facility]) Outpatient Attender: VINCENT LUJAN [facility] 04/08 12:30:00 PM EST [facility] ([facility] Outpatient Attender: VINCENT MENDEZ MD Physical Therapy 10:30:00 AM EST MED[facility] ([facility]) Extended Individual Psychotherapy - 45 min Attender: Uma Chavez [facility] 04/10/2020 08:45:00 AM EST - 04/10/2020 08:45:00 AM EST [facility] ([facility]) Attender: Lynn Chavez 04/10/2020 12:00:[address] [facility] ([facility]) [place] [address] [address] 03/26/2020 12:00:00 AM EST eCW1 [facility] Extended Individual Psychotherapy - 45 min Attender: Uma Chavez [facility] 03/21/2020 01:00:00 AM EST - 03/21/2020 01:00:00 AM EST [facility] ([facility]) [place] [address] [address] 03/21/2020 12:00:00 AM EST eCW1 [facility]) Attender: Lynn Chavez 03/21/2020 12:00:[address] [facility] ([facility]) [place] [address] [address] 03/20/2020 12:00:00 AM EST eCW1 ([facility]) [place] [address] [facility] [address] 03/20/2020 12:00:00 AM EST eCW1 ([facility]) Outpatient [facility] 03/18/2020 03:40:01 PM EST [facility] Extended Individual Psychotherapy - 45 min Attender: Uma Chavez [facility] 03/14/2020 04:45:00 AM EST - 03/14/2020 04:45:00 AM EST [facility] ([facility]) Attender: Lynn Chavez 03/14/2020 12:00:[address] [facility] ([facility]) Extended Individual Psychotherapy - 45 min Att[facility]: [facility] 03/07/2020 05:00:00 AM EDT - 03/07/2020 05:00:00 AM EDT [facility] ([facility]) Attender: Lynn Chavez 03/07/2020 12:00:00 AM E DT [facility] ([facility]) Outpatient Attender: VINCENT MENDEZ MD Physical Therapy 01:00:00 PM EDT [facility] ([facility]) Extended Individual Psychotherapy - 45 min Attender: [facility] 02/21/2020 03:45:00 AM EDT - 02/21/2020 03:45:00 AM EDT [facility] ([facility]) Attender: Lynn Chavez 02/21/2020 12:00:00 AM E DT [facility] ([facility]) Outpatient [facility]ERAY[facility] 02/18/2020 09:48:01 AM EDT [facility] Outpatient [facility] 02/18/2020 09:38:00 AM EDT [facility] Outpatient [facility] 02/15/2020 10:06:01 AM EDT [facility] Outpatient [facility] 02/15/2020 09:32:01 AM EDT [facility] Outpatient LERAYDC 02/15/2020 09:31:00 AM EDT [facility] Outpatient [facility] 02/15/2020 08:59:00 AM EDT [facility] Extended Individual Psychotherapy - 45 min Attender: Uma Chavez [facility] 02/15/2020 03:00:00 AM EDT - 02/15/2020 03:00:00 AM EDT [facility] ([facility]) Attender: Lynn Chavez 02/15/2020 12:00:00 AM E DT [facility] ([facility]) Outpatient Attender: VINCENT LUJAN [facility] Office 11/2019 01:00:00 PM EDT MED[facility] ([facility] Outpatient Attender: TISHA LOVE MD Main Office 02/12/2020 10:30:00 AM EDT [facility] ([facility] Extended Individual Psychotherapy - 45 min Attender: Umaanayeli Chaevz [facility] 02/08/2020 02:45:00 AM EDT - 02/08/2020 02:45:00 AM EDT [facility] ([facility]) Attender: Lynn Chavez 02/08/2020 12:00:00 AM E DT [facility] ([facility]) Outpatient Attender: Romy Montgomery MD [id number] 01/29/2020 12:00:00 AM EDT [facility] [place] [address] [address] 01/29/2020 12:00:00 AM EDT eC1 ([facility]) Extended Individual Psychotherapy - 45 min Attender: Uma Chavez [facility] 01/24/2020 03:00:00 AM EDT - 01/24/2020 03:00:00 AM EDT [facility] ([facility]) Attender: Lynn Chavez 01/24/2020 12:00:00 AM E DT [facility] ([facility]) Immunizations Vaccine Date Status Description Data Source(s) COVID-19 VACCINE Moderna 01/19/2021 12:00:00 AM EDT completed [place] Vaccine Series Complete: YESThis Data wa s Submitted to [facility] Via Rec[employer] Me. COVID-19 VACCINE Moderna 12/22/2020 12:00:00 AM EDT completed [place] Vaccine Series Complete: NOThis Data was Submitted to [facility] Via Rec[employer] Me. Medications Medication Brand Name Start Date Product Form Dose Route Admi nistrative Instructions Pharmacy Instructions Status Indications Reaction Description Data Source(s) Allergy Injection 2 Or More 03/09/2021 12:00:00 AM EDT completed [facility] ([facility] Medication administered onsite 500 mg 03/02/2021 12:00:00 AM EDT tablet 6 TAKE ONE TABLET BY MOUTH TWICE A DAY FOR 3 DAYS TAKE ONE TABLET BY MOUTH TWICE A DAY FOR 3 DAYS SOLD: 2020 [facility] Allergy Injection 2 Or More 02/16/2021 12:00:00 AM EDT completed [facility] ([facility]) Medication administered onsite 10 mg 02/14/2021 12:00:00 AM EDT cartridge 672 INHALE 1 CARTRIDGE BY MOUTH NEEDED, MAXIMUM DAILY DOSE = 16 CARTRIDGES INHALE 1 CARTRIDGE BY MOUTH NEEDED, MAXIMUM DAILY DOSE = 16 CARTRIDGES SOLD: 02/16/2021 [facility] Nicotine 10 MG UNK 02/13/2021 12:00:00 AM EDT active Nicotine 10 MG eCW1 ([facility]) Nicotine 10 MG UNK 02/13/2021 12:00:00 AM EDT active Nicotine 10 MG eCW1 ([facility]) Nicotine 10 MG UNK 02/13/2021 12:00:00 AM EDT active Nicotine 10 MG eCW1 ([facility]) Azelastine hydrochloride 0.206 MG/ACTUAT Metered Dose Nasal [place] 205.5 mcg (0.15 %) AZELASTINE HCL 02/12/2021 12:00:00 AM EDT spray,non-aerosol 30 2 SPRAYS IN EACH NOSTRIL EVERY MORNING 2 SPRAYS IN EACH NOSTRIL EVERY MORNING SOLD: 02/16/2021 [facility] Azelastine HCL (Nasal) Azelastine HCL (Nasal) 02/11/2021 12:00:00 AM E DT active [facility] ([facility] Allergy Injection 2 Or More 01/26/2021 12:00:00 AM EDT completed [facility] ([facility]) Medication administered onsite Trazodone Hydrochloride 100 MG Oral Tablet TRAZODONE HCL 01/21/2021 12:00:00 AM EDT tablet 90 TAKE ONE TABLET BY MOUTH AT BEDTIME TAKE ONE TABLET BY MOUTH AT BEDTIME SOLD: 01/22/2021 [facility] Allergy Injection 2 Or More 12/30/2020 12:00:00 AM EDT completed [facility] ([facility]) Medication administered onsite 20 mg 12/24/2020 12:00:00 AM EDT capsule,delayed release (DR/EC) 90 TAKE ONE CAPSULE BY MOUTH EVERY DAY TAKE ONE CAPSULE BY MOUTH EVERY DAY SOLD: 12/24/2020 [facility] Acetaminophen 325 MG / Hydrocodone Yessenia trate 5 MG Oral Tablet HYDROcodone- Acetaminophen 5-325 MG HYDROcodone-Acetaminophen 5-325 MG 12/10/2020 12:00:00 AM EDT 1.0 {tablet_as_needed} active HYDROcodone-Acetaminophen 5-325 MG eCW1 ([facility]) Acetaminophen 325 MG / Hydrocodone Yessenia trate 5 MG Oral Tablet HYDROcodone- Acetaminophen 5-325 MG HYDROcodone-Acetaminophen 5-325 MG 12/10/2020 12:00:00 AM EDT 1.0 {tablet_as_needed} active eCW1 ([facility]) Acetaminophen 325 MG / Hydrocodone Yessenia trate 5 MG Oral Tablet HYDROcodone- Acetaminophen 5-325 MG HYDROcodone-Acetaminophen 5-325 MG 12/10/2020 12:00:00 AM EDT 1.0 {tablet_as_needed} active HYDROcodone-Acetaminophen 5-325 MG eCW1 ([facility]) Acetaminophen 325 MG / Hydrocodone Yessenia trate 5 MG Oral Tablet HYDROcodone- Acetaminophen 5-325 MG HYDROcodone-Acetaminophen 5-325 MG 12/10/2020 12:00:00 AM EDT 1.0 {tablet_as_needed} active HYDROcodone-Acetaminophen 5-325 MG eCW1 ([facility]) Acetaminophen 325 MG / Hydrocodone Bitartrate 5 [...] 1.0 {tablet_as_needed} active HYDROcodone-Acetaminophen 5-325 MG eCW1 ([facility]) Acetaminophen 325 MG / Hydrocodone Yessenia trate 5 MG Oral Tablet HYDROcodone- Acetaminophen 5-325 MG HYDROcodone-Acetaminophen 5-325 MG 12/10/2020 12:00:00 AM EDT 1.0 {tablet_as_needed} active HYDROcodone-Acetaminophen 5-325 MG eCW1 ([facility]) 500 mg 12/10/2020 12:00:00 AM EDT tablet [...] PUMP UP TO 100 UNITS A DAY [facility] Type 1 diabetes mellitus with hyperglyce [...] n HCl ER (XL) 150 MG eCW1 ([facility]) 24 HR Bupropion Hydrochloride 150 MG Ext ended Release Oral Tablet buPROPion HCl ER (XL) 150 MG buPROPion HCl ER (XL) 150 MG 09/19/2020 12:00:00 AM EDT 1.0 {tablet_in_the_morning} active buPROPio n HCl ER (XL) 150 MG eCW1 ([facility]) Cyclobenzaprine hydrochloride 5 MG Oral Tablet CYCLOBENZAPRI [...] 12:00:00 AM EDT 1.0 {tablet_in_the_morning} active eCW1 ([facility]) 24 HR Bupropion Hydrochloride 150 MG Ext ended Release Oral Tablet buPROPion HCl ER (XL) 150 MG buPROPion HCl ER (XL) 150 MG 09/19/2020 12:00:00 AM EDT 1.0 {tablet_in_the_morning} active buPROPio n HCl ER (XL) 150 MG eCW1 ([facility]) 24 HR Bupropion Hydrochloride 150 MG Ext ended Release Oral Tablet buPROPion HCl ER (XL) 150 MG buPROPion HCl ER (XL) 150 MG 09/19/2020 12:00:00 AM EDT 1.0 {tablet_in_the_morning} active buPROPio n HCl ER (XL) 150 MG eCW1 ([facility]) 24 HR Bupropion Hydrochloride 150 MG Ext ended Release Oral Tablet BuPROPion HCl ER (XL) 150 MG BuPROPion HCl ER (XL) 150 MG 09/19/2020 12:00:00 AM EDT 1.0 {tablet_in_the_morning} active BuPROPio n HCl ER (XL) 150 MG eCW1 ([facility]) 24 HR Bupropion Hydrochloride 150 MG Ext ended Release Oral Tablet buPROPion HCl ER (XL) 150 MG buPROPion HCl ER (XL) 150 MG 09/19/2020 12:00:00 AM EDT 1.0 {tablet_in_the_morning} active buPROPio n HCl ER (XL) 150 MG eCW1 ([facility]) 24 HR Bupropion Hydrochloride 150 MG Extended Release Oral T ablet BUPROPION HCL 09/19/2020 12:00:00 AM EDT tablet extended release 24 hr 90 TAKE ONE TABLET BY MOUTH EVERY MORNING TAKE ONE TABLET BY MOUTH EVERY MORNING SOLD: 09/19/2020 [facility] 24 HR Bupropion Hydrochloride 150 MG Ext ended Release Oral Tablet buPROPion HCl ER (XL) 150 MG buPROPion HCl ER (XL) 150 MG 09/19/2020 12:00:00 AM EDT 1.0 {tablet_in_the_morning} active buPROPio n HCl ER (XL) 150 MG eCW1 ([facility]) 24 HR Bupropion Hydrochloride 150 MG Ext ended Release Oral Tablet buPROPion HCl ER (XL) 150 MG buPROPion HCl ER (XL) 150 MG 09/19/2020 12:00:00 AM EDT 1.0 {tablet_in_the_morning} active buPROPio n HCl ER (XL) 150 MG eCW1 ([facility]) Allergy Injection 2 Or More 09/15/2020 12:00:00 [...] HOURS NEEDED FOR ABDOMINAL PAIN SOLD: 07/21/2020 [facility] 10 mg 07/21/2020 12:00:00 AM EDT capsule 30 TAKE ONE CAPSULE BY MOUTH EVERY 6 HOURS NEEDED FOR ABDOMINAL PAIN TAKE ONE CAPSULE BY MOUTH EVERY 6 HOURS NEEDED FOR ABDOMINAL PAIN SOLD: 12/24/2020 [facility] Dicyclomine Hydrochloride 10 MG Oral Capsule Dicyclomine HCL 07/21/2020 12:00:00 AM EDT ORAL active MEDENT ([facility], ) 5-325 mg 07/19/2020 12:00:00 [...] 1.0 {tablet_as_needed} active Hydrocodone-Acetaminophen 5-325 MG eCW1 ([facility]) Acetaminophen 325 MG / Hydrocodone Yessenia trate 5 MG Oral Tablet HYDROcodone- Acetaminophen 5-325 MG HYDROcodone-Acetaminophen 5-325 MG 07/18/2020 12:00:00 AM EST 1.0 {tablet_as_needed} active HYDROcodone-Acetaminophen 5-325 MG eCW1 ([facility]) Baqsimi One Pack 3 MG/DOSE Nasal Powder (Glucagon) [id number] -[id number] 07/18/2020 12:00:00 AM EST active Type 1 diabetes mellitus with hyperglycemia [place] 3mg in one nostril to treat severe hypoglycemia. Dx E10.65 . [facility] Type 1 diabetes mellitus with hyperglyce sadie Acetaminophen 325 MG / Hydrocodone Yessenia trate 5 MG Oral Tablet Hydrocodone- Acetaminophen 5-325 MG Hydrocodone-Acetaminophen 5-325 MG 07/18/2020 12:00:00 AM EST 1.0 {tablet_as_needed} active Hydrocodone-Acetaminophen 5-325 MG eCW1 ([facility]) Acetaminophen 325 MG / Hydrocodone Yessenia trate 5 MG Oral Tablet Hydrocodone- Acetaminophen 5-325 MG Hydrocodone-Acetaminophen 5-325 MG 07/18/2020 12:00:00 AM EST 1.0 {tablet_as_needed} active Hydrocodone-Acetaminophen 5-325 MG eCW1 ([facility]) Acetaminophen 325 MG / Hydrocodone Yessenia trate 5 MG Oral Tablet Hydrocodone- Acetaminophen 5-325 MG Hydrocodone-Acetaminophen 5-325 MG 07/18/2020 12:00:00 AM EST 1.0 {tablet_as_needed} active Hydrocodone-Acetaminophen 5-325 MG eCW1 ([facility]) 3 mg/actuation 07/18/2020 12:00:00 AM EST spray,non-aerosol 1 SPRAY 1 PACK (3MG) IN 1 NOSTRIL TO TREAT SEVERE HYPOGLYCEMIA SPRAY 1 PACK (3MG) IN 1 NOSTRIL TO TREAT SEVERE HYPOGLYCEMIA SOLD: 08/25/2020 [facility] Acetaminophen 325 MG / Hydrocodone Yessenia trate 5 MG Oral Tablet Hydrocodone- Acetaminophen 5-325 MG Hydrocodone-Acetaminophen 5-325 MG 07/18/2020 12:00:00 AM EST 1.0 {tablet_as_needed} active Hydrocodone-Acetaminophen 5-325 MG eCW1 ([facility]) 3 mg/actuation 07/18/2020 12:00:00 AM EST spray,non-aerosol 1 SPRAY 1 PACK (3MG) IN 1 NOSTRIL TO TREAT SEVERE HYPOGLYCEMIA SPRAY 1 PACK (3MG) IN 1 NOSTRIL TO TREAT SEVERE HYPOGLYCEMIA SOLD: 07/21/2020 [facility] Acetaminophen 325 MG / Hydrocodone Yessenia trate 5 MG Oral Tablet Hydrocodone- Acetaminophen 5-325 MG Hydrocodone-Acetaminophen 5-325 MG 07/18/2020 12:00:00 AM EST 1.0 {tablet_as_needed} active Hydrocodone-Acetaminophen 5-325 MG eCW1 ([facility]) OneTouch Ultra In Vitro Strip [id number] 07/10/2020 12:00:00 AM EST active Type 1 diabetes mellitus with hyperglycemia Use as directed to check blood glucose levels 4 times daily. Dx:E10.65 [facility] Type 1 diabetes mellitus with hyperglyce sadie Allergy Injection 2 Or More 07/08/2020 12:00:00 AM EST completed MEDENT ([facility]) Medication administered onsite Norethindrone 0.35 MG Norethindrone 0.35 MG 07/01/2020 12:00:00 AM EST 1.0 {tablet} active Norethindrone 0.35 MG e CW1 ([facility]) Norethindrone 0.35 MG Norethindrone 0.35 MG 07/01/2020 12:00:00 AM EST 1.0 {tablet} suspended Norethindrone 0.35 MG eCW1 ([facility]) Norethindrone 0.35 MG Norethindrone 0.35 MG 07/01/2020 12:00:00 AM EST 1.0 {tablet} active Norethindrone 0.35 MG e CW1 ([facility]) Norethindrone 0.35 MG Norethindrone 0.35 MG 07/01/2020 12:00:00 AM EST 1.0 {tablet} suspended Norethindrone 0.35 MG eCW1 ([facility]) Norethindrone 0.35 MG Norethindrone 0.35 MG 07/01/2020 12:00:00 AM EST 1.0 {tablet} active Norethindrone 0.35 MG e CW1 ([facility]) Norethindrone 0.35 MG Norethindrone 0.35 MG 07/01/2020 12:00:00 AM EST 1.0 {tablet} suspended Norethindrone 0.35 MG eCW1 ([facility]) Norethindrone 0.35 MG Norethindrone 0.35 MG 07/01/2020 12:00:00 AM EST 1.0 {tablet} suspended Norethindrone 0.35 MG eCW1 ([facility]) Norethindrone 0.35 MG Norethindrone 0.35 MG 07/01/2020 12:00:00 AM EST 1.0 {tablet} suspended Norethindrone 0.35 MG eCW1 ([facility]) Norethindrone 0.35 MG Norethindrone 0.35 MG 07/01/2020 12:00:00 AM EST 1.0 {tablet} suspended Norethindrone 0.35 MG eCW1 ([facility]) Norethindrone 0.35 MG Norethindrone 0.35 MG 07/01/2020 12:00:00 AM EST 1.0 {tablet} suspended Norethindrone 0.35 MG eCW1 ([facility]) Norethindrone 0.35 MG Norethindrone 0.35 MG 07/01/2020 12:00:00 AM EST 1.0 {tablet} suspended Norethindrone 0.35 MG eCW1 ([facility]) Norethindrone 0.35 MG Norethindrone 0.35 MG 07/01/2020 12:00:00 AM EST 1.0 {tablet} suspended eCW1 ([facility]) Norethindrone 0.35 MG Norethindrone 0.35 MG 07/01/2020 12:00:00 AM EST 1.0 {tablet} suspended Norethindrone 0.35 MG eCW1 ([facility]) Norethindrone 0.35 MG Norethindrone 0.35 MG 07/01/2020 12:00:00 AM EST 1.0 {tablet} active Norethindrone 0.35 MG e CW1 ([facility]) Trazodone Hydrochloride 100 MG Oral Tablet TRAZODONE HCL 06/25/2020 12:00:00 AM EST tablet 90 TAKE ONE TABLET BY MOUTH AT BEDTIME TAKE ONE TABLET BY MOUTH AT BEDTIME SOLD: 10/08/2020 [facility] Trazodone Hydrochloride 100 MG Oral Tablet TRAZODONE HCL 06/25/2020 12:00:00 AM EST tablet 90 TAKE ONE TABLET BY MOUTH AT BEDTIME TAKE ONE TABLET BY MOUTH AT BEDTIME SOLD: 06/30/2020 [facility] Allergy Injection 2 Or More 06/16/2020 12:00:00 AM EST completed MEDENT ([facility]) Medication administered onsite valacyclovir 500 MG Oral Tablet valACYclovir HCl 500 M G Oral Tablet (VALTREX) valACYclovir HCl 500 MG Oral Tablet (VALTREX) 06/16/2020 12:00:00 AM EST active TAKE ONE TABLET BY MOUTH TWICE A DAY FOR 3 DAYS [facility] Norethindrone 0.35 MG Oral Tablet Norethindrone 0.35 M G Oral Tablet (MICRONOR) Norethindrone 0.35 MG Oral Tablet (MICRONOR) 06/11/2020 12:00:00 AM EST 1 {tbl} Oral aborted Take 1 tablet by mouth d [facility] Fluconazole 150 MG Oral Tablet Fluconazole 150 MG 06/05/2020 12:00: 00 AM EST 1.0 {tablet} suspended Fluconazole 150 M G eCW1 ([facility]) Fluconazole 150 MG Oral Tablet Fluconazole 150 MG 06/05/2020 12:00: 00 AM EST 1.0 {tablet} active eCW1 ([facility]) Fluconazole 150 MG Oral Tablet Fluconazole 150 MG 06/05/2020 12:00: 00 AM EST 1.0 {tablet} active Fluconazole 150 MG eCW1 ([facility]) Fluconazole 150 MG Oral Tablet Fluconazole 150 MG 06/05/2020 12:00: 00 AM EST 1.0 {tablet} active Fluconazole 150 MG eCW1 ([facility]) Peg-BE 0.35 MG Peg-BE 0.35 MG 06/05/2020 12:00:00 AM EST 1.0 { tablet} active Peg-BE 0.35 MG eCW1 ([facility]) Fluconazole 150 MG Oral Tablet Fluconazole 150 MG 06/05/2020 12:00: 00 AM EST 1.0 {tablet} active Fluconazole 150 MG eCW1 ([facility]) Fluconazole 150 MG Oral Tablet Fluconazole 150 MG 06/05/2020 12:00: 00 AM EST 1.0 {tablet} active Fluconazole 150 MG eCW1 ([facility]) Fluconazole 150 MG Oral Tablet Fluconazole 150 MG 06/05/2020 12:00: 00 AM EST 1.0 {tablet} active Fluconazole 150 MG eCW1 ([facility]) Fluconazole 150 MG Oral Tablet Fluconazole 150 MG 06/05/2020 12:00: 00 AM EST 1.0 {tablet} active Fluconazole 150 MG eCW1 ([facility]) Fluconazole 150 MG Oral Tablet Fluconazole 150 MG Oral Tablet (DIFLUCAN) Fluconazole 150 MG Oral Tablet (DIFLUCAN) 06/05/2020 12:00:00 AM EST active TAKE ONE TABLET BY MOUTH EVERY W [place]ASEPPI [place] NEEDED FOR [facility] Peg-BE 0.35 MG Peg-BE 0.35 MG 06/05/2020 12:00:00 AM EST 1.0 { tablet} active Peg-BE 0.35 MG eCW1 ([facility]) Fluconazole 150 MG Oral Tablet Fluconazole 150 MG 06/05/2020 12:00: 00 AM EST 1.0 {tablet} active Fluconazole 150 MG eCW1 ([facility]) Fluconazole 150 MG Oral Tablet Fluconazole 150 MG 06/05/2020 12:00: 00 AM EST 1.0 {tablet} active Fluconazole 150 MG eCW1 ([facility]) Fluconazole 150 MG Oral Tablet Fluconazole 150 MG 06/05/2020 12:00: 00 AM EST 1.0 {tablet} active Fluconazole 150 MG eCW1 ([facility]) Fluconazole 150 MG Oral Tablet Fluconazole 150 MG 06/05/2020 12:00: 00 AM EST 1.0 {tablet} active Fluconazole 150 MG eCW1 ([facility]) Peg-BE 0.35 MG Peg-BE 0.35 MG 06/05/2020 12:00:00 AM EST 1.0 { tablet} active Peg-BE 0.35 MG eCW1 ([facility]) Fluconazole 150 MG Oral Tablet Fluconazole 150 MG 06/05/2020 12:00: 00 AM EST 1.0 {tablet} active Fluconazole 150 MG eCW1 ([facility]) Fluconazole 150 MG Oral Tablet Fluconazole 150 MG 06/05/2020 12:00: 00 AM EST 1.0 {tablet} active Fluconazole 150 MG eCW1 ([facility]) Fluconazole 150 MG Oral Tablet Fluconazole 150 MG 06/05/2020 12:00: 00 AM EST 1.0 {tablet} suspended Fluconazole 150 M G eCW1 ([facility]) Fluconazole 150 MG Oral Tablet Fluconazole 150 MG 06/05/2020 12:00: 00 AM EST 1.0 {tablet} active Fluconazole 150 MG eCW1 ([facility]) Fluconazole 150 MG Oral Tablet Fluconazole 150 MG 06/05/2020 12:00: 00 AM EST 1.0 {tablet} active Fluconazole 150 MG eCW1 ([facility]) Fluconazole 150 MG Oral Tablet Fluconazole 150 MG 06/05/2020 12:00: 00 AM EST 1.0 {tablet} active Fluconazole 150 MG eCW1 ([facility]) Peg-BE 0.35 MG Peg-BE 0.35 MG 06/05/2020 12:00:00 AM EST 1.0 { tablet} active Peg-BE 0.35 MG eCW1 ([facility]) OneTouch Ultra In Vitro Strip [id number] 05/30/2020 12:00:00 AM EST aborted Type 1 diabetes mellitus with hyperglycemia Use as directed to check blood glucose levels six times daily. MDD 6. Dx:E10.65 [facility] Type 1 diabetes mellitus with hyperglyce sadie Allergy Injection 2 Or More 05/23/2020 12:00:00 AM EST completed MEDENT ([facility]) Medication administered onsite Insulin Lispro 100 UNT/ML Injectable Yanci ution [Humalog] HumaLOG 100 UNIT/ML Subcutaneous Solution HumaLOG 100 UNIT/ML Subcutaneous Solution 05/12/2020 12:00:00 AM EST active Type 1 diabetes mellitus with hyperglycemia Use as directed via insulin pump, MDD 100 units. DX: E10.65, Z79.4, Z96.41 [facility] Type 1 diabetes mellitus with hyperglyce sadie valacyclovir 500 MG Oral Tablet valACYclovir HCl 500 MG valA CYclovir HCl 500 MG 05/08/2020 12:00:00 AM EST 1.0 {tablet} active valACYclovir HCl 500 MG eCW1 ([facility]) valacyclovir 500 MG Oral Tablet valACYclovir HCl 500 MG valA CYclovir HCl 500 MG 05/08/2020 12:00:00 AM EST 1.0 {tablet} active valACYclovir HCl 500 MG eCW1 ([facility]) 500 mg 05/08/2020 12:00:00 AM EST tablet 6 TAKE ONE TABLET BY MOUTH TWICE A DAY FOR 3 DAYS TAKE ONE TABLET BY MOUTH TWICE A DAY FOR 3 DAYS SOLD: 2020 [facility] valacyclovir 500 MG Oral Tablet Valacyclovir HCl 500 MG Vala cyclovir HCl 500 MG 05/08/2020 12:00:00 AM EST 1.0 {tablet} active Valacyclovir HCl 500 MG eCW1 ([facility]) 500 mg 05/08/2020 12:00:00 AM EST tablet [...] A DAY FOR 3 DAYS SOLD: [email or web address] valacyclovir 500 MG Oral Tablet Valacyclovir HCl 500 MG Vala cyclovir HCl 500 MG 05/08/2020 12:00:00 AM EST 1.0 {tablet} active Valacyclovir HCl 500 MG eCW1 ([facility]) valacyclovir 500 MG Oral Tablet Valacyclovir HCl 500 MG Vala cyclovir HCl 500 MG 05/08/2020 12:00:00 AM EST 1.0 {tablet} active Valacyclovir HCl 500 MG eCW1 ([facility]) valacyclovir 500 MG Oral Tablet Valacyclovir HCl 500 MG Vala cyclovir HCl 500 MG 05/08/2020 12:00:00 AM EST 1.0 {tablet} active Valacyclovir HCl 500 MG eCW1 ([facility]) valacyclovir 500 MG Oral Tablet Valacyclovir HCl 500 MG Vala cyclovir HCl 500 MG 05/08/2020 12:00:00 AM EST 1.0 {tablet} active Valacyclovir HCl 500 MG eCW1 ([facility]) 500 mg 05/08/2020 12:00:00 AM EST tablet 6 TAKE ONE TABLET BY MOUTH TWICE A DAY FOR 3 DAYS TAKE ONE TABLET BY MOUTH TWICE A DAY FOR 3 DAYS SOLD: 2020 [facility] valacyclovir 500 MG Oral Tablet valACYclovir HCl 500 MG valA CYclovir HCl 500 MG 05/08/2020 12:00:00 AM EST 1.0 {tablet} active valACYclovir HCl 500 MG eCW1 ([facility]) valacyclovir 500 MG Oral Tablet Valacyclovir HCl 500 MG Vala cyclovir HCl 500 MG 05/08/2020 12:00:00 AM EST 1.0 {tablet} active Valacyclovir HCl 500 MG eCW1 ([facility]) valacyclovir 500 MG Oral Tablet valACYclovir HCl 500 MG valA CYclovir HCl 500 MG 05/08/2020 12:00:00 AM EST 1.0 {tablet} active valACYclovir HCl 500 MG eCW1 ([facility]) valacyclovir 500 MG Oral Tablet Valacyclovir HCl 500 MG Vala cyclovir HCl 500 MG 05/08/2020 12:00:00 AM EST 1.0 {tablet} active Valacyclovir HCl 500 MG eCW1 ([facility]) 500 mg 05/08/2020 12:00:00 AM EST tablet 6 TAKE ONE TABLET BY MOUTH TWICE A DAY FOR 3 DAYS TAKE ONE TABLET BY MOUTH TWICE A DAY FOR 3 DAYS SOLD: 2020 [facility] valacyclovir 500 MG Oral Tablet Valacyclovir HCl 500 MG Vala cyclovir HCl 500 MG 05/08/2020 12:00:00 AM EST 1.0 {tablet} active Valacyclovir HCl 500 MG eCW1 ([facility]) valacyclovir 500 MG Oral Tablet Valacyclovir HCl 500 MG Vala cyclovir HCl 500 MG 05/08/2020 12:00:00 AM EST 1.0 {tablet} active Valacyclovir HCl 500 MG eCW1 ([facility]) valacyclovir 500 MG Oral Tablet valACYclovir HCl 500 MG valA CYclovir HCl 500 MG 05/08/2020 12:00:00 AM EST 1.0 {tablet} active eCW1 ([facility]) valacyclovir 500 MG Oral Tablet Valacyclovir HCl 500 MG Vala cyclovir HCl 500 MG 05/08/2020 12:00:00 AM EST 1.0 {tablet} active Valacyclovir HCl 500 MG eCW1 ([facility]) valacyclovir 500 MG Oral Tablet valACYclovir HCl 500 MG valA CYclovir HCl 500 MG 05/08/2020 12:00:00 AM EST 1.0 {tablet} active valACYclovir HCl 500 MG eCW1 ([facility]) 500 mg 05/08/2020 12:00:00 AM EST tablet 6 TAKE ONE TABLET BY MOUTH TWICE A DAY FOR 3 DAYS TAKE ONE TABLET BY MOUTH TWICE A DAY FOR 3 DAYS SOLD: 2020 [facility] valacyclovir 500 MG Oral Tablet valACYclovir HCl 500 MG valA CYclovir HCl 500 MG 05/08/2020 12:00:00 AM EST 1.0 {tablet} active valACYclovir HCl 500 MG eCW1 ([facility]) valacyclovir 500 MG Oral Tablet Valacyclovir HCl 500 MG Vala cyclovir HCl 500 MG 05/08/2020 12:00:00 AM EST 1.0 {tablet} active Valacyclovir HCl 500 MG eCW1 ([facility]) valacyclovir 500 MG Oral Tablet Valacyclovir HCl 500 MG Vala cyclovir HCl 500 MG 05/08/2020 12:00:00 AM EST 1.0 {tablet} active Valacyclovir HCl 500 MG eCW1 ([facility]) valacyclovir 500 MG Oral Tablet Valacyclovir HCl 500 MG Vala cyclovir HCl 500 MG 05/08/2020 12:00:00 AM EST 1.0 {tablet} active Valacyclovir HCl 500 MG eCW1 ([facility]) Dexcom G6 Sensor [id number] 05/05/2020 12:00:00 AM EST 1 {each} Does not apply active Type 1 diabetes mellitus with hyperg lycemia 1 each by Does not apply route every 10 (ten) days Dx E10.65, last office visit: 03/12/19 [facility] Type 1 diabetes mellitus with hyperglyce sadie Dexcom G6 Blade Grinder Device [id number] 05/05/2020 12:00:00 AM EST 1 {each} Does not apply active Type 1 diabetes mellitus with hyperg lycemia 1 each by Does not apply route See Admin Instructions For continuous glucose monitoring, dx E10.65, last office visit 03/12/19 [facility] Type 1 diabetes mellitus with hyperglyce sadie Ketostix In Vitro Strip [id number] 05/05/2020 12:00:00 AM EST active Type 1 diabetes mellitus with hyperglycemia Ketostix, use as directed up to 10 times daily for illness or elevated blood sugar over 250 twice in a row, dx E10.65 [facility] Type 1 diabetes mellitus with hyperglyce sadie Insulin Lispro 100 UNT/ML Injectable Yanci ution [Humalog] HumaLOG 100 UNIT/ML Subcutaneous Solution HumaLOG 100 UNIT/ML Subcutaneous Solution 05/05/2020 12:00:00 AM EST active Type 1 diabetes mellitus with hyperglycemia Use as directed via insulin pump, MDD 100 units. DX: E10.65, Z79.4, Z96.41 [facility] Type 1 diabetes mellitus with hyperglyce sadie URINE ACETONE TEST,STRIPS 05/05/2020 12:00:00 AM EST strip 50 USE DIRECTED UP TO 10 TIMES DAILY FOR ILLNESS OR ELEVATED BLOOD SUGAR OVER 250 TWICE IN A ROW USE DIRECTED UP TO 10 TIMES DAILY FOR ILLNESS OR ELEVATED BLOOD SUGAR OVER 250 TWICE IN A ROW SOLD: 05/15/2020 [facility] Dexcom G6 Transmitter [id number] 05/05/2020 12:00:00 AM EST 1 {each} Does not apply active Type 1 diabetes mellitus with hyperg lycemia 1 each by Does not apply route every 3 (three) months Dx E10.65, last office visit: 03/12/19 [facility] Type 1 diabetes mellitus with hyperglyce sadie Allergy Injection 2 Or More 04/30/2020 12:00:00 AM EST completed [facility] ([facility]) Medication administered onsite Dexcom G6 Transmitter [id number] 04/17/2020 12:00:00 AM EST 1 {each} Does not apply aborted Type 1 diabetes mellitus with hyperg lycemia 1 each by Does not apply route every 3 (three) months Dx E10.65, last office visit: 03/12/19 [facility] Type 1 diabetes mellitus with hyperglyce sadie Dexcom G6 Sensor [id number] 04/17/2020 12:00:00 AM EST 1 {each} Does not apply aborted Type 1 diabetes mellitus with hyperg lycemia 1 each by Does not apply route every 10 (ten) days Dx E10.65, last office visit: 03/12/19 [facility] Type 1 diabetes mellitus with hyperglyce sadie Allergy Injection 2 Or More 04/10/2020 12:00:00 AM EST completed [facility] ([facility]) Medication administered onsite 600 mg 04/09/2020 12:00:00 AM EST tablet 20 TAKE ONE TABLET BY MOUTH EVERY 8 HOURS TAKE ONE TABLET BY MOUTH EVERY 8 HOURS SOLD: 04/11/2020 [facility] Ibuprofen 600 MG Oral Tablet Ibuprofen 600 MG Oral Tab let (MOTRIN) Ibuprofen 600 MG Oral Tablet (MOTRIN) 04/09/2020 12:00:00 AM EST aborted TAKE ONE TABLET BY MOUTH EVERY 8 HOURS [facility] 500 mg 04/09/2020 12:00:00 AM EST capsule 40 TAKE ONE CAPSULE BY MOUTH EVERY 6 HOURS UNTIL FINISH TAKE ONE CAPSULE BY MOUTH EVERY 6 HOURS UNTIL FINISH S OLD: 04/11/2020 [email or web address] Acetaminophen 325 MG / Hydrocodone Yessenia trate 5 MG Oral Tablet [[place]] [place] 5- 325 MG [place] 5-325 MG 03/27/2020 12:00:00 AM EST 1.0 {tablet} active [place] 5-325 MG eCW1 ([facility]) Acetaminophen 325 MG / Hydrocodone Yessenia trate 5 MG Oral Tablet [[place]] [place] 5- 325 MG [place] 5-325 MG 03/27/2020 12:00:00 AM EST 1.0 {tablet} active [place] 5-325 MG eCW1 ([facility]) Acetaminophen 325 MG / Hydrocodone Yessenia trate 5 MG Oral Tablet [[place]] [place] 5- 325 MG [place] 5-325 MG 03/27/2020 12:00:00 AM EST 1.0 {tablet} active [place] 5-325 MG eCW1 ([facility]) Acetaminophen 325 MG / Hydrocodone Yessenia trate 5 MG Oral Tablet [[place]] [place] 5- 325 MG [place] 5-325 MG 03/27/2020 12:00:00 AM EST 1.0 {tablet} active [place] 5-325 MG eCW1 ([facility]) Acetaminophen 325 MG / Hydrocodone Yessenia trate 5 MG Oral Tablet [[place]] [place] 5- 325 MG [place] 5-325 MG 03/27/2020 12:00:00 AM EST 1.0 {tablet} active [place] 5-325 MG eCW1 ([facility]) Acetaminophen 325 MG / Hydrocodone Yessenia trate 5 MG Oral Tablet [[place]] [place] 5- 325 MG [place] 5-325 MG 03/27/2020 12:00:00 AM EST 1.0 {tablet} active [place] 5-325 MG eCW1 ([facility]) 5-325 mg 03/27/2020 12:00:00 AM EST tablet 30 TAKE ONE TABLET BY MOUTH EVERY DAY NEEDED FOR PAIN, MAXIMUM DAILY DOSE = 1 TABLET TAKE ONE TABLET BY MOUTH EVERY DAY NEEDED FOR PAIN, MAXIMUM DAILY DOSE = 1 TABLET SOLD: 04/02/2020 [facility] [place] 5-325 MG UNK 03/27/2020 12:00:00 AM EST 1.0 {tablet} active [place] 5-325 MG eCW1 ([facility]) [place] 5-325 MG UNK 03/27/2020 12:00:00 AM EST 1.0 {tablet} active [place] 5-325 MG eCW1 ([facility]) 150 mg 03/21/2020 12:00:00 AM EST tablet [...] active [facility] ([facility]) 10 mg 03/20/2020 12:00:00 AM EST tablet [...] [facility] ([facility]) Medication administered onsite Allergy Injection 2 Or More 02/21/2020 12:00:00 AM EDT completed [facility] ([facility]) Medication administered onsite 875 mg 02/18/2020 12:00:00 AM EDT tablet 14 TAKE ONE TABLET BY MOUTH TWICE A DAY UNTIL GONE TAKE ONE TABLET BY MOUTH TWICE A DAY UNTIL GONE SOLD: 02/18/2020 [facility] Famotidine 40 MG Oral Tablet Famotidine 02/15/2020 12:00:00 AM EDT ORAL active [facility] ([facility], ) Urea 400 MG/ML Topical Lotion Urea-C40 [...] [facility] ([facility] Flonase Sensimist Flonase Sensimist 02/12/2020 12:00:00 AM EDT active [facility] ([facility] Allergy Injection 2 Or More 01/31/2020 12:00:00 AM EDT completed [facility] ([facility]) Medication administered onsite 20 mg 01/29/2020 12:00:00 [...] TABLET BY MOUTH ONCE DAILY SOLD: 07/21/2020 [facility] 24 HR Bupropion Hydrochloride 300 MG Extended Release Oral T ablet BUPROPION HCL 01/19/2020 12:00:00 AM EDT tablet extended release 24 hr 90 TAKE ONE TABLET BY MOUTH ONCE DAILY TAKE ONE TABLET BY MOUTH ONCE DAILY SOLD: 01/24/2020 [facility] Cyclobenzaprine hydrochloride 5 MG Oral Tablet CYCLOBENZAPRI NE HCL 12/21/2019 12:00:00 AM EDT tablet 90 TAKE ONE TABLET BY MOUTH THREE TIMES A DAY NEEDED TAKE ONE TABLET BY MOUTH THREE TIMES A DAY NEEDED SOLD: 03/24/2020 [facility] BLOOD SUGAR DIAGNOSTIC 10/25/2019 12:00:00 AM EDT strip 100 CHECK BLOOD GLUCOSE LEVELS FOUR TIMES A DAY CHECK BLOOD GLUCOSE LEVELS FOUR TIMES A DAY SOLD: 03/24/2020 [facility] OneTouch Ultra In Vitro Strip 34554-417-16 10/24/2019 12:00:00 AM EDT active Type 1 diabetes mellitus with hyperglycemia Use as directed to check blood glucose levels 4x daily. Dx:E10.65 [facility] Type 1 diabetes mellitus with hyperglyce sadie 3 mg/actuation 10/22/2019 12:00:00 AM EDT spray,non-aerosol 1 SPRAY ONE SPRAY (3 MG) IN ONE NOSTRIL TO TREAT SEVERE HYPOGLYCEMIA DIRECTED SPRAY ONE SPRAY (3 MG) IN ONE NOSTRIL TO TREAT SEVERE HYPOGLYCEMIA DIRECTED SOLD: 03/24/2020 [facility] Ketostix In Vitro Strip 7637-1176-23 10/22/2019 12:00:00 AM EDT aborted Type 1 diabetes mellitus with hyperglycemia Ketostix, use as directed up to 10 times daily for illness or elevated blood sugar over 250 twice in a row, dx E10.65 [facility] Type 1 diabetes mellitus with hyperglyce sadie Insulin Lispro 100 UNT/ML Injectable Yanci ution [Humalog] HumaLOG 100 UNIT/ML Subcutaneous Solution HumaLOG 100 UNIT/ML Subcutaneous Solution 09/11/2019 12:00:00 AM EDT aborted Type 1 diabetes mellitus with hyperglycemia Use as directed via insulin pump, MDD 100 units. DX: E10.65, Z79.4, Z96.41 [facility] Type 1 diabetes mellitus with hyperglyce sadie doxycycline hyclate 20 MG Oral Tablet Do xycycline Hyclate 20 MG Oral Tablet (PERIOSTAT) Doxycycline Hyclate 20 MG Oral Tablet (PERIOSTAT) 05/10 12:00:00 AM EST 20 mg Oral aborted Rosacea Take 1 tablet by mouth Two Times Daily [facility] Rosacea Metronidazole 7.5 MG/ML Topical Cream me troNIDAZOLE 0.75 % External Cream (METROCREAM) metroNIDAZOLE 0.75 % External Cream (METROCREAM) 05/29 12:00:00 AM EST active Rosacea Apply t o entire face bid [facility] Rosacea Hydrocortisone 25 MG/ML Topical Cream Hydrocortisone 2 .5 % External Cream Hydrocortisone 2.5 % External Cream 05/10/2019 12:00:00 AM EST active Allergic contact dermatitis due to adhesives Apply to affected areas bid for 2-5 days prn for irritation due to adhesives tape [facility] Allergic contact dermatitis due to adhes juanita Ketoconazole 20 MG/ML Topical Cream Ketoconazole 2 % E xternal Cream (NIZORAL) Ketoconazole 2 % External Cream (NIZORAL) 05/10/2019 12:00:00 AM EST aborted Seborrheic dermatitis Apply bid to affec dania areas on the face prn for redness and burning [facility] Seborrheic dermatitis Clindamycin 10 MG/ML Topical Solution Cl indamycin Phosphate 1 % External Solution Clindamycin Phosphate 1 % External Solution 05/10/2019 12:00 :00 AM EST active Folliculitis Apply bid p rn to lesions on the scalp [facility] Folliculitis Mometasone Furoate 50 MCG/ACT Nasal Suspension (NASONEX) 605 05-0830-1 04/23/2019 12:00:00 AM EST aborted nightl y [facility] Dexcom G6 Blade Grinder Device [id number] 03/16/2019 12:00:00 AM EST 1 {each} Does not apply aborted Type 1 diabetes mellitus with hyperg lycemia 1 each by Does not apply route See Admin Instructions For continuous glucose monitoring, dx E10.65, last office visit 03/12/19 [facility] Type 1 diabetes mellitus with hyperglyce sadie Glucagon 1 MG Injection glucagon (GLUCAGON EMERGENCY) 1 MG injection glucagon (GLUCAGON EMERGENCY) 1 MG injection 11/24/2017 12:00:00 AM EDT aborted Uncontrolled type 1 diabetes mellitus with hyperglycemia Inject IM as directed in case of severe hypoglycemia. DX: E10.65 [facility] Uncontrolled type 1 diabetes mellitus wi th hyperglycemia fluticasone (FLONASE) 50 MCG/ACT nasal spray 6805-1550-44 1 {spray} Nasal aborted 1 spray by Nasal route daily [facility] Bupropion Hydrochloride 75 MG Oral Tablet buPROPion (W ELLBUTRIN) 75 MG tablet buPROPion (WELLBUTRIN) 75 MG tablet 75 mg Oral ab orted Take 75 mg by mouth Two Times Daily [facility] UNABLE TO FIND 5 mg aborted 5 mg Two Times Daily Med Name: fiber well with inulin [facility] Ranitidine 150 MG Oral Tablet ranitidine (ZANTAC) 150 MG tablet ranitidine (ZANTAC) 150 MG tablet 150 mg Oral aborted Take 150 mg by mouth nightly Takes two tabs at night [facility] Insurance Providers Payer name Policy type / Coverage type Policy ID Covered republican ID Covered republican's relationship to bhakta Policy Bhakta Plan Information Ghi FHP-(DO Not Use) Medigap Part B [id number] [place] Part B [id number] Self BLUE CROSS PARRA PLAN [id number] SP [id number] [facility] COMMUNITY PLAN [facility] [id number] SP [id number] MEDICAID M [id number] Self [id number] [facility] Blue Option Medigap Part B [id number] Self [id number] Self [id number] I [id number] Self [id number] [facility] Community Plan Medigap Part B [id number] [place] Part B [id number] Self MEDICARE [id number] SP [id number] [place] Primary [id number] Self MEDICARE A [id number] Self [id number] MEDICARE [id number] SP [id number] A MEDICAID M [id number] Self [id number] MEDICARE A [id number] Self [id number] A MEDICAID [id number] SP [id number] MEDICAID [id number] SP [id number] [facility] [id number] Self [id number] [facility] MEDICARE DUAL G [id number] Self [id number] [facility] [id number] SP [id number] MEDICAID [id number] SP [id number] [facility] [id number] SP [id number] MEDICAID [id number] SP [id number] MEDICAID [id number] SP [id number] ANSI-Not a Secondary Insurance [id number] ANSI-Medicare Part B [id number] ANSI-Not a Secondary Insurance [id number] ANSI-Medicaid [id number] ANSI-Medicaid [id number] ANSI-Medicare Part B [id number] ANSI-Not a Secondary Insurance [id number] ANSI-Not a Secondary Insurance [id number] ANSI-Medicare Part B [id number] ANSI-Medicaid [id number] ANSI-Not a Secondary Insurance [id number] ANSI-Medicaid [id number] ANSI-Medicare Part B [id number] [facility] [id number] ANSI-Medicare Part B [id number] ANSI-Not a Secondary Insurance [id number] ANSI-Medicaid [id number] Medicare [facility] Medicare Primary [id number] Self [id number] [place] [id number] 2.16.840.1.234252.3.227.99 .8646.71435.0 Self [id number] ANSI-Medicare Part B [id number] ANSI-Medicaid [id number] ANSI-Not a Secondary Insurance [id number] ANSI-Medicare Part B [id number] ANSI-Medicaid [id number] ANSI-Not a Secondary Insurance [id number] ANSI-Not a Secondary Insurance [id number] ANSI-Medicaid [id number] ANSI-Medicare Part B [id number] ANSI-Medicaid [id number] ANSI-Medicare Part B [id number] ANSI-Not a Secondary Insurance [id number] ANSI-Not a Secondary Insurance [id number] ANSI-Medicare Part B [id number] ANSI-Medicaid [id number] ANSI-Medicare Part B [id number] ANSI-Not a Secondary Insurance [id number] ANSI-Medicaid [id number] ANSI-Medicaid [id number] ANSI-Not a Secondary Insurance [id number] ANSI-Medicare Part B [id number] ANSI-Medicare Part B [id number] ANSI-Medicaid [id number] ANSI-Not a Secondary Insurance [id number] ANSI-Not a Secondary Insurance [id number] ANSI-Medicaid [id number] ANSI-Medicare Part B [id number] ANSI-Medicare Part B [id number] ANSI-Not a Secondary Insurance [id number] ANSI-Medicaid [id number] ANSI-Medicaid [id number] ANSI-Medicare Part B [id number] ANSI-Not a Secondary Insurance [id number] Medicare [facility] Medicare Primary [id number] 2.0.1.995105.3.227.99.8646.67122.0 Self [id number] [place] [id number] 2.0.1.399219.3.227.99 .8646.75432.0 Self [id number] [facility] Health Maintenance Organization (HMO) [id number] 2.0.1.404654.3.227.99.8646.29696.0 Self [id number] ANSI-Not a Secondary Insurance [id number] ANSI-Medicare Part B [id number] ANSI-Medicaid [id number] ANSI-Not a Secondary Insurance [id number] ANSI-Medicare Part B [id number] ANSI-Medicaid [id number] [facility] MEDICAID [id number] SP [id number] C [place] Part B [id number] 2..1.224673.3.227.99 .8646.70473.0 Self [id number] [place] Medicare Primary [id number] 2.840.1.469166.3.227.99.8646.88110.0 Self [id number] [place] [id number] 2.840.1.882368.3.227.99 .8646.32695.0 Self [id number] [facility] O [id number] S [id number] [facility] O [id number] S [id number] Medicare [place] Medicare Primary [id number] 2.0.1.198124.3.227.99.8646.34532.0 Self [id number] [place] B [id number] 2.0.1.130541.3.227.99 .8646.56385.0 Self [id number] [place] Medicare Primary [id number] .0.1.849101.3.227.99.8646.70278.0 Self [id number] [place] Part B [id number] 2.0.1.901420.3.227.99 .8646.19151.0 Self [id number] [facility] Health Maintenance Organization (HMO) [id number] 2.840.1.283486.3.227.99.8646.38747.0 Self [id number] [place] [id number] .0.1.043104.3.227.99 .8646.13753.0 Self [id number] Medicare [place] Medicare Primary [id number] 2.840.1.180787.3.227.99.8646.63065.0 Self [id number] [place] Part B [id number] 2.840.1.313641.3.227.99 .8646.92084.0 Self [id number] [place] Medicare Primary [id number] 2.840.1.889640.3.227.99.8646.07922.0 Self [id number] [place] [id number] 2.16840.1.780760.3.227.99 .8646.86580.0 Self [id number] [place] Medicare Primary [id number].8646.85940.0 Self [id number] MEDICARE C [id number] S [id number] A Medicaid [place] Part B [id number] 2.840.1.893388.3.227.99 .8646.21591.0 Self [id number] Medicare [place] Medicare Primary [id number] 2.840.1.715726.3.227.99.8646.36330.0 Self [id number] [place] [id number] 2.840.1.456638.3.227.99 .8646.20466.0 Self [id number] [place] Medicare Primary [id number] 2.840.1.892651.3.227.99.8646.87793.0 Self [id number] [place] Part [place] [id number] 2.840.1.190706.3.227.99 .8646.14360.0 Self [id number] Medicare [place] Medicare Primary [id number] 2.840.1.895508.3.227.99.8646.80559.0 Self [id number] MEDICAID [id number] SP [id number] [place] Part B [id number] Self Medicare [place] Medicare Primary [id number] Self MEDICAID W [id number] S [id number] BLUE CHOICE OPTION O [id number] S [id number] EXCELLUS BCBS P [id number] S [id number] EXCELLUS BCBS P UNAVAILABLE [id number] S UNAV AILABLE HMO BLUE [id number] SP [id number] MEDICAID -RECURRING [id number] Medicare [place] Medicare Primary [id number]646.25209.0 Self [id number] MEDICARE [id number] SP [id number] MEDICARE [id number] SP [id number] A EMEDNY [id number] SP [id number] MEDICARE C [id number] S [id number] Medicare P UNAVAILABLE S UNAVAILA BLE Medicaid S UNAVAILABLE S UNAVAILA BLE MEDICAID M [id number] S [id number] [facility] P [id number] S [id number] MEDICARE [id number] SP [id number] MEDICAID [id number] SP [id number] [facility] [id number] SP [id number] ANSI-Not a Secondary Insurance [id number] ANS-Medicare Part B [id number] ANSI-Medicaid [id number] ANSI-Not a Secondary Insurance [id number] ANSI-Medicare Part B [id number] ANSI-Medicaid [id number] Medicaid [id number] [id number] Medicaid [id number]..840.1.402123.3.441 [facility] 2..840.1.072564.3.441 [id number] Preferred Provider Organization (PPO) 2..840.1.686130.3.441 Managed Care - Community Plan [facility] P UNAVAILABLE S UNAVAILABLE Medicare [facility] Medicare Primary [id number] Self [id number] Medicaid [facility] Part B [id number] Self [id number] [facility] Health Maintenance Organization (HMO) [id number] Self [id number] [facility]-Medicare Part B [id number] ANSI-Medicaid [id number] Problems, Conditions, and Diagnoses Code Display Name Description Problem Type Effective Dates Data Source(s) R52 Pain, unspecified Pain, unspecified Diagnosis 09/18/2020 10:21:59 AM [facility] G25.89 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 extrapyramidal and movement disorders Diagnosis 09/18/2020 10:08:02 AM [facility] M50.30 Other cervical disc degeneration, unspec ified cervical region Other cervical disc degeneration, unspecified cervical region Diagnosis 08/27/2020 11:35:08 AM [facility] S46.811A Strain of other muscles, fas gunjan and tendons at shoulder and upper arm level, right arm, initial encounter Strain of other muscles, fascia and tend ons at shoulder and upper arm level, right arm, initial encounter Diagnosis 08/27/2020 11:35:08 AM EDT [facility] S46.812A Strain of other muscles, fas gunjan and tendons at shoulder and upper arm level, left arm, initial encounter Strain of other muscles, fascia and tend ons at shoulder and upper arm level, left arm, initial encounter Diagnosis 08/27/2020 11:35:08 AM EDT [facility] R53.83 Other fatigue Other fatigue Diagnosis 07/11/2020 12:15:12 PM EST [facility] N93.9 Abnormal uterine bleeding Abnormal uterine bleeding (A UB) Problem 02/17/2021 12:00:00 AM EDT eCW1 ([facility]) J30.0 Vasomotor rhinitis Vasomotor rhinitis Problem 12:00:00 AM EDT [facility] ([facility]) M47.812 [id number] Cervical facet syndrome Problem 09/02/2020 1 2:00:00 AM EDT eCW1 ([facility]) N95.1 [id number] Perimenopause Problem 06/05/2020 12:00: 00 AM EST eCW1 ([facility]) F15.20 Other stimulant dependence, uncomplicate d Stimulant Use Disorder, Moderate: Other or unspecified stimulant Condition 05/23/2020 12:00:00 AM EST [facility] ([facility]) F10.20 Alcohol dependence, uncomplicated Alcohol Use Di sorder, Moderate Condition 05/23/2020 12:00:00 AM EST [facility] ([facility]) 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 Condition 05/23/2020 12:00:00 AM EST [facility] ([facility]) F60.3 Borderline personality disorder Borderline Personality Disorder Condition 05/23/2020 12:00:00 AM EST [facility] ([facility]) F33.9 Major depressive disorder, recurrent, un specified Major Depressive Disorder, Recurrent episode, Unspecified Condition 05/23/2020 12:00:00 AM EST [facility] ([facility]) [id number] Type 1 diabetes mellitus Type 1 diabetes mellitus Prob tristin 03/03/2020 12:00:00 AM EDT [facility] ([facility] Corns and callosities Corns and callosities Problem 03/03/2020 12:00:00 AM EDT [facility] ([facility] [id number] Osteochondropathy Osteochondropathy Problem 03/03/2020 12:00:00 AM EDT [facility] ([facility] [id number] Allergic rhinitis due to house dust mite [...] 25 MINUTES 01/19/2021 12:00:00 AM EDT MED[facility] ([facility], ) PROF YAZMIN PARIKHG IMMNTX X W/PRV ALLGIC XTRCS NJXS 2020 12:00:00 AM EDT [facility] ([facility]) PROF YAZMIN PARIKHG IMMNTX X W/PRV ALLGIC XTRCS NJXS 2020 12:00:00 AM EDT [facility] ([facility]) POCT HEMOGLOBIN A1C, DOCKED <td>POCT HEMOGLOBIN A1C, DOCKED</td><td>Routine</td><td>12/08/2020 10:28 AM EDT</td><td></td><td> </td> 12/08/2020 10:28:00 AM [facility] POCT GLUCOSE, DOCKED <td>POCT GLUCOSE, DOCKED</td ><td>Routine</td><td>12/08/2020 10:27 AM EDT</td><td></td><td> </td> 12/08/2020 10:27:00 AM [facility] PREPJ& ALLERGEN IMMUNOTHERAPY 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 11/21/2020 12:00:00 AM EDT [facility] ([facility] PREPJ& ALLERGEN IMMUNOTHERAPY 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 07/24/2020 12:00:00 AM EDT [facility] ([facility]) OFFICE OUTPATIENT VISIT 25 MINUTES 07/21/2020 12:00:00 AM EDT MEDENT ([facility], ) PROF YAZMIN PENALOZA IMMNTX X W/PRV ALLGIC XTRCS NJXS 2020 12:00:00 AM EST [facility] ([facility]) PROF YAZMIN PARIKHG IMMNTX X W/PRV ALLGIC XTRCS NJXS 2020 12:00:00 AM EST [facility] ([facility]) PROF YAZMIN PENALOZA IMMNTX X W/PRV ALLGIC XTRCS NJXS 2020 12:00:00 AM EST [facility] ([facility]) Extended Individual Psychotherapy - 45 min 05/23/2020 12:00:00 AM EST - 05/23/2020 12:00:00 AM EST [facility] ([facility]) Extended Individual Psychotherapy - 45 min 12:00:00 AM EST [facility] ([facility]) Extended Individual Psychotherapy - 45 min 05/07/2020 12:00:00 AM EST - 05/07/2020 12:00:00 AM EST [facility] ([facility]) Extended Individual Psychotherapy - 45 min 0 12:00:00 AM EST [facility] ([facility]) PROF YAZMIN PENALOZA IMMNTX X W/PRV ALLGIC XTRCS NJXS 2019 12:00:00 AM EST [facility] Extended Individual Psychotherapy - 45 min 04/24/2020 12:00:00 AM EST - 04/24/2020 12:00:00 AM EST [facility] ([facility]) Extended Individual Psychotherapy - 45 min 0 12:00:00 AM EST [facility] ([facility]) PROF YAZMIN PENALOZA IMMNTX X W/PRV ALLGIC XTRCS NJXS 2019 12:00:00 AM EST [facility] ([facility]) Extended Individual Psychotherapy - 45 min 04/10/2020 12:00:00 AM EST - 04/10/2020 12:00:00 AM EST [facility] ([facility]) Extended Individual Psychotherapy - 45 min 0 12:00:00 AM EST [facility] ([facility]) Endoscopy Upper GI Biopsy 04/08/2020 12:00:00 AM EST [facility] ([facility], ) Extended Individual Psychotherapy - 45 min 03/21/2020 12:00:00 AM EST - 03/21/2020 12:00:00 AM EST [facility] ([facility]) Extended Individual Psychotherapy - 45 min 0 12:00:00 AM EST [facility] ([facility]) Extended Individual Psychotherapy - 45 min 03/14/2020 12:00:00 AM EST - 03/14/2020 12:00:00 AM EST [facility] ([facility]) Extended Individual Psychotherapy - 45 min 0 12:00:00 AM EST [facility] ([facility]) PROF ARCE ALLG IMMNTX X W/PRV ALLGIC XTRCS NJXS 2019 12:00:00 AM EST [facility] ([facility]) Extended Individual Psychotherapy - 45 min 03/07/2020 12:00:00 AM EDT - 03/07/2020 12:00:00 AM EDT [facility] ([facility]) Extended Individual Psychotherapy - 45 min 0 12:00:00 AM EDT [facility] ([facility]) RADIOLOGIC EXAM KNEE COMPLETE 4/MORE VIEWS 03/04/2020 12:00:00 AM EDT [facility] ([facility] ) RADIOLOGIC EXAM KNEE COMPLETE 4/MORE VIEWS 03/04/2020 12:00:00 AM EDT [facility] ([facility] ) PREPJ& ALLERGEN IMMUNOTHERAPY 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 02/26/2020 12:00:00 AM EDT [facility] ([facility]) PROF YAZMIN ALLG IMMNTX X W/PRV ALLGIC XTRCS NJXS 2019 12:00:00 AM EDT [facility] ([facility]) Extended Individual Psychotherapy - 45 min 02/21/2020 12:00:00 AM EDT - 02/21/2020 12:00:00 AM EDT [facility] ([facility]) Extended Individual Psychotherapy - 45 min 0 12:00:00 AM EDT [facility] ([facility]) Extended Individual Psychotherapy - 45 min 02/15/2020 12:00:00 AM EDT - 02/15/2020 12:00:00 AM EDT [facility] ([facility]) Extended Individual Psychotherapy - 45 min 0 12:00:00 AM EDT [facility] ([facility]) Extended Individual Psychotherapy - 45 min 02/08/2020 12:00:00 AM EDT - 02/08/2020 12:00:00 AM EDT [facility] ([facility]) Extended Individual Psychotherapy - 45 min 0 12:00:00 AM EDT [facility] ([facility]) PROF YAZMIN ALLG IMMNTX X W/PRV ALLGIC XTRCS NJXS 2019 12:00:00 AM EDT [facility] ([facility]) Extended Individual Psychotherapy - 45 min 01/24/2020 12:00:00 AM EDT - 01/24/2020 12:00:00 AM EDT [facility] ([facility]) Extended Individual Psychotherapy - 45 min 0 12:00:00 AM EDT [facility] ([facility]) Results ID Date Data Source [id number] 03/16/2021 11:18:54 AM EST [facility] Name Value Range Interpretation Code Description Data Joyce rce(s) Supporting Document(s) Progress Note [facility] IKXQRc5lYeBDUkEn34/CCVtdGPMin5UvFCckQVu2PTwbYMYdL8DlANJ9eV6wMCE5TLxXHpUgVuNyTRJ3 [facility] [place] IuXvlJTjMpKKNbMsrYChKgAXghKfhmmUCxVZ1GjFE5WVKiM10eYAMiFJKgT6TyJCTeRNi+Jm8HHNZqwT TgJR5BQrtP8U2zq5tLSR7y3T7lifKAmduhoahKhhxsc56zOb/b4UfFguzJL6Z6TfggNZGx/l6G3KQHxP lfNORQzkPuHuLFkjOzs/X1k5Ro1U+/jP2oaTtRIU0o /hklnjm/MX/3n4u4Il3dM7c/2UPkBc+Fhbw8Pi/Aiq6hJTqG3nfZcwYLoJZhkUJr6HpHcZWwnlUf14Y7 Of/8wgyyaTZLza/n72GfM54U54cnjOU/Oe4kDk0tVfUgxJGZ8ur2j9k2SW5JvLDk0z5aQosmUetNSmdb m1Ef2NKuVsqfG9gbbTAHfL+r4PPvOf51LTv8Cvt4eJ zXmlJo2Q9BlEnewzcS7fl5q0mtw6QD+6lJJ0SjSX/gXAnnw5YzNkW4LV+iDivctT9oyslI2ARk1c8G9k Z3g2FkMgSLcK3rSGQA0xW2unjsYCm478f1/k0RessRhil2iy9G5128NfPrWpqMgeNoYEKbTgjId7Si6W sxnw8btG/G8Yp9h+9J9TDIty792I04efuK0WFObRco uazIMLXcCt4gVUShaOlTTxWYyxuqvYY2Mh+nAqMeke7rCqd/DeTbqRVfnsOSM8wG7rTfrs34YNHkb+XQ 5aiqxr5Tb9HdJwXm2WucadsYrdf/D9L66zGB4244AQw2KHrStJMnW/6ZyTQ7H1wtjlzIauG9dCTVxrTb 5OBUyi69N5q/x2e/IR0vz14L79fSEuY0Q31Tv4R1iN [file] FXnlJ6OCx4FGCt3cRogk8R/client delivery manager/Gd4A60hxVNbL3sdyq/Cig3VjijXHechPXXc76a9vkh4vL4L2Dtq4V [file] IBInAVEkOZ5jKCWHKi9+CDrriHBcoHqoRJPSZcWwEYK4EPzsOVNLLk0S ID Date Data Source [id number] 03/16/2021 11:18:49 AM [facility] Name Value Range Interpretation Code Description Data Joyce rce(s) Supporting Document(s) Progress Note [facility] ENKCEb8gXhUEKdAa71/GLZrmHGJyi1VcACkqLZf4PPkwLHDsJ3OuWGF9uF3zDIE6YZuYCsRyVnEiUNJ9 lbm [file] ICAgICAgICAgICAgICAgICAgICAgICAgICAgICAgICAgICAgICAgICAgICAgICAgICAgICAgICAgICAg BKOvLSAzKBCkMILgCIJpAEJaPNTmCSFoYQQqZC1MEN AgICAgICAgICAgICAgICAgICAgICAgICAgICAgICAgICAgICAgICAgICAgICAgICAgICAgICAgICAgIC VjKMCiDFCbGQWqENEoHUQaUJOiDLIcTJZbDVIeBGBsGSTeYTRiWZ1CNWYuZFUvEUIoHCSnUILpGYPaDW AgICAgICAgICAgICAgICAgICAgICAgICAgICAgICAg RPUrKDDrELZtVQOcLTFcVTIjEUFyGVYmEYDdARAyKSFwSOOhRHNvQRDeLZVhGDYyUW0RNXYzOUQtWDFm ICAgICAgICAgICAgICAgICAgICAgICAgICAgICAgICAgICAgICAgICAgICAgICAgICAgICAgICAgICAg ICAgICAgICAgICAgICAgICAgICAgICAgICAgICAgIA 0KICAgICAgICAgICAgICAgICAgICAgICAgICAgICAgICAgICAgICAgICAgICAgICAgICAgICAgICAgIC IzGWKiMESsSAXgYVCtZTQtFYEoVMPdXXAkHSJdASQuAWDtNPRfQLTgJM9CXKTmQEFdEIOeXSRfJFYzYU AgICAgICAgICAgICAgICAgICAgICAgICAgICAgICAg HNAcRYEnZQBpFSPpNANpAHWzBNHqDCLjBRKqWBQsNJRhYKBpLUMmOWDgUWViLNDrPOVnIH3ABOPtQXVz ICAgICAgICAgICAgICAgICAgICAgICAgICAgICAgICAgICAgICAgICAgICAgICAgICAgICAgICAgICAg ICAgICAgICAgICAgICAgICAgICAgICAgICAgICAgIC ZpFY7NJYHhNFDwETFbTLOuZAJbIQLdAXUqJYZdVRXrZQMxZYAgNOGcRQGoEXApVGLhPAXgQZUtAZTaFA OkKTSyHZHmALGrQAKuSXEeXMBpBRLlNMZaEBVeDCChFNEyYQNuDEDtZVEqVI8WKRUbYOVvEMAwQOIaFG AgICAgICAgICAgICAgICAgICAgICAgICAgICAgICAg GAYpXUJlGPSxHCYtPVDcBRBoLJTuHKPbNRUnAXBnUNVjDGLqXUZsXABvBHBjUKAxGJSbMUBlQQ9HIXXo ICAgICAgICAgICAgICAgICAgICAgICAgICAgICAgICAgICAgICAgICAgICAgICAgICAgICAgICAgICAg ICAgICAgICAgICAgICAgICAgICAgICAgICAgICAgIC QjDUJcRJ4LBA89jOEpl6O8GBYhJR6kock/Ym8HYIzbqpOasPWoWH6JVoKzES1dth8IXaJsBB3spj5UQN fJCgVoO4F0eBHlZLAgXMKNEaHdT94zKPtkXs71AMvaGAAyIwEkUZg8Mj9YOnNpK2faQNXyEyD5VXReXd HnXMziEE2Il6QrhNKbRNn+Dn6TYD5cv9QvJQccHvDn SZ1nji7JJEhHSsZoE1NantO8XPAuVFAxQx1NOVJiDJXceKCtGeBpOKZYSvXjI2XtiL89INXYSm4+DQpl dgFcRzzBItOcPDBtq9IhRDy8XF0MYYFzLXt3wLXnBWHwU8Yrw4VfQu41ENMaGpwdOJogSBDWDOb2xnI6 DGAZXD6iEFSzVMUbAn2wELHuLMUeFzAzIJYLAE7XVQ QxHRPezXTzUCDkWBUPUO3VFWdbPDH7MFJxoyEszBGsAAkoGQ5EQOHdvmWbDvMyAAFPCHj+Rf2ROV8ux3 PcMYtzAXXbMN8eec2CHWyKVqScY8I4xUUzZ9I7SDhkKb3QDAEiCBMdXdWoDPPLTZysVX3DCR8powT1PK 6JjIVuFDLmPICiwAInVDd2C62rjKDxNDcdPX0OONT+ Elana+Ri5CYZUqZZPwTMYfNxMaHVFAFrTzQ2HvQ7JMb7NmN1CoUC97lBbfxrKpNMalKC9RDK6oADXbUOJG FL5NsTRahF7ogtKjKpZlYTHBQwJbD16ioURfVKDhVONxXJTnIu7FPHGuH5OzkuYzdDovrhXvKKWbPBZD TV2JXPpbirFrjNWmqUfdNX40kBewXX7YAu1SErJzEG 8gdj4IpWMhRk6QCJMhAG0CSAOvMRQxQXKsBUM6GRJkOkDsTRrpRUHpADNdLQC2LQBbPTEpHF9CIlMyXY ZlISgzWpVoHGBoVPVdpl0WUWTsXTJoHPw7JlWyWQEpUJAyFEfoFXIeBIEiCGS3ZZIfOSLsHH7OJtBnFA NzIPH0HZZvDYMpVPFpvd3YDWUrXPWgVHf5ZuQxHUOo WSDbYRhwJNOjSHDhTEH1HEKjRFUhCZ2NJfTiPVKtBGTuSOAnOCXpWEKpoj2NULQhPYByDgYhSGEeSEIc KCOiUOtcIRFkFLT3ZFz7MKZkWGWqCP5IAiWySRYwUENtUKNmDVQpVKDqhh8KNWTnDIQeDUD0VWTkRWHv XFJuFPmdKMZlGMM9NNVjPWVsMUGqWE0LTqQaWAGnPR YeTCmhLWAkWMOeks9ZVBEcFYRhEwY3WRFkFFFdAGHrMVsyNLFmADA7Xis8GZAwAWEiGF3LGkZuWCZcVZ R3HOYsWBIzVLKfaf3ACKQrGICuDmn3JDIcKOEnCZRtZJeuRGWkQMU2YMT4YMFgOJQlHS0BDnJoFQFxII ivUFNeFOCdJEFnqs8JJKNcASAcEEZ1QgCdDWWhGYZm KCuhUYZzSWC4KNp2ZHAvLTKkBK3XAfRmAVRvQgPeIwExFBZsMWFopn9VQECnMORzFGYiAfHaRNJkHZUp ZEw6cpKzzLLeZNj6RY4LO8LlyoIaWmZFCz8Mb311YHM5ZUVmKg0MJ1ghDl2qHBJyJVIZQw6MIBn5PSIr RXQnIWihPNi4Ssj4UJV9XZilAQflBVS8OVXfQLv+ID ioQjDmWCYyD0ZfSOznXVr6HHgxGzI8NGO5OOZxRONqUx8jFSMNQp1+HCjpwSAqwRlvWUDDTfVgEKD9MB hnSWTNPs4C ID Date Data Source [id number] 03/16/2021 11:18:44 AM [facility] Name Value Range Interpretation Code Description Data Joyce rce(s) Supporting Document(s) Progress Note [facility] VNBSNe6dJfFRTxEd89/PDRyqYFYsg9JjOHaxQOi4ZQlfQLBaU8KqBEU3gU0eBQP5KIwGYdRlLwIaVJC9 lbm MfOfoUDxKyCHDnUnyTMaLnGUtmRnpzqIVyXK6MrDV8DTJwS88cRBBtYCTvF2TtGPV6ESt+Xn1KYETuzF MwPW0RYdxCeTorn9x2OX1+YP+XuFDjLQZWL0vhTUlTtqRc08QhN3aRun6ZzEGvBbcK5ISap/6vqyL0QF SuNag6S+IDyXvujg/vjrQZM//+QoguhGjw1t/Vx1hL Qykm842w8JSkG7Pdx3QTFWP29qXBFO7B8leFsysmmXLTwaCiIHj9OouGyX3EV3kKjyCHOE3+3GVpXuSL qW8fRigtD6jskfFXSow06EXu/7DjlL1/HpxaHSSYkJbJTPyvsJjXaPWq1PDleVzfodhRZ8TM7IBW+1rF Paula/pdcjBF3dp6CpoxTjkkkx+wUb1pLCkIg44fDv6P [file] AgICAgICAgICAgICAgICAgICAgICAgICAgICAgICAg SMGxDSZnSJLbQGUwNIMbMQPxVAElBMTrLBWsWTMjZKUoRYRgFMKnRLOwXHUaDFAlYXWiAC6RLHVnYLOl ICAgICAgICAgICAgICAgICAgICAgICAgICAgICAgICAgICAgICAgICAgICAgICAgICAgICAgICAgICAg ICAgICAgICAgICAgICAgICAgICAgICAgICAgICAgIC JnPN2ATMRhFRToIKPwAELrWOVeWCQmXDDoDXXpSJYnZDIkIOSiMMFkNGAsASHrKRGtQSMmPMMqCKTxOG AzHUPiDGIkIRDiTQRlBNHrJHWuDEMjGKDoNQDdJANjQQXeELCyQGEqLAZuXM0GIALaQDQwDUNcJDWfOW AgICAgICAgICAgICAgICAgICAgICAgICAgICAgICAg LCJuAUZbHVRfNAHiCFKdJKDmZWWkAUIgQWJiVIFfZFAcQXTePEMpUZYxMZLnATHvYQHhDVNwFG1CIXZl ICAgICAgICAgICAgICAgICAgICAgICAgICAgICAgICAgICAgICAgICAgICAgICAgICAgICAgICAgICAg ICAgICAgICAgICAgICAgICAgICAgICAgICAgICAgIC QhFSCrAF2HTIYmKXCeVSCgRYTrYJNePWJaLFOmCDToUQWkPSLpJMBhQGVvJPOhEJEjFLFpPHQhAWBzXF RsULNnBIBcVFIlLWIcQSEuSYVwOGKdNCSkJUNxPTZhJLRsBYWnDEHvTQCyHZOxCB1CKQFoCATsZUCuUJ AgICAgICAgICAgICAgICAgICAgICAgICAgICAgICAg LMVzBBDkPPSuWVEkGHVsRGOfXFHdVFKeTUMgJXYfOSVzWFUwGGQpYMUnCOTzURKvXIZwWEKxERRnDN1P ICAgICAgICAgICAgICAgICAgICAgICAgICAgICAgICAgICAgICAgICAgICAgICAgICAgICAgICAgICAg ICAgICAgICAgICAgICAgICAgICAgICAgICAgICAgIC XeDSJrCBFvIV7DPYRxVJCmWWXfXCUhZPKhUIBvDRGiKYPmDGHdEEHuFRZyWMFbIKZsSNTvURFjYAEfHD SyIBOiWTBnDLKoTXSeRMBnHVCiTZVsPYXaTZWaKMZaFODbOWAaPZRwYNWwFKOwDVVgAO5PIK48rYDsm3 B7GMOwFE1uhvx/Ln5KZAiohgSupSAoNX0JZwXdIS2o kx8GYoCcFC1nec7AZPcEZtLsU7J1jUOcLNRlAPAIQhYiY58bTRyoZb45KSjhUUPzWdXtIEs2Jo7STtNx J8bmYQXmYlG0TCArFjGyACmjHC5Zl9ZgsYDkYUs+Wo1NLX7se0FkTAleMjNcCL3qki9EVLhGNrCyZ4Dd ofU7KNFuVZWmNd3CHQGzAGRsfWInNuFnVYLBYzQfY3 TmiI20LMTVYh3+BPsdmuGkXpmXJuVqNIJhn0JhNLm9TQ8TLGAmCQp4iFLqAQZbP5Rck5CvAg17YHJgDy znLUthSUZQDKu6hmU5ESCFDR9wAJSeYIThEt5zMETaBBKmLlXgEJKPVM7CMRIxPJPaaADqAXFwKDHGOM 7TVTsxNTW2LRChxjRieDPzGUrtAS7JLOEvzyVlPlEh MCBSDQo+Uq0LUF0hc9FuRKbtXFFzBQ5dsb8TOLuTIxZqO2I8cFRsL2G4LKebDc7CNIAdPBPmSfKzUETL DXsvSE2PNB6llpQ2DQ4FqMJeYLOcYGJcsVJjYWi2V78whMRqCFbxTK2LPEB+Elana+Jo4DJNZlQQAdQFRl BcKjZQMEXgEeA6JfD9OBv2BhL4YuAD34kMqfsyRbQJ vkLP9WHN2sBETfFKWWFH1BoNJlgY4qbyOnNkTmEDHPCfHjX33zrWVeEFOhHZGiBPYtXf1ASCOiS3Eryx MrjMpzqnBeYNDhPQBNER0SAVtsawRmoSJnlNgnCK14dLppJZ8IAh8TYpKdZR9gwb8TsWMxJn4QKHSwOD 1WOBAyJODrMPBtVBF4JCBlRdTiLYmxNKHnDWJkKUB1 YCYsHFPsWZ8YUxAdTZWdLIpcUiluWTNjTBZhln0FJUMqCATfMAZjQOXvETAyPNRsARxeNZDhDRKmTQG7 MCVvIUUtOW8KGmYgESViUAH2HLkvBSXmDNDeed4BCGRdNIEfVlHdNFNvDGOkDZTmAPndNDAjOAKlBQDm XEUiVGNgWG7WApZqRBZlPXTfUVApIBIuBEObjl1EFO TsXJZvNtGqCaXjFXHcVXViJGukARZpBJY9Hua9YERhUDBeRQ1ANaZeFOAdPMU9PAPxPXBfVKFjyu8CUJ AaXECiXFE9KfLdBSZnJCSgFTvrMTAxXMR2IWV7ZUHjZIClEP2XAaJcFIAmPMUySFHwQIToXRQuew8MGZ XpBYBaNpL4EyMjJHKxVOOaBSjdUCHmCQC9QPVwBRFy XLAhMT3GNlIfZUMqNIT1PTumMVBnQPCiep7ETQWaEYHrBxq9ElOsOECzCBFdZMqdNQMsNVB7JAz6NYGd SDElMD1ZZsRsJQWmZXpbCQDfVXBdFGTgxq1ZTRRdRMQbNEL7HJQfGZAmIEStEVnmHSKqFNViSHy2MEWg NLMfGE7BZqGeMDDcOsJvXxOaEGKyQULlws5XVESgIM StEKRnSMNsZEGyJGLxXMy7bhCypNWkPIo0LO6YP2EczxRjRnYCCz0Jm609FKI6NNErLi5QQ3ceAw2qJM AiLYDVYm4YZIp0RAJ8VGEuJDe4HoIgGOF1ALL6VjA3Q8DwGHRoPZVsZOH+VSywNJG9AqS1GQIgDiG4Pk RaStSkAwkjQ3E6EoN8BGFgPm1rEAXEWt4+YQckhICzzYbtBLMFKgFaNRRmOZfyBQPZDf7H ID Date Data Source [id number] 02/03/2021 03:11:00 PM EDT [facility] ([facility]) Name Value Range Interpretation Code Description Data Joyce rce(s) Supporting Document(s) Glomerular Filtration Rate Laboratory test result Normal (applies to non- numeric results) [facility] ([facility]) <content>Units are mL/min/1.73 m2</content>
<content></content>
<content>Chronic Kidney Disease Staging per NKF:</content>
<content></content>
<content>Stage I & II GFR >=60 Normal to Mildly Decreased</content>
<content>Stage III GFR 30- 59 Moderately Decreased</content>
<content>Stage IV GFR 15-29 Severely Decreased</content>
<content>Stage V GFR <15 Very Little GFR Left</content>
<content>ESRD GFR <15 on SPECIALTY COOK</content>
<content></content> Creatinine For GFR 0.78 mg/dL 0.55-1.30 Normal (applies to non -numeric results) [facility] ([facility]) ID Date Data Source [id number] 02/03/2021 03:11:00 PM EDT [facility] ([facility]) Name Value Range Interpretation Code Description Data Joyce rce(s) Supporting Document(s) Urea nitrogen [Mass/volume] in Serum or Plasma 12 mg/dL 7 -18 Normal (applies to non-numeric results) [facility] ([facility]) ID Date Data Source [id number] 12/08/2020 03:52:[address] [facility] Name Value Range Interpretation Code Description Data Joyce rce(s) Supporting Document(s) Progress Note [facility] EAFNAi8qOwHAFpTh72/UIItpSMKmb9JtGDilKGu2BFtfGUHfP8XeYJY3fN9kZID4GJrVJlLqBsMgGJYp lbm [file] AgICAgICAgICAgICAgICAgICAgICAgICAgICAgICAgICAgICAgICAgICAgICAgICAgICAgICAgICAgIC AgDQogICAgICAgICAgICAgICAgICAgICAgICAgICAg ICAgICAgICAgICAgICAgICAgICAgICAgICAgICAgICAgICAgICAgICAgICAgICAgICAgICAgICAgICAg ICAgICAgICAgICAgDQogICAgICAgICAgICAgICAgICAgICAgICAgICAgICAgICAgICAgICAgICAgICAg ICAgICAgICAgICAgICAgICAgICAgICAgICAgICAgIC AgICAgICAgICAgICAgICAgICAgICAgDQogICAgICAgICAgICAgICAgICAgICAgICAgICAgICAgICAgIC AgICAgICAgICAgICAgICAgICAgICAgICAgICAgICAgICAgICAgICAgICAgICAgICAgICAgICAgICAgIC AgICAgDQogICAgICAgICAgICAgICAgICAgICAgICAg ICAgICAgICAgICAgICAgICAgICAgICAgICAgICAgICAgICAgICAgICAgICAgICAgICAgICAgICAgICAg ICAgICAgICAgICAgICAgDQogICAgICAgICAgICAgICAgICAgICAgICAgICAgICAgICAgICAgICAgICAg ICAgICAgICAgICAgICAgICAgICAgICAgICAgICAgIC AgICAgICAgICAgICAgICAgICAgICAgICAgDQogICAgICAgICAgICAgICAgICAgICAgICAgICAgICAgIC AgICAgICAgICAgICAgICAgICAgICAgICAgICAgICAgICAgICAgICAgICAgICAgICAgICAgICAgICAgIC AgICAgICAgDQogICAgICAgICAgICAgICAgICAgICAg ICAgICAgICAgICAgICAgICAgICAgICAgICAgICAgICAgICAgICAgICAgICAgICAgICAgICAgICAgICAg ICAgICAgICAgICAgICAgICAgDQogICAgICAgICAgICAgICAgICAgICAgICAgICAgICAgICAgICAgICAg ICAgICAgICAgICAgICAgICAgICAgICAgICAgICAgIC AgICAgICAgICAgICAgICAgICAgICAgICAgICAgDQogICAgICAgICAgICAgICAgICAgICAgICAgICAgIC AgICAgICAgICAgICAgICAgICAgICAgICAgICAgICAgICAgICAgICAgICAgICAgICAgICAgICAgICAgIC PlSPAwRTKoYUYxGGd0L7bpCQDgCYLgAH6oITh6Ro5+ DEfTUqCzGGH2qhDzgM5QLA4dc1WfGMpxSZBuq0QjZKf5YT9MJOClLBkvKQ8WSLdjyj3IRJJhZDWlvPIH h1uoSfNeJVU2WZZmQodvFZ5XKLJyI3kxvkRtAJKvYNRXSM7SAdAfY5IyrB01MUOIXq0+DQplbmRvYmoN DzRzEYNad8WaEXl7JI3IZLFxFjbxb1KsHzSaVGEUHU qfVI4CJHT3HNFrQAEdBa8BDFClV181dgWzSV1VKh2UZtGsTH0cab4RVjAeERMkHbbQNih3VEptFV8OsI XhNKsAvp9dvvVgjiENu5FdvdXmpZKYeC8dWLRvdAEimDZvHW0TWUR0RYulEy7qGTDaLZErUaGjQLSUKI 1EFGLbWBVekMHrPMPqPNQEWR9TNOrjMGW3ZNEomrKu cFBdAIimZA8XRRQmdpKrFeDcWXFDQJm+Pc7PSL1xn1FgTRfyTTNoKH5kwx1LPWuPFuRiA0N1yQSgE8H3 QJufAl6DQJVsMDEbYbBrQQBTGLzfBV2ZTK6hffM1AP0OuUHkYLRkPVGczAGlDHp0J62liDEeVFdwGG8N ICA+Elana+Wf7AJTQsWHXgZTZxOqMaRTRINnDkS1WlJ6 CUo5HcQ2NoKK32xQqmjwXhTDraLB0RVE2hFNMxPJLYMK5IzNKxmP0tjvPfRmSfVWRUGfGxU72ssILmMH ZlKIBmGIJyAk4OOGXqE9EnntQrqKyrhdOiCYGpFTPUDY1WWXelcfZqkTEnlIcxDR01fUyqWZ0WSx8OYv TrHC8hkw9UkSHuRt8AJDJfGP0ZRBJhOQWqPYDbIJS7 MHIdBgWqDVgqOKEaYUIwBWK6YOExKMYqDM9YGjGiRDGdPOf2TTydMPVvAVCdwv4SANPhHRNgBUHeNcIk CDVdELGlSNlqCNCqLNQzKGW5QPWtNHTgVZ7APeAvSOOeQPKqPtlmOSUbXDPhzo4YTHAtGJWhUyJkXiDy YYXaVMAhHGwzNKRhPAR1KSqxSCIzALRbTP7AAvMlOX NrSIPjKXtmBTSqAAIweg0BMGHzKEOdMUA0HRJeQRGeVEGzTWthJXRnNJW9DGI1TAVvWLPsAB0WJoJpVN AsHSS8NwlkJSUmYHPqaa1PWSKyAUEyHUmsALDuTTUuKWLqTLmfLEDjRSV7EuukFCQyTQUkBD9YJnMiIY FnRQs4JHPzXQOwKZSejr7MFEOtWKKhUvn0XREvQZHh UJZaFQosWTRvYUH3MGB7DFSuOWQbJG0CPnQrWSJuRCpeJVZlXJRaKKFxyg7YXVMdZZYsFPKbZTLwUXPq LHWjELxgEOKjEIF4MuN8IYAsUVQcNR8SNhHiNZKzFFy1XhxeUBCbTYVaiq2ACRPlGWUcLCl3VzLoMTXe QQCeSTegDMBqNIFnCxDuIYTjAATjQO5TCmQfKKBpHg E1YUSjRPGiUEDgay6LVDSrEBFmCMM0VXPbQPOjKYMeUTy3liEclSVnPNj5YM0DF5PcxzMmWlBOVs6Nz6 03XEO1XGViNj6BT1jsBn3qJMEmFBGUHk9WLGu0YLy5RLTdSaiiJxR3LNKlNeV4YNj7TnJuWSZ0YCsaW1 U+SPn0NHdjDrShY6MnSiw2JlErVaKmNEigGuJlXWib D3XtAP4hQOEPKf4+NEgjrICdhWcjFOZZLcPmUyfmEYzaPBZDEk0P ID Date Data Source [id number] 12/08/2020 10:35:[address] [facility] Name Value Range Interpretation Code Description Data Joyce rce(s) Supporting Document(s) Hemoglobin A1c/Hemoglobin.total in Blood 6.1 % 4.0-6.0 [facility] Glucose mean value [Mass/volume] in Blood Estimated fr om glycated hemoglobin 128 mg/dL <126 [facility] ID Date Data Source [id number] 12/08/2020 10:29:[address] [facility] Name Value Range Interpretation Code Description Data Joyce rce(s) Supporting Document(s) Glucose [Mass/volume] in Capillary blood by Glucometer 177 mg/dL 70- 140 [facility] ID Date Data Source [id number] 10/15/2020 08:04:[address] [facility] Name Value Range Interpretation Code Description Data Joyce rce(s) Supporting Document(s) Progress Note [facility] MPMVId1dChDPBlJg45/[id number]N3qZ5wYAB3VOxRKiHaWnAiGkY3 lbm [file] [id number]+ZXdcqHEccQijYPBWNhSyTTt2OEkxJHFHWu4L ID Date Data Source [id number] 10/15/2020 08:03:[address] [facility] Name Value Range Interpretation Code Description Data Joyce rce(s) Supporting Document(s) Progress Note [facility] [id number]Y4zM5gXEE9ALqZJwHxMoZmAxX7 lbm [file] [id number]LVsBoSL8UOQa= ID Date Data Source [id number] 09/18/2020 09:09:[address] [facility] XR SHOULDER COMPLETE [id number] RESULTIn terpreted by:REY Solorzano SHOULDER CLINICAL STATEMENT: Pain. Initial encounter.TECHNIQUE: [...] rce(s) Supporting Document(s) ID Date Data Source [id number] 09/18/2020 11:24:[address] [facility] Name Value Range Interpretation Code Description Data Joyce rce(s) Supporting Document(s) Progress Note [facility] [id number]/[id number]vAVrFtHzUnTTNy m [file] [id number]= ID Date Data Source [id number] 08/28/2020 07:38:[address] [facility] XR SPINE CERV 4 OR MORE VIEWS [id number] RESULTInterpreted by:[facility]ueda [facility] SPINECLINICAL STATEMENT: Status post spinal fusion. Neck [...] Negative [place] This lab was ordered by [facility] and reported by [facility]. ID Date Data Source [id number] 08/27/2020 04:25:[address] [facility] Name Value Range Interpretation Code Description Data Joyce rce(s) Supporting Document(s) Progress Note [facility] [id number] lbm [file] [id number]= ID Date Data Source [id number] 08/27/2020 12:16:[address] [facility] MR CERVICAL SPINE WITHOUT CONTRAST [id number] FINAL RESULTInterpreted by:JAI Quiñones CERVICAL SPINE INDICATION: [...] rce(s) Supporting Document(s) ID Date Data Source [id number] 07/11/2020 02:41:39 PM [facility] Name Value Range Interpretation Code Description Data Joyce rce(s) Supporting Document(s) Cholesterol [Mass/volume] in Serum or Plasma 221 mg/dL <200 [facility] Triglyceride [Mass/volume] in Serum or Plasma 81 mg/dL <150 [facility] Cholesterol in HDL [Mass/volume] in Serum or Plasma 104 mg/dL >50 [facility] Cholesterol in LDL [Mass/volume] in Serum or Plasma by calcu lation 101 mg/dL <100 [facility] Cholesterol in VLDL [Mass/volume] in Serum or Plasma by calc ulation 16 mg/dl 16-42 [facility] Cholesterol non HDL [Mass/volume] in Serum or Plasma 117 mg/dL <130 [facility] ID Date Data Source [id number] 07/11/2020 02:41:39 PM [facility] Name Value Range Interpretation Code Description Data Joyce e(s) Supporting Document(s) Albumin [Mass/volume] in Serum or Plasma by Bromocresol green (BCG) dye binding method 4.3 g/dL 3.5-5.2 [facility] Bilirubin.total [Mass/volume] in Serum or Plasma 0.5 mg/dL <1.2 [facility] Calcium [Mass/volume] in Serum or Plasma 9.3 mg/dL 8.6-10.0 [facility] Chloride [Moles/volume] in Serum or Plasma 102 mmol/L 98-107 [facility] Creatinine [Mass/volume] in Serum or Plasma 0.75 mg/dL 0.50-0.90 [facility] Glucose [Mass/volume] in Serum or Plasma 162 mg/dL 70-140 [facility] Alkaline phosphatase [Enzymatic activity/volume] in Serum or Plasma 71 U/L 35-104 [facility] Potassium [Moles/volume] in Serum or Plasma 4.5 mmol/L 3.4-5.1 [facility] Protein [Mass/volume] in Serum or Plasma 7.1 g/dL 6.4-8.3 [facility] Sodium [Moles/volume] in Serum or Plasma 139 mmol/L 136-145 [facility] Aspartate aminotransferase [Enzymatic activity/volume] in Serum or Plasma 21 U/L <32 [facility] Urea nitrogen [Mass/volume] in Serum or Plasma 10 mg/dL 6-20 [facility] Osmolality of Serum or Plasma by calculation 291 mosm/kg 275-300 [facility] Creatinine/Urea nitrogen [Mass Ratio] in Serum or Plasma 13 [facility] Bicarbonate [Moles/volume] in Serum 29 mmol/L 22-29 [facility] Alanine aminotransferase [Enzymatic activity/volume] in Seru m or Plasma 21 U/L <33 [facility] Anion gap 3 in Serum or Plasma 8 mmol/L 8-15 [facility] Glomerular filtration rate/1.73 sq M pre dicted among non-blacks [Volume Rate/Area] in Serum or Plasma by Creatinine-based formula (MDRD) >6 0 [facility] Glomerular filtration rate/1.73 sq M pre dicted among blacks [Volume Rate/Area] in Serum or Plasma by Creatinine-based formula (MDRD) >60 [facility] ID Date Data Source [id number] 07/11/2020 02:41:39 PM [facility] Name Value Range Interpretation Code Description Data Joyce rce(s) Supporting Document(s) Thyrotropin [Units/volume] in Serum or Plasma 1.360 u[IU]/mL 0.270-4. 200 [facility] ID Date Data Source [id number] 07/11/2020 04:24:57 PM [facility] Name Value Range Interpretation Code Description Data Joyce rce(s) Supporting Document(s) Leukocytes [#/volume] in Blood by Automated count 4.2 10*3/uL 4-10 [facility] Erythrocytes [#/volume] in Blood by Automated count 4.19 10*6/uL 4.1- 5.3 [facility] Hemoglobin [Mass/volume] in Blood 14.1 g/dL 11.5-15.5 [facility] Hematocrit [Volume Fraction] of Blood by Automated count 42.2 % 3 6-45 [facility] Erythrocyte mean corpuscular volume [Entitic volume] b y Automated count 100.6 fL 80-96 [facility] Erythrocyte mean corpuscular hemoglobin [Entitic mass] by Automated count 33.7 pg 27-33 [facility] Erythrocyte mean corpuscular hemoglobin concentration [Mass/volume] by Automated count 33.4 g/dL 32.0-36.0 [facility] distribution width [Ratio] by Automated count 13.0 % 11.5-14.5 [facility] Platelets [#/volume] in Blood by Automated count 252 10*3/uL 150-400 [facility] Differential cell count method - Blood [facility] Neutrophils/100 leukocytes in Blood by Automated count 57 % [facility] Lymphocytes/100 leukocytes in Blood by Automated count 28 % [facility] Monocytes/100 leukocytes in Blood by Automated count 9 % [facility] Eosinophils/100 leukocytes in Blood by Automated count 5 % [facility] Basophils/100 leukocytes in Blood by Automated count 1 % [facility] Neutrophils [#/volume] in Blood by Automated count 2.35 10*3/uL 1.8-7 .0 [facility] Lymphocytes [#/volume] in Blood by Automated count 1.15 10*3/uL 1.2-4 .0 L [facility] Monocytes [#/volume] in Blood by Automated count 0.35 10*3/uL 0-0.8 [facility] Eosinophils [#/volume] in Blood by Automated count 0.19 10*3/uL 0-0.5 [facility] Basophils [#/volume] in Blood by Automated count 0.03 10*3/uL 0-0.2 [facility] Nucleated erythrocytes/100 leukocytes [Ratio] in Blood by Automated count 0 /100{WBCs} 0-0 [facility] ID Date Data Source [id number] 07/11/2020 02:45:09 PM [facility] Name Value Range Interpretation Code Description Data Joyce rce(s) Supporting Document(s) Calcidiol [Mass/volume] in Serum or Plasma 68 ng/mL >30 [facility] ID Date Data Source [id number] 07/11/2020 02:18:19 PM [facility] Name Value Range Interpretation Code Description Data Joyce rce(s) Supporting Document(s) Hemoglobin A1c/Hemoglobin.total in Blood by HPLC 6.1 % 4.0-6.0 [facility] (NOTE)<5.7% Average risk of diabetes (ADA)5.7-6.4% Increased risk of diabetes(ADA)>/= 6.5% Diagnostic for diabetes(ADA) Glucose mean value [Mass/volume] in Blood Estimated fr om glycated hemoglobin 127 mg/dL <126 [facility] ID Date Data Source [id number] 07/11/2020 02:13:48 PM [facility] Value Range Interpretation Code Description Data Joyce rce(s) Supporting Document(s) Color of Urine [facility] Clarity of Urine [facility] Specific gravity of Urine by Refractometry automated 1.004 1.003 -1.030 [facility] pH of Urine by Automated test strip 8.0 5.0-8.0 [facility] Protein [Mass/volume] in Urine by Automated test strip Neg [facility] Glucose [Mass/volume] in Urine by Automated test strip Neg [facility] Ketones [Mass/volume] in Urine by Automated test strip Neg [facility] Bilirubin.total [Presence] in Urine by Automated test strip Negative [facility] Hemoglobin [Presence] in Urine by Automated test strip Neg [facility] Leukocyte esterase [Presence] in Urine by Automated test strip Negative [facility] Nitrite [Presence] in Urine by Automated test strip Negati [facility] Leukocytes [#/area] in Urine sediment by Automated count 0 /HPF 0 -5 [facility] Erythrocytes [#/area] in Urine sediment by Automated count 0 /HPF 0-3 [facility] ID Date Data Source [id number] 07/10/2020 04:18:29 PM [facility] Name Value Range Interpretation Code Description Data Joyce rce(s) Supporting Document(s) Progress Note [facility] URYNYv6hWrXEGzXa49/THPqfRTAct4BwFKhoOZf7PDrgSIYcG9WuLZC5pA7sMZV7NMjXXrDvHmRgTrP8 lbm [file] DQo= ID Date Data Source [id number] 07/10/2020 04:18:24 PM [facility] Name Value Range Interpretation Code Description Data Joyce rce(s) Supporting Document(s) Progress Note [facility] SIUELg8zWpMDMcGa91/RKKclKVIcr5YzXVzwPCh0RZilCEAdH2NpWWO7aX2iWQC2TRsZRbTwXcQaAqM0 lbm [file] 5fUYUMHf4+OTwwqJNqpDasVNCXAvFdYjZ3PBczRJMWZd7V ID Date Data Source PAP REQUEST FOR SERVICE 06/05/2020 12:00:00 AM EST eCW1 ([facility]) Name Value Range Interpretation Code Description Data Joyce rce(s) Supporting Document(s) PAP REQUEST FOR SERVICE eCW1 ( [facility]) ID Date Data Source HERPES SIMPLEX VIRUS HSV CULT/TYPE 05/08/2020 12:00:00 AM ES T eCW1 ([facility]) Name Value Range Interpretation Code Description Data Joyce rce(s) Supporting Document(s) eCW1 ([facility]) ID Date Data Source CHLAMYDIA & GC DNA AMPLIFICAT 05/08/2020 12:00:00 AM EST eCW 1 ([facility]) Name Value Range Interpretation Code Description Data Joyce rce(s) Supporting Document(s) Chlamydia trachomatis rRNA [Presence] in Unspecified specimen by Probe and target amplification method NEGATIVE NEGATIVE eCW1 ([facility]) ID Date Data Source [id number] 05/05/2020 12:15:[address] [facility] Name Value Range Interpretation Code Description Data Joyce rce(s) Supporting Document(s) Progress Note [facility] DRIIEv9bQqBZEyQq38/GKOrrGPCqk9IfWLvqNKa0SCzrNUCrZ3UkKBG5uL8rXJX7MLhSKaCzNfBkSlS4 [facility] TsIaoQYdSxEKUmNioVAbTcZXrmNrbiyVLcKL0EzJV0AUPlH53yBHUrZJByZ5IyBMPiUCw+Ws4TGZJaxI XuOW4BHpzX8O8pg6pLKu6jaT/MTgAO3PIf6FKcBHAcsjv2XEdHNkD1O1KVDpmrn49JA0u/tyaXOUA0Di 71bC6ymr/nsSLmg0Yb4emKgvA/91Yn7IbIyoC/N38G eSj2vxjgq4J5ISvrAul+cP0nT3suhIXzuqDHo14/qzsxAuqroVXb9l6vs6LC+r23hzrm5FdHhrzM6/6X D2mXHHZkjB5Gi50+/rkV3XCuB6z5jQ3x0D7Cq3uhW6oiqcSCP1zj3MFPMkJXoj2HsacVsW2gg9gI31ff bsHmZ35u81ZTvPbVE1oA/bOoNjqyUvaEKdajVOAWib o2Cz+LkQhTDmKxXiy1F1o9DHmqYLDSKyx0jlCTJAqXa2dYkKer6+EivhmN+3qnX5PheWzxAcVdyndnBF wAMfAPO6YqRtlIxwCC0ULbEEw8In1Jso7993BByXUk4E7eI66jkwYoSmhGBg1uodt73ADaWoi4d2f8b5 zahntOr3uiK8ZaCwtAulq+Be0jlW5592PdJQzDzFTB yNLpVPSK5IKxgDlmHP0H+8S4waHqceBp4Z5fnHKTwZSCpskg9oMZEeRMrof+gdCwz5Zl4p65JjV8/GLI HW0z0vvRyIcUEc5UyaCBMh7qpBxV3LUJpt1iHgDpAz7Odqy81qq9dATyCPC+JfBSWBzbO/DEX+6a1NkFo [file] AgICAgICAgICAgICAgICAgICAgICAgICAgICAgICAgICAgICAgICAgICAgICAgICAgICAgICAgICAgIC AgICAgICAgICAgICAgICAgICAgICAgICAgICAgICAgICAgDQogICAgICAgICAgICAgICAgICAgICAgIC AgICAgICAgICAgICAgICAgICAgICAgICAgICAgICAg ICAgICAgICAgICAgICAgICAgICAgICAgICAgICAgICAgICAgICAgICAgICAgDQogICAgICAgICAgICAg ICAgICAgICAgICAgICAgICAgICAgICAgICAgICAgICAgICAgICAgICAgICAgICAgICAgICAgICAgICAg ICAgICAgICAgICAgICAgICAgICAgICAgICAgDQogIC AgICAgICAgICAgICAgICAgICAgICAgICAgICAgICAgICAgICAgICAgICAgICAgICAgICAgICAgICAgIC AgICAgICAgICAgICAgICAgICAgICAgICAgICAgICAgICAgICAgDQogICAgICAgICAgICAgICAgICAgIC AgICAgICAgICAgICAgICAgICAgICAgICAgICAgICAg ICAgICAgICAgICAgICAgICAgICAgICAgICAgICAgICAgICAgICAgICAgICAgICAgDQogICAgICAgICAg ICAgICAgICAgICAgICAgICAgICAgICAgICAgICAgICAgICAgICAgICAgICAgICAgICAgICAgICAgICAg ICAgICAgICAgICAgICAgICAgICAgICAgICAgICAgDQ ogICAgICAgICAgICAgICAgICAgICAgICAgICAgICAgICAgICAgICAgICAgICAgICAgICAgICAgICAgIC AgICAgICAgICAgICAgICAgICAgICAgICAgICAgICAgICAgICAgICAgDQogICAgICAgICAgICAgICAgIC AgICAgICAgICAgICAgICAgICAgICAgICAgICAgICAg ICAgICAgICAgICAgICAgICAgICAgICAgICAgICAgICAgICAgICAgICAgICAgICAgICAgDQogICAgICAg ICAgICAgICAgICAgICAgICAgICAgICAgICAgICAgICAgICAgICAgICAgICAgICAgICAgICAgICAgICAg ICAgICAgICAgICAgICAgICAgICAgICAgICAgICAgIC AgDQogICAgICAgICAgICAgICAgICAgICAgICAgICAgICAgICAgICAgICAgICAgICAgICAgICAgICAgIC YeDXGqJPEsBXCnWGAlMJAfQGXqNBUeZPVgZALbZMZxQEIqFXVrQPOxKQMnZVf6T5rnRWVmLFJwTD4wNE d3Jz8+QIcPPqDoURX8rzZwkE2UMV8po6KgRQyaOWGt x2JnTUy3VJ9PYDMdSSmxXG9OTTlbla3ZIDNgJWTqdOGNw6kdFxFjOYR6XPNxTbslFO4MEJPcN1ztqnZp OTJcKZAUJEwxAIYDYLnuFCNPTZMuKMJhLsPnYoNsPECtFIJnGKWAZWO8STRxTcVlSGXtNVLgYtNaHJAC MNIyUMMdUrInAYkpST8Xk1GsrTEpWV3TXc0KZnLdGO 4cob2WNMLlFYYoBlqUDth0DNjkMH7SdPZefJK8QIHyQNJUElGqD8spv6LuWVBbEXVYHFvaBA6Bn0EbsK AxDQo+Bz5SYK6bk1ScXPl9LGTwZV5sfy3DXMtMVuXyT4FgbPsmESEnv7tgXWBnFC9xgENhAQW4ZCnzs9 RvrHstOMDDTRpoMDkwmk63HVZMVIVmxJUvGh7yOA1z TDTjHJMwZcPcCBRFLO7OCDGxLOAnmCGsMAGjUBSOEE1ZRUieJYZ4KWZbqdNifXVvORraFR5OYTHxulVl NDAgMCBSDQo+Qu2QKR3gg6ChVGh3HvUoRV7wrj3YZOyGWdEsT6N4dXEiE1B6ELdjOy7RTIDmJOElCabw ATAUGEkxEQ3RDV8ovyO7PG9PhAZzAWQcKJNuaXBpZE z6E22cpHLgFAdnOL5FPKD+Elana+Zn3UOHBdMHZdEODqPnCmZJXXCiVoP4NbS1WCt6FsU2RsYI57cAdykk EjJRkfUW7GVX7jGOTbOGFRSQ0YdBGblL2qmdU8DPByEHHZCsDdZ80qnAKbDDDwYDJ8BSFjPv2OWEHhK5 WnvnXybKmaplCdDSUqOISRAM2YKJrwifGvrZSnsTzr IV79lFknVQ1OPr2DWfRhCR7ida8CeILiXg0HHOO0Kq4JVTHpHFOaLMTsPXB9JOJwLcCeRMrsIHUpTHGr TQQ6LWEiKFUxQT1HSuIqTXDlFYH9QkRgLQSlTZDhpj1QSSPeFRQ2ZjU0PHZwJSUuADAkDDfjJTKpFXAl VVH4YEYbFFEbGZ7VUqJlKQKcMOU8WhlqWJZjZWEili 8EXSLpNTMhNijiBVYlMGCjNZGePRuuQAMcHUZ4Bwc0SBRrWQMjGH5ORkNmKWKmIMB9NKynFAEvFUQobe 3YUUYiZCSpEDQkOpJmTCTnVSWcPHrvJBEeNGK9QcB4JKXgFZXaBE4QAvUsCFBiCNAxVrHmKSFzRYCdki 3FSETgNWZwZyB0WEHdQPQjKWOgMVosODKwEAX4RANi ANBcNHElQF7IVcXqAWJzXEY5TbfcIHNzSXEliw4VXCZvQZShHFs3KbOjSLLmQTKkOGczAQOnXNF1ORgn SUCpFHYeIG2XTuSnBEAmLjZhQCHdQERfMZWbpl9BGLWhIGQcIWChCOFrNZOlSZTqPKgaFJHtHDN9ANMt KBQkZDTuKC2MUdLmLUAdPgGyBNdoZISmDTHowp3BNO TyLYKnJcL4KXXwHKMkSIYrYQnrNVTpSWS1SbB8XDKlNFFhMQ8JQzXhVFHlFvsyQbRjCBOpKMJkrb1YTR WbETXvCST7IgNwJPLhQASfLSagCGBpBWT0WOJvPFMiGYMyDQ9LByDyHPVsYbd5QPllLGCuPCRpjb6HMT YzJWLaDIb4DxOxOHPvGYCcTYvrNLJwEEGzRTZoJXAx HCUlZZ3GNkFsMAQdElRhSPDzOVHxDCAvfw9ETRXnWEIrZQWyQGZuHOTpLHAvKDjnUZTbZCXbPgWlVCWk YAAwRW0TCcGxFWOzJBC4RTYjHIQaETXhtt8FZRFcNJH4ZrL8EWXvYRPgMLKjWKjzCZGpUUWgLRQ0ELXe GVFsEU1OZsPkHNJoPXY9YMLyXAVyJINepv3DBKDzER C8YSBsUQLuOTBpKMMoFTrmTUJzXZD4WbYtWKMoMKSfMA7AHcGjAMOtUPE1YYNaNPNdXCMhbi9LGXAyTQ F4GJQgAVUnFUSaFKXxFSsrGZYpEZT4WPX6WZWtBMTgER9EIdLtZCFmNLZ9CAxzPWRmKHOpbm8PWWHqKP Z1SuE2VTUuBCQnEMLrCMi8elDdpXLeJCi8RO2KU7Qs ydOvSXTXLf6Po387KKZkZQJwWq7IH6xuGt9bZWLxLEWBDn3XKWy2HuV1GUVuGcK3NumyZWNgK2LyAAvc NWVmZTgwMWNhNjI+SIffTlz0YFZkVMxsTPV7PmY5HZR1IJJ1DVRlSFHxK2M8Nq3yZHYEGd1+DQpzdGFy dWceWFQPGeR5Ezx8QVtiALORQc0T ID Date Data Source [id number] 04/08/2020 07:41:00 AM EST [facility]ENT ([facility], ) Name Value Range Interpretation Code Description Data Joyce rce(s) Supporting Document(s) Surgical pathology study [facility] FINAL DIAGNOSIS Esophageal biopsy: Fragments of benign squamous mucosa. No intraepithelial eosinophils are noted. No evidence for acute inflammation is noted. 04/09/2020 - 135 CLINICAL DIAGNOSIS Heartburn, dysphagia 04/08/2020 - 152 GROSS DIAGNOSIS Received in formalin labeled "esophageal biopsy" is a 0.5 x 0.2 x 0.1 cm aggregate of mucosal fragments. All in one. - 04/08/2020 - 1521 Signed Sachin Man MD 04/09/2020 1543 ID Date Data Source [id number] 04/05/2020 08:30:00 AM EST [facility] Name Value Range Interpretation Code Description Data Joyce rce(s) Supporting Document(s) SARS coronavirus 2 RNA [facility] This lab was ordered by [facility] and reported by [facility]. ID Date Data Source [id number] 03/19/2020 12:00:00 AM EST [facility] Vincent Mendez MD Patient Name: ОЛЕГ [id number] [facility] Date of : 1970 Date of Exam: 03/19/2020ZARINA Cardenas [id number]#: Fax: [phone] EXAM: MRI KNEE RIGHT WITHOUT [...] the periphery cannot beruled out.Accredited by the [employer] in MR.Crystalgaviota Fuchs, SHANNAN/Cuco you for referring VIC VANCE to our office. Electronically Signed - CRYSTAL FUCHS DO 03/20/20 13:58 Name Value Range Interpretation Code Description Data Joyce rce(s) Supporting Document(s) ID Date Data Source [id number] 03/19/2020 12:00:00 AM [facility] Vincent Mendez MD Patient Name: ANGELICA [id number] [facility] Date of : 1970 Date of Exam: 03/19/2020ZARINA Cardenas [id number]#: Fax: [phone] EXAM: MRI KNEE LEFT WITHOUT [...] Other findings as described above.Accredited by the [employer] in MR.Crystal Fuchs, SHANNAN/Cuco roblero for referring VIC VANCE to our office. Electronically Signed - CRYSTAL FUCHS DO 03/20/20 13:58 Name Value Range Interpretation Code Description Data Joyce rce(s) Supporting Document(s) ID Date Data Source [id number] 02/15/2020 09:40:58 AM EDT [facility] Current Problems: Dental caries (ICD-521 .00) (IUC08-K17.9)Other diseases of tongue (ICD-529.8) (FDB14-A54.8)Clostridioides difficile infection (ICD-008.45) (PCY19-W50.72)Gammaherpesviral mononucleosis without complication (ICD10- B27.00)Type 1 diabetes mellitus without complications (TQG09-E74.9)Unspecified osteoarthritis, unspecified site (NOL87-G94.90)Current Medications: HYDROCODONE BITARTRATE POWDER (HYDROCODONE BITARTRATE) CYCLOBENZAPRINE HCL TABLET (CYCLOBENZAPRINE HCL TABS) TRAZODONE HCL TABLET (TRAZODONE HCL TABS) BUPROPION HCL TABLET (BUPROPION HCL TABS) ZANTAC TABLET (RANITIDINE HCL TABS) PRILOSEC PACKET (OMEPRAZOLE MAGNESIUM PACK) METANX CAPSULE (B-GRUHPHVPKCLY-WIIFB-B12-B6 CAPS) HUMALOG SOLUTION (INSULIN LISPRO SOLN) Dental [...] CDT Code - Description T - (D2751) 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 on Tooth # 28 (Performed by Roshni Petty DDS) T - (D2751) 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 on Tooth # 29 (Performed by Roshni Petty DDS) T - (D3240) Pulpal therapy (resorbable filling), posterior, primary tooth (excluding final gnosticist) on Tooth # 29 on Root Region A (Performed by Roshni Petty DDS) T - (D3240) Pulpal therapy (resorbable filling), posterior, primary tooth (excluding final gnosticist) on Tooth # 28 on Root Region [...] mask, hair covering, gown Pt was cooperative.NV: 6MRCBaRoshni nathan DDS by renan (02/15/2020 12:27 PM): Tooth Notes and Watches: Assessment & Plan Medications:HYDROCODONE BITARTRATE POWDERCYCLOBENZAPRINE HCL TABLETTRAZODONE HCL TABLETBUPROPION HCL TABLETZANTAC TABLETPRILOSEC PACKETMETANX CAPSULEHUMALOG SOLUTIONAllergies:No Known Allergies (updated 08/04/2018) Name Value Range Interpretation Code Description Data Joyce rce(s) Supporting Document(s) ID Date Data Source [id number] 01/29/2020 09:07:[address] [facility] Name Value Range Interpretation Code Description Data Joyce rce(s) Supporting Document(s) Progress Note [facility] TUPLGh4wSkVZQeOp83/GWGrkZEYyc5GqRUlkMMm2NAnyUXRcY2FgTMA6jR8eDPK7YIlVHzWfUxOlLZHs lbm [file] nZqzOWZ2+Jean Claude/78QAoOPrXhMO0GRxSGAnxY2Q2/pap [file] AgICAgICAgICAgICAgICAgICAgICAgICAgICAgICAgICAgICAgICAgICAgICAgICAgICAgDQogICAgIC AgICAgICAgICAgICAgICAgICAgICAgICAgICAgICAg ICAgICAgICAgICAgICAgICAgICAgICAgICAgICAgICAgICAgICAgICAgICAgICAgICAgICAgICAgICAg ICAgDQogICAgICAgICAgICAgICAgICAgICAgICAgICAgICAgICAgICAgICAgICAgICAgICAgICAgICAg ICAgICAgICAgICAgICAgICAgICAgICAgICAgICAgIC AgICAgICAgICAgICAgDQogICAgICAgICAgICAgICAgICAgICAgICAgICAgICAgICAgICAgICAgICAgIC AgICAgICAgICAgICAgICAgICAgICAgICAgICAgICAgICAgICAgICAgICAgICAgICAgICAgICAgDQogIC AgICAgICAgICAgICAgICAgICAgICAgICAgICAgICAg ICAgICAgICAgICAgICAgICAgICAgICAgICAgICAgICAgICAgICAgICAgICAgICAgICAgICAgICAgICAg ICAgICAgDQogICAgICAgICAgICAgICAgICAgICAgICAgICAgICAgICAgICAgICAgICAgICAgICAgICAg ICAgICAgICAgICAgICAgICAgICAgICAgICAgICAgIC AgICAgICAgICAgICAgICAgDQogICAgICAgICAgICAgICAgICAgICAgICAgICAgICAgICAgICAgICAgIC AgICAgICAgICAgICAgICAgICAgICAgICAgICAgICAgICAgICAgICAgICAgICAgICAgICAgICAgICAgDQ ogICAgICAgICAgICAgICAgICAgICAgICAgICAgICAg ICAgICAgICAgICAgICAgICAgICAgICAgICAgICAgICAgICAgICAgICAgICAgICAgICAgICAgICAgICAg ICAgICAgICAgDQogICAgICAgICAgICAgICAgICAgICAgICAgICAgICAgICAgICAgICAgICAgICAgICAg ICAgICAgICAgICAgICAgICAgICAgICAgICAgICAgIC AgICAgICAgICAgICAgICAgICAgDQogICAgICAgICAgICAgICAgICAgICAgICAgICAgICAgICAgICAgIC AgICAgICAgICAgICAgICAgICAgICAgICAgICAgICAgICAgICAgICAgICAgICAgICAgICAgICAgICAgIC RpBFk5L5msHRKeVIZfVZ3ySEd4Pm2+DQoNCmVuZHN0 ohEmhV2HWU4bh0NgZLczYVFmh0LzLFg1GY5MYBZoLDiiNQ1SJJmrqh4QLPQjEUZzlALUe2dkQaJuKUH7 ARWcXhmkCK4CTSFdQ2xxonFvWCBoQZFZCYqsWXWFWTtlMYZRYPWnVWXwWvQeRfEjXWBeBWLdEQIQGYD2 NIWrYxPxOWBmCKNnON6QZHYgN352xwJgPP0WLc5ORw RtQC2vlt6UNnSpAKFhVekRFvq8TUtxYU1QyPZfiQNfZhKmFZVCPjUyI5grv6PhPlyrQGWUJMosHD4Aa1 VudCAxDQo+Cv4KJK3al9CqQIceLeGuDF8yvl1VYPqEKzEhD0IrfAwdMMYpi9irDTMyVK9ybNGwUXO0HD N2jtSkMLMzOZG2MGcvXPRyBHVmNZ5nUp2lCUJkICR9 UbJmATDPQL8XULQqEFHkuRXiKNKtJZWJJT9RVYriTJM9YEHeamSduHXeXOktBA1BFTZogqLyWkZgWSYF DQo+Ad1LRQ1xc8FeIPbdSNEjDD6kgq3MTDwKIaZvJ9O4yIMqZ7I3IIzhCa7UKFGrIZWwTlNqCVUFQBut VB4OFP7yghH4LN8DnVWmRUMxVBZnsTIpRMo5V77klV JxMPxoNP9YDLR+Elana+Ot4TNXKyJFPlJCJeJlBqJGYGJbRdZ0IlK4ZWz2XuO1LxFC30cIcvuhVlEUkeMR 4UZY0aMFNnGOQVYL3AcAPxhN6qnkIrMxRvRRWGZvReU75dxGTqFEInIJI8DEAoXu9YQBDqU9ZoxwTykS qngwVmHMZzWLILLK4OCIcdznAjcKKfoJglRN13iTgh YK1FVy0OWuUiBL9hpl8FoGJsAm6EUVUsYI3KNFStUHVpHGTnKSO4WLMrDzPzTBelUMYmUDVfAOG2AUPb LFXmXC8CZpLcFECsYvz5DZFvVTNbKBKbvc3NWLVwKAN9USXrPGHzQAAzHQOoZQjnYZKfENWoTJZ0APJr PRJtKR9ZVhRmEBGlJMF8WrLcAPFjTJTfiz4SPFFrQI HdFcy5YZDeQWFxEIHfUHdmEPZkMZL7YGJqYUHqPQClRO5FCrSoGPXtQKadQeBzREDsUGSkgz4MHXBlND UkQCM7CeSjEJSxSHQwSNnqLGKlCRYvPBYySLHoSDMsMD8CSlCqOIDiNDR9YCfmEZBjELHkge5NSNTzZQ XbBMQ4KoMaYMXmZHYsMXbfPWDsYEP0VSFqZXUyGRBn PC4EVzFvTNNvDOTjYYnxYFRqDNTkof8TFNJvUFIgXBS5TVGkTUDpAZTfYXdtTUWkICV2KrmfADVgCQOe MZ4ECwUbEQAwXeB5TWagRBZvWGWqqk2ZTJGnWSHdNlFnShKuJYNhYMYvKEbiOTLqUUIeLsFzZPUgOWDc IK5VQhLpTAOlBpG3QWnvRLMcKTFtzf0CAAXyIKLrEA P8TSViNSFcFUJdIEilKSVeTEJ3SCG0JZUnNBXdKB5DEyQjSGFqPjW6DDnbJUGhNFBihl3VXMWpPGRuFO joSXZcMEXmAWSeMTupFHFkHPU9ZIRtWOSnSKGmIU9CQgBfXORyGnQnBDvvYEOuKWCkzy2LXWSkBUCxHi MoUDPaOVUhUIYbDJphYPXoAEB6HGCeZDMbSRZiPQ4M NtWcLQGuVyeuEtRmBPByOSOvrw8ZEFZnGIGyTFGiOfEmMVWqUPMzUOptGPMbISN5XMG5IKAdXNNxKX7M FbPiJIZlHes0WKJlJGCaXDFcuh6WMVRbDJHuVGN9KXDnSRMeUNZiEVadCERfQPA9AbC2XHCgRBMiFR7M SzOeLQTjMAKkLEXhSOMaTRJsbh4ORNItFHS4ZHT3TR HtXHYjFWBcDRogFDVkXHYmElScLCWqUEXuXU3NSaWrAHMhCRS4XFhdXXDlHXZslr6QcCPjwAtjyc5FRN zOHm1IvWamURT0LVedLq7crFEiQVMhWILTTb3OxbNgXCBaCHWQLYapBTJzWAH1S3OyXbI4DOx2WKG2GS NkOYH6U9I4ZVRgBmnzLpSzLkE5ElS8ZLQpQuI7VBoe ILL1PwCwXvjiSUcfROT4G0RcBoO+NJ1nRKc+Cg4Xe7OoseP2rlXhMBj8RfAuDn4QUALSZ1OFNj== Procedure Social History Code Duration Value Status Description Data Source(s ) Smoking 03/01/2021 12:00:00 AM EDT Former Smoker completed Former Smoker eCW1 ([facility]) Smoking 02/19/2021 12:00:00 AM EDT Former Smoker completed Former Smoker eCW1 ([facility]) 02/11/2021 12:00:00 AM EDT Light tobacco smoker (10 or fewer cigarettes/day) completed Light tobacco smoker (10 or fewer cigarettes/day) [facility] ([facility]) Alcohol intake 12/08/2020 12:00:00 AM EDT Current drinker of al cohol (finding) completed Current drinker of alcohol (finding) [facility] Tobacco use and exposure 12/08/2020 12:00:00 AM EDT Never used co mpleted Never used [facility] Cigarette pack-years 12/08/2020 12:00:00 AM EDT UNK completed [facility] Cigarettes smoked current (pack per day) - Reported 12/09/19 12:00:00 AM EDT UNK completed [facility] Smoking 12/08/2020 12:00:00 AM EDT Former smoker completed Former smoker [facility] Alcohol intake 10/15/2020 12:00:00 AM EDT Current drinker of al cohol (finding) completed Current drinker of alcohol (finding) [facility] Alcohol intake 09/18/2020 12:00:00 AM EDT Current drinker of al cohol (finding) completed Current drinker of alcohol (finding) [facility] Smoking 09/02/2020 12:00:00 AM EDT Former Smoker completed Former Smoker eCW1 ([facility]) Smoking 09/02/2020 12:00:00 AM EDT Former Smoker completed Former Smoker eCW1 ([facility]) Smoking 09/02/2020 12:00:00 AM EDT Former Smoker completed Former Smoker eCW1 ([facility]) Smoking 09/02/2020 12:00:00 AM EDT Former Smoker completed Former Smoker eCW1 ([facility]) Smoking 09/02/2020 12:00:00 AM EDT Former Smoker completed Former Smoker eCW1 ([facility]) Smoking 09/02/2020 12:00:00 AM EDT Former Smoker completed Former Smoker eCW1 ([facility]) Smoking 09/02/2020 12:00:00 AM EDT Former Smoker completed Former Smoker eCW1 ([facility]) Smoking 09/02/2020 12:00:00 AM EDT Former Smoker completed Former Smoker eCW1 ([facility]) Alcohol intake 08/27/2020 12:00:00 AM EDT Current drinker of al cohol (finding) completed Current drinker of alcohol (finding) [facility] Alcohol intake 07/10/2020 12:00:00 AM EST Current drinker of al cohol (finding) completed Current drinker of alcohol (finding) [facility] Smoking 06/05/2020 12:00:00 AM EST Former Smoker completed Former Smoker eCW1 ([facility]) Smoking 06/05/2020 12:00:00 AM EST Former Smoker completed Former Smoker eCW1 ([facility]) Smoking 06/05/2020 12:00:00 AM EST Former Smoker completed Former Smoker eCW1 ([facility]) Smoking 06/05/2020 12:00:00 AM EST Former Smoker completed Former Smoker eCW1 ([facility]) Smoking 06/05/2020 12:00:00 AM EST Former Smoker completed Former Smoker eCW1 ([facility]) Smoking 06/05/2020 12:00:00 AM EST Former Smoker completed Former Smoker eCW1 ([facility]) Smoking 06/05/2020 12:00:00 AM EST Former Smoker completed Former Smoker eCW1 ([facility]) Smoking 06/05/2020 12:00:00 AM EST Former Smoker completed Former Smoker eCW1 ([facility]) Smoking 05/23/2020 12:00:00 AM EST Unknown if ever smoked comp leted Unknown if ever smoked [facility] Smoking 05/08/2020 12:00:00 AM EST Former Smoker completed Former Smoker eCW1 ([facility]) Smoking 05/08/2020 12:00:00 AM EST Former Smoker completed Former Smoker eCW1 ([facility]) Smoking 05/07/2020 12:00:00 AM EST Unknown if ever smoked comp leted Unknown if ever smoked [facility] Alcohol intake 05/05/2020 12:00:00 AM EST Current drinker of al cohol (finding) completed Current drinker of alcohol (finding) [facility] Smoking 04/24/2020 12:00:00 AM EST Unknown if ever smoked comp leted Unknown if ever smoked [facility] ([facility]) Smoking 04/10/2020 12:00:00 AM EST Unknown if ever smoked comp leted Unknown if ever smoked [facility] ([facility]) Smoking 03/21/2020 12:00:00 AM EST Unknown if ever smoked comp leted Unknown if ever smoked [facility] ([facility]) Smoking 03/14/2020 12:00:00 AM EST Unknown if ever smoked comp leted Unknown if ever smoked [facility] ([facility]) Smoking 03/07/2020 12:00:00 AM EDT Unknown if ever smoked comp leted Unknown if ever smoked [facility] ([facility]) Smoking 02/21/2020 12:00:00 AM EDT Unknown if ever smoked comp leted Unknown if ever smoked [facility] ([facility]) Smoking 02/15/2020 12:00:00 AM EDT Unknown if ever smoked comp leted Unknown if ever smoked [facility] ([facility]) Smoking 02/12/2020 12:00:00 AM EDT Patient is a former smoker completed Patient is a former smoker [facility] ([facility] ) Smoking 02/08/2020 12:00:00 AM EDT Unknown if ever smoked comp leted Unknown if ever smoked [facility] ([facility]) Alcohol intake 01/29/2020 12:00:00 AM EDT Current drinker of al cohol (finding) completed Current drinker of alcohol (finding) [facility] Smoking 01/24/2020 12:00:00 AM EDT Unknown if ever smoked comp leted Unknown if ever smoked [facility] ([facility]) Vital Signs ID Date Data Source UNK Name Value Range Interpretation Code Description Data Source(s) Body height 64 [in_i] 64 [in_i] [facility] ([facility] 5'4" Respiratory rate 18 /min 18 /min [facility] ( [facility]) Systolic blood pressure 109 mm[Hg] 109 mm[Hg] M EDENT ([facility]) Body weight 130.50 [lb_av] 130.50 [lb_av] MED[facility] T ([facility]) Heart rate 96 /min 96 /min [facility] ([facility]) Diastolic blood pressure 69 mm[Hg] 69 mm[Hg] [facility] ([facility]) Body mass index (BMI) [Ratio] 22.4 kg/m2 22.4 k g/m2 [facility] ([facility]) Body surface area Derived from formula 1.65 m2 1.65 m2 [facility] Body mass index (BMI) [Ratio] 23.0 kg/m2 23.0 k g/m2 [facility] Systolic blood pressure 102 mm[Hg] 102 mm[Hg] M EDENT ([facility]) Diastolic blood pressure 62 mm[Hg] 62 mm[Hg] [facility] ([facility]) Body height 64 [in_i] 64 [in_i] [facility] ([facility]) 5'4" Body weight 134.00 [lb_av] 134.00 [lb_av] MEDEN T ([facility]) [place] body weight 120 [lb_av] 120 [lb_av] [facility] T ([facility]) Body weight 60.782 kg 60.782 kg [facility] ([facility]) Body weight 142 [lb_av] 142 [lb_av] eCW1 ([facility]) Body height 64 [in_i] 64 [in_i] eCW1 ([facility]) Body mass index (BMI) [Ratio] 24.37 kg/m2 24.37 kg/m2 eCW1 ([facility]) Heart rate 87 /min 87 /min eCW1 ([facility]) Respiratory rate 18 /min 18 /min eCW1 ([facility]) Body temperature 97.6 [degF] 97.6 [degF] eCW1 ( [facility]) Systolic blood pressure 122 mm[Hg] 122 mm[Hg] e CW1 ([facility]) Diastolic blood pressure 70 mm[Hg] 70 mm[Hg] eCW1 ([facility]) Body weight 143.38 [lb_av] 143.38 [lb_av] [facility] T ([facility]) Systolic blood pressure 144 mm[Hg] 144 mm[Hg] M EDENT ([facility]) Body mass index (BMI) [Ratio] 24.6 kg/m2 24.6 k g/m2 [facility] ([facility]) Diastolic blood pressure 90 mm[Hg] 90 mm[Hg] [facility] ([facility]) Body height 64 [in_i] 64 [in_i] [facility] 5'4" Heart rate 96 /min 96 /min [facility] Respiratory rate 18 /min 18 /min [facility] ( [facility]) Body mass index (BMI) [Ratio] 24.5 kg/m2 24.5 k g/m2 [facility] ([facility], ) Diastolic blood pressure 68 mm[Hg] 68 mm[Hg] [facility] ([facility], ) Body height 64 [in_i] 64 [in_i] [facility] ([facility], ) 5'4" Body height 64 [in_i] 64 [in_i] [facility] ([facility], ) 5'4" Body weight 143.00 [lb_av] 143.00 [lb_av] MEDEN T ([facility], ) Body mass index (BMI) [Ratio] 24.5 kg/m2 24.5 k g/m2 [facility] [place] body weight 120 [lb_av] 120 [lb_av] MEDEN T ([facility]) Body weight 64.865 kg 64.865 kg [facility] ([facility]) Body surface area Derived from formula 1.70 m2 1.70 m2 [facility] Systolic blood pressure 104 mm[Hg] 104 mm[Hg] M EDENT ([facility]) Body weight 143.00 [lb_av] 143.00 [lb_av] MEDEN T ([facility]) [place] body weight 120 [lb_av] 120 [lb_av] MED[facility] T ([facility]) Body weight 64.865 kg 64.865 kg [facility] ([facility]) Body surface area Derived from formula 1.70 m2 1.70 m2 [facility] ([facility]) Body weight 148 [lb_av] 148 [lb_av] eCW1 ([facility]) Body weight 67.13 kg 67.13 kg W1 ([facility]) Body height 64 [in_i] 64 [in_i] eCW1 ([facility]) Body mass index (BMI) [Ratio] 25.4 kg/m2 25.4 k g/m2 W1 ([facility]) Systolic blood pressure 125 mm[Hg] 125 mm[Hg] e CW1 ([facility]) Diastolic blood pressure 77 mm[Hg] 77 mm[Hg] eCW1 ([facility]) Body weight 151 [lb_av] 151 [lb_av] eCW1 ([facility]) Body weight 68.49 kg 68.49 kg eCW1 ([facility]) Body height 64 [in_i] 64 [in_i] eCW1 ([facility]) Body mass index (BMI) [Ratio] 25.92 kg/m2 25.92 kg/m2 W1 ([facility]) Systolic blood pressure 114 mm[Hg] 114 mm[Hg] e CW1 ([facility]) Diastolic blood pressure 73 mm[Hg] 73 mm[Hg] eCW1 ([facility]) Body mass index (BMI) [Ratio] 26.6 kg/m2 26.6 k g/m2 MEDENT ([facility]) Body temperature 97.1 [degF] 97.1 [degF] MEDENT ([facility]) Body height 64 [in_i] 64 [in_i] MEDENT ([facility]) 5'4" Body weight 155.00 [lb_av] 155.00 [lb_av] MEDEN T ([facility]) Body height 64 [in_i] 64 [in_i] MEDENT ([facility] 5'4" Diastolic blood pressure 76 mm[Hg] 76 mm[Hg] MEDENT ([facility] Body weight 163.00 [lb_av] 163.00 [lb_av] MEDEN T ([facility] Systolic blood pressure 122 mm[Hg] 122 mm[Hg] M EDENT ([facility] Heart rate 99 /min 99 /min MEDENT ([facility] Body mass index (BMI) [Ratio] 28.0 kg/m2 28.0 k g/m2 MEDENT ([facility] Body height 64 [in_i] 64 [in_i] [...] Systolic blood pressure 107 mm[Hg] 107 mm[Hg] M EDENT ([facility]) Diastolic blood pressure 69 mm[Hg] 69 mm[Hg] MEDENT ([facility]) Body mass index (BMI) [Ratio] 27.4 kg/m2 27.4 k g/m2 [facility] Systolic blood pressure 122 mm[Hg] 122 mm[Hg] [facility] Diastolic blood pressure 72 mm[Hg] 72 mm[Hg] [facility] ([facility]) Body height 64 [in_i] 64 [in_i] [facility] ([facility]) 5'4" Body weight 162.00 [lb_av] 162.00 [lb_av] MEDEN T ([facility]) Body mass index (BMI) [Ratio] 27.8 kg/m2 27.8 k g/m2 [facility] ([facility]) [place] body weight 120 [lb_av] 120 [lb_av] [facility] Body weight 73.483 kg 73.483 kg [facility] ([facility]) Body surface area Derived from formula 1.79 m2 1.79 m2 [facility] ([facility]) ID Date Data Source [id number] 09/18/2020 11:24:01 AM [facility] Name Value Range Interpretation Code Description Data Source(s) WEIGHT RECORDED 141 lb 141 lb [facility] Body height Measured 64.[address] [facility] ID Date Data Source [id number] 08/27/2020 04:25:07 PM [facility] Name Value Range Interpretation Code Description Data Source(s) WEIGHT RECORDED 141 lb 141 lb [facility] Body height Measured 64.[address] [facility] ID Date Data Source [id number] 05/05/2020 12:15:26 PM [facility] Name Value Range Interpretation Code Description Data Source(s) WEIGHT RECORDED 161 lb 161 lb [facility] ID Date Data Source [id number] 01/29/2020 09:07:36 AM [facility] Name Value Range Interpretation Code Description Data Source(s) WEIGHT RECORDED 161 lb 161 lb [facility] Body height Measured [address] [facility] Patient Treatment Plan of Care Planned Activity Planned Date Details Description Data Source (s) Nicotine 10 MG 02/13/2021 12:00:00 AM EDT eCW1 ([facility]) Acetaminophen 325 MG / Hydrocodone Bitartrate 5 MG Ora l Tablet 12/10/2020 12:00:00 AM EDT eCW1 ([facility]) Acetaminophen 325 MG / Hydrocodone Bitartrate 5 MG Ora l Tablet 12/10/2020 12:00:00 AM EDT eCW1 ([facility]) Acetaminophen 325 MG / Hydrocodone Bitartrate 5 MG Ora l Tablet 12/10/2020 12:00:00 AM EDT eCW1 ([facility]) Acetaminophen 325 MG / Hydrocodone Bitartrate 5 MG Ora l Tablet 12/10/2020 12:00:00 AM EDT eCW1 ([facility]) Insulin Lispro 100 UNT/ML Injectable Solution [Humalog ] 11/17/2020 12:00:00 AM [facility] 24 HR Bupropion Hydrochloride 150 MG Extended Release Oral Tablet 09/19/2020 12:00:00 AM EDT eCW1 ([facility]) 24 HR Bupropion Hydrochloride 150 MG Extended Release Oral Tablet 09/19/2020 12:00:00 AM EDT eCW1 ([facility]) 24 HR Bupropion Hydrochloride 150 MG Extended Release Oral Tablet 09/19/2020 12:00:00 AM EDT eCW1 ([facility]) 24 HR Bupropion Hydrochloride 150 MG Extended Release Oral Tablet 09/19/2020 12:00:00 AM EDT eCW1 ([facility]) 24 HR Bupropion Hydrochloride 150 MG Extended Release Oral Tablet 09/19/2020 12:00:00 AM EDT eCW1 ([facility]) 24 HR Bupropion Hydrochloride 150 MG Extended Release Oral Tablet 09/19/2020 12:00:00 AM EDT eCW1 ([facility]) 24 HR Bupropion Hydrochloride 150 MG Extended Release Oral Tablet 09/19/2020 12:00:00 AM EDT eCW1 ([facility]) Baqsimi One Pack 3 MG/DOSE Nasal Powder (Glucagon) 07/18/2020 12 :00:00 AM [facility] Acetaminophen 325 MG / Hydrocodone Bitartrate 5 MG Ora l Tablet 07/18/2020 12:00:00 AM EST eCW1 ([facility]) Acetaminophen 325 MG / Hydrocodone Bitartrate 5 MG Ora l Tablet 07/18/2020 12:00:00 AM EST eCW1 ([facility]) Acetaminophen 325 MG / Hydrocodone Bitartrate 5 MG Ora l Tablet 07/18/2020 12:00:00 AM EST eCW1 ([facility]) OneTouch Ultra In Vitro Strip 07/10/2020 12:00:00 AM [facility] Norethindrone 0.35 MG 07/01/2020 12:00:00 AM EST eCW1 ([facility]) Norethindrone 0.35 MG 07/01/2020 12:00:00 AM EST eCW1 ([facility]) Norethindrone 0.35 MG 07/01/2020 12:00:00 AM EST eCW1 ([facility]) Norethindrone 0.35 MG 07/01/2020 12:00:00 AM EST eCW1 ([facility]) valacyclovir 500 MG Oral Tablet 06/16/2020 12:00:00 AM [facility] Norethindrone 0.35 MG Oral Tablet 06/11/2020 12:00:00 AM [facility] Fluconazole 150 MG Oral Tablet 06/05/2020 12:00:00 AM [facility] Peg-BE 0.35 MG 06/05/2020 12:00:00 AM EST eCW1 ([facility]) Fluconazole 150 MG Oral Tablet 06/05/2020 12:00:00 AM EST eCW1 ([facility]) Peg-BE 0.35 MG 06/05/2020 12:00:00 AM EST eCW1 ([facility]) Fluconazole 150 MG Oral Tablet 06/05/2020 12:00:00 AM EST eCW1 ([facility]) Peg-BE 0.35 MG 06/05/2020 12:00:00 AM EST eCW1 ([facility]) Fluconazole 150 MG Oral Tablet 06/05/2020 12:00:00 AM EST eCW1 ([facility]) Fluconazole 150 MG Oral Tablet 06/05/2020 12:00:00 AM EST eCW1 ([facility]) Fluconazole 150 MG Oral Tablet 06/05/2020 12:00:00 AM EST eCW1 ([facility]) Fluconazole 150 MG Oral Tablet 06/05/2020 12:00:00 AM EST eCW1 ([facility]) Fluconazole 150 MG Oral Tablet 06/05/2020 12:00:00 AM EST eCW1 ([facility]) Fluconazole 150 MG Oral Tablet 06/05/2020 12:00:00 AM EST eCW1 ([facility]) Peg-BE 0.35 MG 06/05/2020 12:00:00 AM EST eCW1 ([facility]) OneTouch Ultra In Vitro Strip 05/30/2020 12:00:00 AM [facility] Insulin Lispro 100 UNT/ML Injectable Solution [Humalog ] 05/12/2020 12:00:00 AM [facility] valacyclovir 500 MG Oral Tablet 05/08/2020 12:00:00 AM EST eCW1 ([facility]) valacyclovir 500 MG Oral Tablet 05/08/2020 12:00:00 AM EST eCW1 ([facility]) valacyclovir 500 MG Oral Tablet 05/08/2020 12:00:00 AM EST eCW1 ([facility]) valacyclovir 500 MG Oral Tablet 05/08/2020 12:00:00 AM EST eCW1 ([facility]) valacyclovir 500 MG Oral Tablet 05/08/2020 12:00:00 AM EST eCW1 ([facility]) valacyclovir 500 MG Oral Tablet 05/08/2020 12:00:00 AM EST eCW1 ([facility]) valacyclovir 500 MG Oral Tablet 05/08[facility] valacyclovir 500 MG Oral Tablet 05/08/2020 12:00:[address] [facility] ([facility]) Dexcom G6 Transmitter 05/05/2020 12:00:00 AM [facility] Dexcom G6 Sensor 05/05/2020 12:00:00 AM [facility] Dexcom G6 Blade Grinder Device 05/05/2020 12:00:00 AM [facility] Ketostix In Vitro Strip 05/05/2020 12:00:00 AM [facility] Insulin Lispro 100 UNT/ML Injectable Solution [Humalog ] 05/05/2020 12:00:00 AM [facility] Dexcom G6 Transmitter 04/17/2020 12:00:00 AM [facility] Dexcom G6 Sensor 04/17/2020 12:00:00 AM [facility] Ibuprofen 600 MG Oral Tablet 04/09/2020 12:00:00 AM [facility] Acetaminophen 325 MG / Hydrocodone Bitartrate 5 MG Ora l Tablet [[place]] 03/27/2020 [facility] OneTouch Ultra In Vitro Strip 10/24/2019 12:00:00 AM [facility] Ketostix In Vitro Strip 10/22/2019 12:00:00 AM [facility] Insulin Lispro 100 UNT/ML Injectable Solution [Humalog ] 09/11/2019 12:00:00 AM [facility] Metronidazole 7.5 MG/ML Topical Cream 05/29/2019 12:00:00 AM [facility] doxycycline hyclate 20 MG Oral Tablet 05/29/2019 12:00:00 AM [facility] Clindamycin 10 MG/ML Topical Solution 05/10/2019 12:00:00 AM [facility] Hydrocortisone 25 MG/ML Topical Cream 05/10/2019 12:00:00 AM [facility] Ketoconazole 20 MG/ML Topical Cream 05/10/2019 12:00:00 AM [facility] Mometasone Furoate 50 MCG/ACT Nasal Suspension (NASONE X) 04/23/2019 12:00:00 AM [facility] Dexcom G6 Blade Grinder Device 03/16/2019 12:00:00 AM EST [facility] Glucagon 1 MG Injection 11/24/2017 12:00:00 AM EDT [facility] Ranitidine 150 MG Oral Tablet [facility] fluticasone (FLONASE) 50 MCG/ACT nasal spray [facility] UNABLE TO FIND [facility] Bupropion Hydrochloride 75 MG Oral Tablet [facility]
== END 2021-03-08 00:45 | disposition left against medical advice (07) ==
LOC: M ED 23:23
DX: E10.65 Type 1 diabetes mellitus with hyperglycemia (principal); Z53.9 Procedure and treatment not carried out, unspecified reason; E78.5 Hyperlipidemia, unspecified; F17.200 Nicotine dependence, unspecified, uncomplicated; J30.2 Other seasonal allergic rhinitis; Z79.4 Long term (current) use of insulin; Z79.899 Other long term (current) drug therapy; Z91.041 Radiographic dye allergy status; Z88.0 Allergy status to penicillin; Z88.5 Allergy status to narcotic agent; Z88.8 Allergy status to other drugs, medicaments and biological substances

== ENCOUNTER → 2021-06-11 | Outpatient (REF) | payer MEDICARE, MEDICAID | LOC: M SFHCWAGY 17:08 | PROVIDERS: ATTEND Obstetrics & Gynecology | DX: N93.9 Abnormal uterine and vaginal bleeding, unspecified (principal) | CPT/HCPCS: 88305; G0123 ==

== ENCOUNTER → 2021-06-11 | Outpatient (REF) | payer MEDICARE, MEDICAID | LOC: M SFHCWAGY 17:03 | PROVIDERS: ATTEND Obstetrics & Gynecology | DX: N93.9 Abnormal uterine and vaginal bleeding, unspecified (principal) ==

== ENCOUNTER → 2022-02-02 | Outpatient (CLI) | payer MEDICARE, MEDICAID ==
[~2022-02-02] MED LIST changes: -D31000TA2 PO; +VITA100093 PO
[2022-02-02 13:37] LABS: APPEARANCE, URINE MANUAL TURBID (CLEAR); COLOR, URINE MANUAL YELLOW (YELLOW); PROTEIN, URINE MANUAL 1+ mg/dL (NEGATIVE)
[2022-02-02 13:38] LABS: BILIRUBIN, URINE MANUAL NEGATIVE (NEGATIVE); GLUCOSE, URINE (UA) MANUAL NEGATIVE (NEGATIVE); KETONE, URINE MANUAL NEGATIVE (NEGATIVE); LEUKOCYTE ESTERASE, URINE MAN POSITIVE (NEGATIVE); NITRITE, URINE MANUAL POSITIVE (NEGATIVE); UROBILINOGEN, URINE MANUAL NORMAL (NORMAL)
[2022-02-02 13:39] LABS: BLOOD URINE MANUAL POSITIVE (NEGATIVE)
[2022-02-02 14:17] LABS: BACTERIA, URINE LARGE AMOUNT; WBC, URINE TNTC /hpf (0-3)
[2022-02-02 14:18] LABS: SQUAMOUS EPITHELIAL CELL URINE SMALL AMOUNT /hpf (SMALL AMT)
== END ==
LOC: M PLALAB 09:04
PROVIDERS: ATTEND Advanced Practice Midwife
DX: R30.0 Dysuria (principal)

== ENCOUNTER → 2022-03-11 | Outpatient (CLI) | payer MEDICARE, MEDICAID | LOC: M WHC 10:15 | PROVIDERS: ATTEND Physician Assistant | DX: E10.65 Type 1 diabetes mellitus with hyperglycemia (principal); E04.1 Nontoxic single thyroid nodule ==

== ENCOUNTER → 2022-03-15 | Outpatient (CLI) | payer MEDICARE, MEDICAID | LOC: M PLALAB 14:30 | PROVIDERS: ATTEND Advanced Practice Midwife | DX: R39.15 Urgency of urination (principal) ==

== ENCOUNTER → 2022-05-04 | Outpatient (REF) | payer MEDICARE, MEDICAID ==
[2022-05-04 17:52] LABS: APPEARANCE, URINE MANUAL CLEAR (CLEAR); BILIRUBIN, URINE MANUAL NEGATIVE (NEGATIVE); BLOOD URINE MANUAL NEGATIVE (NEGATIVE); COLOR, URINE MANUAL LT YELLOW (YELLOW); GLUCOSE, URINE (UA) MANUAL NEGATIVE (NEGATIVE); KETONE, URINE MANUAL NEGATIVE (NEGATIVE); LEUKOCYTE ESTERASE, URINE MAN NEGATIVE (NEGATIVE); NITRITE, URINE MANUAL NEGATIVE (NEGATIVE); PH,URINE MAN 6.5 UNITS (5.0 - 7.0); PROTEIN, URINE MANUAL NEGATIVE (NEGATIVE); SPECIFIC GRAVITY,URINE MANUAL 1.005 (1.002-1.035); UROBILINOGEN, URINE MANUAL NORMAL (NORMAL)
== END ==
LOC: M SMT 17:03
PROVIDERS: ATTEND Nurse Practitioner Women's Health
DX: N39.0 Urinary tract infection, site not specified (principal)

== ENCOUNTER → 2022-05-17 | Outpatient (CLI) | payer MEDICARE, MEDICAID | LOC: M RAD 08:12 | PROVIDERS: ATTEND Nurse Practitioner Women's Health | DX: N39.0 Urinary tract infection, site not specified (principal) ==

== ENCOUNTER → 2022-07-15 | Outpatient (CLI) | payer MEDICARE, MEDICAID ==
[2022-07-15 10:37] LABS: ALBUMIN 3.7 G/DL (3.2-5.2); ALKALINE PHOSPHATASE 80 U/L (46-116); ALT/SGPT 41 U/L (7.0-40); AST/SGOT 23 U/L (<34); BLOOD UREA NITROGEN 18 MG/DL (9-23); CALCIUM LEVEL 9.2 MG/DL (8.5-10.1); CARBON DIOXIDE LEVEL 32 MMOL/L (20-31); CHLORIDE LEVEL 104 MMOL/L (98-107); CHOLESTEROL LEVEL 237 MG/DL (<200); CHOLESTEROL RISK RATIO 2.06 (<5); CREATININE FOR GFR 0.82 MG/DL (0.55-1.30); GLOMERULAR FILTRATION RATE > 60.0 (>51); GLUCOSE, FASTING 102 MG/DL (60-100); HDL CHOLESTEROL 114.6 MG/DL (>40); LDL CHOLESTEROL 110.4 MG/DL (<100); NON-HDL-C 122.4 MG/DL; POTASSIUM SERUM 3.9 MMOL/L (3.5-5.1); SODIUM LEVEL 139 MMOL/L (136-145); TOTAL PROTEIN 6.6 G/DL (5.7-8.2); TRIGLYCERIDES LEVEL 60 MG/DL (<150)
[2022-07-15 10:40] LABS: TOTAL 25(OH) VITAMIN D 51.5 NG/ML (20.0-100.0)
== END ==
LOC: M WUC 08:08
PROVIDERS: ATTEND Physician Assistant
DX: E10.65 Type 1 diabetes mellitus with hyperglycemia (principal); Z79.899 Other long term (current) drug therapy

== ENCOUNTER → 2022-09-28 | Outpatient (REF) | payer MEDICARE, MEDICAID | LOC: M SFHCADAM 09:13 | PROVIDERS: ATTEND Family Medicine | DX: E78.2 Mixed hyperlipidemia (principal) ==

== ENCOUNTER → 2023-06-16 | Outpatient (CLI) | payer MEDICARE, MEDICAID ==
[~2023-06-16] MED LIST changes: +LORA-1041 PO; -LORA-674 PO
[2023-06-16 13:03] LABS: ALBUMIN 3.5 G/DL (3.2-5.2); ALKALINE PHOSPHATASE 110 U/L (46-116); ALT/SGPT 53 U/L (7.0-40); AST/SGOT 41 U/L (<34); BILIRUBIN,TOTAL 0.8 MG/DL (0.3-1.2); BLOOD UREA NITROGEN 16 MG/DL (9-23); CALCIUM LEVEL 9.1 MG/DL (8.5-10.1); CARBON DIOXIDE LEVEL 31 MMOL/L (20-31); CHLORIDE LEVEL 105 MMOL/L (98-107); CHOLESTEROL LEVEL 244 MG/DL (<200); CHOLESTEROL RISK RATIO 2.11 (<5); CREATININE FOR GFR 0.74 MG/DL (0.55-1.30); GLOMERULAR FILTRATION RATE > 60.0 (>51); GLUCOSE, FASTING 134 MG/DL (60-100); HDL CHOLESTEROL 115.4 MG/DL (>40); NON-HDL-C 128.6 MG/DL; POTASSIUM SERUM 4.5 MMOL/L (3.5-5.1); SODIUM LEVEL 139 MMOL/L (136-145); THYROID STIMULATING HORMONE 3.276 uIU/ML (0.55-4.78); TOTAL PROTEIN 6.6 G/DL (5.7-8.2); TRIGLYCERIDES LEVEL 68 MG/DL (<150)
[2023-06-16 13:05] LABS: TOTAL 25(OH) VITAMIN D 47.5 NG/ML (20.0-100.0)
[2023-06-16 13:21] LABS: CREATININE, URINE 98.4 MG/DL
[2023-06-16 13:22] LABS: MALB URINE SIEMENS < 3.0 MG/L
== END ==
LOC: M WUC 08:55
PROVIDERS: ATTEND Physician Assistant
DX: E10.65 Type 1 diabetes mellitus with hyperglycemia (principal); Z79.899 Other long term (current) drug therapy

== ENCOUNTER → 2023-09-13 | Outpatient (CLI) | payer MEDICARE, MEDICAID ==
[~2023-09-13] MED LIST changes: +BUPR-597 PO; -BUPR300T92 PO
[2023-09-13 14:22] LABS: ALBUMIN 3.2 G/DL (3.2-5.2); ALKALINE PHOSPHATASE 114 U/L (46-116); ALT/SGPT 35 U/L (7.0-40); AST/SGOT 18 U/L (<34); BILIRUBIN,TOTAL 0.9 MG/DL (0.3-1.2); BLOOD UREA NITROGEN 17 MG/DL (9-23); CALCIUM LEVEL 8.9 MG/DL (8.5-10.1); CARBON DIOXIDE LEVEL 30 MMOL/L (20-31); CHLORIDE LEVEL 104 MMOL/L (98-107); CHOLESTEROL LEVEL 228 MG/DL (<200); CHOLESTEROL RISK RATIO 1.83 (<5); CREATININE FOR GFR 0.78 MG/DL (0.55-1.30); GLOMERULAR FILTRATION RATE > 60.0 (>51); GLUCOSE, FASTING 120 MG/DL (60-100); HDL CHOLESTEROL 124.3 MG/DL (>40); LDL CHOLESTEROL 88.3 MG/DL (<100); NON-HDL-C 103.7 MG/DL; POTASSIUM SERUM 4.6 MMOL/L (3.5-5.1); SODIUM LEVEL 139 MMOL/L (136-145); TOTAL PROTEIN 6.5 G/DL (5.7-8.2); TRIGLYCERIDES LEVEL 77 MG/DL (<150)
== END ==
LOC: M WUC 09:50
PROVIDERS: ATTEND Physician Assistant
DX: E10.65 Type 1 diabetes mellitus with hyperglycemia (principal); E04.2 Nontoxic multinodular goiter

== ENCOUNTER → 2023-09-19 | Outpatient (CLI) | payer MEDICARE, MEDICAID | LOC: M RAD 13:17 | PROVIDERS: ATTEND Physician Assistant | DX: E10.65 Type 1 diabetes mellitus with hyperglycemia (principal); E04.2 Nontoxic multinodular goiter ==

== ENCOUNTER → 2023-11-29 | Outpatient (CLI) | payer MEDICARE, MEDICAID ==
[2023-11-29 17:31] LABS: BASO % 0.6 % (0.0-1.0); EOS # 0.2 10^3/uL (0.0-0.5); EOS % 6.2 % (0.0-3.0); HEMATOCRIT 42.2 % (36.0-47.0); LYMPH # 1.5 10^3/uL (1.5-5.0); LYMPH % 46.6 % (24.0-44.0); MEAN CORPUSCULAR HGB CONC 33.2 g/dl (32.0-36.5); MEAN CORPUSCULAR VOLUME 102.4 fl (80.0-96.0); MONO # 0.3 10^3/uL (0.0-0.8); MONO % 8.1 % (2.0-8.0); NEUTROPHILS # 1.2 10^3/uL (1.5-8.5); NEUTROPHILS % 38.5 % (36.0-66.0); PLATELET COUNT, AUTOMATED 205 10^3/uL (150-450); RED BLOOD COUNT 4.12 10^6/uL (4.00-5.40); WHITE BLOOD COUNT 3.2 10^3/uL (4.0-10.0)
[2023-11-29 17:57] LABS: C REACTIVE PROTEIN QUANTITATIV < 0.40 MG/DL (<1.0)
[2023-11-29 17:59] LABS: ALBUMIN 3.6 G/DL (3.2-5.2); ALKALINE PHOSPHATASE 140 U/L (46-116); ALT/SGPT 46 U/L (7.0-40); AST/SGOT 27 U/L (<34); BLOOD UREA NITROGEN 12 MG/DL (9-23); CALCIUM LEVEL 9.3 MG/DL (8.5-10.1); CARBON DIOXIDE LEVEL 30 MMOL/L (20-31); CHLORIDE LEVEL 104 MMOL/L (98-107); CREATININE FOR GFR 0.72 MG/DL (0.55-1.30); GLOMERULAR FILTRATION RATE > 60.0 (>51); GLUCOSE, FASTING 116 MG/DL (60-100); POTASSIUM SERUM 4.2 MMOL/L (3.5-5.1); RHEUMATOID FACTOR QUANT 6.2 IU/ML (<14); SODIUM LEVEL 140 MMOL/L (136-145); TOTAL PROTEIN 6.7 G/DL (5.7-8.2)
== END ==
LOC: M WUC 11:30
PROVIDERS: ATTEND Family Medicine
DX: M19.90 Unspecified osteoarthritis, unspecified site (principal); M79.641 Pain in right hand

== ENCOUNTER → 2023-12-02 | Outpatient (CLI) | payer MEDICARE, MEDICAID | LOC: M WHC 13:36 | PROVIDERS: ATTEND Family Medicine | DX: Z12.31 Encounter for screening mammogram for malignant neoplasm of breast (principal); Z13.820 Encounter for screening for osteoporosis; Z78.0 Asymptomatic menopausal state ==

== ENCOUNTER → 2024-06-29 | Outpatient (CLI) | payer MEDICARE, MEDICAID ==
[~2024-06-29] MED LIST changes: -CYCL5TAB PO; +CYCL5TAB4 PO; -LIDO4CRE4 TOP; +LIDO5CRE7 TOP
== END ==
LOC: M ADAMS 11:46
PROVIDERS: ATTEND Family Medicine
DX: M54.32 Sciatica, left side (principal); M25.552 Pain in left hip

== ENCOUNTER → 2024-12-27 | Outpatient (CLI) | payer MEDICARE, MEDICAID ==
[~2024-12-27] MED LIST changes: +AMMO12CR4 EX; -AMMO12CR7 EX; +ATOR1TAB19 PO; +AZEL1SPR3; -BUPR-597 PO; +BUPR-766 PO; +BUPR150T12 PO; +DICY1CAP8 PO; +EZET10TA21 PO; -GLUC1KIT SC; +GLUC1VIA14 SC; -GLUC3SPR; +GLUC3SPR5; +INSU100V7; +OMEP-173 PO; +TRAZ-257 PO
== END ==
LOC: M WUC 10:43
PROVIDERS: ATTEND Internal Medicine Gastroenterology
DX: R10.84 Generalized abdominal pain (principal)

== ENCOUNTER 2025-01-03 06:47 | Day surgery (SDC) | payer MEDICARE, MEDICAID ==
[~2025-01-03] VITALS: Ht 162.6 cm; Wt 73.9 kg
[2025-01-03 08:25] VITALS: BP 118/92; O2SAT 96
== END 2025-01-03 08:27 | disposition home or self-care (01) ==
LOC: M OPP 06:47
PROVIDERS: ATTEND Internal Medicine Gastroenterology
DX: K64.8 Other hemorrhoids (principal); Z86.0101 Personal history of adenomatous and serrated colon polyps; K21.9 Gastro-esophageal reflux disease without esophagitis; R12 Heartburn; Z88.1 Allergy status to other antibiotic agents; Z88.5 Allergy status to narcotic agent; Z88.8 Allergy status to other drugs, medicaments and biological substances; Z91.040 Latex allergy status; Z91.048 Other nonmedicinal substance allergy status; Z79.4 Long term (current) use of insulin; Z79.899 Other long term (current) drug therapy; F17.210 Nicotine dependence, cigarettes, uncomplicated

== ENCOUNTER → 2025-01-16 | Outpatient (CLI) | payer MEDICARE, MEDICAID ==
[~2025-01-16] MED LIST changes: -EZET10TA21 PO; +EZET10TA57 PO
[2025-01-16 12:43] LABS: BASO # 0.0 10^3/uL (0.0-0.2); BASO % 0.5 % (0.0-1.0); EOS # 0.2 10^3/uL (0.0-0.5); EOS % 5.4 % (0.0-3.0); LYMPH # 2.0 10^3/uL (1.5-5.0); LYMPH % 48.6 % (24.0-44.0); MONO # 0.3 10^3/uL (0.0-0.8); MONO % 7.9 % (2.0-8.0); NEUTROPHILS # 1.5 10^3/uL (1.5-8.5); NEUTROPHILS % 37.6 % (36.0-66.0); PLATELET COUNT, AUTOMATED 238 10^3/uL (150-450)
[2025-01-16 13:10] LABS: CREATININE, URINE 151.4 MG/DL; MALB URINE SIEMENS < 3.0 MG/L; TOTAL 25(OH) VITAMIN D 65.8 NG/ML (20.0-100.0)
[2025-01-16 13:12] LABS: FREE T4 1.19 NG/DL (0.89-1.76)
[2025-01-16 13:14] LABS: ALT/SGPT 31 U/L (7.0-40); AST/SGOT 18 U/L (<34); CALCIUM LEVEL 9.4 MG/DL (8.5-10.1); CARBON DIOXIDE LEVEL 31 MMOL/L (20-31); CHLORIDE LEVEL 103 MMOL/L (98-107); CHOLESTEROL LEVEL 269 MG/DL (<200); CHOLESTEROL RISK RATIO 2.57 (<5); CREATININE FOR GFR 0.90 MG/DL (0.55-1.30); GLOMERULAR FILTRATION RATE 75.5 (>51); LDL CHOLESTEROL 146.1 MG/DL (<100); NON-HDL-C 164.7 MG/DL; POTASSIUM SERUM 4.0 MMOL/L (3.5-5.1); SODIUM LEVEL 143 MMOL/L (136-145); TRIGLYCERIDES LEVEL 93 MG/DL (<150)
[2025-01-16 13:15] LABS: VITAMIN B12 LEVEL > 2000 PG/ML (211-911)
== END ==
LOC: M WUC 08:08
PROVIDERS: ATTEND Student in an Organized Health Care Education/Training Program
DX: E10.65 Type 1 diabetes mellitus with hyperglycemia (principal); E04.2 Nontoxic multinodular goiter; E53.9 Vitamin B deficiency, unspecified; Z79.4 Long term (current) use of insulin

== ENCOUNTER → 2025-03-20 | Outpatient (REF) | payer MEDICARE, MEDICAID ==
[2025-03-22 14:28] LABS: HPV APTIMA Not Detected (Not Detected)
== END ==
LOC: M PLALAB 13:13
PROVIDERS: ATTEND Obstetrics & Gynecology
DX: Z01.419 Encounter for gynecological examination (general) (routine) without abnormal findings (principal)
CPT/HCPCS: 87624; G0123

== ENCOUNTER → 2025-03-20 | Outpatient (CLI) | payer MEDICARE, MEDICAID | LOC: M WHC 13:19 | PROVIDERS: ATTEND Obstetrics & Gynecology | DX: Z12.31 Encounter for screening mammogram for malignant neoplasm of breast (principal); Z80.3 Family history of malignant neoplasm of breast; R92.333 Mammographic heterogeneous density, bilateral breasts ==